=== PATIENT | male | born 1945 | race Caucasian/White ===

== ENCOUNTER 2022-03-17 15:38 | Outpatient (CLI) | payer MEDICARE, OTHER, SELFPAY | END 2022-03-17 15:39 | disposition home or self-care (01) | LOC: RAD 15:40 | PROVIDERS: PCP Internal Medicine; Visit Provider Internal Medicine | DX: R06.09 Other forms of dyspnea (principal); I51.7 Cardiomegaly; I07.1 Rheumatic tricuspid insufficiency; R09.02 Hypoxemia | CPT/HCPCS: 93306 ==

== ENCOUNTER 2023-07-02 13:21 | Emergency (ER) | payer MEDICARE, OTHER, SELFPAY ==
--- NOTE | 2023-07-02 13:36 | CRLHL7_ITS ---
For Patients: As a result of the Century Cures Act, medical imaging exams and procedure reports are released immediately into your electronic medical record. You may view this report before your referring provider. If you have questions, please contact your health care provider. HISTORY: Right calf pain and swelling. TECHNIQUE: Venous system of right lower extremity was examined using grayscale, color and doppler techniques. Compression was assessed where able to be assessed. The contralateral left common femoral vein was also evaluated. COMPARISON: No prior. FINDINGS: The right common femoral and upper through mid aspect of the femoral vein are patent. There is occlusive DVT present within the right femoral vein more inferiorly and also noted within the right popliteal, peroneal, gastrocnemius and soleus veins. Nonocclusive thrombus is present within the right posterior tibial vein. Contralateral left common femoral vein is patent. IMPRESSION: 1. DVT within the inferior aspect of the femoral vein, popliteal, peroneal, gastrocnemius, soleus and posterior tibial veins. Preliminary report was given to Dr. Dickerson by the radiology technologist at the conclusion of image acquisition. Final report in agreement with preliminary report. Dictated by Amanuel Tapia MD @ 07/02/2023 3:17:32 PM Dictated by: Amanuel Tapia MD @ 07/02/2023 15:18:13 (Electronically Signed)
[2023-07-02 13:37] VITALS: BP 102/63; PULSE 95; RESP 24; TEMP 37; O2SAT 90; BMI 33.2
--- NOTE | 2023-07-02 16:06 | ED_ITS ---
HPI - General Adult General Chief complaint: Extremity Pain/Injury, Lower Stated complaint: [place] ref-cancer pt-R leg blood clot? Time Seen by Provider: 07/02/23 13:42 Source: patient Mode of arrival: ambulatory Limitations: no limitations History of Present Illness HPI narrative: 78-year-old male presenting today with right calf pain. It has been sore for a couple days really became hard and uncomfortable last night. He states he has also been a little bit more short of breath than usual and has been coughing for about a week. He denies any fevers or chills. No nausea or vomiting. He denies any trauma to the leg. He did just finish his chemo and radiation for esophageal cancer at [facility]. He is not on any blood thinners. He does have a history of COPD and is on chronic oxygen therapy. Related Data Home Medications Medication Instructions Recorded Confirmed albuterol sulfate 90 mcg/actuation inhalation DAILY PRN 01/02/23 02/14/23 aerosol inhaler multivitamin 1 tab PO QAM 01/02/23 02/14/23 tamsulosin 0.4 mg capsule 0.4 mg PO DAILY 01/02/23 02/14/23 umeclidinium 62.5 mcg-vilanterol 1 ea inhalation DAILY 01/02/23 02/14/23 25 mcg/actuation powdr for inhalation (Anoro Ellipta) omeprazole 20 mg capsule,delayed 20 mg PO QDAY 02/14/23 02/14/23 release olanzapine 5 mg tablet 5 mg PO QPM 07/02/23 07/02/23 Previous Rx's Medication Instructions Recorded apixaban 5 mg tablet (Eliquis) 5 mg PO BID #60 tabs 07/02/23 Allergies Allergy/AdvReac Type Severity Reaction Status Date / Time No Known Drug Allergies Allergy Verified 02/14/23 09:21 Review of Systems Status of ROS: Reports: 10 or more systems reviewed and unremarkable except as noted in History and below PFSH PFSH Medical History Former smoker ?Z87.891 - Personal history of nicotine dependence (ICD-10) Surgical History History of basal cell carcinoma (BCC) ?Z85.828 - Personal history of other malignant neoplasm of skin (ICD-10) History of tonsillectomy and adenoidectomy (1951) ?Z90.89 - Acquired absence of other organs (ICD-10) History of colonoscopy with polypectomy (01/26/17) ?Z98.890 - Other specified postprocedural states (ICD-10) ?Z86.010 - Personal history of colonic polyps (ICD-10) History of bladder cancer ?Z85.51 - Personal history of malignant neoplasm of bladder (ICD-10) Status post cervical spinal fusion (06/2003) ?Z98.1 - Arthrodesis status (ICD-10) History of blepharoplasty ?Z98.890 - Other specified postprocedural states (ICD-10) Family History Brother Prostate cancer Son Sleep apnea Daughter Migraines Reuben-Danlos syndrome Father Stroke Mother High blood pressure Migraines Brain tumor Glaucoma Social History Smoking Status: Former smoker How often do you have a drink containing alcohol: never AUDIT-C Alcohol total score: 0 Non-prescribed substance use: denies use Little interest or pleasure in doing things: not at all Feeling down, depressed, or hopeless: several days Exam Narrative: Exam Narrative: Well-nourished well-developed patient in no acute distress. Alert and oriented. Answers questions appropriately. Mood and affect are appropriate. Thoughts are goal oriented and rational. No tangential or magical thinking noted. Patient speaks in full sentences without needing to catch his breath. HEENT: Normocephalic atraumatic. Pupils are equally round reactive to light. Extraocular muscles are intact. Conjunctivae are moist without any icterus noted. Moist mucous membranes. Cardiovascular: Heart is regular rate and rhythm S1 and S2 are present without any murmurs. Lungs: Clear to auscultation bilaterally no wheezes rhonchi or rales are appreciated. Patient takes deep breaths without any discomfort. Abdomen: Soft and nontender nondistended with normal bowel sounds. Extremities: Bilateral lower extremities are without edema. Normal DP and PT pulses. Right calf mildly swollen and tender to palpation. Slightly more firm when compared to the left. Skin: Well perfused without any obvious rashes. Const: Vital Signs, click to edit/add: Vital Signs - 24 hr 07/02/23 13:37 07/02/23 17:56 Temperature 98.6 F Pulse Rate [Pulse Oximeter] 95 77 Respiratory Rate 24 18 Blood Pressure [Ri ght Upper Arm] 102/63 99/77 Pulse Oximetry 90 96 Oxygen Delivery Me thod Nasal Cannula Nasal Cannula Oxygen Flow Rate 2 Course Course ED Course: Lower extremity ultrasound was done which does show a DVT per report noted below. Given his shortness of breath and cough over the last week we also did a chest CT PE protocol: This showed Segmental and subsegmental pulmonary emboli bilaterally, not definitely associated with any right heart strain?. Discussed findings with the patient. Will start him on Eliquis. First dose given today. Vital Signs Vital signs: Initial Vital Signs Temperature 98.6 F 07/02/23 13:37 Temperature Source Temporal Artery Scan 07/02/23 13:37 Pulse Rate 95 07/02/23 13:37 Respiratory Rate 24 07/02/23 13:37 Blood Pressure 102/63 07/02/23 13:37 Blood Pressure Mean 76 07/02/23 13:37 Blood Pressure Position Sitting 07/02/23 13:37 Pulse Oximetry 90 07/02/23 13:37 Oxygen Delivery Method Nasal Cannula 07/02/23 13:37 Oxygen Flow Rate 2 07/02/23 13:37 Vital Signs Temperature 98.6 F 07/02/23 13:37 Pulse Rate 95 07/02/23 13:37 Respiratory Rate 24 07/02/23 13:37 Blood Pressure 102/63 07/02/23 13:37 Pulse Oximetry 90 07/02/23 13:37 Oxygen Delivery Method Nasal Cannula 07/02/23 13:37 Oxygen Flow Rate 2 07/02/23 13:37 Temperature 98.6 F 07/02/23 13:37 Pulse Rate 77 07/02/23 17:56 Respiratory Rate 18 07/02/23 17:56 Blood Pressure 99/77 07/02/23 17:56 Pulse Oximetry 96 07/02/23 17:56 Oxygen Delivery Method Nasal Cannula 07/02/23 17:56 Oxygen Flow Rate 2 07/02/23 13:37 Medical Decision Making MDM Narrative Medical decision making narrative: 78-year-old male sinus was treatment for esophageal cancer presenting with bilateral PE and right sided DVT. Patient will be started on Eliquis and follow up with primary care provider this week. Lab Data Lab results reviewed: Yes I reviewed the patient's lab results Labs: Lab Results 07/02/23 Range/Units 16:24 POC Creatinine 0.7 (0.6-1.3) mg/dl Imaging Data Venous US: Attestation: I have reviewed the pertinent imaging results. Radiologist's impression: Right calf pain and swelling. TECHNIQUE: Venous system of right lower extremity was examined using grayscale, color and doppler techniques. Compression was assessed where able to be assessed. The contralateral left common femoral vein was also evaluated. COMPARISON: No prior. FINDINGS: The right common femoral and upper through mid aspect of the femoral vein are patent. There is occlusive DVT present within the right femoral vein more inferiorly and also noted within the right popliteal, peroneal, gastrocnemius and soleus veins. Nonocclusive thrombus is present within the right posterior tibial vein. Contralateral left common femoral vein is patent. IMPRESSION: 1. DVT within the inferior aspect of the femoral vein, popliteal, peroneal, gastrocnemius, soleus and posterior tibial veins. CT scan - chest: Attestation: I have reviewed the pertinent imaging results. Radiologist's impression: Cough, shortness breath, DVT. COMPARISON: 02/28/2022. TECHNIQUE: CTA of the chest. 95 cc of Isovue-370 administered intravenously. At the request of the ordering physician, 3-D reconstructed images were created on an independent workstation for enhanced visualization of anatomy and pathology. FINDINGS: Small segmental and subsegmental pulmonary emboli is seen bilaterally. Main pulmonary artery is normal in size. No definite CT evidence of right heart strain. There is pulmonary emphysema and pulmonary fibrosis redemonstrated, diffusely seen within the lungs, similar to previous, with a nonspecific pattern, but potentially postinfectious. No thoracic aortic aneurysm. Coronary artery calcifications are present. Tiny hiatal hernia. Interval significant enlargement in a periceliac lymph node seen between the EG junction, the celiac artery and the adrenal gland on image 201, series 4 measuring 2.2 cm, compared with 10 mm on the previous. Somewhat nodular configuration of the liver. No splenomegaly. Adrenal glands appear unremarkable. Small cyst left kidney. The thyroid and neck base appears unremarkable. No axillary, or neck base adenopathy. Mildly prominent mediastinal and hilar lymph nodes, in the upper limits of normal, could be reactive given the fibrosis and emphysema, appears stable to actually somewhat improved from previous. ACDF changes in the lower cervical spine. No aggressive appearing osseous lesion. IMPRESSION: 1. Segmental and subsegmental pulmonary emboli bilaterally, not definitely associated with any right heart strain by CT, despite underlying significant emphysema/pulmonary fibrosis. 2. Interval significant enlargement in abnormal soft tissue nodule likely a lymph node near the EG junction, left periceliac. Consider further evaluation with CT imaging of the abdomen pelvis and/or upper endoscopy. Discharge Plan Discharge Clinical Impression: DVT (deep venous thrombosis), Pulmonary embolism Patient Disposition: Home, Self-Care Condition: Stable Additional Instructions: Start taking Eliquis as prescribed - this is a blood thinner that will prevent more clots from forming in your legs and lungs. You should follow-up with your primary care provider this coming week for a recheck. Prescriptions: New Eliquis 5 mg tablet 5 mg PO BID Qty: 60 0RF Rx Instructions: 10 mg p.o. b.i.d. for 7 days followed by 5 mg p.o. b.i.d. 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
--- NOTE | 2023-07-02 16:11 | CRLHL7_ITS ---
For Patients: As a result of the Century Cures Act, medical imaging exams and procedure reports are released immediately into your electronic medical record. You may view this report before your referring provider. If you have questions, please contact your health care provider. INDICATION: Cough, shortness breath, DVT. COMPARISON: 02/28/2022. TECHNIQUE: CTA of the chest. 95 cc of Isovue-370 administered intravenously. At the request of the ordering physician, 3-D reconstructed images were created on an independent workstation for enhanced visualization of anatomy and pathology. FINDINGS: Small segmental and subsegmental pulmonary emboli is seen bilaterally. Main pulmonary artery is normal in size. No definite CT evidence of right heart strain. There is pulmonary emphysema and pulmonary fibrosis redemonstrated, diffusely seen within the lungs, similar to previous, with a nonspecific pattern, but potentially postinfectious. No thoracic aortic aneurysm. Coronary artery calcifications are present. Tiny hiatal hernia. Interval significant enlargement in a periceliac lymph node seen between the EG junction, the celiac artery and the adrenal gland on image 201, series 4 measuring 2.2 cm, compared with 10 mm on the previous. Somewhat nodular configuration of the liver. No splenomegaly. Adrenal glands appear unremarkable. Small cyst left kidney. The thyroid and neck base appears unremarkable. No axillary, or neck base adenopathy. Mildly prominent mediastinal and hilar lymph nodes, in the upper limits of normal, could be reactive given the fibrosis and emphysema, appears stable to actually somewhat improved from previous. ACDF changes in the lower cervical spine. No aggressive appearing osseous lesion. IMPRESSION: 1. Segmental and subsegmental pulmonary emboli bilaterally, not definitely associated with any right heart strain by CT, despite underlying significant emphysema/pulmonary fibrosis. 2. Interval significant enlargement in abnormal soft tissue nodule likely a lymph node near the EG junction, left periceliac. Consider further evaluation with CT imaging of the abdomen pelvis and/or upper endoscopy. Please note that all CT scans at this facility use dose modulation, iterative reconstruction, and/or weight-based dosing when appropriate to reduce radiation dose to as low as reasonably achievable. Dictated by Jovani Zimmerman MD @ 07/02/2023 5:08:56 PM (Electronically Signed)
[2023-07-02 16:31] LABS: Creatinine, Point-of-Care* 0.7 mg/dl (0.6-1.3)
[2023-07-02 17:56] VITALS: BP 99/77; PULSE 77; RESP 18; O2SAT 96
--- NOTE | 2023-07-06 12:37 | PC.NURSE ---
[facility] received PRN IVF orders from [facility] Radiation Oncology dept for pt who recently completed chemotherapy and radiation therapy. This order is for 500 cc NS over 1 hour daily PRN from 07/07-07/09/2023. Called pt to discuss his thoughts on if/when he may need to come in as [facility] is open M-F. Rin states he likely won'd need to come in but he will call if he feels dizzy, lightheaded, run down, or has decreased urine output. RN advices pt call [facility] [place] if he needs fluids. If Monday (tomorrow) pt will ask for [facility]. If Sat/Sun, pt will ask for Med Surg. Will share orders with Med Surg. Per Rin, he will be following up with his primary oncology team in [place] on 07/10/2023.
== END 2023-07-02 19:54 | disposition home or self-care (01) ==
PROVIDERS: Emergency Provider Family Medicine; PCP Internal Medicine
DX: I82.501 Chronic embolism and thrombosis of unspecified deep veins of right lower extremity (principal); I26.99 Other pulmonary embolism without acute cor pulmonale
CPT/HCPCS: 71275; 82565; 93971; 99284; Q9967

== ENCOUNTER 2024-06-25 09:48 | Outpatient (CLI) | payer MEDICARE, OTHER, SELFPAY ==
--- OUTSIDE RECORDS SUMMARY | 2024-06-28 01:03 | XMS_ITS | Continuity of Care Document ---
Author Name [facility] Organization [facility] Care Team Providers Care Bread Stacker Name Role Phone [facility] Unavailable Unavailable Problems Combined list of problems from Department of Defense and Veterans Affairs facilities. It does not include entries that were removed or entered in error. 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 Condition [facility] Long-term current use of anticoagulant Active Condition [facility] Malignant neoplasm of esophagus Active Condition [facility] Malignant tumor of urinary bladder Active Condition [facility] 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 [facility] Obstructive sleep apnea syndrome Active Condition [facility] Sleep apnea Active Condition [facility] Diagnosis: ICD-10-CM Z79.01 halfway (current) use of anticoagulants Active Diagnosis [facility] Diagnosis: ICD-10-CM R26.89 Other abnormalities of gait and mobility Active Diagnosis [facility] Diagnosis: ICD-10-CM R53.1 Weakness Active Diagnosis [facility] Diagnosis: ICD-10-CM 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, unspecified Active Diagnosis [facility] Diagnosis: ICD-10-CM Z86.711 Personal history of pulmonary embolism Active Diagnosis [facility] Diagnosis: ICD-10-CM C15.9 Malignant neoplasm of esophagus, unspecified Active Diagnosis [facility] Medications Combined list of outpatient medications [...] AND/OR PREVENT BLOOD CLOTS ORAL ACTIVE 04/25/2025 [id number] 4 Paula BAZAN 2023 [address] [place] [facility] APIXABAN 5MG TAB TAKE ONE TABLET BY MOUTH EVERY 12 HOURS TO TREAT AND/OR PREVENT BLOOD CLOTS ORAL DISCONT INUED 11/01/2024 [id number] SUYAPA CHAVIS 2023 [address] [place] [facility] APIXABAN 5MG TAB TAKE ONE TABLET BY MOUTH EVERY 12 HOURS FOR PULMONAR Y EMBOLISM ORAL DISCONT INUED 11/22/2023 [id number] MONO RAMOS 2023 60 [facility] [...] BY MOUTH EVERY DAY ORAL ACTIVE MAXINE RAMSOCA L 2023 [facility] ONDANSETRON HCL [...] AT BEDTIME FOR PROSTATE ORAL ACTIVE 06/14/2025 [id number] RACHEL MONO L 2023 30 [facility] TAMSULOSIN HCL 0.4MG CAP TAKE ONE CAPSULE BY MOUTH AT BEDTIME FOR PROSTATE ORAL DISCONT INUED 07/13/2024 [id number] MAXINE RAMOSCA L 2022 30 [facility] TAMSULOSIN HCL 0.4MG CAP TAKE 1 CAPSULE BY MOUTH AT BEDTIME ORAL ACTIVE Mervat PUENTE 2015 [facility] Immunizations Combined list of available immunizations from the Department of Defense and Veterans Affairs facilities. Immunization Series Date Given Administered By Site Reaction Lot Number CVX Code Drug Aviation Mechanic Status Comments Source RSV, RECOMBINANT, PROTEIN SUBUNIT RSVPREF, ADJUVANT RECONSTITUTED , 0.5 ML, PF 2022 303 complet ed [facility] COVID-19 (MODERNA), MRNA, LNP-S, BIVALENT, PF, 50 MCG/0.5 ML OR 25MCG/0.25 ML DOSE 2022 229 complet ed [facility] INFLUENZA, ADJUVANTED, QUADRIVALENT, PF 2022 205 complet ed [facility] INFLUENZA VACCINE, QUADRIVALENT, ADJUVANTED 2021 205 complet ed [facility] INFLUENZA, UNSPECIFIED FORMULATION 2021 88 complet ed [facility] COVID-19 (MODERNA), MRNA, LNP-S, BIVALENT, PF, 50 MCG/0.5 ML OR 25MCG/0.25 ML DOSE 2021 229 complet ed [facility] TDAP 2021 115 complet ed [facility] COVID-19 (MODERNA), MRNA, LNP-S, PF, 100 MCG/0.5ML DOSE OR 50 MCG/0.25ML DOSE 2021 207 complet ed [facility] COVID-19 (MODERNA), MRNA, LNP-S, PF, 100 MCG/0.5ML DOSE OR 50 MCG/0.25ML DOSE 3 2020 207 complet ed [facility] INFLUENZA VACCINE, QUADRIVALENT, ADJUVANTED 2020 205 complet ed [facility] INFLUENZA, UNSPECIFIED FORMULATION 2020 88 complet ed [facility] COVID-19 (MODERNA), MRNA, LNP-S, PF, 100 MCG/0.5 ML DOSE 2 2020 207 complet ed MOD: [id number]; 1 [facility] COVID-19 (MODERNA), MRNA, LNP-S, PF, 100 MCG/0.5 ML DOSE 1 2020 207 complet ed MOD; [id number]; 1 [facility] INFLUENZA, INJECTABLE, QUADRIVALENT, PRESERVATIVE FREE 2019 150 complet ed [facility] ZOSTER RECOMBINANT 2 2019 187 complet ed [facility] ZOSTER RECOMBINANT 1 2019 187 complet ed [facility] INFLUENZA, SEASONAL, INJECTABLE 2018 141 complet ed [facility] INFLUENZA, TRIVALENT, ADJUVANTED 2018 168 complet ed [facility] INFLUENZA, HIGH DOSE SEASONAL 2017 135 complet ed [facility] PNEUMOCOCCAL POLYSACCHARID E PPV23 2017 33 complet ed [employer] lot:[id number] 12 exp: [facility] INFLUENZA, HIGH DOSE SEASONAL 2016 135 complet ed [facility] ZOSTER LIVE 2016 121 complet ed [facility] INFLUENZA, SEASONAL, INJECTABLE 2015 141 complet ed [facility] PNEUMOCOCCAL CONJUGATE PCV 13 2014 133 complet ed [facility] TD (ADULT), 2 LF TETANUS TOXOID, PRESERVATIVE FREE, ADSORBED 2013 09 complet ed [facility] INFLUENZA, UNSPECIFIED FORMULATION 2013 88 complet ed [facility]ISIO N INFLUENZA, UNSPECIFIED FORMULATION 2012 88 complet ed [facility] ZOSTER LIVE 2012 121 complet ed [facility] INFLUENZA, UNSPECIFIED FORMULATION 2011 88 complet ed [place] [facility] Oroz[facility] DIVISIO N TDAP 2010 115 complet ed [facility] PNEUMOCOCCAL POLYSACCHARID E PPV23 2009 33 complet ed [facility] Vital Signs Combined list of inpatient and outpatient Vital Signs from Department of [facility] and [facility], ranging from 12 months to all on record, depending upon the facility. Vital Sign Value Date Comments Source SYSTOLIC BLOOD PRESSURE 145 02/26/2024 10:51:31 [facility] DIASTOLIC BLOOD PRESSURE 73 02/26/2024 10:51:31 [facility] PULSE OXIMETRY 96 02/26/2024 10:51:31 S [...] DC Date Status Disposition Source [facility] Outpatient Encounter [id number] YENNI MARTÍNEZ 05/11 [facility] Outpatient Encounter [id number] Diagnos is: ICD-10- CM C15.9 Maligna nt neoplas m of esophag us, unspeci fied
Sandi RAMOS L 05/12 [facility] [place] [facility] Outpatient Encounter [id number] 05/19 [place] [facility] [place] [facility] Out[place] Encounter [id number] 06/21 [place] [facility] [place] [facility] Outpatient Encounter [id number] 07/13 [place] Outpatient Encounter [id number] 08/18 [facility] [place] [facility] Outpatient Encounter [id number] 08/30 [place] [facility] [place] [facility] Outpatient Encounter [id number] 10/20 [place] [facility] [place] [facility] Out[place] Encounter [id number] 10/23 [place] [facility] [place] [facility] Outpatient Encounter [id number] 10/23 [place] [facility] [facility] [place] [facility] QNHP OL DIG ASSMT&MGMT 21+ [id number] Diagnos is: ICD-10- CM Z86.711 Persona l history of pulmona ry embolis m
SUYAPA SALEH M 11/01 [place] [facility] [place] [facility] Out[place] Encounter [id number] 02/19 [place] [facility] [facility] OFFICE O/P EST LOW 20 MIN [id number] Diagnos is: ICD-10- CM D01.9 Carcino ma in situ of digesti ve organ, unspeci fied
Sandi RAMOSCA L 02/25 [facility] [place] [facility] Outpatient Encounter [id number] LUIS F MCMILLAN 03/22 [place] [facility] [place] [facility] Out[place] Encounter [id number] LUIS F MCMILLAN 03/22 [place] [facility] [place] [facility] Outpatient Encounter [id number] 03/23 [place] [facility] [place] [facility] Outpatient Encounter [id number] 03/26 [place] [facility] [place] [facility] SELF CARE MNGMENT TRAINING [id number] Diagnos is: ICD-10- CM R53.1 Weaknes s
MIRTHA BLOCK 04/01 [place] [facility] [place] [facility] PT EVAL LOW COMPLEX 20 MIN [id number] Diagnos is: ICD-10- CM R26.89 Other abnorma lities of gait and mobilit y
SHALOM AMTHUR 04/[address] 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
DONNY BAZAN 04/24 [place] [facility] [place] [facility] Outpatient Encounter [id number] 05/14 [place] [facility] [facility] [place] [facility] Outpatient Encounter [id number] 06/25 [place] [facility] Social History Combined list of available smoking, tobacco, and other social history from Department of Defense and Veterans Affairs facilities. Social History Type Response Date Comment [facility] e Tobacco smoking status NHIS VA-TOBACCO FORMER USER 05/11/2023 [facility] History of tobacco use VA-TOBACCO QUIT 1 5 YRS OR MORE 05/11/2023 [facility] History of tobacco use VA-TOBACCO QUIT 1 5 YRS OR MORE 05/09/2022 [facility] History of tobacco use VA-TOBACCO FORMER USER 04/23/2021 [facility] History of tobacco use VA-TOBACCO QUIT 1 5 YRS OR MORE 02/28/2020 [facility] History of tobacco use VA-TOBACCO QUIT 1 5 YRS OR MORE 03/12/2019 [facility] History of tobacco use FORMER TOBACCO US ER 7Y OR GREATER 12/21/2017 [facility] History of tobacco use FORMER TOBACCO US ER 7Y OR GREATER 02/15/2013 [facility] Plan of Care List of future care activities from Department of Veterans Affairs facilities. Additional future care activities may be listed in the Assessment and Plan section. Date/Time Care Activity Care Activity Detail Facili ty 07/03/2024 AMBULATORY - MEDICINE AMBULATORY - MEDICI NE [facility]
--- OUTSIDE RECORDS SUMMARY | 2024-06-28 01:04 | XMS_ITS | Encounter Summary ---
Author Name [facility] Organization [facility] Address [address] [place] [address] Care Team Providers Care Spice Fumigator Name Role Phone MONO RAMOS Primary Care Provider Unavail ble Insurance Providers: All historical and current Section Date Range: From patient's date of to the date document was created. This section includes the names of all active insurance providers for the patient. Insurance Provider Type of Coverage Plan Name Start of Policy Coverage End of Policy Coverage Group Number Member ID Insurance Provider's Telephone Number Policy Otero's Name Patient's Relationship to Policy Otero MEDICARE (WNR) MEDICARE (M) PART B Apr 18, 2012 PART B [id number] [phone] JUAN J RMERNIKITA PATIENT MEDICARE (WNR) MEDICARE (M) PART B Apr 18, 2012 PART B [id number] [phone] JEANNEMEISTE R,MERLE PATIENT MEDICARE (WNR) MEDICARE (M) PART B Apr 18, 2012 PART B [id number] [phone] DOMOE R,MERLE PATIENT MEDICARE (WNR) MEDICARE (M) PART B Apr 18, 2012 PART B [id number] [phone] DOMOE R,MERLE PATIENT MEDICARE (WNR) MEDICARE (M) PART A Apr 18, 2011 PART A [id number] DOMOE R,MERLE PATIENT MEDICARE (WNR) MEDICARE (M) PART A Apr 18, 2011 PART A [id number] [phone] SORENISTE RDELORIS PATIENT MEDICARE (WNR) MEDICARE (M) PART A Apr 18, 2011 PART A [id number] SORENISTE RDELORIS PATIENT MEDICARE (WNR) MEDICARE (M) PART A Apr 18, 2011 PART A [id number] [phone] SORENISTE R,DELORIS PATIENT [employer] [place] [employer] PLAN F MEDIC ARE SUPPL EMENT Apr 18, 2012 PLAN F [id number] SORENISTE RDELORIS PATIENT [employer] [place] MEDICARE SUPPLEMEN [place] MEDIC ARE SUPPL EMENT Apr 18, 2012 PLAN F [id number] [phone] [id number] DOMOE RDELORIS PATIENT Selected Encounter This section includes the information on record at [place] for the Encounter. Date/Time Encounter Type Encounter Description Reason Pro vider Source Jun 25, 2024 01:19 PM Outpatient Encounter TELEPHONE/GERIATRICS IHE Encounter Template Text not used by [place] Plan of Treatment: Future Appointments (+ 6 months) and Future Tests (+/- 45 days) The Plan of Treatment section includes future care activities for the patient from all [place] treatmentfacilities. This section includes future appointments and future orders which are active, pending or scheduled. Future Appointments This section includes appointments that were scheduled to occur 6 months from the date of the Encounter, up to a maximum of 20 appointments. The data comes from all [place] treatment facilities. Appointment Date/Time Appointment Type Appointme nt Facility Name Jul 03, 2024 09:30 AM AMBULATORY - MEDICINE [facility] Social History: Smoking Status (Most current) and Tobacco Use (All prior to encounter date) This section includes the most current, and the historical, smoking and tobacco- related health factors from the [facility] where the [facility]. Current Smoking Status This section includes the most current smoking, or tobacco-related health factor, from the [facility] facility where the Encounter took place. Date/Time Current Smoking Status Kelton velasquez May 11, 2023 04:39 PM VA-TOBACCO FORMER USER [facility] Tobacco Use History This section includes a history of the smoking, or tobacco-related health factors, that were collected on or before the date of the Encounter. The data comes from the [facility] facility where the Encounter took place. Date/Time Smoking Status/Tobacco Use Comment F acility May 11, 2023 04:39 PM VA-TOBACCO QUIT 15 YRS OR MORE [facility] Encounter Notes: All associated encounter notes This section contains the clinical notes associated to the Encounter. Date/Time Encounter Note(s) Provider Source Jun 25, 2024 01:19 PM PALLIATIVE CARE NO TE: LOCAL TITLE: HOSPICE VERIFICATION NOTE STANDARD TITLE: PALLIATIVE CARE NOTE DATE OF NOTE: JUN 25, 2024@13:19 ENTRY DATE: JUN 25, 2024@13:20:01 AUTHOR: BARB TYSON EXP COSIGNER: URGENCY: STATUS: COMPLETED Hospice Verification Note Hospice agency and contact number: 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 /elza/ Barb Tyson RN, BSN Hospice Community Health Coordinator Signed: 06/25/2024 13:23 Receipt Acknowledged By: 06/25/2024 13:59 /elza/ MONO RAMOS PHYSICIAN [facility]
--- OUTSIDE RECORDS SUMMARY | 2024-06-28 01:04 | XMS_ITS | Clinical Summary ---
Author Organization [facility] Address [address] [place] [address] Care Team Providers Care Hand Carver Name Role Phone Elsewhere, Pcp Primary Care Provider Unavailabl e Source Comments Patient records contain information from all sites at [facility]. For routine questions regarding patient records, call [phone] during business hours, M-F 8:00 AM - 5:00 PM Central Time. Record requests for emergency care only can be directed to [phone] at any time.[facility] Allergies No known active allergies Medications Medication [...] WHEEZING OR SHORTNESS OF BREATH. USE WITH SUBWAY TRAIN OPERATOR TUBE. 18 g 11 07/27/2023 07/26/20 24 Active Eliquis 5 mg tablet Take 5 mg by mouth 2 (two) times a day. 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 Pleurx Catheter 06/10/2024 5:18 PM CDT - 06/10/2024 6:44 PM CDT Surgery [facility] [address] [place] [phone] Greg Ramirez M.D. PLACEMENT TUNNELED PLEURAL CATHETER WITH PLEUROSCOPY 06/10/2024 5:13 PM CDT Anesthesia Event [facility] [address] [place] [phone] Kalpesh Mckenzie, MINESH, DARIA, Lanie Orellana M.D. 06/10/2024 4:25 PM CDT Ancillary Procedure Department of Pulmonary and CC Medicine 06/10/2024 3:45 PM CDT Ancillary Procedure Department of General Surgery 06/10/2024 11:56 AM CDT - 06/10/2024 10:03 PM CDT Hospital Encounter [facility] [address] [place] [phone] Greg Ramirez M.D. Discharge Disposition: Home or Self Care 06/07/2024 5:45 PM CDT Infusion Department of Infusion Therapy in [place], [place] [address] [place] [phone] Elena Salas M.D. 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 Malignant Neoplasm Of Gastroesophageal Junction (HCC) (Primary Dx); Effusion Pleural; Anemia In Chronic Kidney Disease 06/07/2024 2:00 PM CDT Education Division of Pulmonary Medicine in [place], [place] [address] [place] [phone] Elena Salas M.D. McDonald, Charles W, R.N. Effusion Pleural (Primary Dx) 06/07/2024 1:50 PM CDT Ancillary Procedure Department of Pulmonary and CC Medicine 06/07/2024 1:12 PM CDT - 06/07/2024 3:34 PM CDT Hospital Encounter Division of Pulmonary Medicine in [place], [place] [address] [place] [phone] Elena Salas M.D. Effusion Pleural (Primary Dx); Personal History Of Malignant Neoplasm Of Bladder; Anemia In Chronic Kidney Disease; Malignant Neoplasm Of Gastroesophageal Junction (HCC) Discharge Disposition: Home or Self Care 06/07/2024 10:57 AM CDT - 06/07/2024 1:11 PM CDT Hospital Encounter Department of Radiology, [facility] in [place], [place] [address] [place] [phone] Kuldeep Ruth M.D. Personal History Of Malignant Neoplasm Of Bladder Discharge Disposition: Home or Self Care 06/07/2024 Orders Only Division of Pulmonary Medicine in [place], [place] [address] [place] [phone] Elena Salas M.D. Effusion Pleural (Primary Dx); Secondary Malignant Neoplasm Bone (HCC); Anemia In Neoplastic Disease; Malignant Neoplasm Of Gastroesophageal Junction (HCC) 06/06/2024 Orders Only Division of Pulmonary Medicine in [place], [place] [address] [place] [phone] Kuldeep Ruth M.D. Personal History Of Malignant Neoplasm Of Bladder (Primary Dx) 05/21/2024 Orders Only Division of Pulmonary Medicine in [place], [place] [address] [place] [phone] Edgardo Joy D.O. Fibrosis Pulmonary (HCC) (Primary Dx); Emphysema (HCC) 05/16/2024 10:15 AM CDT Telemedicine Department of Palliative Care in [place], [place] [address] [place] [phone] Evonne Garcia APRN, C.N.P., D.N.P. Malignant Neoplasm Of Gastroesophageal Junction (HCC); Secondary Malignant Neoplasm Bone (HCC); Pain Cancer Associated; Palliative Care; Emphysema (HCC); Dyspnea; Advanced Care Planning 05/10/2024 Clinical Communication Department of Palliative Care in [place], [place] [address] [place] [phone] Hannah Alcantara M.D. 05/08/2024 8:31 AM CDT - 05/08/2024 11:59 PM CDT Hospital Encounter Department of Radiation Oncology in [address] [phone] Dread Doyle M.D. Discharge Disposition: Home or Self Care 05/08/2024 8:10 AM CDT - 05/22/2024 5:04 PM CDT Hospital Encounter Department of Radiation Oncology in [address] [phone] Dread Doyle M.D. Secondary Malignant Neoplasm Bone (HCC) 05/08/2024 Documentation Department of Radiation Oncology in [address] [phone] Dread Doyle M.D. 05/07/2024 10:08 AM CDT - 05/07/2024 11:59 PM CDT Hospital Encounter Department of Radiation Oncology in [address] [phone] Dread Doyle M.D. Discharge Disposition: Home or Self Care 05/06/2024 8:57 AM CDT - 05/06/2024 11:59 PM CDT Hospital Encounter Department of Radiation Oncology in [address] [phone] Dread Doyle M.D. Discharge Disposition: Home or Self Care 05/03/2024 3:00 PM CDT Telemedicine Division of Pulmonary Medicine in [address] [phone] Edgardo Joy D.OJam Dyspnea On Exertion; Fibrosis Pulmonary (HCC); Emphysema (HCC) 05/03/2024 1:38 PM CDT - 05/03/2024 11:59 PM CDT Hospital Encounter Department of Radiation Oncology in [address] [phone] Dread Doyle M.D. Discharge Disposition: Home or Self Care 05/03/2024 7:29 AM CDT - 05/03/2024 8:20 AM CDT Hospital Encounter Department of Radiology, [facility], in [place], [place] [address] [place] [phone] Merly Beavers APRN C.N.P., M.S. Secondary Malignant Neoplasm Bone (HCC); Malignant Neoplasm Of Gastroesophageal Junction (HCC); Effusion Pleural Discharge Disposition: Home or Self Care 05/02/2024 2:00 PM CDT Comprehensive Visit Department of Palliative Care in [place], [place] [address] [place] [phone] Hannah Alcantara M.D. Melba Hodge RMabel., CHPN Malignant Neoplasm Of Gastroesophageal Junction (HCC); Secondary Malignant Neoplasm Bone (HCC) 05/02/2024 10:28 AM CDT - 05/02/2024 11:59 PM CDT Hospital Encounter Department of Radiation Oncology in [address] [phone] Dread Doyle M.D. Discharge Disposition: Home or Self Care 05/02/2024 9:43 AM CDT - 05/06/2024 2:20 PM CDT Hospital Encounter Department of Radiation Oncology in [address] [phone] Dread Doyle M.D. Secondary Malignant Neoplasm Bone (HCC) 05/02/2024 Orders Only Department of Oncology in [address] [phone] Luzma Howell M.D. Diarrhea (Primary Dx) 05/01/2024 Clinical Communication [facility]ST [facility] Maritza Preciado, M.S.W., L.I.C.S.W. 04/30/2024 4:15 PM CDT Infusion Department of Infusion Therapy in [place], [place] [address] [place] [phone] Luzma Howell M.D. Malignant Neoplasm Of Gastroesophageal Junction (HCC) (Primary Dx); Secondary Malignant Neoplasm Bone (HCC) 04/30/2024 2:20 PM CDT Lab Department of Infusion Therapy in [place], [place] [address] [place] [phone] Luzma Howell M.D. Malignant Neoplasm Of Gastroesophageal Junction (HCC) (Primary Dx) 04/30/2024 1:00 PM CDT Office Visit Department of Oncology in [place], [place] [address] [place] [phone] Luzma Howell M.D. 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 Malignant Neoplasm Of Gastroesophageal Junction (HCC) (Primary Dx) 04/30/2024 Orders Only Department of Oncology in [address] [phone] Luzma Howell M.D. Malignant Neoplasm Of Gastroesophageal Junction (HCC) (Primary Dx) 04/30/2024 Orders Only Department of Oncology in [address] [phone] Merly Beavers APRN, C.N.P., M.S. 04/22/2024 1:32 PM CDT - 04/22/2024 11:59 PM CDT Hospital Encounter Department of Radiation Oncology in [address] [phone] Kuldeep Ritchie M.D. Secondary Malignant Neoplasm Bone (HCC) Discharge Disposition: Home or Self Care 04/22/2024 9:57 AM CDT - 05/13/2024 10:44 PM CDT Hospital Encounter Department of Radiation Oncology in [address] [phone] Kuldeep iRtchie M.D. Secondary Malignant Neoplasm Bone (HCC) (Primary Dx); Malignant Neoplasm Of Gastroesophageal Junction (HCC) 04/22/2024 8:52 AM CDT - 04/22/2024 9:56 AM CDT Hospital Encounter Department of Radiology, [facility], in [place], [place] [address] [place] [address] Merly Beavers APRN, C.N.P., M.S. Malignant Neoplasm Of Gastroesophageal Junction (HCC); Secondary Malignant Neoplasm Bone (HCC) Discharge Disposition: Home or Self Care 04/22/2024 Orders Only Department of Oncology in [place], [place] [address] [place] [phone] Merly Beavers APRN C.N.P., M.S. Secondary Malignant Neoplasm Bone (HCC) (Primary Dx); Malignant Neoplasm Of Gastroesophageal Junction (HCC); Effusion Pleural 04/22/2024 Orders Only Department of Radiation Oncology in [place], [place] [address] [place] [phone] Kuldeep Ritchie M.D. Secondary Malignant Neoplasm Bone (HCC) (Primary Dx) 04/19/2024 9:42 AM CDT - 04/19/2024 11:59 PM CDT [facility] [place], [place] [address] [place] [address] Merly Beavers APRN C.N.P., M.S. Malignant Neoplasm Of Gastroesophageal Junction (HCC); Secondary Malignant Neoplasm Bone (HCC) Discharge Disposition: Home or Self Care 04/19/2024 Orders Only Department of Radiation Oncology in [place], [place] [address] [place] [phone] Kuldeep Ritchie M.D. Secondary Malignant Neoplasm Bone (HCC) (Primary Dx) 04/17/2024 7:00 AM CDT Infusion Department of Oncology in [place], [place] [address] [place] [phone] Luzma Howell M.D. Malignant Neoplasm Of Gastroesophageal Junction (HCC) (Primary Dx); Secondary Malignant Neoplasm Bone (HCC) 04/16/2024 2:00 PM CDT Office Visit Department of Oncology in [place], [place] [address] [place] [address] Merly Beavers APRN, C.N.P., M.S. Malignant Neoplasm Of Gastroesophageal Junction (HCC); Secondary Malignant Neoplasm Bone (HCC) 04/16/2024 11:00 AM CDT Lab Department of Oncology in [place], [place] [address] [place] [phone] Luzma Howell M.D. Malignant Neoplasm Of Gastroesophageal Junction (HCC) (Primary Dx) 04/16/2024 Orders Only Division of Pulmonary Medicine in [place], [place] [address] [place] [phone] Edgardo Joy D.OJam Dyspnea On Exertion (Primary Dx); Fibrosis Pulmonary (HCC); Emphysema (HCC) 04/16/2024 Clinical Communication Division of Pulmonary Medicine in [place], [place] [address] [place] [phone] Edgardo Joy D.O. 04/11/2024 3:00 PM CDT Office Visit Department of Oncology in [place], [place] [address] [place] [phone] Luzma Howell M.D. Malignant Neoplasm Of Gastroesophageal Junction (HCC) (Primary Dx); Chronic Respiratory Failure With Hypoxia (HCC) 04/11/2024 2:00 PM CDT Lab Department of Infusion Therapy in [place], [place] [address] [place] [phone] Paddy Jha P.A.-C., M.S. Malignant Neoplasm Of Gastroesophageal Junction (HCC) (Primary Dx) 04/11/2024 1:00 PM CDT Diagnostic Division of Pulmonary Medicine in [place], [place] [address] [place] [phone] Edgardo Joy D.OJam Fibrosis Pulmonary (HCC); Chronic Cough 04/05/2024 12:00 PM CDT Office Visit Division of Pulmonary Medicine in [place], [place] [address] [place] [phone] Edgardo Joy D.OJam Chronic Cough (Primary Dx); Fibrosis Pulmonary (HCC) 04/05/2024 10:30 AM CDT Diagnostic Division of Pulmonary Medicine in [place], [place] [address] [place] [phone] Edgardo Joy D.O. Fibrosis Pulmonary (HCC) 04/05/2024 Clinical Communication Division of Pulmonary Medicine in [place], [place] [address] [place] [phone] Edgardo Joy D.O. TIRSO 04/05/2024 Clinical Communication Division of Pulmonary Medicine in [place], [place] [address] [place] [phone] Edgardo Joy D.O. 04/05/2024 Clinical Communication Division of Pulmonary Medicine in [place], [place] [address] [place] [phone] Edgardo Joy D.O. 04/03/2024 10:30 AM CDT Clinical Communication Virtual Review in [place], [place] [address] [place] [address] Pre-visit Intake from Last 3 Months Immunizations Name Administration Dates Next Due SARS-COV-2 (COVID-19) - MODERNA(Discontinued) ,10/31/2020 Family History Medical History Relation Name Comments Prostate cancer Brother Amador Prostate rem kashif 2015 Sleep apnea Child Son Genetic disease Daughter Bess Reuben-danlo s-syndromes Migraines Daughter Bess Stroke Father Tray Cho Stroke , di ed 3 days later Hypertension Mother Daniel Cho Migraines Mother Daniel Cho Other cancer Mother [...] pur e alcohol) drink on special occasions [facility] Utilities Answer Date Recorded In the past [...] week 01/27/2023 How often do you attend [facility] or bapt[facility] services? More than 4 [...] Not very hard 01/27/2023 [facility] [place] [facility] - [...] your living situation today? I have a [facility] place to live 03/31/2024 Education Answer [...] this topic Medical Devices Implanted Type Area Acid Pump Operator Device Identifier Shelf Expiration Date Model / Serial / Lot Hardware E.G. Pins/Screws/R ods Hardware e.g. pins/screws/effie s Neck Description:Vertebra 4 5 and 6 Prt Cath Infus Mri Intrmd 8f - [id number] Implanted:Qty : 1 on 12/05/2023 by Nomi Cowart M.D. at [facility] Implantable [place] [employer] 06/17/2025 [id number] / / [id number] Procedures Procedure Name Priority Date/Time Associated Diagnosis Comments ADULT OXYGEN THERAPY Routine 06/10/2024 6:50 PM CDT DX CHEST 1 VIEW RAD - Routine (most inpatients and all outpatients) 06/10/2024 6:40 PM CDT PLACEMENT TUNNELED PLEURAL CATHETER 06/10/2024 4:53 PM CDT Effusion Pleural Case Notes Plant Associate 1200 PULMONARY AND CC MEDICINE IMAGE EXAM [...] TREATMENT INFORMATION Routine 05/08/2024 9:19 AM CDT [facility] DAILY TREATMENT INFORMATION Routine 05/08/2024 9:19 AM CDT [facility] DAILY TREATMENT INFORMATION Routine 05/07/2024 10:23 AM CDT [facility] DAILY TREATMENT INFORMATION Routine 05/06/2024 9:18 AM [...] Diarrhea 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 LAB BLOOD ADD-ON [facility] [address] [place] [address], [facility] STMA [facility] [address] [place] [address] * Transfuse Red Blood Cells : (06/07/2024 11:29 PM CDT) Only the most recent of4 resultswithin the time period is included. Elena Salas M.D. BLOOD TRANSFUSION OR DERABLES * Type and Screen (with Reflex Antibody ID) (06/07/2024 3:14 PM CDT) Only the most recent of2 resultswithin the time period is included. ABORh O Pos Not applicable 06/07/2024 4:06 PM CDT ETRM Antibody Screen Negative Negative 06/07/2024 4:11 PM CDT ETRM Type & Screen Expiration 06/10/2024 23:59 06/07/2024 4:06 PM CDT ETRM Testing Location [place] DEFAULT 06/07/2024 3:29 PM CDT ETRM Blood (Blood, Venous) 06/07/2024 3:14 PM CDT 06/07/2024 3:29 PM CDT Elena Salas M.D. LAB BLOOD BANK TEST ORDERABLES Performing Organization Address [facility]/ZIP Co de Phone Number [facility] [address] [place] [address], [facility] ETRM [facility] [address] [place] [address] * DX Chest AP or PA and [...] M.D. IMG DIAGNOSTIC IMAG ING PROCEDURES * [facility] Course Complete Treatment Information (05/08/2024 9:19 AM [...] Elapsed Days 6 MARSH ARIA Reference Point [id number] LHumeru MARSH ARIA Dosage Given to Date cGy 1999 MARSH ARIA Plan ID [id number]: 1 MARSH ARIA Fractions Treated to Date 5 MARSH ARIA Planned Total Fractions 5 MARSH ARIA Prescribed Dose Per Fraction 400 MARSH ARIA Prescription Dose in cGy 1999 MARSH ARIA Predecessor Plan [id number] MARSH ARIA Plan Primary Reference Point [id number] LHumeru MARSH ARIA 05/08/2024 9:19 AM CDT Provider Not In System RADIATION ONCOLOG Y ORDERABLES [facility] * Aria Daily Treatment Information (05/08/2024 9:19 AM CDT) Only the most recent of5 resultswithin the time period is included. Course ID [id number] MARSH ARIA Course Start Date 04/19/2024 15:21 CDT MARSH ARIA First Treatment Date 05/02/2024 10:51 CDT MARSH ARIA Last Treatment Date 05/08/2024 09:19 CDT MARSH ARIA Treatment Elapsed Days 6 MARSH ARIA Reference Point [id number] LHumeru MARSH ARIA Dosage Given to Date cGy 2000 MARSH ARIA Session Dosage Given 400 MARSH ARIA Plan ID [id number]: 1 MARSH ARIA Fractions Treated to Date 5 MARSH ARIA Planned Total Fractions 5 MARSH ARIA Prescribed Dose Per Fraction 400 MARSH ARIA Prescription Dose in cGy 2000 MARSH ARIA Predecessor Plan [id number] MARSH ARIA Plan Primary Reference Point [id number] LHumeru MARSH ARIA 05/08/2024 9:19 AM CDT [...] This assay is performed using the FDA-cleared [employer] GI Panel ([employer] Semi-Urgent This is a semi-urgen t result(BENÍTEZ) [facility] Stool (Stool) 05/02/2024 1:0 2 PM CDT 05/02/2024 1:36 PM CDT Luzma Howell M.D. LAB MICROBIOLOGY - G ENERAL ORDERABLES [facility] [address] [place] [address], [facility] DTL [address] [facility] [address] [place] [address] * (ABNORMAL) CBC with Differential, Blood (04/30/2024 [...] Arias OCONNOR BLOOD ADD-ON Performing Organization Address [facility] Co de Phone Number [facility] [address] 200 [place] [address] * Bilirubin, Direct (04/30/2024 6:54 AM CDT) Only the most recent of2 resultswithin the time period is included. Bilirubin, Direct, S <0.2 0.0 - 0.3 mg/dL 04/30/2024 8:01 AM CDT DTL Blood (Blood, Venous) 04/30/2024 6:54 AM CDT 04/30/2024 7:42 AM CDT Merly Beavers APRN, C.N.P., M.S. BLESSING Longo BLOOD ADD-ON Performing Organization Address [facility] Co de Phone Number [facility] [address] [place], [place] [id number] [place] [address] 200 [place] [address] * (ABNORMAL) Comprehensive Metabolic Panel (04/30/2024 6:54 [...] APRN C.N.P., M.S. LA B BLOOD ADD-ON [facility] [address] [place] [address], [facility] DTL [facility] [address] [place] [address] * Initial Rad Onc Treatment Planning CT [...] CDT 04/11/2024 2:18 PM CDT Paddy Jha P.A.-C. MJamSJam LAB BLOOD A DD-ON Performing Organization Address [facility] de Phone Number [facility] [address] [place] [address], [place] DTL [facility] [address] [place] [address] [facility] [address] [place] [address] * PUL Home Overnight Oximetry (04/11/2024) 04/11/2024 Impressions [place] NED LOVING - 04/12/2024 3:50 PM CDT Despite supplemental oxygen, there is persistence of baseline and positional gas exchange abnormality. Physician: Stan Romero M.D. [id number] Narrative Procedure Note Stan Romero M.D. - 04/12/2024 IMPRESSION: Despite supplemental oxygen, there is persistence of baseline andpositional gas exchange abnormality. Physician: Stan Romero M.D. [id number] Edgardo Joy D.O. PFT ORDERABLES Performing Organization Address [facility] de Phone Number [facility] * Oxygen Titration (04/05/2024 11:03 AM [...] Joy D.O. PFT ORDERABLES MMODAL NA * CT Abdomen Pelvis with IV Contrast [...] Advance Directives For more information, please contact: [phone] Documents on File Type Date Recorded Patient Management Professionals Expl anation Advance Directives 05/02/2024 4:04 PM [...] Communication Luz Cho Spouse Health Care Agent [email or web address] Alaina Chang Daughter First Alternate Health Care Agent Care Teams Hand Carver Relationship Specialty Start Date End Date Elsewhere, Pcp PCP - General Internal Medicine 03/23/24
--- OUTSIDE RECORDS SUMMARY | 2024-06-28 01:05 | XMS_ITS ---
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 Hazardous Material Technician Current Drug Therapy, Chemotherapy Dehydration 07/05/2023 Dehydration 06/16/2023 Reaction Drug Adverse Initial 05/29/2023 Other Hazardous Material Technician Current Drug Therapy 05/08/2023 Abnormal Findings On [...] Treated Prescribed Fraction Dose Prescribed Total Dose [id number]: 1 05/08/2024 6 5 of 5 400 cGy 2,000 cGy [id number] 06/30/2023 32 25 of 25 200 cGy 5,000 c Gy Reference Point Last Treated On Elapsed Days Session Dose Total Dose [id number] LHumeru 05/08/2024 6 400 cGy 2,000 cG y [id number] 06/30/2023 32 169 cGy 5,000 cGy Lifetime Dose Tracking * Chemical Lifetime Dose Automatic Entry Manual Entr y Radiation 14.04 mGy 14.04 mGy 0 mGy Fluoro Time 1.22 minutes 1.22 minutes 0 minutes DAP (uGy-m2) 435.94 uGy-m2 435.94 uGy-m2 0 uGy-m2
--- OUTSIDE RECORDS SUMMARY | 2024-06-28 01:05 | XMS_ITS ---
Author Organization [facility] Address [address] [place] [address] Care Team Providers Care Kitchen Lead Name Role Phone Unavailable Unavailable Unavailable Surgery Details Not on file Complications Check Surgery Details section. Procedure Estimated Blood Loss Check Surgery Details section. Procedure Findings Check Surgery Details section. Procedure Specimens Taken Check Surgery Details section.
--- OUTSIDE RECORDS SUMMARY | 2024-06-28 01:05 | XMS_ITS | Encounter Summary ---
Author Organization [facility] Address [address] [place] [address] Care Team Providers Care Rn Team Leader Name Role Phone Elsewhere, Pcp Primary Care Provider Unavailabl e Reason for Visit * Reason Onset Date Comments Pleurx Catheter 06/11/2024 Encounter Details Date Type Department Care Team (Latest Contact Info) Description 06/11/2024 Clinical Communication Division of Pulmonary Medicine in [place], [place] [address] [place] [address] Greg Ramirez M.D. [address] [place] [address] Pleurx Catheter Social History Tobacco Use Types Packs/Day Years Used Date Smoking Tobacco: Former Cigarettes 2.5 30.1 0 09/18/1965 - 11/01/1995 Passive Smoke Exposure: Never Smokeless Tobacco: Never Alcohol Use Standard Drinks/Week Comments Not Currently 1 (1 standard drink = 0.6 oz pur e alcohol) drink on special occasions [facility] Utilities Answer Date Recorded In the [...] How often do you attend chur or mosque services? More than 4 times per year 01/27/2023 Do you belong to any clubs o r organizations such as protestant groups, unions, fraternal or athletic groups, or [...] care, and heating? Not very hard 01/27/2023 [facility] of Occupat ional Health - Occupational Stress [...] your living situation today? I have a [facility] place to live 03/31/2024 Education Answer Date [...] pleural catheter with pleuroscopy. Caller: Lynda from [facility] [phone] Message: [facility] is taking over patient's care. Lynda called to speak to someone about managing Pleurx catheter. Request: Can someone call Lynda about his catheter questions? Thank you, [id number] documented in this encounter Plan of Treatment Not on file documented as of this encounter Visit Diagnoses Not on filedocumented in this encounter Care Teams Rn Team Leader Relationship Specialty Start Date End Date Elsewhere, Pcp PCP - General Internal Medicine 03/23/24 documented as of this encounter
--- OUTSIDE RECORDS SUMMARY | 2024-06-28 01:05 | XMS_ITS | Encounter Summary ---
Author Organization [facility] Address [address] [place] [address] Care Team Providers Care Qa Software Tester Name Role Phone Elsewhere, Pcp Primary Care [...] [facility] Utilities Answer Date Recorded In the past 12 months has e nGame, gas, oil, or water [employer] threatened to shut off services in your [...] your living situation today? I have a [facility] place to live 03/31/2024 Education Answer Date [...] on filedocumented in this encounter Care Teams Qa Software Tester Relationship Specialty Start Date End Date Elsewhere, Pcp PCP - General Internal Medicine 03/23/24 documented as of this encounter
--- OUTSIDE RECORDS SUMMARY | 2024-06-28 01:05 | XMS_ITS | Encounter Summary ---
Author Organization [facility] Address [address] [place] [address] Care Team Providers Care Information Technology Advisor Name Role Phone Elsewhere, Pcp Primary Care [...] pur e alcohol) drink on special occasions [facility] Utilities Answer Date Recorded In the past 12 months has [employer], gas, oil, or water [employer] threatened to shut off services in your [...] How often do you attend chur or episcopalian services? More than 4 times per year 01/27/2023 Do you belong to any clubs o r organizations such as zoroastrian groups, unions, fraternal or athletic groups, or [...] care, and heating? Not very hard 01/27/2023 [facility] of Occupat ional Health - Occupational [...] your living situation today? I have a [facility] place to live 03/31/2024 Education Answer Date [...] on filedocumented in this encounter Care Teams Information Technology Advisor Relationship Specialty Start Date End Date Elsewhere, Pcp PCP - General Internal Medicine 03/23/24 documented as of this encounter
--- OUTSIDE RECORDS SUMMARY | 2024-06-28 01:05 | XMS_ITS | Referral Summary ---
Author Organization [facility] Address [address] [place] [address] Care Team Providers Care Chef'S Assistant Name Role Phone Elsewhere, Pcp Primary Care Provider Unavailabl e Source Comments Patient records contain information from all sites at [facility]. For routine questions regarding patient records, call [phone] during business hours, M-F 8:00 AM - 5:00 PM Central Time. Record requests for emergency care only can be directed to [phone] at any time.[facility] Encounters Date Type Department Care Team Description 06/11/2024 Clinical Communication Division of Pulmonary Medicine in [place], [place] [address] [place] [address] Greg Ramirez M.D. Pleurx Catheter 06/10/2024 3:45 PM CDT Ancillary Procedure Department of General Surgery 06/10/2024 4:25 PM CDT Ancillary Procedure Department of Pulmonary and CC Medicine 06/10/2024 5:13 PM CDT Anesthesia Event [facility] [address] [place] [phone] Kalpesh Mckenzie APRN, DARIA, Lanie Orellana M.D. 06/10/2024 5:18 PM CDT - 06/10/2024 6:44 PM CDT Surgery [facility] [address] [place] [phone] Greg Ramirez M.D. PLACEMENT TUNNELED PLEURAL CATHETER WITH PLEUROSCOPY 06/10/2024 11:56 AM CDT - 06/10/2024 10:03 PM CDT Hospital Encounter [facility] [address] [place] [phone] Greg Ramirez M.D. Discharge Disposition: Home or Self Care 06/07/2024 5:45 PM CDT Infusion Department of Infusion Therapy in [place], [place] [address] [place] [phone] Elena Salas M.D. 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 Malignant Neoplasm Of Gastroesophageal Junction (HCC) (Primary Dx); Effusion Pleural; Anemia In Chronic Kidney Disease 06/07/2024 1:50 PM CDT Ancillary Procedure Department of Pulmonary and CC Medicine 06/07/2024 Orders Only Division of Pulmonary Medicine in [place], [place] [address] [place] [phone] Elena Salas M.D. Effusion Pleural (Primary Dx); Secondary Malignant Neoplasm Bone (HCC); Anemia In Neoplastic Disease; Malignant Neoplasm Of Gastroesophageal Junction (HCC) 06/07/2024 2:00 PM CDT Education Division of Pulmonary Medicine in [place], [place] [address] [place] [phone] Elena Salas M.D. McDonald, Charles W, R.N. Effusion Pleural (Primary Dx) 06/07/2024 1:12 PM CDT - 06/07/2024 3:34 PM CDT Hospital Encounter Division of Pulmonary Medicine in [place], [place] [address] [place] [phone] Elena Salas M.D. Effusion Pleural (Primary Dx); Personal History Of Malignant Neoplasm Of Bladder; Anemia In Chronic Kidney Disease; Malignant Neoplasm Of Gastroesophageal Junction (HCC) Discharge Disposition: Home or Self Care 06/07/2024 10:57 AM CDT - 06/07/2024 1:11 PM CDT Hospital Encounter Department of Radiology, [facility], in [place], [place] [address] [place] [phone] Kuldeep Ruth M.D. Personal History Of Malignant Neoplasm Of Bladder Discharge Disposition: Home or Self Care 06/06/2024 Orders Only Division of Pulmonary Medicine in [place], [place] [address] [place] [phone] Kuldeep Ruth M.D. Personal History Of Malignant Neoplasm Of Bladder (Primary Dx) 05/08/2024 8:10 AM CDT - 05/22/2024 5:04 PM CDT Hospital Encounter Department of Radiation Oncology in [place], [place] [address] [place] [address] Dread Doyle M.D. Secondary Malignant Neoplasm Bone (HCC) 05/21/2024 Orders Only Division of Pulmonary Medicine in [place], [place] [address] [place] [phone] Edgardo Joy D.O. Fibrosis Pulmonary (HCC) (Primary Dx); Emphysema (HCC) 05/16/2024 10:15 AM CDT Telemedicine Department of Palliative Care in [place], [place] [address] [place] [phone] Evonne Garcia APRN, C.N.P., D.N.P. Malignant Neoplasm Of Gastroesophageal Junction (HCC); Secondary Malignant Neoplasm Bone (HCC); Pain Cancer Associated; Palliative Care; Emphysema (HCC); Dyspnea; Advanced Care Planning 04/22/2024 9:57 AM CDT - 05/13/2024 10:44 PM CDT Hospital Encounter Department of Radiation Oncology in [place], [place] [address] [place] [phone] Kuldeep Ritchie M.D. Secondary Malignant Neoplasm Bone (HCC) (Primary Dx); Malignant Neoplasm Of Gastroesophageal Junction (HCC) 05/10/2024 Clinical Communication Department of Palliative Care in [place], [place] [address] [place] [phone] Hannah Alcantara M.D. 05/08/2024 Documentation Department of Radiation Oncology in [address] [phone] Dread Doyle M.D. 05/08/2024 8:31 AM CDT - 05/08/2024 11:59 PM CDT Hospital Encounter Department of Radiation Oncology in [address] [phone] Dread Doyle M.D. Discharge Disposition: Home or Self Care 05/07/2024 10:08 AM CDT - 05/07/2024 11:59 PM CDT Hospital Encounter Department of Radiation Oncology in [address] [phone] Dread Doyle M.D. Discharge Disposition: Home or Self Care 05/06/2024 8:57 AM CDT - 05/06/2024 11:59 PM CDT Hospital Encounter Department of Radiation Oncology in [address] [phone] Dread Doyle M.D. Discharge Disposition: Home or Self Care 05/02/2024 9:43 AM CDT - 05/06/2024 2:20 PM CDT Hospital Encounter Department of Radiation Oncology in [address] [phone] Dread Doyle M.D. Secondary Malignant Neoplasm Bone (HCC) 05/03/2024 1:38 PM CDT - 05/03/2024 11:59 PM CDT Hospital Encounter Department of Radiation Oncology in [address] [phone] Dread Doyle M.D. Discharge Disposition: Home or Self Care 05/03/2024 7:29 AM CDT - 05/03/2024 8:20 AM CDT Hospital Encounter Department of Radiology, [facility] in [address] [phone] Merly Beavers APRN, C.N.P., M.S. Secondary Malignant Neoplasm Bone (HCC); Malignant Neoplasm Of Gastroesophageal Junction (HCC); Effusion Pleural Discharge Disposition: Home or Self Care 05/03/2024 3:00 PM CDT Telemedicine Division of Pulmonary Medicine in [address] [phone] Edgardo Joy, DWilber Dyspnea On Exertion; Fibrosis Pulmonary (HCC); Emphysema (HCC) 05/02/2024 Orders Only Department of Oncology in [address] [phone] Luzma Howell M.D. Diarrhea (Primary Dx) 05/02/2024 2:00 PM CDT Comprehensive Visit Department of Palliative Care in [address] [phone] Hannah Alcantara M.D. Melba Hodge RMabel., CHPN Malignant Neoplasm Of Gastroesophageal Junction (HCC); Secondary Malignant Neoplasm Bone (HCC) 05/02/2024 10:28 AM CDT - 05/02/2024 11:59 PM CDT Hospital Encounter Department of Radiation Oncology in [address] [phone] Dread Doyle M.D. Discharge Disposition: Home or Self Care 05/01/2024 Clinical Communication RST RO Maritza Preciado, M.S.W., L.I.C.S.W. 04/30/2024 4:15 PM CDT Infusion Department of Infusion Therapy in [address] [phone] Luzma Howell M.D. Malignant Neoplasm Of Gastroesophageal Junction (HCC) (Primary Dx); Secondary Malignant Neoplasm Bone (HCC) 04/30/2024 2:20 PM CDT Lab Department of Infusion Therapy in [address] [phone] Luzma Howell M.D. Malignant Neoplasm Of Gastroesophageal Junction (HCC) (Primary Dx) 04/30/2024 Orders Only Department of Oncology in [address] [place] [address] Luzma Howell M.D. Malignant Neoplasm Of Gastroesophageal Junction (HCC) (Primary Dx) 04/30/2024 Orders Only Department of Oncology in [place], [place] [address] [place] [phone] Merly Beavers APRN C.N.P., M.S. 04/30/2024 1:00 PM CDT Office Visit Department of Oncology in [place], [place] [address] [place] [phone] Luzma Howell M.D. 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 Malignant Neoplasm Of Gastroesophageal Junction (HCC) (Primary Dx) 04/22/2024 Orders Only Department of Oncology in [place], [place] [address] [place] [phone] Merly Beavers APRN, C.N.P., M.S. Secondary Malignant Neoplasm Bone (HCC) (Primary Dx); Malignant Neoplasm Of Gastroesophageal Junction (HCC); Effusion Pleural 04/22/2024 Orders Only Department of Radiation Oncology in [place], [place] [address] [place] [phone] Kuldeep Ritchie M.D. Secondary Malignant Neoplasm Bone (HCC) (Primary Dx) 04/22/2024 1:32 PM CDT - 04/22/2024 11:59 PM CDT Hospital Encounter Department of Radiation Oncology in [address] [phone] Kuldeep Ritchie M.D. Secondary Malignant Neoplasm Bone (HCC) Discharge Disposition: Home or Self Care 04/22/2024 8:52 AM CDT - 04/22/2024 9:56 AM CDT Hospital Encounter Department of Radiology, [facility], in [place], [place] [address] [place] [phone] Merly Beavers APRN, C.N.P., M.S. Malignant Neoplasm Of Gastroesophageal Junction (HCC); Secondary Malignant Neoplasm Bone (HCC) Discharge Disposition: Home or Self Care 04/19/2024 Orders Only Department of Radiation Oncology in [place], [place] [address] [place] [phone] Kuldeep Ritchie M.D. Secondary Malignant Neoplasm Bone (HCC) (Primary Dx) 04/19/2024 9:42 AM CDT - 04/19/2024 11:59 PM CDT Hospital Encounter Department of Radiology, [facility], in [place], [place] [address] [place] [phone] Merly Beavers APRN, C.N.P., M.S. Malignant Neoplasm Of Gastroesophageal Junction (HCC); Secondary Malignant Neoplasm Bone (HCC) Discharge Disposition: Home or Self Care 04/17/2024 7:00 AM CDT Infusion Department of Oncology in [address] [phone] Luzma Howell M.D. Malignant Neoplasm Of Gastroesophageal Junction (HCC) (Primary Dx); Secondary Malignant Neoplasm Bone (HCC) 04/16/2024 Orders Only Division of Pulmonary Medicine in [address] [phone] Edgardo Joy, D.O. Dyspnea On Exertion (Primary Dx); Fibrosis Pulmonary (HCC); Emphysema (HCC) 04/16/2024 Clinical Communication Division of Pulmonary Medicine in [address] [phone] Edgardo Joy, D.OJam 04/16/2024 11:00 AM CDT Lab Department of Oncology in [address] [phone] Luzma Howell M.D. Malignant Neoplasm Of Gastroesophageal Junction (HCC) (Primary Dx) 04/16/2024 2:00 PM CDT Office Visit Department of Oncology in [address] [phone] Merly Beavers APRN, C.N.P., M.S. Malignant Neoplasm Of Gastroesophageal Junction (HCC); Secondary Malignant Neoplasm Bone (HCC) 04/11/2024 1:00 PM CDT Diagnostic Division of Pulmonary Medicine in [place], [place] [address] [place] [phone] Edgardo Joy D.O. Fibrosis Pulmonary (HCC); Chronic Cough 04/11/2024 2:00 PM CDT Lab Department of Infusion Therapy in [place], [place] [address] [place] [phone] Paddy Jha P.A.-C., M.S. Malignant Neoplasm Of Gastroesophageal Junction (HCC) (Primary Dx) 04/11/2024 3:00 PM CDT Office Visit Department of Oncology in [place], [place] [address] [place] [phone] Luzma Howell M.D. Malignant Neoplasm Of Gastroesophageal Junction (HCC) (Primary Dx); Chronic Respiratory Failure With Hypoxia (HCC) 04/05/2024 Clinical Communication Division of Pulmonary Medicine in [place], [place] [address] [place] [phone] Edgardo Joy, D.O. TIRSO 04/05/2024 Clinical Communication Division of Pulmonary Medicine in [address] [phone] Edgardo Joy D.O. 04/05/2024 Clinical Communication Division of Pulmonary Medicine in [place], [place] [address] [place] [phone] Edgardo Joy D.O. 04/05/2024 12:00 PM CDT Office Visit Division of Pulmonary Medicine in [place], [place] [address] [place] [phone] Edgardo Joy D.O. Chronic Cough (Primary Dx); Fibrosis Pulmonary (HCC) 04/05/2024 10:30 AM CDT Diagnostic Division of Pulmonary Medicine in [place], [place] [address] [place] [phone] Edgardo Joy D.O. Fibrosis Pulmonary (HCC) 04/03/2024 10:30 AM CDT Clinical Communication Virtual Review in [address] [phone] Pre-visit Intake from Last 3 Months Allergies No known active allergies Medications Medication Sig Dispensed Refills Start Date End Date Status multivitamin tablet Take 1 tablet by mouth daily. GUMMIES Active inhalational spacing device (AEROCHAMBER) spacerIndications:Emp hysema ([facility]) 1 each as needed (for use with Albuterol inhaler). 1 each 1 12/28/2018 Active tamsulosin (FLOMAX) 0.4 mg 24 hr capsule Take 0.4 mg by mouth daily. Active albuterol 90 mcg/actuation inhalerIndications:Em physema ([facility]) INHALE 2 PUFFS EVERY 4 HRS NEEDED FOR WHEEZING OR SHORTNESS OF BREATH. USE WITH SUPERVISOR TELEVISION CHASSIS REPAIR TUBE. 18 g 11 07/27/2023 07/26/20 24 Active Eliquis 5 mg tablet Take 5 mg by mouth 2 (two) times a day. 07/02/2023 Active prochlorperazine (COMPAZINE) 10 mg tabletIndications:Mal ignant Neoplasm Of Gastroesophageal Junction (HCC),Log Rider Current Drug Therapy, Chemotherapy Take 1 tablet (10 mg total) by mouth every 6 (six) hours as needed for nausea or vomiting. 30 tablet 3 12/08/2023 12/08/19 25 Active ondansetron (ZOFRAN) 8 mg tabletIndications:Mal ignant Neoplasm Of Gastroesophageal Junction (HCC),Senior Living Current Drug Therapy, Chemotherapy Take 1 tablet (8 mg total) by mouth every 8 (eight) hours as needed for nausea or vomiting (unrelieved by prochlorperazine ). 30 tablet 3 12/08/2023 12/08/19 25 Active heparin 100 unit/mL syringeIndications:Ma lignant Neoplasm Of Gastroesophageal Junction (HCC),Senior Living Current Drug Therapy, Chemotherapy 5 mL (500 [...] mg tabletIndications:Mal ignant Neoplasm Of Gastroesophageal Junction (HCC),Senior Living Current [...] Dyspnea 03/23/2024 Secondary Malignant Neoplasm Bone 01/15/2024 Senior Living Current Drug Therapy, Chemotherapy Dehydration 07/05/2023 Dehydration 06/16/2023 Reaction Drug Adverse Initial 05/29/2023 Other Senior Living Current Drug Therapy 05/08/2023 Abnormal Findings On Diagnos tic Imaging Of Other Parts Of Digestive Tract 04/28/2023 Malignant Neoplasm Of Gastroesophageal Junction 03/29/2023 Cancer Staging:Clinical stage from 04/10/2023:Stage HOLLY(cT3, cN2, cM0) - Unsigned Palliative Care 10/03/2022 Anxiety 09/27/2022 Fibrosis Pulmonary 12/26/2018 Emphysema 12/26/2018 Hypoxia 12/26/2018 Personal History Of Malignant Neoplasm Of Bladke r 12/19/2018 Apnea Sleep Obstructive 12/19/2018 Dyspnea [...] on special occasions [facility] [employer] Answer Date Recorded In the past 12 months has [facility] [employer], gas, oil, or water [employer] threatened to shut off services in your [...] any clubs o r organizations such as yazidism groups, unions, fraternal or athletic groups, or [...] care, and heating? Not very hard 01/27/2023 [facility] - Occupational [...] your living situation today? I have a [facility] place to live 03/31/2024 Education Answer [...] on file Medical Devices Implanted Type Area Stonework Tracer Device Identifier Shelf Expiration Date Model / Serial / Lot Hardware E.G. Pins/Screws/R ods Hardware e.g. pins/screws/effie s Neck Description:Vertebra 4 5 and 6 Prt Cath Infus Mri Intrmd 8f - [id number] Implanted:Qty : 1 on 12/05/2023 by Nomi Cowart M.D. at [facility] Implantable [place] [employer] 06/17/2025 [id number] / / [id number] Procedures Procedure Name Priority Date/Time Associated Diagnosis Comments ADULT OXYGEN THERAPY Routine 06/10/2024 6:50 PM CDT DX CHEST 1 VIEW RAD - Routine (most inpatients and all outpatients) 06/10/2024 6:40 PM CDT PLACEMENT TUNNELED PLEURAL CATHETER 06/10/2024 4:53 PM CDT Effusion Pleural Case Notes Body Maker 1200 PULMONARY AND CC MEDICINE IMAGE EXAM [...] RAD IMAGI NG PROCEDURES Performing Organization Address [facility] Co de Phone Number IIMS NA * Surgery Image Exam-Surgery Image [...] RAD IMAGI NG PROCEDURES Performing Organization Address [facility] de Phone Number IIMS NA * (ABNORMAL) [...] CDT Will García M.D. LAB BLOOD ADD-ON [facility] [address] [place] [address], [place] STMA [facility] [address] [place] [address] * Transfuse Red Blood Cells : (06/07/2024 [...] BLOOD BANK TEST ORDERABLES Performing Organization Address City/[facility]/ZIP Co de Phone Number [facility] [address] [place] [address], [place] ETRM [facility] [address] [place] [address] * DX Chest AP or PA and [...] Elapsed Days 6 MARSH ARIA Reference Point [id number] LHumeru MARSH ARIA Dosage Given to Date cGy 1999 MARSH ARIA Plan ID [id number]: 1 MARSH ARIA Fractions Treated to Date 5 MARSH ARIA Planned Total Fractions 5 MARSH ARIA Prescribed Dose Per Fraction 400 MARSH ARIA Prescription Dose in cGy 1999 MARSH ARIA Predecessor Plan [id number] MARSH ARIA Plan Primary Reference Point [id number] LHumeru MARSH ARIA 05/08/2024 9:19 AM CDT Provider Not In System RADIATION ONCOLOG Y ORDERABLES SALMA cain * Aria Daily Treatment Information (05/08/2024 9:19 AM CDT) Only the most recent of5 resultswithin the time period is included. Course ID [id number] MARSH ARIA Course Start Date 04/19/2024 15:21 CDT MARSH ARIA First Treatment Date 05/02/2024 10:51 CDT MARSH ARIA Last Treatment Date 05/08/2024 09:19 CDT MARSH ARIA Treatment Elapsed Days 6 MARSH ARIA Reference Point [id number] LHumeru MARSH ARIA Dosage Given to Date cGy 2000 MARSH ARIA Session Dosage Given 400 MARSH ARIA Plan ID [id number]: 1 MARSH ARIA Fractions Treated to Date 5 MARSH ARIA Planned Total Fractions 5 MARSH ARIA Prescribed Dose Per Fraction 400 MARSH ARIA Prescription Dose in cGy 1999 MARSH ARIA Predecessor Plan [id number] MARSH ARIA Plan Primary Reference Point [id number] LHumeru MARSH ARIA 05/08/2024 9:19 AM CDT Provider Not In System RADIATION ONCOLOG Y ORDERABLES SALMA cain * US Thoracentesis Right with Imaging Guidance [...] performed using the FDA-cleared FilmArray GI Panel ([employer] Semi-Urgent This is a semi-urgen t result(BENÍTEZ) [facility] Stool (Stool) 05/02/2024 1:0 2 PM CDT 05/02/2024 1:36 PM CDT Luzma Howell M.D. LAB MICROBIOLOGY - G ENERAL ORDERABLES [facility] [address] [place] [address], [place] DTL [address] [facility] [address] [place] [address] * (ABNORMAL) CBC with Differential, Blood (04/30/2024 [...] Arias OCONNOR BLOOD ADD-ON Performing Organization Address [facility] Co de Phone Number [facility] [address] [facility] [address] [place] [address] * Bilirubin, Direct (04/30/2024 6:54 AM CDT) Only the most recent of2 resultswithin the time period is included. Bilirubin, Direct, S <0.2 0.0 - 0.3 mg/dL 04/30/2024 8:01 AM CDT DTL Blood (Blood, Venous) 04/30/2024 6:54 AM CDT 04/30/2024 7:42 AM CDT Jarett Tee APRNNDeirdre., Arias OCONNOR BLOOD ADD-ON Performing Organization Address [facility] Co de Phone Number [facility] [address] [place] [address] * (ABNORMAL) Comprehensive Metabolic Panel (04/30/2024 6:54 [...] APRN, C.N.P., M.S. LA B BLOOD ADD-ON [facility] [address] [place] [address], [place] DTL [facility] [address] [place] [address] * Initial Rad Onc Treatment Planning CT [...] APRN, C.N.P., M.S. IM G CT PROCEDURES * (ABNORMAL) CBC, Chemotherapy, No Alerts (04/11/2024 1:59 PM CDT) Hemoglobin 8.7(L) 13.2 - 16.6 g/dL 04/11/2024 2:23 PM CDT DTL Platelet Count 274 135 - 317 x10(9)/L 04/11/2024 2:23 PM CDT DTL Leukocytes 6.3 3.4 - 9.6 x10(9)/L 04/11/2024 2:23 PM CDT DTL Neutrophils 4.01 1.56 - 6.45 x10(9)/L 04/11/2024 2:23 PM CDT PM Blood (Blood, Venous) 04/11/2024 1:59 PM CDT 04/11/2024 2:18 PM CDT Umang Novoa P.A.-C.SJam LAB BLOOD A DD-ON Performing Organization Address [facility] Co de Phone Number [facility] [address] [place] [address], [place] DTL [facility] [address] [place] [address] [facility] [address] [place] [address] * PUL Home Overnight Oximetry (04/11/2024) 04/11/2024 Impressions [place] [facility] - 04/12/2024 3:50 PM CDT Despite supplemental oxygen, there is persistence of baseline and positional gas exchange abnormality. Physician: Stan Romero M.D. [id number] Narrative Procedure Note Stan Romero M.D. - 04/12/2024 IMPRESSION: Despite supplemental oxygen, there is persistence of baseline andpositional gas exchange abnormality. Physician: Stan Romero M.D. [id number] Edgardo Joy D.O. PFT ORDERABLES Performing Organization Address [facility] Co de Phone Number [facility] * Oxygen Titration (04/05/2024 11:03 AM CDT) [...] for further details. Lanie Phillips P.A.-C., M.S. [facility] CT PROCED URES from Last 3 Months or Most Recently Relevant to Health Maintenance Advance Directives For more information, please contact: [phone] Documents on File Type Date Recorded Patient Sales And Marketing Manager Expl anation Advance Directives 05/02/2024 4:04 PM [...] Communication Luz Cho Spouse Health Care Agent [email or web address] Alaina Chang Daughter First Alternate Health Care Agent Care Teams Chef'S Assistant Relationship Specialty Start Date End Date Elsewhere, Pcp PCP - General Internal Medicine 03/23/24
--- OUTSIDE RECORDS SUMMARY | 2024-06-28 01:05 | XMS_ITS | Encounter Summary ---
Author Organization [facility] Address [address] [place] [address] Care Team Providers Care Manager Entry Name Role Phone Elsewhere, Pcp Primary Care Provider Unavailabl e Encounter Details Date Type Department Care Team (Late st Contact Info) Description 06/10/2024 5:13 PM CDT Anesthesia Event RST ROMB MAIN OR [address] [place] [phone] Kalpesh Mckenzei APRN, CRNA, MNA [address] [place] [phone] Lanie Magana M.D. [address] [place] [phone] Anesthesia Record Procedure Summary Procedure Name Responsible Anesthesiologist Anesthesia Start Time Anesthesia Stop Time PLACEMENT TUNNELED PLEURAL CATHETER WITH PLEUROSCOPY (Right) Kalpesh Mckenzie APRN, CRNA, MNA 06/10/24 1713 06/10/24 1843 Events Date Time Event Comment 06/10/2024 1713 An Start Machine/Equipme nt Checked Infection Precautions [...] Size: Other (Comment) (15 fr); Drainage System: Naoma/nonsuction water seal drainage 06/10/24 0000 by Hannah [...] pur e alcohol) drink on special occasions [facility] Utilities Answer Date Recorded In the past 12 months has e [employer], gas, oil, or water [employer] threatened to shut off services in your [...] 01/27/2023 How often do you attend [facility] or mandaeism services? More than 4 times [...] care, and heating? Not very hard 01/27/2023 [facility] [place] of Occupat ional Health - Occupational Stress [...] your living situation today? I have a [employer] place to live 03/31/2024 Education Answer Date [...] * Anesthesia Postprocedure Evaluation - Kalpesh Mckenzie, SURG RN, SCIENTIFIC PROGRAMMER, MNA - 06/10/2024 6:43 PM CDT Patient: Rin Cho Procedure Summary Date: 06/10/24 Room / Location: [address] / [facility] in [place], [place] Anesthesia Start: 1712 Anesthesia Stop: 1842 [...] [J90] Pre-op diagnosis: Effusion Pleural [J90]. Location: [address] / [facility] in [place], [place] Providers: Greg Ramirez M.D. Pertinent components [...] patient / legal guardian, or through an endocrinology specialist; patient evaluated and approved for anesthesia / [...] mg documented in this encounter Care Teams Manager Entry Relationship Specialty Start Date End Date Elsewhere, Pcp PCP - General Internal Medicine 03/23/24 documented as of this encounter
--- OUTSIDE RECORDS SUMMARY | 2024-06-28 01:06 | XMS_ITS | Encounter Summary ---
Author Organization [facility] Address [address] [place] [address] Care Team Providers Care Ground Water Technician Name Role Phone Elsewhere, Pcp Primary Care Provider Unavailabl e Encounter Details Date Type Department Care Team (Late st Contact Info) Description 06/07/2024 3:20 PM CDT Lab Department of Infusion Therapy in [place], [place] [address] [place] [address] Elena Salas M.D. [address] [place] [address] Malignant Neoplasm Of Gastroesophageal Junction (HCC) (Primary Dx); Effusion Pleural; Anemia In Chronic Kidney Disease Social History Tobacco Use Types Packs/Day Years Used Date Smoking Tobacco: Former Cigarettes 2.5 30.1 0 09/18/1965 - 11/01/1995 Passive Smoke Exposure: Never Smokeless Tobacco: Never Alcohol Use Standard Drinks/Week Comments Not Currently 1 (1 standard drink = 0.6 oz pur e alcohol) drink on special occasions [facility] Utilities Answer Date Recorded In the past 12 months has e [employer], gas, oil, or water company threatened to [...] care, and heating? Not very hard 01/27/2023 [facility] [place] of Occupat ional Health - Occupational Stress [...] your living situation today? I have a [facility] place to live 03/31/2024 Education Answer [...] Antibody ID) (06/07/2024 3:14 PM CDT) Pathologist [facility] ABORh O Pos Not applicable 06/07/2024 4:06 PM CDT ETRM Antibody Screen Negative Negative 06/07/2024 4:11 PM CDT ETRM Type & Screen Expiration 06/10/2024 23:59 06/07/2024 4:06 PM CDT ETRM Testing Location [place] DEFAULT 06/07/2024 3:29 PM CDT ETRM Blood (Blood, Venous) 06/07/2024 3:14 PM CDT 06/07/2024 3:29 PM CDT Elena Salas M.D. LAB BLOOD BANK TEST ORDERABLES [facility] [address] [place] [address], [facility] ETRM [facility] [address] [place] [address] * (ABNORMAL) CBC without Differential (06/07/2024 3:14 PM CDT) Pathologist [facility] Hemoglobin 6.1(L) 13.2 - 16.6 g/dL 06/07/2024 [...] Salas M.D. LAB BLOOD ADD-ON [facility] [address] [place] [address], [place] [facility] [address] [place] [address] documented in this encounter Visit Diagnoses Diagnosis [...] mL documented in this encounter Care Teams Ground Water Technician Relationship Specialty Start Date End Date Elsewhere, Pcp PCP - General Internal Medicine 03/23/24 documented as of this encounter
--- OUTSIDE RECORDS SUMMARY | 2024-06-28 01:06 | XMS_ITS | Encounter Summary ---
Author Organization [facility] Address [address] [place] [address] Care Team Providers Care Skilled Nursing Facility Counselor Name Role Phone Elsewhere, Pcp Primary Care Provider Unavailabl e Reason for Referral * Outpatient (Routine) - Closed Specialty Diagnoses / Procedures Referred By Contac t Referred To Contact Pulmonary Medicine Diagnoses Personal History Of Malignant Neoplasm Of Bladder Kuldeep Rtuh M.D. 200 [place] [address] [facility] Referral ID Status Reason Start Date Expiration Date Visits Re quested Visits Authorized [id number] Closed 06/06/2024 12/06/2025 1 1 * Outpatient (Routine) - Closed Specialty Diagnoses / Procedures Referred By Contoly t Referred To Contact Pulmonary Medicine Elena Salas M.D. 200 [place] [address] [facility] Referral ID Status Reason Start Date Expiration Date Visits Re quested Visits Authorized [id number] Closed 06/06/2024 12/06/2025 1 1 Reason for Visit * Outpatient (Routine) - Closed Specialty Diagnoses / Procedures Referred By Contac t Referred To Contact Pulmonary Medicine Diagnoses Personal History Of Malignant Neoplasm Of Bladder Kuldeep Ruth M.D. [address] [place] [address] [place] Referral ID Status Reason Start Date Expiration Date Visits Re quested Visits Authorized [id number] Closed 06/06/2024 12/06/2025 1 1 Encounter Details Date Type Department Care Team (Latest Contact Info) Description 06/07/2024 1:12 PM CDT - 06/07/2024 3:34 PM CDT Hospital Encounter Division of Pulmonary Medicine in [place], [place] [address] [place] [address] Elena Salas M.D. [address] [place] [phone] Effusion Pleural (Primary Dx); Personal History Of [...] In the past 12 months has e [employer], gas, oil, or water [employer] threatened to shut off services in your [...] often do you attend chur ch or pentecostalism services? More than 4 times per year [...] very hard 01/27/2023 [facility] - Occupational Stress Questionnaire Answer Date [...] your living situation today? I have a [facility] place to live 03/31/2024 Education Answer [...] albuterol 90 mcg/actuation inhalerIndications:Emphys sally ([facility]) INHALE 2 PUFFS EVERY 4 HRS NEEDED FOR WHEEZING OR SHORTNESS OF BREATH. USE WITH TRAFFIC WORKER TUBE. 18 g 11 07/27/2023 07/26/2024 DME OxygenIndications:Fibrosi s Pulmonary ([facility]) DME Order - for details see Order Report 1 each 04/16/2024 Eliquis 5 mg tablet Take 5 mg by mouth 2 (two) times a day. 07/02/2023 heparin 100 unit/mL syringeIndications:Malign ant Neoplasm Of Gastroesophageal Junction (HCC),[facility] Current Drug Therapy, Chemotherapy 5 mL (500 [...] mg tabletIndications:Maligna nt Neoplasm Of Gastroesophageal Junction (HCC),[facility] Current Drug Therapy, Chemotherapy TAKE 1 TABLET BY MOUTH AT BEDTIME NEEDED (NAUSEA, VOMITING). MAY TAKE DOSE EARLY IF NEEDED. 90 tablet 1 03/05/2024 omeprazole (PriLOSEC) [address] capsule Take 20 mg by mouth every morning before breakfast. ondansetron (ZOFRAN) 8 mg tabletIndications:Maligna nt Neoplasm Of Gastroesophageal Junction (HCC),[facility]cf Current Drug Therapy, Chemotherapy Take 1 tablet [...] mg tabletIndications:Maligna nt Neoplasm Of Gastroesophageal Junction (HCC),[facility] Current Drug Therapy, Chemotherapy Take 1 tablet [...] SUBJECTIVE REFERRING PROVIDER Kuldeep Ruth M.D. [address] [place] [phone] CHIEF COMPLAINT/REASON FOR VISIT Pleural effusion HISTORY [...] failure requiring supplemental oxygen Prior smoking history, [id number] Obstructive sleep apnea no longer requiring PAP [...] He iscurrently utilizing 6 L O2 by [place] consistently. He has also been using his [...] WHEEZING OR SHORTNESS OF BREATH. USE WITH TRAFFIC WORKER TUBE., Disp: 18 g, Rfl: 11 dexAMETHasone [...] Migraines Daughter Bess Genetic disease Daughter Bess [id number] OBJECTIVE VITAL SIGNS Vitals: 06/07/24 1329 SpO2: [...] with no pleural fluid. Images uploaded into [employer]. Skin: Warm, dry. No visible rashes. Extremities: [...] the patient today. Time includes both non [id number] patient care. documented in this encounter Miscellaneous [...] 06/07/2024 4:06 PM CDT ETRM Testing Location [place] DEFAULT 06/07/2024 3:29 PM CDT ETRM Blood (Blood, Venous) 06/07/2024 3:14 PM CDT 06/07/2024 3:29 PM CDT Elena Salas M.D. LAB BLOOD BANK TEST ORDERABLES [facility] [address] [place] [address], [facility] ETRM [facility] [address] [place] [address] documented in this encounter Visit Diagnoses Diagnosis Effusion Pleural- Primary Personal History Of Malignant Neoplasm Of Bladder Anemia In Chronic Kidney Disease Malignant Neoplasm Of Gastroesophageal Junction (HCC) documented in this encounter Care Teams Skilled Nursing Facility Counselor Relationship Specialty Start Date End Date Elsewhere, Pcp PCP - General Internal Medicine 03/23/24 documented as of this encounter
--- OUTSIDE RECORDS SUMMARY | 2024-06-28 01:06 | XMS_ITS | Encounter Summary ---
Author Organization [facility] Address [address] [place] [address] Care Team Providers Care Pot Room Tapper Name Role Phone Elsewhere, Pcp Primary Care Provider Unavailabl e Encounter Details Date Type Department Care Team (Latest Contact Info) Description 06/10/2024 11:56 AM CDT - 06/10/2024 10:03 PM CDT Hospital Encounter RST ROMB MAIN OR [address] [place] [address] Greg Ramirez M.D. [address] [place] [address] Discharge Disposition: Home or Self Care Social History Tobacco Use Types Packs/Day Years Used Date Smoking Tobacco: Former Cigarettes 2.5 30.1 0 09/18/1965 - 11/01/1995 Passive Smoke Exposure: Never Smokeless Tobacco: Never Alcohol Use Standard Drinks/Week Comments Not Currently 1 (1 standard drink = 0.6 oz pur e alcohol) drink on special occasions [facility] Utilities Answer Date Recorded In [...] often do you attend chur ch or jain services? More than 4 times [...] care, and heating? Not very hard 01/27/2023 [facility] [place] of Occupat ional Health - Occupational Stress [...] Care Everywhere. * Tunneled Pleural Drainage Catheter (Macedonian) documented in this encounter Medications at Time of Discharge Medication Sig Dispensed Refills Start Date End Date acetaminophen (TylenoL) 500 mg tablet Take 2 tablets (1,000 mg total) by mouth 3 (three) times a day. 05/02/2024 albuterol 90 mcg/actuation inhalerIndications:Emphys sally ([facility]) INHALE 2 PUFFS EVERY 4 HRS NEEDED FOR WHEEZING OR SHORTNESS OF BREATH. USE WITH FOOD AND BEVERAGE OPERATIONS MANAGER TUBE. 18 g 11 07/27/2023 07/26/2024 DME OxygenIndications:Fibrosi s Pulmonary ([facility]) DME Order - for details see Order Report 1 each 04/16/2024 Eliquis 5 mg tablet Take 5 mg by mouth 2 (two) times a day. 07/02/2023 heparin 100 unit/mL syringeIndications:Malign ant Neoplasm Of Gastroesophageal Junction (HCC),Long-Term Current Drug Therapy, Chemotherapy 5 mL (500 Units total) by intra-catheter route once as needed for line care for up to 1 dose. Flush IV line AFTER 0.9% Sodium Chloride flush 60 mL 3 12/18/2023 inhalational spacing device (AEROCHAMBER) spacerIndications:Emphyse ma ([facility]) 1 each as needed (for use with Albuterol inhaler). 1 each 1 12/28/2018 LORazepam (Ativan) 0.5 mg tablet Take 0.5 mg by mouth 2 (two) times a day as needed. See attached for detailed directions. 06/04/2024 multivitamin tablet Take 1 tablet by mouth daily. GUMMIES OLANZapine (ZyPREXA) 5 mg tabletIndications:Maligna nt Neoplasm Of Gastroesophageal Junction (HCC),Mechanical Engineering Advisor Current Drug Therapy, Chemotherapy TAKE 1 TABLET BY MOUTH AT BEDTIME NEEDED (NAUSEA, VOMITING). MAY TAKE DOSE EARLY IF NEEDED. 90 tablet 1 03/05/2024 omeprazole (PriLOSEC) [address] capsule Take 20 mg by mouth every morning before breakfast. ondansetron (ZOFRAN) 8 mg tabletIndications:Maligna nt Neoplasm Of Gastroesophageal Junction (HCC),Long-Term Current Drug Therapy, Chemotherapy Take 1 tablet [...] mg tabletIndications:Maligna nt Neoplasm Of Gastroesophageal Junction (HCC),Mechanical Engineering Advisor Current Drug Therapy, Chemotherapy Take 1 tablet [...] services tomorrow. Patient was able to name [facility] as their hospice agency. With patient's permission, SW contacted [facility] to confirm that he was being readmitted to service tomorrow. He has an appointment tomorrow morning at 10:00 AM. As long as we send 5 kits, they will take over supply ordering and expressed no concerns. SW was contacted this evening at completion of his procedure and this information was conveyed to the field staff manager. RN was also sharing that it [...] 4:53 PM CDT Effusion Pleural Case Notes Roller Mechanic 1200 CBC WITHOUT DIFFERENTIAL, B STAT 06/10/2024 [...] CDT Will García M.D. LAB BLOOD ADD-ON [facility] [address] [place] [address], [facility] [address] [place] [address] documented in this encounter Visit Diagnoses Not [...] injection documented in this encounter Care Teams Pot Room Tapper Relationship Specialty Start Date End Date Elsewhere, Pcp PCP - General Internal Medicine 03/23/24 documented as of this encounter
--- OUTSIDE RECORDS SUMMARY | 2024-06-28 01:06 | XMS_ITS | Encounter Summary ---
Author Organization [facility] Address [address] [place] [address] Care Team Providers Care Excelsior Machine Tender Name Role Phone Elsewhere, Pcp Primary Care Provider Unavailabl e Encounter Details Date Type Department Care Team (Late st Contact Info) Description 06/07/2024 Orders Only Division of Pulmonary Medicine in [place], [place] [address] [place] [address] Elena Salas M.D. [address] [place] [address] Effusion Pleural (Primary Dx); Secondary Malignant Neoplasm [...] pur e alcohol) drink on special occasions [facility] Utilities Answer Date Recorded In [...] often do you attend chur ch or sikhism services? More than 4 times per year 01/27/2023 Do you belong to any clubs o r organizations such as oriental orthodox groups, unions, fraternal or athletic groups, [...] and heating? Not very hard 01/27/2023 [facility] [place] of Occupat ional Health - Occupational Stress [...] your living situation today? I have a [facility] place to live 03/31/2024 Education [...] CDT Elena Salas M.D. 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
--- OUTSIDE RECORDS SUMMARY | 2024-06-28 01:06 | XMS_ITS | Encounter Summary ---
Author Organization [facility] Address [address] [place] [address] Care Team Providers Care Meat Products Demonstrator Name Role Phone Elsewhere, Pcp Primary Care [...] pur e alcohol) drink on special occasions [facility] Utilities Answer Date Recorded In the past 12 months has e [employer] gas, oil, or water [employer] threatened to shut off services in your [...] How often do you attend chur or islam services? More than 4 times per year [...] care, and heating? Not very hard 01/27/2023 [facility] of Occupat ional Health - Occupational [...] your living situation today? I have a [facility] place to live 03/31/2024 Education [...] on filedocumented in this encounter Care Teams Meat Products Demonstrator Relationship Specialty Start Date End Date Elsewhere, Pcp PCP - General Internal Medicine 03/23/24 documented as of this encounter
--- OUTSIDE RECORDS SUMMARY | 2024-06-28 01:06 | XMS_ITS | Encounter Summary ---
Author Organization [facility] Address [address] [place] [address] Care Team Providers Care Cafe Associate Name Role Phone Elsewhere, Pcp Primary Care Provider Unavailabl e Encounter Details Date Type Department Care Team (Late st Contact Info) Description 06/10/2024 5:18 PM CDT - 06/10/2024 6:44 PM CDT Surgery RST ROMB MAIN OR [address] [place] [address] Greg Ramirez M.D. [address] [place] [phone] PLACEMENT TUNNELED PLEURAL CATHETER WITH PLEUROSCOPY Social History Tobacco Use Types Packs/Day Years Used Date Smoking Tobacco: Former Cigarettes 2.5 30.1 0 09/18/1965 - 11/01/1995 Passive Smoke Exposure: Never Smokeless Tobacco: Never Alcohol Use Standard Drinks/Week Comments Not Currently 1 (1 standard drink = 0.6 oz pur e alcohol) drink on special occasions [facility] Utilities Answer Date Recorded In the [...] How often do you attend chur or taoism services? More than 4 times per year 01/27/2023 Do you belong to any clubs o r organizations such as hinduism groups, unions, fraternal or athletic groups, or [...] care, and heating? Not very hard 01/27/2023 [facility] [place] of Occupat ional Health - Occupational Stress [...] living situation today? I have a [facility] place to live 03/31/2024 Education Answer [...] Care Everywhere. * Tunneled Pleural Drainage Catheter (Albanian) documented in this encounter Medications at Time of Discharge Medication Sig Dispensed Refills Start Date End Date acetaminophen (TylenoL) 500 mg tablet Take 2 tablets (1,000 mg total) by mouth 3 (three) times a day. 05/02/2024 albuterol 90 mcg/actuation inhalerIndications:Emphys sally ([facility]) INHALE 2 PUFFS EVERY 4 HRS NEEDED FOR WHEEZING OR SHORTNESS OF BREATH. USE WITH SOFTWARE APPLICATIONS ARCHITECT TUBE. 18 g 11 07/27/2023 07/26/2024 DME OxygenIndications:Fibrosi s Pulmonary ([facility]) DME Order - for details see Order Report 1 each 04/16/2024 Eliquis 5 mg tablet Take 5 mg by mouth 2 (two) times a day. 07/02/2023 heparin 100 unit/mL syringeIndications:Malign ant Neoplasm Of Gastroesophageal Junction (HCC),Cigar Tobacco Rehandler Current Drug Therapy, Chemotherapy 5 mL (500 Units total) by intra-catheter route once as needed for line care for up to 1 dose. Flush IV line AFTER 0.9% Sodium Chloride flush 60 mL 3 12/18/2023 inhalational spacing device (AEROCHAMBER) spacerIndications:Emphyse ma ([facility]) 1 each as needed (for [...] mg tabletIndications:Maligna nt Neoplasm Of Gastroesophageal Junction (HCC),Cigar Tobacco Rehandler Current Drug Therapy, Chemotherapy Take 1 tablet [...] services tomorrow. Patient was able to name [facility] as their hospice agency. With patient's permission, SW contacted [facility] to confirm that he was being readmitted to service tomorrow. He has an appointment tomorrow morning at 10:00 AM. As long as we send 5 kits, they will take over supply ordering and expressed no concerns. SW was contacted this evening at completion of his procedure and this information was conveyed to the staffing and scheduling coordinator. RN was also sharing that it was [...] Images were captured stored and downloaded to [employer]. A 1 cm incision was then made [...] 4:53 PM CDT Effusion Pleural Case Notes Clinical Rehabilitation Aide 1200 CBC WITHOUT DIFFERENTIAL, B STAT 06/10/2024 [...] CDT Will García M.D. LAB BLOOD ADD-ON [facility] [address] [place] [address], [place] [facility] [address] [place] [address] documented in this encounter Visit Diagnoses Diagnosis [...] discharge. 2054 (Given - Provid er: Cait VermaNJam) ipratropium-albuteroL 0.5-2.5 mg/3 mL nebulizer solution 3 [...] injection documented in this encounter Care Teams Cafe Associate Relationship Specialty Start Date End Date Elsewhere, Pcp PCP - General Internal Medicine 03/23/24 documented as of this encounter
--- OUTSIDE RECORDS SUMMARY | 2024-06-28 01:06 | XMS_ITS | Encounter Summary ---
Author Organization [facility] Address [address] [place] [address] Care Team Providers Care Health Promotion Educator Name Role Phone Elsewhere, Pcp Primary Care Provider Unavailabl e Encounter Details Date Type Department Care Team (Late st Contact Info) Description 06/07/2024 5:45 PM CDT Infusion Department of Infusion Therapy in [place], [place] [address] [place] [address] Elena Salas M.D. [address] [place] [phone] Anemia In Neoplastic Disease (Primary Dx); Malignant [...] pur e alcohol) drink on special occasions [facility] Utilities Answer Date Recorded In the past 12 months has e [employer], gas, oil, or water [employer] threatened to shut off services in your [...] How often do you attend chur or congregational services? More than 4 times per year [...] Not very hard 01/27/2023 [facility] [place] of Occupat ional Health - Occupational Stress [...] your living situation today? I have a [facility] place to live 03/31/2024 Education [...] mL documented in this encounter Care Teams Health Promotion Educator Relationship Specialty Start Date End Date Elsewhere, Pcp PCP - General Internal Medicine 03/23/24 documented as of this encounter
--- OUTSIDE RECORDS SUMMARY | 2024-06-28 01:06 | XMS_ITS | Encounter Summary ---
Author Organization [facility] Address [address] [place] [address] Care Team Providers Care Maintainer Plant Name Role Phone Elsewhere, Pcp Primary Care Provider Unavailabl e Reason for Referral * Outpatient (Routine) - Closed Specialty Diagnoses / Procedures Referred By Fabian t Referred To Contact Diagnoses Personal History Of Malignant Neoplasm Of Bladder Procedures DX Chest AP or PA and Lateral 2 Views Kuldeep Ruth M.D. [address] [place] [phone] [facility] Referral ID Status Reason Start Date Expiration Date Visits Re quested Visits Authorized [id number] Closed 06/06/2024 06/06/2025 1 1 Reason for Visit * Outpatient (Routine) - Closed Specialty Diagnoses / Procedures Referred By Fabian hernández Referred To Contact Diagnoses Personal History Of Malignant Neoplasm Of Bladder Procedures DX Chest AP or PA and Lateral 2 Views Kuldeep Ruth M.D. [address] [place] [address] [facility] Referral ID Status Reason Start Date Expiration Date Visits Re quested Visits Authorized [id number] Closed 06/06/2024 06/06/2025 1 1 Encounter Details Date Type Department Care Team (Latest Contact Info) Description 06/07/2024 10:57 AM CDT - 06/07/2024 1:11 PM CDT Hospital Encounter Department of Radiology, [facility], in [place], [place] [address] [place] [address] Kuldeep Ruth M.D. [address] [place] [address] Personal History Of Malignant Neoplasm Of Bladder Discharge Disposition: Home or Self Care Social History Tobacco Use Types Packs/Day Years Used Date Smoking Tobacco: Former Cigarettes 2.5 30.1 0 09/18/1965 - 11/01/1995 Passive Smoke Exposure: Never Smokeless Tobacco: Never Alcohol Use Standard Drinks/Week Comments Not Currently 1 (1 standard drink = 0.6 oz pur e alcohol) drink on special occasions [facility] NXTMities Answer Date Recorded In the past 12 months has e [employer], gas, oil, or water [employer] threatened to shut off services in [...] week 01/27/2023 How often do you attend [facility] or mu-ism services? More than 4 times per year [...] care, and heating? Not very hard 01/27/2023 [facility] Occupat ional [facility] - Occupational Stress Questionnaire Answer Date [...] albuterol 90 mcg/actuation inhalerIndications:Emphys sally ([facility]) INHALE 2 PUFFS EVERY 4 HRS NEEDED FOR WHEEZING OR SHORTNESS OF BREATH. USE WITH WIRE STOCKKEEPER TUBE. 18 g 11 07/27/2023 07/26/2024 DME OxygenIndications:Fibrosi s Pulmonary ([facility]) DME Order - for details see Order Report 1 each 04/16/2024 Eliquis 5 mg tablet Take 5 mg by mouth 2 (two) times a day. 07/02/2023 heparin 100 unit/mL syringeIndications:Malign ant Neoplasm Of Gastroesophageal Junction ([facility]),Freight Breaker Current Drug Therapy, Chemotherapy 5 mL (500 Units total) by intra-catheter route once as needed for line care for up to 1 dose. Flush IV line AFTER 0.9% Sodium Chloride flush 60 mL 3 12/18/2023 inhalational spacing device (AEROCHAMBER) spacerIndications:Emphyse ma ([facility]) 1 each as needed (for use with Albuterol inhaler). 1 each 1 12/28/2018 LORazepam (Ativan) 0.5 mg tablet Take 0.5 mg by mouth 2 (two) times a day as needed. See attached for detailed directions. 06/04/2024 multivitamin tablet Take 1 tablet by mouth daily. GUMMIES OLANZapine (ZyPREXA) 5 mg tabletIndications:Maligna nt Neoplasm Of Gastroesophageal Junction (HCC),Freight Breaker Current Drug Therapy, Chemotherapy TAKE 1 TABLET BY MOUTH AT BEDTIME NEEDED (NAUSEA, VOMITING). MAY TAKE DOSE EARLY IF NEEDED. 90 tablet 1 03/05/2024 omeprazole (PriLOSEC) [address] capsule Take 20 mg by mouth every morning before breakfast. ondansetron (ZOFRAN) 8 mg tabletIndications:Maligna nt Neoplasm Of Gastroesophageal Junction (HCC),Freight Breaker Current Drug Therapy, Chemotherapy Take 1 tablet [...] mg tabletIndications:Maligna nt Neoplasm Of Gastroesophageal Junction (HCC),Freight Breaker Current Drug Therapy, Chemotherapy Take 1 tablet [...] Bladder documented in this encounter Care Teams Maintainer Plant Relationship Specialty Start Date End Date Elsewhere, Pcp PCP - General Internal Medicine 03/23/24 documented as of this encounter
--- OUTSIDE RECORDS SUMMARY | 2024-06-28 01:06 | XMS_ITS | Encounter Summary ---
Author Organization [facility] Address [address] [place] [address] Care Team Providers Care Food Service Steward Name Role Phone Elsewhere, Pcp Primary Care Provider Unavailabl e Reason for Visit * Reason Comments Patient Education Pre Procedure PleurX education * Outpatient (Routine) - Closed Specialty Diagnoses / Procedures Referred By Fabian t Referred To Contact Pulmonary Medicine Elena Salas M.D. [address] [place] [phone] [facility] Referral ID Status Reason Start Date Expiration Date Visits Re quested Visits Authorized [id number] Closed 06/06/2024 12/06/2025 1 1 Encounter Details Date Type Department Care Team (Late st Contact Info) Description 06/07/2024 2:00 PM CDT Education Division of Pulmonary Medicine in [place], [place] [address] [place] [phone] Elena Salas M.D. [address] [place] [phone] Angel Cortez R.N. [address] [place] [phone] Effusion Pleural (Primary Dx) Social History Tobacco Use Types Packs/Day Years Used Date Smoking Tobacco: Former Cigarettes 2.5 30.1 0 09/18/1965 - 11/01/1995 Passive Smoke Exposure: Never Smokeless Tobacco: Never Alcohol Use Standard Drinks/Week Comments Not Currently 1 (1 standard drink = 0.6 oz pur e alcohol) drink on special occasions [facility] Utilities Answer Date Recorded In [...] How often do you attend chur or denominational services? More than 4 times per year [...] care, and heating? Not very hard 01/27/2023 [facility] [place] of Occupat ional Health - Occupational Stress [...] your living situation today? I have a [facility] place to live 03/31/2024 Education Answer [...] Primary documented in this encounter Care Teams Food Service Steward Relationship Specialty Start Date End Date Elsewhere, Pcp PCP - General Internal Medicine 03/23/24 documented as of this encounter
--- OUTSIDE RECORDS SUMMARY | 2024-06-28 01:07 | XMS_ITS | Encounter Summary ---
Author Organization [facility] Address [address] [place] [address] Care Team Providers Care Web Content Executive Name Role Phone Elsewhere, Pcp Primary Care Provider Unavailabl e Reason for Referral * Outpatient (Routine) - Closed Specialty Diagnoses / Procedures Referred By Contac t Referred To Contact Radiation Oncology Diagnoses Secondary Malignant Neoplasm Bone (HCC) Kludeep Ritchie M.D. 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 [address] [place] [phone] [facility] Referral ID Status Reason Start Date Expiration Date Visits Re quested Visits Authorized [id number] Closed 04/16/2024 10/16/2025 1 1 Encounter Details Date Type Department Care Team (Latest Contact Info) Description 04/22/2024 9:57 AM CDT - 05/13/2024 10:44 PM CDT Hospital Encounter Department of Radiation Oncology in [place], [place] [address] [place] [phone] Kuldeep Ritchie M.D. [address] [place] [phone] Secondary Malignant Neoplasm Bone (HCC) (Primary Dx); [...] Recorded In the past 12 months has [employer], oil, or water [employer] threatened to shut off services in your [...] often do you attend chur ch or christian services? More than 4 times per year [...] care, and heating? Not very hard 01/27/2023 [facility] of Occupat ional Health - Occupational Stress [...] living situation today? I have a [facility] place to live 03/31/2024 Education Answer [...] WHEEZING OR SHORTNESS OF BREATH. USE WITH STEREO EQUIPMENT SALESPERSON TUBE. 18 g 11 07/27/2023 07/26/2024 DME OxygenIndications:Fibrosi s Pulmonary (HCC) DME Order - for details see Order Report 1 each 04/16/2024 Eliquis 5 mg tablet Take 5 mg by mouth 2 (two) times a day. 07/02/2023 heparin 100 unit/mL syringeIndications:Malign ant Neoplasm Of Gastroesophageal Junction (HCC),Account Service Associate Current Drug Therapy, Chemotherapy 5 mL (500 [...] mg tabletIndications:Maligna nt Neoplasm Of Gastroesophageal Junction (HCC),Account Service Associate Current Drug Therapy, Chemotherapy TAKE 1 TABLET BY MOUTH AT BEDTIME NEEDED (NAUSEA, VOMITING). MAY TAKE DOSE EARLY IF NEEDED. 90 tablet 1 03/05/2024 omeprazole (PriLOSEC) [address] capsule Take 20 mg by mouth every morning before breakfast. ondansetron (ZOFRAN) 8 mg tabletIndications:Maligna nt Neoplasm Of Gastroesophageal Junction (HCC),Shelter Current Drug Therapy, Chemotherapy Take 1 tablet [...] mg tabletIndications:Maligna nt Neoplasm Of Gastroesophageal Junction (HCC),Account Service Associate Current Drug Therapy, Chemotherapy Take 1 tablet [...] 10:15 AM CDT RADIATION ONCOLOGY CONSULTATION Supervising Quiller Operator: Dr. Kuldeep Ritchie REQUESTING PROVIDER Merly Beavers APRN, C.N.P., M.S. SUBJECTIVE HISTORY OF PRESENT ILLNESS Mr. Rin Cho is a 78 y.o. male who resides in [facility] with medical history of FABIANA,emphysema and pulmonary [...] (cGy) First Treatment Last Treatment Elapsed Days [id number] 200 5000 5000 05/29/2023 06/30/2023 32 Course [...] WHEEZING OR SHORTNESS OF BREATH. USE WITH STEREO EQUIPMENT SALESPERSON TUBE. Anoro Ellipta 62.5-25 mcg/actuation inhaler inhale [...] mood/affect. No evidenceof disorganized thinking. 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 Skin: Intact, dry. Normal coloration. No visible lesions. ASSESSMENT / PLAN #1 Metastatic GEJ adenocarcinoma. Mr. Rin Cho is a 78 y.o. male who resides in [facility] with medical history of FABIANA,emphysema and pulmonary [...] of chemotherapy.We discussed since he is from [place] it is more convenient for him to get treatment in [place].Mr. Rin Cho is aware that he will meet with the treating team in [place] before the Start of treatment. We also reviewed the acute toxicities associated with radiation treatment including, but not limited to fatigue, radiation skin changes, pain flare which we manage with pain medications and steroids.The risk of late toxicities and expected long-term oncologic outcomes were also discussed, including risk of fracture. Mr. Rin Cho expressed a desire to proceed with radiotherapy in [place]. The patient and plan were discussed with Radiation application development consultant, Dr. Ritchie. Please see their accompanying documentation for further details.All questions were answered to the patients apparent satisfaction. Mr. Rin Cho and family were encouraged to contact our department with any questions or concerns. PLAN CT simulation left Humerus 04/22/2024 and treatment in [place] Raquel PhilippeS, Radiation Oncology Fellow. [id number] Associated attestation - Kuldeep Ritchie M.D. - 04/29/2024 12:47 PM CDT I saw and examined the patient and agree with the documentation below by JASMIN Philippe. Mr. Cho has had prior RT for esophageal carcinoma, now with metastatic disease including the left humerus which has improved but can flair. He described additional left stweard pain. He is receiving palliative paclitaxel. I discussed the role of RT to the left humerus given his pain, vs observation. I counseled him on the risk and benefits of treatment, as well as practical considerations includingtiming. After discussion, he wishes to proceed with simulation and treatment to start 05/02/24 in [place]. We will plan for 20 Gy in [...] documented as of this encounter Care Teams Web Content Executive Relationship Specialty Start Date End Date Elsewhere, Pcp PCP - General Internal Medicine 03/23/24 documented as of this encounter
--- OUTSIDE RECORDS SUMMARY | 2024-06-28 01:07 | XMS_ITS | Encounter Summary ---
Author Organization [facility] Address [address] [place] [address] Care Team Providers Care Lawn Sprinkler Servicer Name Role Phone Elsewhere, Pcp Primary Care Provider Unavailabl e Encounter Details Date Type Department Care Team (Latest Contact Info) Description 05/08/2024 8:31 AM CDT - 05/08/2024 11:59 PM CDT Hospital Encounter Department of Radiation Oncology in [place], [place] [address] [place] [phone] Dread Doyle M.D. [address] [place] [phone] Discharge Disposition: Home or Self Care Social History Tobacco Use Types Packs/Day Years Used Date Smoking Tobacco: Former Cigarettes 2.5 30.1 0 09/18/1965 - 11/01/1995 Passive Smoke Exposure: Never Smokeless Tobacco: Never Alcohol Use Standard Drinks/Week Comments Not Currently 1 (1 standard drink = 0.6 oz pur e alcohol) drink on special occasions [facility] Utilities Answer Date Recorded In the past 12 months has e [employer], gas, oil, or water [employer] threatened to shut off services in your [...] care, and heating? Not very hard 01/27/2023 [facility] [place] of Occupat ional Health - Occupational Stress [...] your living situation today? I have a [facility] place to live 03/31/2024 Education Answer [...] WHEEZING OR SHORTNESS OF BREATH. USE WITH ENGINE LATHE TENDER TUBE. 18 g 11 07/27/2023 07/26/2024 DME OxygenIndications:Fibrosi s Pulmonary (HCC) DME Order - for details see Order Report 1 each 04/16/2024 Eliquis 5 mg tablet Take 5 mg by mouth 2 (two) times a day. 07/02/2023 heparin 100 unit/mL syringeIndications:Malign ant Neoplasm Of Gastroesophageal Junction (HCC),Longterm Current Drug Therapy, Chemotherapy 5 mL (500 [...] mg tabletIndications:Maligna nt Neoplasm Of Gastroesophageal Junction (HCC),Non Profit Job Titles Current Drug Therapy, Chemotherapy TAKE 1 TABLET BY MOUTH AT BEDTIME NEEDED (NAUSEA, VOMITING). MAY TAKE DOSE EARLY IF NEEDED. 90 tablet 1 03/05/2024 omeprazole (PriLOSEC) [address] capsule Take 20 mg by mouth every morning before breakfast. ondansetron (ZOFRAN) 8 mg tabletIndications:Maligna nt Neoplasm Of Gastroesophageal Junction (HCC),Longterm Current Drug Therapy, Chemotherapy Take 1 tablet [...] mg tabletIndications:Maligna nt Neoplasm Of Gastroesophageal Junction (HCC),Longterm Current Drug Therapy, Chemotherapy Take 1 tablet [...] documented as of this encounter Care Teams Lawn Sprinkler Servicer Relationship Specialty Start Date End Date Elsewhere, Pcp PCP - General Internal Medicine 03/23/24 documented as of this encounter
--- OUTSIDE RECORDS SUMMARY | 2024-06-28 01:07 | XMS_ITS | Encounter Summary ---
Author Organization [facility] Address [address] [place] [address] Care Team Providers Care Grain Elevator Superintendent Name Role Phone Elsewhere, Pcp Primary Care Provider Unavailabl e Encounter Details Date Type Department Care Team (Late st Contact Info) Description 05/21/2024 Orders Only Division of Pulmonary Medicine in [place], [place] [address] [place] [phone] Edgardo Joy D.O. [address] [place] [phone] Fibrosis Pulmonary (HCC) (Primary Dx); Emphysema (HCC) Social History Tobacco Use Types Packs/Day Years Used Date Smoking Tobacco: Former Cigarettes 2.5 30.1 0 09/18/1965 - 11/01/1995 Passive Smoke Exposure: Never Smokeless Tobacco: Never Alcohol Use Standard Drinks/Week Comments Not Currently 1 (1 standard drink = 0.6 oz pur e alcohol) drink on special occasions [facility] Utilities Answer Date Recorded In the past 12 months has e [employer], gas, oil, or water company threatened to [...] care, and heating? Not very hard 01/27/2023 [facility] [place] of Occupat ional Health - Occupational Stress [...] your living situation today? I have a [facility] place to live 03/31/2024 Education Answer [...] documented as of this encounter Care Teams Grain Elevator Superintendent Relationship Specialty Start Date End Date Elsewhere, Pcp PCP - General Internal Medicine 03/23/24 documented as of this encounter
--- OUTSIDE RECORDS SUMMARY | 2024-06-28 01:07 | XMS_ITS | Encounter Summary ---
Author Organization [facility] Address [address] [place] [address] Care Team Providers Care Financial Sales Associate Name Role Phone Elsewhere, Pcp Primary Care Provider Unavailabl e Encounter Details Date Type Department Care Team (Latest Contact Info) Description 05/06/2024 8:57 AM CDT - 05/06/2024 11:59 PM CDT Hospital Encounter Department of Radiation Oncology in [place], [place] [address] [place] [phone] Dread Doyle M.D. [address] [place] [phone] Discharge Disposition: Home or Self Care Social History Tobacco Use Types Packs/Day Years Used Date Smoking Tobacco: Former Cigarettes 2.5 30.1 0 09/18/1965 - 11/01/1995 Passive Smoke Exposure: Never Smokeless Tobacco: Never Alcohol Use Standard Drinks/Week Comments Not Currently 1 (1 standard drink = 0.6 oz pur e alcohol) drink on special occasions [facility] Utilities Answer Date Recorded In the past 12 months has e [employer], gas, oil, or water [employer] threatened to shut off services in your [...] any clubs o r organizations such as rastafarian groups, unions, fraternal or athletic groups, or [...] hard 01/27/2023 [facility] [employer] of Occupat ional Health - Occupational Stress [...] your living situation today? I have a [facility] place to live 03/31/2024 Education Answer [...] WHEEZING OR SHORTNESS OF BREATH. USE WITH ASSESSMENT MANAGER TUBE. 18 g 11 07/27/2023 07/26/2024 DME OxygenIndications:Fibrosi s Pulmonary (HCC) DME Order - for details see Order Report 1 each 04/16/2024 Eliquis 5 mg tablet Take 5 mg by mouth 2 (two) times a day. 07/02/2023 heparin 100 unit/mL syringeIndications:Malign ant Neoplasm Of Gastroesophageal Junction (HCC),Fdc Current Drug Therapy, Chemotherapy 5 mL (500 [...] mg tabletIndications:Maligna nt Neoplasm Of Gastroesophageal Junction (HCC),Certification And Selection Specialist Current Drug Therapy, Chemotherapy TAKE 1 TABLET BY MOUTH AT BEDTIME NEEDED (NAUSEA, VOMITING). MAY TAKE DOSE EARLY IF NEEDED. 90 tablet 1 03/05/2024 omeprazole (PriLOSEC) [address] capsule Take 20 mg by mouth every morning before breakfast. ondansetron (ZOFRAN) 8 mg tabletIndications:Maligna nt Neoplasm Of Gastroesophageal Junction (HCC),Fdc Current Drug Therapy, Chemotherapy Take 1 tablet [...] mg tabletIndications:Maligna nt Neoplasm Of Gastroesophageal Junction (HCC),Fdc Current Drug Therapy, Chemotherapy Take 1 tablet [...] documented as of this encounter Care Teams Financial Sales Associate Relationship Specialty Start Date End Date Elsewhere, Pcp PCP - General Internal Medicine 03/23/24 documented as of this encounter
--- OUTSIDE RECORDS SUMMARY | 2024-06-28 01:07 | XMS_ITS | Encounter Summary ---
Author Organization [facility] Address [address] [place] [address] Care Team Providers Care Brick Chimney Supervisor Name Role Phone Elsewhere, Pcp Primary Care Provider Unavailabl e Reason for Referral * Radiation Therapy (Routine) - Authorized Specialty Diagnoses / Procedures Referred By Contac t Referred To Contact Diagnoses Secondary Malignant Neoplasm Bone (HCC) Procedures Management Visit Dread Doyle M.D. [address] [place] [address] [facility] Region Referral ID Status Reason Start Date Expiration Date V isits Requested Visits Authorized [id number] Authorized 05/01/2024 05/01/2025 5 5 Reason for Visit * Radiation Therapy (Routine) - Authorized Specialty Diagnoses / Procedures Referred By Contac t Referred To Contact Diagnoses Secondary Malignant Neoplasm Bone (HCC) Procedures Management Visit Dread Doyle M.D. [address] [place] [phone] [facility] Region Referral ID Status Reason Start Date Expiration Date V isits Requested Visits Authorized [id number] Authorized 05/01/2024 05/01/2025 5 5 Encounter Details Date Type Department Care Team (Latest Contact Info) Description 05/08/2024 8:10 AM CDT - 05/22/2024 5:04 PM CDT Hospital Encounter Department of Radiation Oncology in [place], [place] [address] [place] [phone] Dread Doyle M.D. [address] [place] [phone] Secondary Malignant Neoplasm Bone (HCC) Social History Tobacco Use Types Packs/Day Years Used Date Smoking Tobacco: Former Cigarettes 2.5 30.1 0 09/18/1965 - 11/01/1995 Passive Smoke Exposure: Never Smokeless Tobacco: Never Alcohol Use Standard Drinks/Week Comments Not Currently 1 (1 standard drink = 0.6 oz pur e alcohol) drink on special occasions [facility] MediWoundities Answer Date Recorded In the past 12 months has e [employer], gas, oil, or water [employer] threatened to shut off services in your [...] often do you attend chur ch or islam services? More than 4 times [...] day. 05/02/2024 albuterol 90 mcg/actuation inhalerIndications:Emphys sally ([facility]) INHALE 2 PUFFS EVERY 4 HRS NEEDED FOR WHEEZING OR SHORTNESS OF BREATH. USE WITH SENIOR ORACLE DEVELOPER TUBE. 18 g 11 07/27/2023 07/26/2024 DME OxygenIndications:Fibrosi s Pulmonary ([facility]) DME Order - for details [...] mg tabletIndications:Maligna nt Neoplasm Of Gastroesophageal Junction (HCC),Sports Therapist Current Drug Therapy, Chemotherapy TAKE 1 TABLET [...] mg tabletIndications:Maligna nt Neoplasm Of Gastroesophageal Junction (HCC),Sports Therapist Current Drug Therapy, Chemotherapy Take 1 tablet [...] (cGy) First Treatment Last Treatment Elapsed Days [id number] 400 1600 199905/02/2024 05/07/2024 5 Course Summary [...] follow up with Palliative care on our [facility] on May 16, 2024. Follow up with [...] documented as of this encounter Care Teams Brick Chimney Supervisor Relationship Specialty Start Date End Date Elsewhere, Pcp PCP - General Internal Medicine 03/23/24 documented as of this encounter
--- OUTSIDE RECORDS SUMMARY | 2024-06-28 01:07 | XMS_ITS | Encounter Summary ---
Author Organization [facility] Address [address] [place] [address] Care Team Providers Care Rigging Engineer Name Role Phone Elsewhere, Pcp Primary Care Provider Unavailabl e Encounter Details Date Type Department Care Team (Late st Contact Info) Description 05/10/2024 Clinical Communication Department of Palliative Care in [place], [place] [address] [place] [address] Hannah Alcantara M.D. [address] [place] [phone] Social History Tobacco Use Types Packs/Day Years Used Date Smoking Tobacco: Former Cigarettes 2.5 30.1 0 09/18/1965 - 11/01/1995 Passive Smoke Exposure: Never Smokeless Tobacco: Never Alcohol Use Standard Drinks/Week Comments Not Currently 1 (1 standard drink = 0.6 oz pur e alcohol) drink on special occasions [facility] Utilities Answer Date Recorded In the [...] How often do you attend chur or roman catholic services? More than 4 times per year 01/27/2023 Do you belong to any clubs o r organizations such as sabianist groups, unions, fraternal or athletic groups, or [...] very hard 01/27/2023 [facility] [place] of Occupat ional Health - Occupational Stress [...] your living situation today? I have a [facility] place to live 03/31/2024 Education [...] * Telephone Encounter - Mag Gonsalez R.N., [facility] - 05/10/2024 1:58 PM CDT Information Discussed [...] documented as of this encounter Care Teams Rigging Engineer Relationship Specialty Start Date End Date Elsewhere, Pcp PCP - General Internal Medicine 03/23/24 documented as of this encounter
--- OUTSIDE RECORDS SUMMARY | 2024-06-28 01:07 | XMS_ITS | Encounter Summary ---
Author Organization [facility] Address [address] [place] [address] Care Team Providers Care Pumping Plant Operator Name Role Phone Elsewhere, Pcp Primary Care Provider Unavailabl e Encounter Details Date Type Department Care Team (Latest Contact Info) Description 05/07/2024 10:08 AM CDT - 05/07/2024 11:59 PM CDT Hospital Encounter Department of Radiation Oncology in [place], [place] [address] [place] [phone] Dread Doyle M.D. [address] [place] [phone] Discharge Disposition: Home or Self Care Social History Tobacco Use Types Packs/Day Years Used Date Smoking Tobacco: Former Cigarettes 2.5 30.1 0 09/18/1965 - 11/01/1995 Passive Smoke Exposure: Never Smokeless Tobacco: Never Alcohol Use Standard Drinks/Week Comments Not Currently 1 (1 standard drink = 0.6 oz pur e alcohol) drink on special occasions [facility] Utilities Answer Date Recorded In the past 12 months has e [employer], gas, oil, or water [employer] threatened to shut off services in your [...] How often do you attend chur or faith services? More than 4 times per year 01/27/2023 Do you belong to any clubs o r organizations such as mu-ism groups, unions, fraternal or athletic groups, or [...] care, and heating? Not very hard 01/27/2023 [facility] [place] of Occupat ional Health - Occupational Stress [...] your living situation today? I have a [facility] place to live 03/31/2024 Education Answer [...] WHEEZING OR SHORTNESS OF BREATH. USE WITH BUSINESS SERVICES TECH TUBE. 18 g 11 07/27/2023 07/26/2024 DME OxygenIndications:Fibrosi s Pulmonary (HCC) DME Order - for details see Order Report 1 each 04/16/2024 Eliquis 5 mg tablet Take 5 mg by mouth 2 (two) times a day. 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
--- OUTSIDE RECORDS SUMMARY | 2024-06-28 01:07 | XMS_ITS | Encounter Summary ---
Author Organization [facility] Address [address] [place] [address] Care Team Providers Care Mill Tender Name Role Phone Elsewhere, Pcp Primary Care Provider Unavailabl e Reason for Visit * Outpatient (Routine) - Closed Specialty Diagnoses / Procedures Referred By Fabian hernández Referred To Contact Palliative Medicine Hannah Alcantara M.D. [address] [place] [phone] [facility] Referral ID Status Reason Start Date Expiration Date Visits Re quested Visits Authorized [id number] Closed 05/02/2024 11/01/2025 1 1 Encounter Details Date Type Department Care Team (Latest Contact Info) Description 05/16/2024 10:15 AM CDT Telemedicine Department of Palliative Care in [place], [place] [address] [place] [phone] Evonne Garcia APRN, C.N.P., D.N.P. [address] [place] [phone] Malignant Neoplasm Of Gastroesophageal Junction (HCC); Secondary [...] pur e alcohol) drink on special occasions [facility] Utilities Answer Date Recorded In the [...] How often do you attend chur or zoroastrian services? More than 4 times per year [...] Not very hard 01/27/2023 [facility] of Occupat ional Health - [...] your living situation today? I have a [facility] place to live 03/31/2024 Education Answer [...] (Internal Medicine) REFERRING PROVIDER Hannah Alcantara M.D. [phone] REFERRING SERVICE Oncology CHIEF COMPLAINT / REASON [...] Minimalnapping as to not disrupt nighttime sleep. [place] has provided ramp in garage to get [...] Is followed by PCP, Dr. Layton at [facility] indicating it has been awhile since being [...] PCP. Call is out to PCP for [id number] sign out. RECOMMENDATIONS: - continue Tylenol 1000 [...] by Evonne Garcia APRN, Radha.N.Ruiz, D.N.P. in [facility] to the patient in Patient's Home [...] documented as of this encounter Care Teams Mill Tender Relationship Specialty Start Date End Date Elsewhere, Pcp PCP - General Internal Medicine 03/23/24 documented as of this encounter
--- OUTSIDE RECORDS SUMMARY | 2024-06-28 01:07 | XMS_ITS | Encounter Summary ---
Author Organization [facility] Address [address] [place] [address] Care Team Providers Care Core Filer Name Role Phone Elsewhere, Pcp Primary Care Provider Unavailabl e Encounter Details Date Type Department Care Team (Late st Contact Info) Description 05/08/2024 Documentation Department of Radiation Oncology in [place], [place] [address] [place] [phone] Dread Doyle M.D. [address] [place] [phone] Social History Tobacco Use Types Packs/Day Years [...] How often do you attend chur or bahai services? More than 4 times per year [...] care, and heating? Not very hard 01/27/2023 [facility] [place] of Occupat ional Health - Occupational Stress [...] your living situation today? I have a [facility] place to live 03/31/2024 Education Answer Date [...] (cGy) First Treatment Last Treatment Elapsed Days [id number] 5 400 199905/02/2024 05/08/2024 6 Course Summary [...] follow up with Palliative care on our [facility] on May 16, 2024. Follow up with Dr. Doyle will be as needed. Signed by: Gloria Pina R.N., 05/27/2024 3:50 PM CDT [facility] [address] [place] [address] documented in this encounter Plan of Treatment [...] documented as of this encounter Care Teams Core Filer Relationship Specialty Start Date End Date Elsewhere, Pcp PCP - General Internal Medicine 03/23/24 documented as of this encounter
--- OUTSIDE RECORDS SUMMARY | 2024-06-28 01:07 | XMS_ITS | Encounter Summary ---
Author Organization [facility] Address [address] [place] [address] Care Team Providers Care Sewage Plant Attendant Name Role Phone Elsewhere, Pcp Primary Care Provider Unavailabl e Reason for Referral * Outpatient (Routine) - Closed Specialty Diagnoses / Procedures Referred By Fabian hernández Referred To Contact Diagnoses Personal History Of Malignant Neoplasm Of Bladder Procedures DX Chest AP or PA and Lateral 2 Views Kuldeep Ruth M.D. [address] [place] [address] [facility] Referral ID Status Reason Start Date Expiration Date Visits Re quested Visits Authorized [id number] Closed 06/06/2024 06/06/2025 1 1 * Outpatient (Routine) - Closed Specialty Diagnoses / Procedures Referred By Fabian hernández Referred To Contact Pulmonary Medicine Diagnoses Personal History Of Malignant Neoplasm Of Bladder Kuldeep Ruth M.D. [address] [place] [address] [facility] Referral ID Status Reason Start Date Expiration Date Visits Re quested Visits Authorized [id number] Closed 06/06/2024 12/06/2025 1 1 Encounter Details Date Type Department Care Team (Late st Contact Info) Description 06/06/2024 Orders Only Division of Pulmonary Medicine in [place], [place] [address] [place] [phone] Kuldeep Ruth M.D. [address] [place] [phone] Personal History Of Malignant Neoplasm Of Bladder (Primary Dx) Social History Tobacco Use Types Packs/Day Years Used Date Smoking Tobacco: Former Cigarettes 2.5 30.1 0 09/18/1965 - 11/01/1995 Passive Smoke Exposure: Never Smokeless Tobacco: Never Alcohol Use Standard Drinks/Week Comments Not Currently 1 (1 standard drink = 0.6 oz pur e alcohol) drink on special occasions [facility] [employer]ities Answer Date Recorded In the past 12 months has e [employer], gas, oil, or water [employer] | Anywhere threatened to shut off services in your [...] care, and heating? Not very hard 01/27/2023 [facility] of Occupat ional Health - [...] Bladder documented in this encounter Care Teams Sewage Plant Attendant Relationship Specialty Start Date End Date Elsewhere, Pcp PCP - General Internal Medicine 03/23/24 documented as of this encounter"
--- OUTSIDE RECORDS SUMMARY | 2024-06-28 01:08 | XMS_ITS | Encounter Summary ---
Author Organization [facility] Address [address] [place] [address] Care Team Providers Care Tech Brazer Tester Name Role Phone Elsewhere, Pcp Primary Care Provider Unavailabl e Encounter Details Date Type Department Care Team (Latest Contact Info) Description 05/03/2024 1:38 PM CDT - 05/03/2024 11:59 PM CDT Hospital Encounter Department of Radiation Oncology in [place], [place] [address] [place] [phone] Dread Doyle M.D. [address] [place] [phone] Discharge Disposition: Home or Self Care Social [...] In the past 12 months has e [employer], gas, oil, or water [employer] threatened to shut off services in your [...] How often do you attend chur or oriental orthodox services? More than 4 times per year 01/27/2023 Do you belong to any clubs o r organizations such as alevism groups, unions, fraternal or athletic groups, or [...] care, and heating? Not very hard 01/27/2023 [facility] [place] of Occupat ional Health - Occupational Stress [...] your living situation today? I have a [facility] place to live 03/31/2024 Education Answer [...] WHEEZING OR SHORTNESS OF BREATH. USE WITH PRODUCT MARKETING CONSULTANT TUBE. 18 g 11 07/27/2023 07/26/2024 DME [...] mg tabletIndications:Maligna nt Neoplasm Of Gastroesophageal Junction (HCC),Roadmaster Current Drug Therapy, Chemotherapy TAKE 1 TABLET BY MOUTH AT BEDTIME NEEDED (NAUSEA, VOMITING). MAY TAKE DOSE EARLY IF NEEDED. 90 tablet 1 03/05/2024 omeprazole (PriLOSEC) [address] capsule Take 20 mg by mouth every morning before breakfast. ondansetron (ZOFRAN) 8 mg tabletIndications:Maligna nt Neoplasm Of Gastroesophageal Junction (HCC),Penitentiary Current Drug Therapy, Chemotherapy Take 1 tablet [...] mg tabletIndications:Maligna nt Neoplasm Of Gastroesophageal Junction (HCC),Penitentiary Current Drug Therapy, Chemotherapy Take 1 tablet [...] as of this encounter Care Teams Tech Brazer Tester Relationship Specialty Start Date End Date Elsewhere, Pcp PCP - General Internal Medicine 03/23/24 documented as of this encounter
--- OUTSIDE RECORDS SUMMARY | 2024-06-28 01:08 | XMS_ITS | Encounter Summary ---
Author Organization [facility] Address [address] [place] [address] Care Team Providers Care Power Plant Mechanic Name Role Phone Elsewhere, Pcp Primary Care Provider Unavailabl e Encounter Details Date Type Department Care Team (Late st Contact Info) Description 04/30/2024 2:20 PM CDT Lab Department of Infusion Therapy in [place], [place] [address] [place] [address] Luzma Howell M.D. [address] [place] [address] Malignant Neoplasm Of Gastroesophageal Junction (HCC) (Primary [...] Recorded In the past 12 months has [employer], gas, oil, or water company threatened to [...] How often do you attend chur or episcopal services? More than 4 times per year [...] hard 01/27/2023 [facility] [place] of Occupat ional Health - Occupational Stress [...] 04/30/2024 3:42 PM CDT ETRM Testing Location [place] DEFAULT 04/30/2024 3:04 PM CDT ETRM Blood (Blood, Venous) 04/30/2024 2:45 PM CDT 04/30/2024 3:04 PM CDT Luzma Howell M.D. LAB BLOOD BANK TEST ORDERABLES [facility] [address] [place] [address], [place] ETRM [facility] [address] [place] [address] documented in this encounter Visit Diagnoses Diagnosis [...] documented as of this encounter Care Teams Power Plant Mechanic Relationship Specialty Start Date End Date Elsewhere, Pcp PCP - General Internal Medicine 03/23/24 documented as of this encounter
--- OUTSIDE RECORDS SUMMARY | 2024-06-28 01:08 | XMS_ITS | Encounter Summary ---
Author Organization [facility] Address [address] [place] [address] Care Team Providers Care Grocery Supervisor Name Role Phone Elsewhere, Pcp Primary Care Provider Unavailabl e Encounter Details Date Type Department Care Team (Late st Contact Info) Description 05/01/2024 Clinical Communication [facility] Maritza Preciado, M.S.W., L.I.C.S.W. [address] [place] [address] Social History Tobacco Use Types Packs/Day Years Used Date Smoking Tobacco: Former Cigarettes 2.5 30.1 0 09/18/1965 - 11/01/1995 Passive Smoke Exposure: Never Smokeless Tobacco: Never Alcohol Use Standard Drinks/Week Comments Not Currently 1 (1 standard drink = 0.6 oz pur e alcohol) drink on special occasions [facility] Utilities Answer Date Recorded In the past 12 months has e [employer], gas, oil, or water [employer] threatened to shut off services in your [...] care, and heating? Not very hard 01/27/2023 [facility] [place] of Occupat ional Health - Occupational Stress [...] your living situation today? I have a [facility] place to live 03/31/2024 Education Answer [...] Spoke with Mr. Cho's daughter - Alaina ([phone]) via phone. Lengthy conversation about 's recent [...] documented as of this encounter Care Teams Grocery Supervisor Relationship Specialty Start Date End Date Elsewhere, Pcp PCP - General Internal Medicine 03/23/24 documented as of this encounter
--- OUTSIDE RECORDS SUMMARY | 2024-06-28 01:08 | XMS_ITS | Encounter Summary ---
Author Organization [facility] Address [address] [place] [address] Care Team Providers Care Mall Plant Caretaker Name Role Phone Elsewhere, Pcp Primary Care Provider Unavailabl e Encounter Details Date Type Department Care Team (Late st Contact Info) Description 05/02/2024 Orders Only Department of Oncology in [place], [place] [address] [place] [address] Luzma Howell M.D. [address] [place] [address] Diarrhea (Primary Dx) Social History Tobacco Use [...] any clubs o r organizations such as restorationism groups, unions, fraternal or athletic groups, or [...] care, and heating? Not very hard 01/27/2023 [facility] [place] of Occupat ional Health - Occupational Stress [...] documented as of this encounter Care Teams Mall Plant Caretaker Relationship Specialty Start Date End Date Elsewhere, Pcp PCP - General Internal Medicine 03/23/24 documented as of this encounter
--- OUTSIDE RECORDS SUMMARY | 2024-06-28 01:08 | XMS_ITS | Encounter Summary ---
Author Organization [facility] Address [address] [place] [address] Care Team Providers Care Paint Sprayer Sandblaster Name Role Phone Elsewhere, Pcp Primary Care Provider Unavailabl e Reason for Visit * Reason Comments Blood Product Administration RBC x2 Encounter Details Date Type Department Care Team (Late st Contact Info) Description 04/30/2024 4:15 PM CDT Infusion Department of Infusion Therapy in [place], [place] [address] [place] [address] Luzma Howell M.D. [address] [place] [address] Malignant Neoplasm Of Gastroesophageal Junction (HCC) (Primary [...] In the past 12 months has e [employer], gas, oil, or water [employer] threatened to shut off services in your [...] often do you attend chur ch or latter day services? More than 4 times per year 01/27/2023 Do you belong to any clubs o r organizations such as yazdanism groups, unions, fraternal or athletic groups, or [...] care, and heating? Not very hard 01/27/2023 [facility] [place] of Occupat ional Health - Occupational Stress [...] your living situation today? I have a [facility] place to live 03/31/2024 Education Answer [...] documented as of this encounter Care Teams Paint Sprayer Sandblaster Relationship Specialty Start Date End Date Elsewhere, Pcp PCP - General Internal Medicine 03/23/24 documented as of this encounter
--- OUTSIDE RECORDS SUMMARY | 2024-06-28 01:08 | XMS_ITS | Encounter Summary ---
Author Organization [facility] Address [address] [place] [address] Care Team Providers Care Cash Application Representative Name Role Phone Elsewhere, Pcp Primary Care Provider Unavailabl e Reason for Referral * Outpatient (Routine) - Closed Specialty Diagnoses / Procedures Referred By Contac t Referred To Contact Radiation Oncology Diagnoses Secondary Malignant Neoplasm Bone (HCC) Kuldeep Ritchie M.D. [address] [place] [address] [facility] Region Referral ID Status Reason Start Date Expiration Date Visits Re quested Visits Authorized [id number] Closed 04/22/2024 10/22/2025 1 1 Scheduling Instructions Please schedule in [place] Reason for Visit * Outpatient (Routine) - Closed Specialty Diagnoses / Procedures Referred By Fabian t Referred To Contact Radiation Oncology Diagnoses Secondary Malignant Neoplasm Bone (HCC) Kuldeep Ritchie M.D. [address] [place] [address] [facility] Region Referral ID Status Reason Start Date Expiration Date Visits Re quested Visits Authorized [id number] Closed 04/22/2024 10/22/2025 1 1 Encounter Details Date Type Department Care Team (Latest Contact Info) Description 05/02/2024 9:43 AM CDT - 05/06/2024 2:20 PM CDT Hospital Encounter Department of Radiation Oncology in [place], [place] [address] [place] [phone] Dread Doyle M.D. [address] [place] [address] Secondary Malignant Neoplasm Bone (HCC) Social History Tobacco Use Types Packs/Day Years Used Date Smoking Tobacco: Former Cigarettes 2.5 30.1 0 09/18/1965 - 11/01/1995 Passive Smoke Exposure: Never Smokeless Tobacco: Never Alcohol Use Standard Drinks/Week Comments Not Currently 1 (1 standard drink = 0.6 oz pur e alcohol) drink on special occasions [facility] [employer] Answer Date Recorded In the past 12 months has e [employer], gas, oil, or water [employer] threatened to shut off services in your [...] How often do you attend chur or adventist services? More than 4 times per year [...] care, and heating? Not very hard 01/27/2023 [facility] of Occupat ional Health - Occupational [...] day. 05/02/2024 albuterol 90 mcg/actuation inhalerIndications:Emphys sally ([facility]) INHALE 2 PUFFS EVERY 4 HRS NEEDED FOR WHEEZING OR SHORTNESS OF BREATH. USE WITH INK MAKER TUBE. 18 g 11 07/27/2023 07/26/2024 DME OxygenIndications:Fibrosi s Pulmonary ([facility]) DME Order - for details see Order Report 1 each 04/16/2024 Eliquis 5 mg tablet Take 5 mg by mouth 2 (two) times a day. 07/02/2023 heparin 100 unit/mL syringeIndications:Malign ant Neoplasm Of Gastroesophageal Junction ([facility]),Intermediate Current Drug Therapy, Chemotherapy 5 mL (500 Units total) by intra-catheter route once as needed for line care for up to 1 dose. Flush IV line AFTER 0.9% Sodium Chloride flush 60 mL 3 12/18/2023 inhalational spacing device (AEROCHAMBER) spacerIndications:Emphyse ma ([facility]) 1 each as needed (for use with Albuterol inhaler). 1 each 1 12/28/2018 multivitamin tablet Take 1 tablet by mouth daily. GUMMIES OLANZapine (ZyPREXA) 5 mg tabletIndications:Maligna nt Neoplasm Of Gastroesophageal Junction (HCC),Energy Sales Broker Current Drug Therapy, Chemotherapy TAKE 1 TABLET BY MOUTH AT BEDTIME NEEDED (NAUSEA, VOMITING). MAY TAKE DOSE EARLY IF NEEDED. 90 tablet 1 03/05/2024 omeprazole (PriLOSEC) [address] capsule Take 20 mg by mouth every morning before breakfast. ondansetron (ZOFRAN) 8 mg tabletIndications:Maligna nt Neoplasm Of Gastroesophageal Junction (HCC),Energy Sales Broker Current Drug Therapy, Chemotherapy Take 1 tablet [...] mg tabletIndications:Maligna nt Neoplasm Of Gastroesophageal Junction (HCC),Energy Sales Broker Current Drug Therapy, Chemotherapy Take 1 tablet [...] with Dr. Ritchie in Radiation Oncology in [place] who recommended radiation therapy to the left humerus in 5 fractions. The patient was simulated and planned for radiation therapy in [place] and is here today to initiate treatment in [place]. Dr. Doyle is in agreement with the [...] Seth P.A.-C., M.S. 05/02/2024 11:33 AM CDT [facility] [address] [place] [address] Associated attestation - Dread Doyle M.D. - [...] documented as of this encounter Care Teams Cash Application Representative Relationship Specialty Start Date End Date Elsewhere, Pcp PCP - General Internal Medicine 03/23/24 documented as of this encounter
--- OUTSIDE RECORDS SUMMARY | 2024-06-28 01:08 | XMS_ITS | Encounter Summary ---
Author Organization [facility] Address [address] [place] [address] Care Team Providers Care Telemetry Rn Name Role Phone Elsewhere, Pcp Primary Care Provider Unavailabl e Encounter Details Date Type Department Care Team (Late st Contact Info) Description 04/30/2024 Orders Only Department of Oncology in [place], [place] [address] [place] [phone] Luzma Howell M.D. [address] [place] [address] Malignant Neoplasm Of Gastroesophageal Junction (HCC) (Primary Dx) Social History Tobacco Use Types Packs/Day Years Used Date Smoking Tobacco: Former Cigarettes 2.5 30.1 0 09/18/1965 - 11/01/1995 Passive Smoke Exposure: Never Smokeless Tobacco: Never Alcohol Use Standard Drinks/Week Comments Not Currently 1 (1 standard drink = 0.6 oz pur e alcohol) drink on special occasions [facility] Utilities Answer Date Recorded In the [...] week 01/27/2023 How often do you attend [facility] or uatsdin services? More than 4 times per year 01/27/2023 Do you belong to any clubs o r organizations such as advent groups, unions, fraternal or athletic groups, or [...] care, and heating? Not very hard 01/27/2023 [facility] [place] of Occupat ional Health - Occupational Stress [...] your living situation today? I have a [facility] place to live 03/31/2024 Education Answer [...] Howell M.D. LAB BLOOD BANK TEST ORDERABLES [facility] [address] [place] [address], [facility] [address] [place] [address] documented in this encounter Visit Diagnoses Diagnosis Malignant Neoplasm Of Gastroesophageal Junction (HCC)- Primary documented in this encounter Additional Health Concerns Infection Onset Date Last Indicated Resolved Time Protective Environment 04/17/2024 04/17/202405/19 5:39 AM CDT C. difficile 05/02/2024 05/02/2024 05/30/2024 5:54 AM CDT documented as of this encounter Care Teams Telemetry Rn Relationship Specialty Start Date End Date Elsewhere, Pcp PCP - General Internal Medicine 03/23/24 documented as of this encounter
--- OUTSIDE RECORDS SUMMARY | 2024-06-28 01:08 | XMS_ITS | Encounter Summary ---
Author Organization [facility] Address [address] [place] [address] Care Team Providers Care White Metal Corrosion Proofer Name Role Phone Elsewhere, Pcp Primary Care Provider Unavailabl e Reason for Referral * Outpatient (Routine) - Closed Specialty Diagnoses / Procedures Referred By Fabian hernández Referred To Contact Palliative Medicine Hannah Alcantara M.D. [address] [place] [phone] [facility] Referral ID Status Reason Start Date Expiration Date Visits Re quested Visits Authorized [id number] Closed 05/02/2024 11/01/2025 1 1 Reason for Visit * Outpatient (Routine) - Closed Specialty Diagnoses / Procedures Referred By Fabian hernández Referred To Contact Palliative Medicine Diagnoses 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) Merly Beavers APRN, C.N.P., M.S. [address] [place] [phone] [facility] Referral ID Status Reason Start Date Expiration Date Visits Re quested Visits Authorized [id number] Closed 04/16/2024 10/16/2025 1 1 Encounter Details Date Type Department Care Team (Latest Contact Info) Description 05/02/2024 2:00 PM CDT Comprehensive Visit Department of Palliative Care in [place], [place] 200 [place] [address] Hannah Alcantara M.D. 200 [place] [phone] Melba Hodge R.N., [facility] [address] [place] [phone] Malignant Neoplasm Of Gastroesophageal Junction (HCC); Secondary Malignant Neoplasm Bone (HCC) Social History Tobacco Use Types Packs/Day Years Used Date Smoking Tobacco: Former Cigarettes 2.5 30.1 0 09/18/1965 - 11/01/1995 Passive Smoke Exposure: Never Smokeless Tobacco: Never Alcohol Use Standard Drinks/Week Comments Not Currently 1 (1 standard drink = 0.6 oz pur e alcohol) drink on special occasions [facility] [employer] Answer Date Recorded In the past 12 months has [employer], gas, oil, or water [employer] threatened to shut off services in your [...] week 01/27/2023 How often do you attend [facility] or hinduism services? More than 4 times per year [...] care, and heating? Not very hard 01/27/2023 [facility] of Occupat ional Health - Occupational [...] living situation today? I have a [facility] place to live 03/31/2024 Education Answer [...] encounter Progress Notes * Melba Hodge R.N., [facility] - 05/02/2024 2:00 PM CDT [...] Care: Care for People with Serious Illness [id number] and Integrative and Supportive Therapies for Palliative Care Patients [id number] provided at this visit. Standard Opioid education included: Medication specific education for Oxycodone Safe Management of Controlled Substances [id number] Important Information About Opioid Medication [id number] (page 7 opioid withdrawal) Treating Constipation Caused by Pain Medications [id number] Educational materials provided were: Choosing Hospice [id number] and Notebook [id number] Follow-up as per the consult note of [...] REFERRING PROVIDER Merly Beavers APRN, C.N.P., M.S. [phone] REFERRING SERVICE Oncology CHIEF COMPLAINT / REASON [...] despite multiple lines of chemotherapy. Complications include [id number] right pleural effusion, as well as fibrotic [...] being in nature at home, with the sabianism community, and sometimes watching TV including war [...] He lives at home with his in [place]. They have a multi story house, but he is completely self-sufficient on the 1st floor and does not have to use stairs. His daughter lives about an hour away. His son lives 11 hours away in [place]. Spiritual Assessment: He is spiritual and involved in his sabianism community. CODE STATUS DNR/DNI [place] [employer] Who completed this form?: Patient No [...] controlled substance prescribing: Nociceptive cancer pain [place] BELT BUILDER HELPER Review: We have reviewed the patient's record in the [place] prescription monitoring program 05/02/2024. Opioid Toxicity Review: [...] may allow us to bring all his senior care, and that it could serve as a [...] structure including friends, family, neighbors, in his sabianism. He was happy with this level of [...] a friend who is part of the sabianism who has hospice nurse and they like [...] documented as of this encounter Care Teams White Metal Corrosion Proofer Relationship Specialty Start Date End Date Elsewhere, Pcp PCP - General Internal Medicine 03/23/24 documented as of this encounter
--- OUTSIDE RECORDS SUMMARY | 2024-06-28 01:08 | XMS_ITS | Encounter Summary ---
Author Organization [facility] Address [address] [place] [address] Care Team Providers Care Marketing Information Coordinator Name Role Phone Elsewhere, Pcp Primary Care Provider Unavailabl e Encounter Details Date Type Department Care Team (Latest Contact Info) Description 05/02/2024 10:28 AM CDT - 05/02/2024 11:59 PM CDT Hospital Encounter Department of Radiation Oncology in [place], [place] [address] [place] [phone] Dread Doyle M.D. [address] [place] [phone] Discharge Disposition: Home or Self Care Social [...] In the past 12 months has e [employer], gas, oil, or water [employer] threatened to shut off services in your [...] care, and heating? Not very hard 01/27/2023 [facility] [place] of Occupat ional Health - Occupational Stress [...] OR SHORTNESS OF BREATH. USE WITH WIRE REPAIRER TUBE. 18 g 11 07/27/2023 07/26/2024 DME [...] mg tabletIndications:Maligna nt Neoplasm Of Gastroesophageal Junction (HCC),Intellectual Property Paralegal Current Drug Therapy, Chemotherapy Take 1 tablet [...] documented as of this encounter Care Teams Marketing Information Coordinator Relationship Specialty Start Date End Date Elsewhere, Pcp PCP - General Internal Medicine 03/23/24 documented as of this encounter
--- OUTSIDE RECORDS SUMMARY | 2024-06-28 01:08 | XMS_ITS | Encounter Summary ---
Author Organization [facility] Address [address] [place] [address] Care Team Providers Care Optometric Technician Name Role Phone Elsewhere, Pcp Primary Care Provider Unavailabl e Reason for Visit * Outpatient (Routine) - Closed Specialty Diagnoses / Procedures Referred By Fabian hernández Referred To Contact Pulmonary Medicine Diagnoses Dyspnea On Exertion Fibrosis Pulmonary (HCC) Emphysema (HCC) Edgardo Joy D.OJam [address] [place] [phone] Edgardo Joy D.O. [address] [place] [phone] Referral ID Status Reason Start Date Expiration Date Visits Re quested Visits Authorized [id number] Closed 04/16/2024 10/16/2025 1 1 Encounter Details Date Type Department Care Team (Late st Contact Info) Description 05/03/2024 3:00 PM CDT Telemedicine Division of Pulmonary Medicine in [place], [place] [address] [place] [phone] Edgardo Joy D.O. [address] [place] [phone] Dyspnea On Exertion; Fibrosis Pulmonary (HCC); Emphysema (HCC) Social History Tobacco Use Types Packs/Day Years Used Date Smoking Tobacco: Former Cigarettes 2.5 30.1 0 09/18/1965 - 11/01/1995 Passive Smoke Exposure: Never Smokeless Tobacco: Never Alcohol Use Standard Drinks/Week Comments Not Currently 1 (1 standard drink = 0.6 oz pur e alcohol) drink on special occasions [facility] Utilities Answer Date Recorded In the [...] week 01/27/2023 How often do you attend [facility] or scientologist services? More than 4 times per year 01/27/2023 Do you belong to any clubs o r organizations such as latter day groups, unions, fraternal or athletic groups, or [...] care, and heating? Not very hard 01/27/2023 [facility] - Occupational Stress Questionnaire Answer Date Recorded [...] Medicine on 05/02/24 who is working with [facility] for symptom management.. He underwent right sided [...] Pulmonary & Critical Care Medicine Fellow Pager: [phone] documented in this encounter Plan of Treatment Not on file documented as of this encounter Visit Diagnoses Diagnosis Dyspnea On Exertion Fibrosis Pulmonary (HCC) Emphysema (HCC) documented in this encounter Additional Health Concerns Infection Onset Date Last Indicated Resolved Time Protective Environment 04/17/2024 04/17/202405/19 5:39 AM CDT C. difficile 05/02/2024 05/02/2024 05/30/2024 5:54 AM CDT documented as of this encounter Care Teams Optometric Technician Relationship Specialty Start Date End Date Elsewhere, Pcp PCP - General Internal Medicine 03/23/24 documented as of this encounter
--- OUTSIDE RECORDS SUMMARY | 2024-06-28 01:08 | XMS_ITS | Encounter Summary ---
Author Organization [facility] Address [address] [place] [address] Care Team Providers Care Lapel Padder Blindstitch Name Role Phone Elsewhere, Pcp Primary Care Provider Unavailabl e Reason for Referral * Outpatient (Routine) - Closed Specialty Diagnoses / Procedures Referred By Fabian hernández Referred To Contact Diagnoses 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) Effusion Pleural Procedures US Thoracentesis Right with Imaging Guidance Merly Beavers APRN, C.N.Silvano., M.S. [address] [place] [phone] [facility] Referral ID Status Reason Start Date Expiration Date Visits Re quested Visits Authorized [id number] Closed 04/22/2024 04/22/2025 1 1 Reason for Visit * Outpatient (Routine) - Closed Specialty Diagnoses / Procedures Referred By Fabian hernández Referred To Contact Diagnoses 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) Effusion Pleural Procedures US Thoracentesis Right with Imaging Guidance Merly Beavers APRN, C.N.Silvano., M.S. [address] [place] [phone] [facility] Referral ID Status Reason Start Date Expiration Date Visits Re quested Visits Authorized [id number] Closed 04/22/2024 04/22/2025 1 1 Encounter Details Date Type Department Care Team (Latest Contact Info) Description 05/03/2024 7:29 AM CDT - 05/03/2024 8:20 AM CDT Hospital Encounter Department of Radiology, [facility] in [place], [place] [address] [place] [address] Merly Beavers APRN, C.N.P., M.S. [address] [place] [address] Secondary Malignant Neoplasm Bone (HCC); Malignant Neoplasm [...] pur e alcohol) drink on special occasions [facility] [employer]ities Answer Date Recorded In the past 12 months has [employer], gas, oil, or water [employer] threatened to shut off services in your [...] How often do you attend chur or christian services? More than 4 times per year 01/27/2023 Do you belong to any clubs o r organizations such as christian groups, unions, fraternal or athletic groups, or [...] through Care Everywhere. * Care Following Thoracentesis ([place]) documented in this encounter Medications at Time of Discharge Medication Sig Dispensed Refills Start Date End Date acetaminophen (TylenoL) 500 mg tablet Take 2 tablets (1,000 mg total) by mouth 3 (three) times a day. 05/02/2024 albuterol 90 mcg/actuation inhalerIndications:Emphys sally ([facility]) INHALE 2 PUFFS EVERY 4 HRS NEEDED FOR WHEEZING OR SHORTNESS OF BREATH. USE WITH FUSING MACHINE TENDER TUBE. 18 g 11 07/27/2023 07/26/2024 DME OxygenIndications:Fibrosi s Pulmonary ([facility]) DME Order - for details [...] Gastroesophageal Junction (HCC),Alf Current Drug Therapy, Chemotherapy TAKE 1 TABLET [...] mg tabletIndications:Maligna nt Neoplasm Of Gastroesophageal Junction (HCC),Jigger Crown Pouncing Machine Operator Current Drug Therapy, Chemotherapy Take [...] documented as of this encounter Care Teams Lapel Padder Blindstitch Relationship Specialty Start Date End Date Elsewhere, Pcp PCP - General Internal Medicine 03/23/24 documented as of this encounter
--- OUTSIDE RECORDS SUMMARY | 2024-06-28 01:09 | XMS_ITS | Encounter Summary ---
Author Organization [facility] Address [address] [place] [address] Care Team Providers Care Telecommunication Equipment Repairer Name Role Phone Elsewhere, Pcp Primary Care Provider Unavailabl e Reason for Referral * Radiation Therapy (Routine) - Authorized Specialty Diagnoses / Procedures Referred By Contac t Referred To Contact Diagnoses Secondary Malignant Neoplasm Bone (HCC) Procedures Prior Auth Rad Tx Kuldeep Ritchie M.D. [address] [place] [phone] [facility] Referral ID Status Reason Start Date Expiration Date V isits Requested Visits Authorized [id number] Authorized 04/22/2024 04/22/2025 1 1 Encounter Details Date Type Department Care Team (Late st Contact Info) Description 04/22/2024 Orders Only Department of Radiation Oncology in [place], [place] [address] [place] [phone] Kuldeep Ritchie M.D. [address] [place] [phone] Secondary Malignant Neoplasm Bone (HCC) (Primary Dx) Social History Tobacco Use Types Packs/Day Years Used Date Smoking Tobacco: Former Cigarettes 2.5 30.1 0 09/18/1965 - 11/01/1995 Passive Smoke Exposure: Never Smokeless Tobacco: Never Alcohol Use Standard Drinks/Week Comments Not Currently 1 (1 standard drink = 0.6 oz pur e alcohol) drink on special occasions [facility] Utilities Answer Date Recorded In [...] very hard 01/27/2023 [facility] [place] of Occupat ional Health - Occupational Stress [...] living situation today? [facility] 03/31/2024 Education Answer [...] documented as of this encounter Care Teams Telecommunication Equipment Repairer Relationship Specialty Start Date End Date Elsewhere, Pcp PCP - General Internal Medicine 03/23/24 documented as of this encounter
--- OUTSIDE RECORDS SUMMARY | 2024-06-28 01:09 | XMS_ITS | Encounter Summary ---
Author Organization [facility] Address [address] [place] [address] Care Team Providers Care Funds Transfer Clerk Name Role Phone Elsewhere, Pcp Primary Care Provider Unavailabl e Reason for Referral * Outpatient (Routine) - Closed Specialty Diagnoses / Procedures Referred By Contac t Referred To Contact Diagnoses 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) Procedures DX Tibia Fibula Bilateral 2 Views Merly Beavers APRN C.N.P., M.S. [address] [place] [phone] [facility] Referral ID Status Reason Start Date Expiration Date Visits Re quested Visits Authorized [id number] Closed 04/16/2024 04/16/2025 1 1 Reason for Visit * Outpatient (Routine) - Closed Specialty Diagnoses / Procedures Referred By Contoly hernández Referred To Contact Diagnoses 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) Procedures DX Tibia Fibula Bilateral 2 Views Merly Beavers APRN C.N.P., M.S. [address] [place] [address] [facility] Referral ID Status Reason Start Date Expiration Date Visits Re quested Visits Authorized [id number] Closed 04/16/2024 04/16/2025 1 1 Encounter Details Date Type Department Care Team (Latest Contact Info) Description 04/22/2024 8:52 AM CDT - 04/22/2024 9:56 AM CDT Hospital Encounter Department of Radiology, [facility], in [place], [place] [address] [place] [phone] Merly Beavers, MINESH, C.N.P., M.S. [address] [place] [address] Malignant Neoplasm Of Gastroesophageal Junction (HCC); Secondary [...] e alcohol) drink on special occasions [facility] [employer] Answer Date Recorded In the past 12 months has [employer], gas, oil, or water [employer] threatened to shut off services in your [...] often do you attend chur ch or baptist services? More than 4 times per year [...] care, and heating? Not very hard 01/27/2023 [facility] of Occupat ional Health - [...] your living situation today? I have a [facility] place to live 03/31/2024 Education Answer [...] End Date albuterol 90 mcg/actuation inhalerIndications:Emphys sally ([facility]) INHALE 2 PUFFS EVERY 4 HRS NEEDED FOR WHEEZING OR SHORTNESS OF BREATH. USE WITH ADMITTING OFFICE ESCORT TUBE. 18 g 11 07/27/2023 07/26/2024 DME OxygenIndications:Fibrosi s Pulmonary ([facility]) DME Order - for details see Order Report 1 each 04/16/2024 Eliquis 5 mg tablet Take 5 mg by mouth 2 (two) times a day. 07/02/2023 heparin 100 unit/mL syringeIndications:Malign ant Neoplasm Of Gastroesophageal Junction (HCC),Cell Repairer Current Drug Therapy, Chemotherapy 5 mL (500 Units total) by intra-catheter route once as needed for line care for up to 1 dose. Flush IV line AFTER 0.9% Sodium Chloride flush 60 mL 3 12/18/2023 inhalational spacing device (AEROCHAMBER) spacerIndications:Emphyse ma ([facility]) 1 each as needed (for use with Albuterol inhaler). 1 each 1 12/28/2018 multivitamin tablet Take 1 tablet by mouth daily. GUMMIES OLANZapine (ZyPREXA) 5 mg tabletIndications:Maligna nt Neoplasm Of Gastroesophageal Junction (HCC),Penitentiary Current Drug Therapy, Chemotherapy TAKE 1 TABLET BY MOUTH AT BEDTIME NEEDED (NAUSEA, VOMITING). MAY TAKE DOSE EARLY IF NEEDED. 90 tablet 1 03/05/2024 omeprazole (PriLOSEC) [address] capsule Take 20 mg by mouth every morning before breakfast. ondansetron (ZOFRAN) 8 mg tabletIndications:Maligna nt Neoplasm Of Gastroesophageal Junction (HCC),Cell Repairer Current Drug Therapy, Chemotherapy Take 1 tablet (8 mg total) by mouth every 8 (eight) hours as needed for nausea or vomiting (unrelieved by prochlorperazine). 30 tablet 3 12/08/2023 12/07/2024 prochlorperazine (COMPAZINE) 10 mg tabletIndications:Maligna nt Neoplasm Of Gastroesophageal Junction (HCC),Cell Repairer Current Drug Therapy, Chemotherapy Take 1 tablet [...] documented as of this encounter Care Teams Funds Transfer Clerk Relationship Specialty Start Date End Date Elsewhere, Pcp PCP - General Internal Medicine 03/23/24 documented as of this encounter
--- OUTSIDE RECORDS SUMMARY | 2024-06-28 01:09 | XMS_ITS | Encounter Summary ---
Author Organization [facility] Address [address] [place] [address] Care Team Providers Care Database Management Specialist Name Role Phone Elsewhere, Pcp Primary Care Provider Unavailabl e Reason for Visit * Episode Based Medications (Routine) - Closed Specialty Diagnoses / Procedures Referred By Fabian hernández Referred To Contact Diagnoses Malignant Neoplasm Of Gastroesophageal Junction (HCC) Paddy Jha P.A.-C., M.S. [address] [place] [phone] [facility] [address] [place] [phone] Referral ID Status Reason Start Date Expiration Date Visits Re quested Visits Authorized [id number] Closed 02/13/2024 02/12/2026 99 99 Encounter Details Date Type Department Care Team (Late st Contact Info) Description 04/17/2024 7:00 AM CDT Infusion Department of Oncology in [place], [place] [address] [place] [phone] Luzma Howell M.D. [address] [place] [phone] Malignant Neoplasm Of Gastroesophageal Junction (HCC) (Primary Dx); Secondary Malignant Neoplasm Bone (HCC) Social History Tobacco Use Types Packs/Day Years Used Date Smoking Tobacco: Former Cigarettes 2.5 30.1 0 09/18/1965 - 11/01/1995 Passive Smoke Exposure: Never Smokeless Tobacco: Never Alcohol Use Standard Drinks/Week Comments Not Currently 1 (1 standard drink = 0.6 oz pur e alcohol) drink on special occasions [facility] Utilities Answer Date Recorded In [...] How often do you attend chur or hinduism services? More than 4 times per year 01/27/2023 Do you belong to any clubs o r organizations such as mosque groups, unions, fraternal or athletic groups, or [...] care, and heating? Not very hard 01/27/2023 [facility] of Occupat ional Health - Occupational [...] living situation today? I have a [facility] place to live 03/31/2024 Education [...] documented as of this encounter Care Teams Database Management Specialist Relationship Specialty Start Date End Date Elsewhere, Pcp PCP - General Internal Medicine 03/23/24 documented as of this encounter
--- OUTSIDE RECORDS SUMMARY | 2024-06-28 01:09 | XMS_ITS | Encounter Summary ---
Author Organization [facility] Address [address] [place] [address] Care Team Providers Care Dredge Pumper Name Role Phone Elsewhere, Pcp Primary Care Provider Unavailabl e Reason for Visit * Episode Based Medications (Routine) - Closed Specialty Diagnoses / Procedures Referred By Fabian hernández Referred To Contact Diagnoses Malignant Neoplasm Of Gastroesophageal Junction (HCC) Paddy Jha P.A.-C., M.S. [address] [place] [phone] Rst Onc Rogo [address] [place] [phone] Referral ID Status Reason Start Date Expiration Date Visits Re quested Visits Authorized [id number] Closed 02/13/2024 02/12/2026 99 99 Encounter Details Date Type Department Care Team (Latest Contact Info) Description 04/30/2024 1:00 PM CDT Office Visit Department of Oncology in [place], [place] [address] [place] [phone] Luzma Howell M.D. [address] [place] [phone] Diarrhea (Primary Dx); Secondary Malignant Neoplasm [...] pur e alcohol) drink on special occasions [facility] Utilities Answer Date Recorded In [...] week 01/27/2023 How often do you attend [facility] or moravian services? More than 4 times per year [...] care, and heating? Not very hard 01/27/2023 [facility] - Occupational Stress Questionnaire Answer Date Recorded [...] PM CDT Medical Oncology Return Visit [facility] ONCOLOGIST Paddy Jha P.A.-C., M.S. Luzma Howell [...] performed using the FDA-cleared FilmArray GI Panel ([employer] Semi-Urgent This is a semi-urgen t result(BENÍTEZ) [facility] Stool (Stool) 05/02/2024 1:0 2 PM CDT 05/02/2024 1:36 PM CDT Luzma Howell M.D. 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
--- OUTSIDE RECORDS SUMMARY | 2024-06-28 01:09 | XMS_ITS | Encounter Summary ---
Author Organization [facility] Address [address] [place] [address] Care Team Providers Care Nip Wrapper Name Role Phone Elsewhere, Pcp Primary Care Provider Unavailabl e Reason for Referral * MRI/CAT/PET Scan (Routine) - Closed Specialty Diagnoses / Procedures Referred By Fabian hernández Referred To Contact Radiology Diagnoses 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) Procedures CT Chest without IV Contrast Merly Beavers APRN C.N.P., M.S. [address] [place] [phone] [facility] Referral ID Status Reason Start Date Expiration Date Visits Re quested Visits Authorized [id number] Closed 04/16/2024 04/16/2025 1 1 Reason for Visit * MRI/CAT/PET Scan (Routine) - Closed Specialty Diagnoses / Procedures Referred By Fabian hernández Referred To Contact Radiology Diagnoses 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) Procedures CT Chest without IV Contrast Merly Beavers APRN, C.N.P., M.S. [address] [place] [phone] [facility] Referral ID Status Reason Start Date Expiration Date Visits Re quested Visits Authorized [id number] Closed 04/16/2024 04/16/2025 1 1 Encounter Details Date Type Department Care Team (Latest Contact Info) Description 04/19/2024 9:42 AM CDT - 04/19/2024 11:59 PM CDT Hospital Encounter Department of Radiology, [facility], in [place], [place] [address] [place] [address] Merly Beavers, MINESH, C.N.P., M.S. [address] [place] [address] Malignant Neoplasm Of Gastroesophageal Junction (HCC); Secondary [...] drink on special occasions [facility] [employer] Answer Date Recorded In the past 12 months has [place], gas, oil, or water [employer] threatened to shut off services in your [...] often do you attend chur ch or temple services? More than 4 times per year [...] care, and heating? Not very hard 01/27/2023 [facility] - Occupational [...] living situation today? I have a [facility] place to live 03/31/2024 Education Answer [...] End Date albuterol 90 mcg/actuation inhalerIndications:Emphys sally ([facility]) INHALE 2 PUFFS EVERY 4 HRS NEEDED FOR WHEEZING OR SHORTNESS OF BREATH. USE WITH TELEGRAPH INSTALLER TUBE. 18 g 11 07/27/2023 07/26/2024 DME OxygenIndications:Fibrosi s Pulmonary ([facility]) DME Order - for details see Order [...] spacing device (AEROCHAMBER) spacerIndications:Emphyse ma ([facility]) 1 each as needed (for use with [...] mg tabletIndications:Maligna nt Neoplasm Of Gastroesophageal Junction (HCC),Pca Current Drug Therapy, Chemotherapy Take 1 tablet [...] documented as of this encounter Care Teams Nip Wrapper Relationship Specialty Start Date End Date Elsewhere, Pcp PCP - General Internal Medicine 03/23/24 documented as of this encounter
--- OUTSIDE RECORDS SUMMARY | 2024-06-28 01:09 | XMS_ITS | Encounter Summary ---
Author Organization [facility] Address [address] [place] [address] Care Team Providers Care Consumer Educator Name Role Phone Elsewhere, Pcp Primary Care Provider Unavailabl e Reason for Referral * Radiation Therapy (Routine) - Closed Specialty Diagnoses / Procedures Referred By Contac t Referred To Contact Diagnoses Secondary Malignant Neoplasm Bone (HCC) Procedures Initial Rad Onc Treatment Planning CT Simulation Kuldeep Ritchie M.D. 200 [place] [phone] [facility] Referral ID Status Reason Start Date Expiration Date Visits Re quested Visits Authorized [id number] Closed 04/19/2024 04/19/2025 1 1 Reason for Visit * Radiation Therapy (Routine) - Closed Specialty Diagnoses / Procedures Referred By Contac t Referred To Contact Diagnoses Secondary Malignant Neoplasm Bone (HCC) Procedures Initial Rad Onc Treatment Planning CT Simulation Kuldeep Ritchie M.D. 200 [place] [phone] [facility] Referral ID Status Reason Start Date Expiration Date Visits Re quested Visits Authorized [id number] Closed 04/19/2024 04/19/2025 1 1 Encounter Details Date Type Department Care Team (Latest Contact Info) Description 04/22/2024 1:32 PM CDT - 04/22/2024 11:59 PM CDT Hospital Encounter Department of Radiation Oncology in [place], [place] [address] [place] [phone] Kuldeep Ritchie M.D. 200 [place] [phone] Secondary Malignant Neoplasm Bone (HCC) Discharge Disposition: Home or Self Care Social History Tobacco Use Types Packs/Day Years Used Date Smoking Tobacco: Former Cigarettes 2.5 30.1 0 09/18/1965 - 11/01/1995 Passive Smoke Exposure: Never Smokeless Tobacco: Never Alcohol Use Standard Drinks/Week Comments Not Currently 1 (1 standard drink = 0.6 oz pur e alcohol) drink on special occasions [facility] [employer] Answer Date Recorded In the past 12 months has th e [employer], gas, oil, or water [employer] threatened to shut off services in your [...] any clubs o r organizations such as nondenominational groups, unions, fraternal or athletic groups, or [...] care, and heating? Not very hard 01/27/2023 [facility] Occupat ional Health - [...] End Date albuterol 90 mcg/actuation inhalerIndications:Emphys sally ([facility]) INHALE 2 PUFFS EVERY 4 HRS NEEDED FOR WHEEZING OR SHORTNESS OF BREATH. USE WITH TINNER HELPER TUBE. 18 g 11 07/27/2023 07/26/2024 DME OxygenIndications:Fibrosi s Pulmonary ([facility]) DME Order - for details see Order Report 1 each 04/16/2024 Eliquis 5 mg tablet Take 5 mg by mouth 2 (two) times a day. 07/02/2023 heparin 100 unit/mL syringeIndications:Malign ant Neoplasm Of Gastroesophageal Junction (HCC),Grounds Crew Supervisor Current Drug Therapy, Chemotherapy 5 mL (500 Units total) by intra-catheter route once as needed for line care for up to 1 dose. Flush IV line AFTER 0.9% Sodium Chloride flush 60 mL 3 12/18/2023 inhalational spacing device (AEROCHAMBER) spacerIndications:Emphyse ma ([facility]) 1 each as needed (for use with Albuterol inhaler). 1 each 1 12/28/2018 multivitamin tablet Take 1 tablet by mouth daily. GUMMIES OLANZapine (ZyPREXA) 5 mg tabletIndications:Maligna nt Neoplasm Of Gastroesophageal Junction (HCC),Grounds Crew Supervisor Current Drug Therapy, Chemotherapy TAKE 1 TABLET BY MOUTH AT BEDTIME NEEDED (NAUSEA, VOMITING). MAY TAKE DOSE EARLY IF NEEDED. 90 tablet 1 03/05/2024 omeprazole (PriLOSEC) [address] capsule Take 20 mg by mouth every morning before breakfast. ondansetron (ZOFRAN) 8 mg tabletIndications:Maligna nt Neoplasm Of Gastroesophageal Junction (HCC),Fpc Current Drug Therapy, Chemotherapy Take 1 tablet (8 mg total) by mouth every 8 (eight) hours as needed for nausea or vomiting (unrelieved by prochlorperazine). 30 tablet 3 12/08/2023 12/07/2024 prochlorperazine (COMPAZINE) 10 mg tabletIndications:Maligna nt Neoplasm Of Gastroesophageal Junction (HCC),Fpc Current Drug Therapy, Chemotherapy Take 1 tablet [...] planning. CT images were transferred to the [employer]! treatment planning system, after a reference isocenter was determined and marked. Segmentation and treatment planning will take place prior to treatment delivery. Patient set up and imaging was appropriate and completed without incident. Automotive Power Electronics Engineer use:No Associated attestation - Kuldeep Ritchie M.D. [...] CT Simulation (04/22/2024 2:15 PM CDT) Narrative ED [facility] - 04/22/2024 2:15 PM CDT [...] documented as of this encounter Care Teams Consumer Educator Relationship Specialty Start Date End Date Elsewhere, Pcp PCP - General Internal Medicine 03/23/24 documented as of this encounter
--- OUTSIDE RECORDS SUMMARY | 2024-06-28 01:09 | XMS_ITS | Encounter Summary ---
Author Organization [facility] Address [address] [place] [address] Care Team Providers Care Jogger Operator Name Role Phone Elsewhere, Pcp Primary Care Provider Unavailabl e Reason for Referral * Outpatient (Routine) - Closed Specialty Diagnoses / Procedures Referred By Fabian hernández Referred To Contact Diagnoses 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) Effusion Pleural Procedures US Thoracentesis Right with Imaging Guidance Merly Beavers APRN C.N.P., M.S. [address] [place] [phone] [facility] Referral ID Status Reason Start Date Expiration Date Visits Re quested Visits Authorized [id number] Closed 04/22/2024 04/22/2025 1 1 Encounter Details Date Type Department Care Team (Late st Contact Info) Description 04/22/2024 Orders Only Department of Oncology in [place], [place] [address] [place] [phone] Merly Beavers APRN, C.N.P., M.S. [address] [place] [phone] Secondary Malignant Neoplasm Bone (HCC) (Primary Dx); Malignant Neoplasm Of Gastroesophageal Junction (HCC); Effusion Pleural Social History Tobacco Use Types Packs/Day Years Used Date Smoking Tobacco: Former Cigarettes 2.5 30.1 0 09/18/1965 - 11/01/1995 Passive Smoke Exposure: Never Smokeless Tobacco: Never Alcohol Use Standard Drinks/Week Comments Not Currently 1 (1 standard drink = 0.6 oz pur e alcohol) drink on special occasions [facility] [employer] Answer Date Recorded In the past 12 months has e [employer], gas, oil, or water [employer] threatened to shut off services in your [...] How often do you attend chur or mormon services? More than 4 times per year 01/27/2023 Do you belong to any clubs o r organizations such as cheondoism groups, unions, fraternal or athletic groups, or [...] care, and heating? Not very hard 01/27/2023 [facility] Occupational Stress Questionnaire Answer [...] documented as of this encounter Care Teams Jogger Operator Relationship Specialty Start Date End Date Elsewhere, Pcp PCP - General Internal Medicine 03/23/24 documented as of this encounter
--- OUTSIDE RECORDS SUMMARY | 2024-06-28 01:09 | XMS_ITS | Encounter Summary ---
Author Organization [facility] Address [address] [place] [address] Care Team Providers Care Salvage Laborer Name Role Phone Elsewhere, Pcp Primary Care Provider Unavailabl e Encounter Details Date Type Department Care Team (Late st Contact Info) Description 04/30/2024 Orders Only Department of Oncology in [place], [place] [address] [place] [address] Merly Beavers, MINESH, C.N.P., M.S. [address] [place] [phone] Social History Tobacco Use Types Packs/Day Years [...] week 01/27/2023 How often do you attend [facility] or advent[facility] services? More than 4 times [...] care, and heating? Not very hard 01/27/2023 [facility] of Occupat ional Health - Occupational Stress [...] situation today? I have a [facility] place to live 03/31/2024 Education Answer [...] documented as of this encounter Care Teams Salvage Laborer Relationship Specialty Start Date End Date Elsewhere, Pcp PCP - General Internal Medicine 03/23/24 documented as of this encounter
--- OUTSIDE RECORDS SUMMARY | 2024-06-28 01:09 | XMS_ITS | Encounter Summary ---
Author Organization [facility] Address [address] [place] [address] Care Team Providers Care Sand Car Worker Name Role Phone Elsewhere, Pcp Primary Care Provider Unavailabl e Reason for Visit * Episode Based Medications (Routine) - Closed Specialty Diagnoses / Procedures Referred By Fabian hernández Referred To Contact Diagnoses Malignant Neoplasm Of Gastroesophageal Junction (HCC) Paddy Jha P.A.-C., M.S. [address] [place] [phone] Rst Onc Rogo [address] [place] [phone] Referral ID Status Reason Start Date Expiration Date Visits Re quested Visits Authorized [id number] Closed 02/13/2024 02/12/2026 99 99 Encounter Details Date Type Department Care Team (Late st Contact Info) Description 04/30/2024 6:45 AM CDT Lab Department of Oncology in [place], [place] [address] [place] [phone] Merly Beavers APRN, C.N.P., M.S. [address] [place] [phone] Malignant Neoplasm Of Gastroesophageal Junction (HCC) (Primary Dx) Social History Tobacco Use Types Packs/Day Years Used Date Smoking Tobacco: Former Cigarettes 2.5 30.1 0 09/18/1965 - 11/01/1995 Passive Smoke Exposure: Never Smokeless Tobacco: Never Alcohol Use Standard Drinks/Week Comments Not Currently 1 (1 standard drink = 0.6 oz pur e alcohol) drink on special occasions [facility] Utilities Answer Date Recorded In [...] any clubs o r organizations such as amish groups, unions, fraternal or athletic groups, or [...] care, and heating? Not very hard 01/27/2023 [facility] Occupat ional Health - [...] Tee APRNN.Silvano., M.S. [place] B BLOOD ADD-ON [facility] [address] [place] [address], [facility] [address] [place] [address] * (ABNORMAL) Comprehensive Metabolic Panel (04/30/2024 6:54 [...] APRN C.N.P., M.S. [place] B BLOOD ADD-ON [facility] [address] [place] [address], [place] D[facility] [address] * (ABNORMAL) CBC with Differential, Blood (04/30/2024 6:54 AM CDT) [facility] Hemoglobin 6.1(L) 13.2 - 16.6 g/dL 04/30/2024 [...] APRN, C.N.P., M.S. [place] B BLOOD ADD-ON [facility] [address] [place] [address], [place] DTL [facility] [address] [place] [address] [facility]3] [address] [place] [address] documented in this encounter Visit Diagnoses Diagnosis [...] documented as of this encounter Care Teams Sand Car Worker Relationship Specialty Start Date End Date Elsewhere, Pcp PCP - General Internal Medicine 03/23/24 documented as of this encounter
--- OUTSIDE RECORDS SUMMARY | 2024-06-28 01:09 | XMS_ITS | Encounter Summary ---
Author Organization [facility] Address [address] [place] [address] Care Team Providers Care Racking Technician Name Role Phone Elsewhere, Pcp Primary Care Provider Unavailabl e Reason for Referral * Radiation Therapy (Routine) - Closed Specialty Diagnoses / Procedures Referred By Fabian t Referred To Contact Diagnoses Secondary Malignant Neoplasm Bone (HCC) Procedures Initial Rad Onc Treatment Planning CT Simulation Kuldeep Ritchie M.D. [address] [place] [phone] [facility] Referral ID Status Reason Start Date Expiration Date Visits Re quested Visits Authorized [id number] Closed 04/19/2024 04/19/2025 1 1 Encounter Details Date Type Department Care Team (Late st Contact Info) Description 04/19/2024 Orders Only Department of Radiation Oncology in [place], [place] [address] [place] [phone] Kuldeep Ritchie M.D. [address] [place] [phone] Secondary Malignant Neoplasm Bone (HCC) (Primary Dx) Social History Tobacco Use Types Packs/Day Years Used Date Smoking Tobacco: Former Cigarettes 2.5 30.1 0 09/18/1965 - 11/01/1995 Passive Smoke Exposure: Never Smokeless Tobacco: Never Alcohol Use Standard Drinks/Week Comments Not Currently 1 (1 standard drink = 0.6 oz pur e alcohol) drink on special occasions [facility] Utilities Answer Date Recorded In the [...] any clubs o r organizations such as buddhism groups, unions, fraternal or athletic groups, or [...] care, and heating? Not very hard 01/27/2023 [facility] [place] of Occupat ional Health - Occupational Stress [...] your living situation today? [facility] 03/31/2024 Education [...] documented as of this encounter Care Teams Racking Technician Relationship Specialty Start Date End Date Elsewhere, Pcp PCP - General Internal Medicine 03/23/24 documented as of this encounter
--- OUTSIDE RECORDS SUMMARY | 2024-06-28 01:10 | XMS_ITS | Encounter Summary ---
Author Organization [facility] Address [address] [place] [address] Care Team Providers Care Wood Carving Machine Operator Name Role Phone Elsewhere, Pcp Primary Care Provider Unavailabl e Encounter Details Date Type Department Care Team (Late st Contact Info) Description 04/16/2024 Clinical Communication Division of Pulmonary Medicine in [place], [place] [address] [place] [phone] Edgardo Joy D.O. [address] [place] [phone] Social History Tobacco Use Types Packs/Day Years Used Date Smoking Tobacco: Former Cigarettes 2.5 30.1 0 09/18/1965 - 11/01/1995 Passive Smoke Exposure: Never Smokeless Tobacco: Never Alcohol Use Standard Drinks/Week Comments Not Currently 1 (1 standard drink = 0.6 oz pur e alcohol) drink on special occasions [facility] Utilities Answer Date Recorded In [...] care, and heating? Not very hard 01/27/2023 [facility] of Occupat ional Health - Occupational [...] your living situation today? [facility] 03/31/2024 Education Answer Date [...] documented as of this encounter Care Teams Wood Carving Machine Operator Relationship Specialty Start Date End Date Elsewhere, Pcp PCP - General Internal Medicine 03/23/24 documented as of this encounter
--- OUTSIDE RECORDS SUMMARY | 2024-06-28 01:10 | XMS_ITS | Encounter Summary ---
Author Organization [facility] Address [address] [place] [address] Care Team Providers Care Bailing Machine Operator Name Role Phone Elsewhere, Pcp Primary Care Provider Unavailabl e Reason for Referral * Outpatient (Routine) - Closed Specialty Diagnoses / Procedures Referred By Fabian t Referred To Contact Diagnoses 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) Procedures DX Tibia Fibula Bilateral 2 Views Yessenia Beavers APRN, C.N.P., M.S. 200 [place] [address] [facility] Referral ID Status Reason Start Date Expiration Date Visits Re quested Visits Authorized [id number] Closed 04/16/2024 04/16/2025 1 1 * Outpatient (Routine) - Closed Specialty Diagnoses / Procedures Referred By Contoly t Referred To Contact Palliative Medicine Diagnoses 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) Yessenia Beavers APRN, C.N.P., M.S. [address] [place] [address] [facility] Referral ID Status Reason Start Date Expiration Date Visits Re quested Visits Authorized [id number] Closed 04/16/2024 10/16/2025 1 1 * Outpatient (Routine) - Closed Specialty Diagnoses / Procedures Referred By Fabian hernández Referred To Contact Radiation Oncology Diagnoses 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) Yessenia Beavers APRN, C.N.P., M.S. [address] [place] [phone] [facility] Referral ID Status Reason Start Date Expiration Date Visits Re quested Visits Authorized [id number] Closed 04/16/2024 10/16/2025 1 1 * MRI/CAT/PET Scan (Routine) - Closed Specialty Diagnoses / Procedures Referred By Fabian hernández Referred To Contact Radiology Diagnoses 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) Procedures CT Chest without IV Contrast Yessenia Beavers APRN, C.N.P., M.S. [address] [place] [phone] [facility] Referral ID Status Reason Start Date Expiration Date Visits Re quested Visits Authorized [id number] Closed 04/16/2024 04/16/2025 1 1 Reason for Visit * Episode Based Medications (Routine) - Closed Specialty Diagnoses / Procedures Referred By Fabian hernández Referred To Contact Diagnoses Malignant Neoplasm Of Gastroesophageal Junction (HCC) Paddy Jha P.A.-C., M.S. [address] [place] [phone] Rst Onc Rogo [address] [place] [phone] Referral ID Status Reason Start Date Expiration Date Visits Re quested Visits Authorized [id number] Closed 02/13/2024 02/12/2026 99 99 Encounter Details Date Type Department Care Team (Latest Contact Info) Description 04/16/2024 2:00 PM CDT Office Visit Department of Oncology in [place], [place] [address] [place] [address] Yessenia Beavers, MINESH C.N.P., M.S. [address] [place] [address] Malignant Neoplasm Of Gastroesophageal Junction (HCC); Secondary Malignant Neoplasm Bone (HCC) Social History Tobacco Use Types Packs/Day Years Used Date Smoking Tobacco: Former Cigarettes 2.5 30.1 0 09/18/1965 - 11/01/1995 Passive Smoke Exposure: Never Smokeless Tobacco: Never Alcohol Use Standard Drinks/Week Comments Not Currently 1 (1 standard drink = 0.6 oz pur e alcohol) drink on special occasions [facility] Explorys Answer Date Recorded In the past 12 months has [employer] gas, oil, or water [employer] threatened to shut off services in your [...] week 01/27/2023 How often do you attend [facility] or mormonism services? More than 4 times per year 01/27/2023 Do you belong to any clubs o r organizations such as spiritism groups, unions, fraternal or athletic groups, or [...] your living situation today? I have a [facility] place to live 03/31/2024 Education Answer [...] PROVIDER Paddy Jha P.A.-C., M.S. [address] [place] [address] LOCAL ONCOLOGIST No care velvet steamer to display PRIMARY [place] ONCOLOGIST Paddy Jha P.A.-C., M.S. Luzma Howell [...] Beavers APRN, C.N.P., M.SJam OCONNOR BLOOD ADD-ON [facility] [address] [place] [address], [place] [facility] [address] [place] [address] * (ABNORMAL) Comprehensive Metabolic Panel (04/30/2024 6:54 AM CDT) [facility] Potassium, S 3.9 3.6 - 5.2 mmol/L [...] APRN, C.N.P., M.S. BLESSING Longo BLOOD ADD-ON [facility] [address] [place] [address], [facility] [address] [place] [address] * (ABNORMAL) CBC with Differential, Blood (04/30/2024 [...] Tee APRN.N.Ruiz, M.S. LA B BLOOD ADD-ON [facility] [address] [place] [address], [facility] DTL [facility] [address] [place] [address] DHPM [facility] 200 [place] [address] * DX Tibia Fibula Bilateral 2 Views [...] documented as of this encounter Care Teams Bailing Machine Operator Relationship Specialty Start Date End Date Elsewhere, Pcp PCP - General Internal Medicine 03/23/24 documented as of this encounter
--- OUTSIDE RECORDS SUMMARY | 2024-06-28 01:10 | XMS_ITS | Encounter Summary ---
Author Organization [facility] Address [address] [place] [address] Care Team Providers Care Mallet And Die Cutter Name Role Phone Elsewhere, Pcp Primary Care Provider Unavailabl e Reason for Visit * Episode Based Medications (Routine) - Closed Specialty Diagnoses / Procedures Referred By Fabian hernández Referred To Contact Diagnoses Malignant Neoplasm Of Gastroesophageal Junction (HCC) Paddy Jha P.A.-C., M.S. [address] [place] [phone] Rst Onc Rogo [address] [place] [phone] Referral ID Status Reason Start Date Expiration Date Visits Re quested Visits Authorized [id number] Closed 02/13/2024 02/12/2026 99 99 Encounter Details Date Type Department Care Team (Late st Contact Info) Description 04/16/2024 11:00 AM CDT Lab Department of Oncology in [place], [place] [address] [place] [phone] Luzma Howell M.D. [address] [place] [phone] Malignant Neoplasm Of Gastroesophageal Junction (HCC) (Primary [...] How often do you attend chur or shinto services? More than 4 times per year [...] Not very hard 01/27/2023 [facility] [place] of Occupat ional Health - Occupational Stress [...] your living situation today? I have a [facility] place to live 03/31/2024 Education Answer [...] CDT Luzma Howell M.D. LAB BLOOD ADD-ON [place] [address] [place] [address], [facility] [address] [place] [address] * (ABNORMAL) Comprehensive Metabolic Panel (04/16/2024 11:39 [...] CDT Luzma Howell M.D. LAB BLOOD ADD-ON [facility] [address] [place] [address], [place] DTL [facility] [place] [address] [place] [address] * (ABNORMAL) CBC with Differential, Blood (04/16/2024 11:39 AM CDT) [facility] Hemoglobin 8.4(L) 13.2 - 16.6 g/dL 04/16/2024 [...] - 6.45 x10(9)/L 04/16/2024 12:16 PM CDT [facility] Lymphocytes 0.57(L) 0.95 - 3.07 x10(9)/L 04/16/2024 12:16 PM CDT DTL Monocytes 0.72 0.26 - 0.81 x10(9)/L 04/16/2024 12:16 PM CDT DTL Eosinophils 0.27 0.03 - 0.48 x10(9)/L 04/16/2024 12:16 PM CDT DTL Basophils 0.04 0.01 - 0.08 x10(9)/L 04/16/2024 12:16 PM CDT DTL Blood (Blood, Venous) 04/16/2024 11:39 AM CDT 04/16/2024 12:01 PM CDT Luzma Howell M.D. LAB BLOOD ADD-ON [facility] [address] [place] [address], [facility] [address] [place] [address] [facility] [address] [place] [address] documented in this encounter Visit Diagnoses Diagnosis [...] documented as of this encounter Care Teams Mallet And Die Cutter Relationship Specialty Start Date End Date Elsewhere, Pcp PCP - General Internal Medicine 03/23/24 documented as of this encounter
--- OUTSIDE RECORDS SUMMARY | 2024-06-28 01:10 | XMS_ITS | Encounter Summary ---
Author Organization [facility] Address [address] [place] [address] Care Team Providers Care Data Operations Leader Name Role Phone Elsewhere, Pcp Primary Care Provider Unavailabl e Encounter Details Date Type Department Care Team (Late st Contact Info) Description 04/05/2024 Clinical Communication Division of Pulmonary Medicine in [place], [place] [address] [place] [address] Edgardo Joy D.O. [address] [place] [phone] Social History Tobacco Use Types Packs/Day Years [...] Not very hard 01/27/2023 [facility] [place] of Occupat ional Health - Occupational Stress [...] your living situation today? I have a [facility] place to live 03/31/2024 Education Answer [...] AM CDT DME Medical Justification: Oxygen A ovna-xs-keqb encounter was conducted on 04/05/[address] [...] documented as of this encounter Care Teams Data Operations Leader Relationship Specialty Start Date End Date Elsewhere, Pcp PCP - General Internal Medicine 03/23/24 documented as of this encounter
--- OUTSIDE RECORDS SUMMARY | 2024-06-28 01:10 | XMS_ITS | Encounter Summary ---
Author Organization [facility] Address [address] [place] [address] Care Team Providers Care Solar Electric/Photovoltaic Installer Name Role Phone Elsewhere, Pcp Primary Care Provider Unavailabl e Reason for Visit * Reason Onset Date Comments T[facility] 04/05/2024 Encounter Details Date Type Department Care Team (Late st Contact Info) Description 04/05/2024 Clinical Communication Division of Pulmonary Medicine in [place], [place] [address] [place] [address] Edgardo Joy, DJamO. [address] [place] [phone] [facility] Social History Tobacco Use Types Packs/Day Years Used Date Smoking Tobacco: Former Cigarettes 2.5 30.1 0 09/18/1965 - 11/01/1995 Passive Smoke Exposure: Never Smokeless Tobacco: Never Alcohol Use Standard Drinks/Week Comments Not Currently 1 (1 standard drink = 0.6 oz pur e alcohol) drink on special occasions [facility] Utilities Answer Date Recorded In the past 12 months has th e [employer], gas, oil, or water company threatened to [...] How often do you attend chur or cheondoism services? More than 4 times per year [...] care, and heating? Not very hard 01/27/2023 [facility] [place] of Occupat ional Health - Occupational Stress [...] Justification; oxygen titration results 04/05/24 To: [facility] Method: Sent under Letters tab in [facility] documented in this encounter Plan of Treatment Not on file documented as of this encounter Visit Diagnoses Not on filedocumented in this encounter Additional Health Concerns Infection Onset Date Last Indicated Resolved Time C. difficile 03/24/2024 03/24/2024 04/21/2024 5:37 AM CDT documented as of this encounter Care Teams Solar Electric/Photovoltaic Installer Relationship Specialty Start Date End Date Elsewhere, Pcp PCP - General Internal Medicine 03/23/24 documented as of this encounter
--- OUTSIDE RECORDS SUMMARY | 2024-06-28 01:10 | XMS_ITS | Encounter Summary ---
Author Organization [facility] Address [address] [place] [address] Care Team Providers Care Graphics Software Engineer Name Role Phone Elsewhere, Pcp Primary Care Provider Unavailabl e Encounter Details Date Type Department Care Team (Late st Contact Info) Description 04/05/2024 10:30 AM CDT Diagnostic Division of Pulmonary Medicine in [place], [place] [address] [place] [address] Edgardo Joy D.O. [address] [place] [address] Fibrosis Pulmonary (HCC) Social History Tobacco Use [...] How often do you attend [facility] or baptist services? More than 4 times [...] care, and heating? Not very hard 01/27/2023 [facility] [place] of Occupat ional Health - Occupational Stress [...] your living situation today? I have a [facility] place to live 03/31/2024 Education [...] documented as of this encounter Care Teams Graphics Software Engineer Relationship Specialty Start Date End Date Elsewhere, Pcp PCP - General Internal Medicine 03/23/24 documented as of this encounter
--- OUTSIDE RECORDS SUMMARY | 2024-06-28 01:10 | XMS_ITS | Encounter Summary ---
Author Organization [facility] Address [address] [place] [address] Care Team Providers Care Teller Manager Name Role Phone Elsewhere, Pcp Primary Care Provider Unavailabl e Encounter Details Date Type Department Care Team (Late st Contact Info) Description 04/11/2024 1:00 PM CDT Diagnostic Division of Pulmonary Medicine in [place], [place] [address] [place] [address] Edgardo Joy D.O. [address] [place] [address] Fibrosis Pulmonary (HCC); Chronic Cough Social History Tobacco Use Types Packs/Day Years Used Date Smoking Tobacco: Former Cigarettes 2.5 30.1 0 09/18/1965 - 11/01/1995 Passive Smoke Exposure: Never Smokeless Tobacco: Never Alcohol Use Standard Drinks/Week Comments Not Currently 1 (1 standard drink = 0.6 oz pur e alcohol) drink on special occasions [facility] Utilities Answer Date Recorded In [...] and heating? Not very hard 01/27/2023 [facility] [place] of Occupat ional Health - Occupational Stress [...] gas exchange abnormality. Physician: Stan Romero M.D. [id number] Narrative Procedure Note Stan Romero M.D. - 04/12/2024 IMPRESSION: Despite supplemental oxygen, there is persistence of baseline andpositional gas exchange abnormality. Physician: Stan Romero M.D. [id number] Edgardo Joy D.O. PFT ORDERABLES [facility] documented in this encounter Visit Diagnoses Diagnosis Fibrosis Pulmonary (HCC) Chronic Cough documented in this encounter Additional Health Concerns Infection Onset Date Last Indicated Resolved Time C. difficile 03/24/2024 03/24/2024 04/21/2024 5:37 AM CDT documented as of this encounter Care Teams Teller Manager Relationship Specialty Start Date End Date Elsewhere, Pcp PCP - General Internal Medicine 03/23/24 documented as of this encounter
--- OUTSIDE RECORDS SUMMARY | 2024-06-28 01:10 | XMS_ITS | Encounter Summary ---
Author Organization [facility] Address [address] [place] [address] Care Team Providers Care Group Insurance Specialist Name Role Phone Elsewhere, Pcp Primary Care Provider Unavailabl e Reason for Visit * Episode Based Medications (Routine) - Closed Specialty Diagnoses / Procedures Referred By Fabian hernández Referred To Contact Diagnoses Malignant Neoplasm Of Gastroesophageal Junction (HCC) Paddy Jha P.A.-C., M.S. [address] [place] [phone] Rst Onc Rogo [address] [place] [phone] Referral ID Status Reason Start Date Expiration Date Visits Re quested Visits Authorized [id number] Closed 02/13/2024 02/12/2026 99 99 Encounter Details Date Type Department Care Team (Late st Contact Info) Description 04/11/2024 2:00 PM CDT Lab Department of Infusion Therapy in [place], [place] [address] [place] [phone] Paddy Jha P.A.-C., M.S. [address] [place] [phone] Malignant Neoplasm Of Gastroesophageal Junction (HCC) (Primary Dx) Social History Tobacco Use Types Packs/Day Years Used Date Smoking Tobacco: Former Cigarettes 2.5 30.1 0 09/18/1965 - 11/01/1995 Passive Smoke Exposure: Never Smokeless Tobacco: Never Alcohol Use Standard Drinks/Week Comments Not Currently 1 (1 standard drink = 0.6 oz pur e alcohol) drink on special occasions [facility] Utilities Answer Date Recorded In the [...] How often do you attend chur or moravian services? More than 4 times [...] care, and heating? Not very hard 01/27/2023 [facility] [place] of Occupat ional Health - Occupational Stress [...] - 6.45 x10(9)/L 04/11/2024 2:23 PM CDT [facility] Blood (Blood, Venous) 04/11/2024 1:59 PM CDT 04/11/2024 2:18 PM CDT Paddy Jha P.A.-C., M.S. LAB BLOOD A DD-ON [facility] [address] [place] [address], [facility] DTL [facility] [address] [place], [place] [phone] [place] [address] [place] [address] documented in this encounter Visit Diagnoses Diagnosis [...] documented as of this encounter Care Teams Group Insurance Specialist Relationship Specialty Start Date End Date Elsewhere, Pcp PCP - General Internal Medicine 03/23/24 documented as of this encounter
--- OUTSIDE RECORDS SUMMARY | 2024-06-28 01:10 | XMS_ITS | Encounter Summary ---
Author Organization [facility] Address [address] [place] [address] Care Team Providers Care Sales Office Manager Name Role Phone Elsewhere, Pcp Primary Care Provider Unavailabl e Reason for Visit * Outpatient (Routine) - Closed Specialty Diagnoses / Procedures Referred By Fabian hernández Referred To Contact Pulmonary Medicine Diagnoses Fibrosis Pulmonary (HCC) Edgardo Joy D.O. [address] [place] [phone] Edgardo Joy D.O. [address] [place] [phone] Referral ID Status Reason Start Date Expiration Date Visits Re quested Visits Authorized [id number] Closed 03/28/2024 09/27/2025 1 1 Encounter Details Date Type Department Care Team (Late st Contact Info) Description 04/05/2024 12:00 PM CDT Office Visit Division of Pulmonary Medicine in [place], [place] [address] [place] [phone] Edgardo Joy D.O. [address] [place] [phone] Chronic Cough (Primary Dx); Fibrosis Pulmonary (HCC) [...] any clubs o r organizations such as adventism groups, unions, fraternal or athletic groups, or [...] care, and heating? Not very hard 01/27/2023 [facility] of Occupat ional Health - [...] with 6L with exertion. Prescription faxed to [employer] and mailed to patient. Overnight oximetry ordered [...] Pulmonary & Critical Care Medicine Fellow Pager: [phone] documented in this encounter Plan of Treatment Not on file documented as of this encounter Results * PUL Home Overnight Oximetry (04/11/2024) 04/11/2024 Impressions SALMA LOVING - 04/12/2024 3:50 PM CDT Despite supplemental oxygen, there is persistence of baseline and positional gas exchange abnormality. Physician: Stan Romero M.D. [id number] Narrative Procedure Note Stan Romero M.D. - 04/12/2024 IMPRESSION: Despite supplemental oxygen, there is persistence of baseline andpositional gas exchange abnormality. Physician: Stan Romero M.D. [id number] Edgardo Joy D.O. PFT ORDERABLES [facility] documented in this encounter Visit Diagnoses Diagnosis Chronic Cough- Primary Fibrosis Pulmonary (HCC) Fibrosis Pulmonary (HCC) Chronic Cough documented in this encounter Additional Health Concerns Infection Onset Date Last Indicated Resolved Time C. difficile 03/24/2024 03/24/2024 04/21/2024 5:37 AM CDT documented as of this encounter Care Teams Sales Office Manager Relationship Specialty Start Date End Date Elsewhere, Pcp PCP - General Internal Medicine 03/23/24 documented as of this encounter
--- OUTSIDE RECORDS SUMMARY | 2024-06-28 01:10 | XMS_ITS | Encounter Summary ---
Author Organization [facility] Address [address] [place] [address] Care Team Providers Care Rotary Kiln Operator Name Role Phone Elsewhere, Pcp Primary Care Provider Unavailabl e Encounter Details Date Type Department Care Team (Latest Contact Info) Description 04/11/2024 3:00 PM CDT Office Visit Department of Oncology in [place], [place] [address] [place] [phone] Luzma Howell M.D. [address] [place] [address] Malignant Neoplasm Of Gastroesophageal Junction (HCC) (Primary Dx); Chronic Respiratory Failure With Hypoxia (HCC) Social History Tobacco Use Types Packs/Day Years Used Date Smoking Tobacco: Former Cigarettes 2.5 30.1 0 09/18/1965 - 11/01/1995 Passive Smoke Exposure: Never Smokeless Tobacco: Never Alcohol Use Standard Drinks/Week Comments Not Currently 1 (1 standard drink = 0.6 oz pur e alcohol) drink on special occasions [facility] Utilities Answer Date Recorded In the [...] and heating? Not very hard 01/27/2023 [facility] [place] of Occupat ional Health - Occupational Stress [...] your living situation today? I have a [facility] place to live 03/31/2024 Education Answer Date [...] PM CDT Medical Oncology Return Visit PRIMARY RESCUE ONCOLOGIST Paddy Jha P.A.-C., M.S. Luzma Howell [...] Luzma Howell M.D. LAB BLOOD ADD-ON [facility] [address] [place] [address], [facility] DTL [facility] [address] [place] [address] * (ABNORMAL) Comprehensive Metabolic Panel (04/16/2024 11:39 [...] Luzma Howell M.D. LAB BLOOD ADD-ON [facility] 200 [place] [address], [facility] 200 [place] [address] * (ABNORMAL) CBC with Differential, Blood (04/16/2024 [...] Luzma Howell M.D. LAB BLOOD ADD-ON [facility] [address] [place] [address], [facility] DTL [facility] [address] [place] [address] DHPM [facility] [address] [place] [address] documented in this encounter Visit Diagnoses Diagnosis Malignant Neoplasm Of Gastroesophageal Junction (HCC)- Primary Chronic Respiratory Failure With Hypoxia (HCC) documented in this encounter Additional Health Concerns Infection Onset Date Last Indicated Resolved Time C. difficile 03/24/2024 03/24/2024 04/21/2024 5:37 AM CDT documented as of this encounter Care Teams Rotary Kiln Operator Relationship Specialty Start Date End Date Elsewhere, Pcp PCP - General Internal Medicine 03/23/24 documented as of this encounter
--- OUTSIDE RECORDS SUMMARY | 2024-06-28 01:10 | XMS_ITS | Encounter Summary ---
Author Organization [facility] Address [address] [place] [address] Care Team Providers Care Percussion Welding Machine Operator Name Role Phone Elsewhere, Pcp Primary Care Provider Unavailabl e Reason for Visit * Reason Onset Date Comments Pre-visit Intake 04/03/2024 Encounter Details Date Type Department Care Team (Latest Contact Info) Description 04/03/2024 10:30 AM CDT Clinical Communication Virtual Review in [place], [place] [address] [place] [phone] Pre-visit Intake Social History Tobacco Use Types Packs/Day Years Used Date Smoking Tobacco: Former Cigarettes 2.5 30.1 0 09/18/1965 - 11/01/1995 Passive Smoke Exposure: Never Smokeless Tobacco: Never Alcohol Use Standard Drinks/Week Comments Not Currently 1 (1 standard drink = 0.6 oz pur e alcohol) drink on special occasions [facility] Utilities Answer Date Recorded In the past 12 months has e [employer], gas, oil, or water [employer] threatened to shut off services in your [...] documented as of this encounter Care Teams Percussion Welding Machine Operator Relationship Specialty Start Date End Date Elsewhere, Pcp PCP - General Internal Medicine 03/23/24 documented as of this encounter
--- OUTSIDE RECORDS SUMMARY | 2024-06-28 01:10 | XMS_ITS | Encounter Summary ---
Author Organization [facility] Address [address] [place] [address] Care Team Providers Care Voice Network Administrator Name Role Phone Elsewhere, Pcp Primary Care Provider Unavailabl e Reason for Referral * Outpatient (Routine) - Closed Specialty Diagnoses / Procedures Referred By Fabian hernández Referred To Contact Pulmonary Medicine Diagnoses Dyspnea On Exertion Fibrosis Pulmonary (HCC) Emphysema (HCC) Edgardo Joy D.O. [address] [place] [phone] Edgardo Joy D.O. [address] [place] [phone] Referral ID Status Reason Start Date Expiration Date Visits Re quested Visits Authorized [id number] Closed 04/16/2024 10/16/2025 1 1 Encounter Details Date Type Department Care Team (Late st Contact Info) Description 04/16/2024 Orders Only Division of Pulmonary Medicine in [place], [place] [address] [place] [phone] Edgardo Joy D.O. [address] [place] [phone] Dyspnea On Exertion (Primary Dx); Fibrosis Pulmonary (HCC); Emphysema (HCC) Social History Tobacco Use Types Packs/Day Years Used Date Smoking Tobacco: Former Cigarettes 2.5 30.1 0 09/18/1965 - 11/01/1995 Passive Smoke Exposure: Never Smokeless Tobacco: Never Alcohol Use Standard Drinks/Week Comments Not Currently 1 (1 standard drink = 0.6 oz pur e alcohol) drink on special occasions [facility] [employer] Answer Date Recorded In the past 12 months has e [employer], gas, oil, or water [employer] threatened to shut off services in your [...] Not very hard 01/27/2023 [facility] - Occupational Stress Questionnaire Answer [...] your living situation today? [facility] 03/31/2024 Education Answer [...] documented as of this encounter Care Teams Voice Network Administrator Relationship Specialty Start Date End Date Elsewhere, Pcp PCP - General Internal Medicine 03/23/24 documented as of this encounter
--- OUTSIDE RECORDS SUMMARY | 2024-06-28 01:10 | XMS_ITS | Encounter Summary ---
Author Organization [facility] Address [address] [place] [address] Care Team Providers Care Mud Analysis Supervisor Name Role Phone Elsewhere, Pcp Primary Care Provider Unavailabl e Encounter Details Date Type Department Care Team (Late st Contact Info) Description 04/05/2024 Clinical Communication Division of Pulmonary Medicine in [place], [place] [address] [place] [phone] Edgardo Joy D.O. [address] [place] [phone] Social History Tobacco Use Types Packs/Day Years Used Date Smoking Tobacco: Former Cigarettes 2.5 30.1 0 09/18/1965 - 11/01/1995 Passive Smoke Exposure: Never Smokeless Tobacco: Never Alcohol Use Standard Drinks/Week Comments Not Currently 1 (1 standard drink = 0.6 oz pur e alcohol) drink on special occasions [facility] Utilities Answer Date Recorded In [...] care, and heating? Not very hard 01/27/2023 [facility] [employer] of Occupat ional Health - Occupational Stress [...] documented as of this encounter Care Teams Mud Analysis Supervisor Relationship Specialty Start Date End Date Elsewhere, Pcp PCP - General Internal Medicine 03/23/24 documented as of this encounter
--- OUTSIDE RECORDS SUMMARY | 2024-06-28 01:11 | XMS_ITS | Encounter Summary ---
Author Organization [facility] Address [address] [place] [address] Care Team Providers Care Rn Gynecology Name Role Phone Elsewhere, Pcp Primary Care Provider Unavailabl e Encounter Details Date Type Department Care Team (Late st Contact Info) Description 03/26/2024 Clinical Communication Department of Oncology in [place], [place] [address] [place] [phone] Paddy Jha P.A.-Radha., M.S. [address] [place] [phone] Social History Tobacco Use Types Packs/Day Years Used Date Smoking Tobacco: Former Cigarettes 2.5 30.1 0 09/18/1965 - 11/01/1995 Passive Smoke Exposure: Never Smokeless Tobacco: Never Alcohol Use Standard Drinks/Week Comments Not Currently 1 (1 standard drink = 0.6 oz pur e alcohol) drink on special occasions [facility] Utilities Answer Date Recorded In the past 12 months has e [employer], gas, oil, or water company threatened to [...] How often do you attend chur or confucianist services? More than 4 times per year [...] care, and heating? Not very hard 01/27/2023 [facility] [place] of Occupat ional Health - Occupational Stress [...] your living situation today? [facility] 03/31/2024 Education Answer [...] documented as of this encounter Care Teams Rn Gynecology Relationship Specialty Start Date End Date Elsewhere, Pcp PCP - General Internal Medicine 03/23/24 documented as of this encounter
--- OUTSIDE RECORDS SUMMARY | 2024-06-28 01:11 | XMS_ITS | Encounter Summary ---
Author Organization [facility] Address [address] [place] [address] Care Team Providers Care Delivery Motorcycle Driver Name Role Phone Elsewhere, Pcp Primary Care Provider Unavailabl e Encounter Details Date Type Department Care Team (Late st Contact Info) Description 11/01/2018 [facility] [address] [place] [address] Annie Layton M.D. [address] [place] [phone] Obstructive Sleep Apnea Adult (Primary Dx) Social [...] CDT Protective Environment 05/29/2023 05/29/202307/28 6:04 AM FIXED ROUTE OPERATOR Protective Environment 12/18/2023 12/18/202303/30 5:34 AM CDT COVID19 Pending 03/13/2024 03/13/2024 03/13/2024 6 :09 PM CDT COVID19 Pending 03/23/2024 03/23/2024 03/23/2024 8 :45 AM CDT C. difficile 03/24/2024 03/24/2024 04/21/2024 5:37 AM CDT Protective Environment 04/17/2024 04/17/202405/19 5:39 AM CDT C. difficile 05/02/2024 05/02/2024 05/30/2024 5:54 AM CDT documented as of this encounter Care Teams Delivery Motorcycle Driver Relationship Specialty Start Date End Date Elsewhere, Pcp PCP - General Internal Medicine 03/23/24 documented as of this encounter
--- OUTSIDE RECORDS SUMMARY | 2024-06-28 01:11 | XMS_ITS | Clinical Summary ---
Author Organization [employer] [facility] Address [place], [place] [address] Care Team Providers Care Bait Digger Name Role Phone Annie Layton MD Primary Care Provider [phone] Allergies No known active allergies Medications Medication [...] 02/24/2023, 02/22/2023, Additional history exists Care Teams Bait Digger Relationship Specialty Start Date End Date Annie Layton MD [address] [place] [address] PCP - General Internal Medicine 11/01/18
--- OUTSIDE RECORDS SUMMARY | 2024-06-28 01:11 | XMS_ITS | Encounter Summary ---
Author Organization [facility] Address [address] [place] [address] Care Team Providers Care Cattle Sprayer Name Role Phone Elsewhere, Pcp Primary Care Provider Unavailabl e Reason for Visit * Reason Comments Abdominal Pain Shortness of Breath Encounter Details Date Type Department Care Team (Latest Contact Info) Description 03/23/2024 7:19 AM CDT - 03/26/2024 6:48 PM CDT Hospital Encounter [facility], [facility], 7th Floor [address] [place] [address] Lanie Phillips, P.A.-C., M.S. [address] [place] [address] [phone] Maikol Skinner M.D., Ph.D. [address] [place] [address] [phone] Luzma Howell M.D. [address] [place] [address] [phone] Dyspnea (Primary Dx); Hypoxia; Anemia; Stool Positive [...] occasions [facility] Utilities Answer Date Recorded [...] How often do you attend [facility] or moravian services? More than 4 times [...] care, and heating? Not very hard 01/27/2023 [facility] - Occupational Stress Questionnaire Answer [...] PM CDT DISCHARGE SUMMARY BRIEF OVERVIEW Hospital: [facility] Discharge Provider: Luzma Howell M.D. Primary Team: [facility] Oncology Hospital Primary Care Providers: Elsewhere, Pcp [...] Oncology 04/24/2024 7:45 AM ONC CHAIR CHEMO [address] [place] [address] Oncology For appointment details refer to your [...] AM CDT You were discharged from the [facility] Oncology Hospital Service. Please identify this service name if you call with questions after hospitalization. * Patient Instructions* Nicolas Deluna R.N. - 03/25/2024 1:03 PM CDT The Senior LinkAge Line?? is a service of the [place] Board on Aging in partnership with [facility] Agencies on Aging. It is a free service of the [facility] that connects older [place] and their families with the help they need. Call the [employer] LinkAge Line?? at: [phone] M-F, 8am-4:30pm to connect with specialists that are available to assist you with your specific needsor check out their website at [email or web address] documented in this encounter Medications at Time of Discharge Medication Sig Dispensed Refills Start Date End Date albuterol 90 mcg/actuation inhalerIndications:Emphys sally ([facility]) INHALE 2 PUFFS EVERY 4 HRS NEEDED FOR WHEEZING OR SHORTNESS OF BREATH. USE WITH [employer] SUPERVISOR TUBE. 18 g 11 07/27/2023 07/26/2024 Eliquis 5 mg tablet Take 5 mg by mouth 2 (two) times a day. 07/02/2023 heparin 100 unit/mL syringeIndications:Malign ant Neoplasm Of Gastroesophageal Junction (HCC),Management Sme Current Drug Therapy, Chemotherapy 5 mL (500 [...] mg tabletIndications:Maligna nt Neoplasm Of Gastroesophageal Junction (HCC),Management Sme Current Drug Therapy, Chemotherapy TAKE 1 TABLET BY MOUTH AT BEDTIME NEEDED (NAUSEA, VOMITING). MAY TAKE DOSE EARLY IF NEEDED. 90 tablet 1 03/05/2024 omeprazole (PriLOSEC) [address] capsule Take 20 mg by mouth every morning before breakfast. ondansetron (ZOFRAN) 8 mg tabletIndications:Maligna nt Neoplasm Of Gastroesophageal Junction (HCC),Management Sme Current Drug Therapy, Chemotherapy Take 1 tablet [...] The above plan was discussed with the retail wireless sales consultant, Dr. Skinner. [place] [phone]. Neida Granados M.D. 03/26/24 * Thao Dove [...] The above plan was discussed with the retail wireless sales consultant, Dr. Skinner. [place] [phone]. Neida Granados M.D. 03/25/24 * Luzma Howell [...] 78 y.o. male who was admitted to [facility] in [place] on 03/23/2024 for Anemia [D64.9] Stool Positive [...] flow: 4 L/min nasal cannula Outcome Measures: [facility] Inpatient Short Form: [facility] Basic Mobility (V.2) How much help [...] 3-5 steps with a railing?: A Little [facility] Basic Mobility (V.2) Raw Score: 23 [facility] Basic Mobility (V.2) Standardized Score: 50.88 Interpretation: Based on scoring guidelines using the raw score value: Those going to home had an average score at or above 18 Those going to facility had an average score at or below 17 Clinicians answer the [facility] Inpatient Short Form based on observed [...] (DVT hx) GI prophylaxis: pantoprazole (on PPI WARE SERVER) # 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 Skinner. [place] [phone]. Neida Granados M.D. 03/24/24 Associated attestation - [...] later time, when available. Katarzyna Garcia R.N., [facility] * Lesley Alex, Pharm.DJam, R.Ph. 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 [...] WHEEZING OR SHORTNESS OF BREATH. USE WITH [employer] SUPERVISOR TUBE. Anoro Ellipta 62.5-25 mcg/actuation inhaler inhale [...] The above plan was discussed with the retail wireless sales consultant, Dr. Skinner[place] [phone]. I personally spent 40 minutes in care [...] Nurse Referral Reason: Discharge Planning Primary Language: Turkish Hostess Host Services Used: No Person(s) present during interview: [...] insurance: MEDICARE A AND B Secondary insurance: [facility] benefits: Yes Advance Directives Legal Decision Maker: Self Advance Directives: Advanced Care Plan, On file Advance Directives Status: Not Activated OBJECTIVE Baseline Functional Status Baseline Activities of Daily Living Mobility: Independent Dressing: Independent Feeding: Independent Bathing: Independent Grooming: Independent Toileting: Independent Behavior: Appropriate, Pleasant, Calm, Cooperative, Oriented Communication: Understands Turkish, Understands speaking, Talks Shopping: Independent Medication Management: Independent Housekeeping: Independent Meal Prep: Independent Assistive Devices: Grab bars - wall, Grab bars - toilet, Cellphone, Tub/shower chair/bench, Oxygen Home Oxygen Company: [employer] Baseline Services/Resources Primary care clinic and provider: ELSEWHERE, PCP Additional Resources: [facility] Anticipated Needs Functional Status: Transportation use (drive car, use taxi/bus), Mobility Assistive Devices: Oxygen Anticipated Modifications to the Patient's Home: None Transportation Needs: Support from family Does the patient need discharge transport arranged?: No Phone Number for Ride/Caregiver: Luz, Anticipated Discharge Destination: Home or Self Care ASSESSMENT / PLAN Assessment: The perioperative manager met with Rin Cho to discuss his current hospitalization and home going needs. The patient was unaccompanied. The patient was a reliable historian. The role of perioperative manager was reviewed. The patient reviewed his prior level of care and support system. The patient receives support from his and daughter. The patient described his living environment as a multiple level home with stairs to enter without rails. Housekeeping, grocery shopping, meal prep, and other household responsibilities have previously been completed by patient and patient's . perioperative manager discussed the patient's potential needs at dismissal based on their home setting, previous needs and responsibilities, homebound status, and relevant assessments with the patient. The patient will be safe and supported to return home with family when medically ready. Support will be provided by Luz. The patient demonstrated understanding when discussing his home going plans and anticipated needs. Custodial Manager speak with patient on the phone regarding discharge planning. Patient is alert, oriented and is agreeable to the conversation. Per report, patient has been managing his ADLs/IADLs prior to this hospitalization. Patient uses oxygen through [facility]. He denies any skilled services at home. Patient shares that both of his and daughter are involved in his care. No other concerns regarding going home to self care have been shared with Custodial Manager. At this time, patient is interested in getting a wheelchair, if recommended. Patient's or daughter will transportwhen he is medically ready for discharge. At this time, the care team anticipates the patient requires the following service(s) to be reconnected: oxygen. The patient identified the following as their current vendor(s): [employer] [facility]. After reviewing the patient's chart and meeting with the patient, the perioperative manager deemed the LACE+/readmission questions were not necessary. The patient reports understanding that he will dismiss from the hospital when medically stable. Pending hospital course and medical readiness, no barriers to dismissal have been identified at this time. Plan: The patient agrees with the following plan. Patient's anticipated discharge disposition is: Home to Self Care with DME Reconnected: [facility]. Transportation upon dismissal will be provided by family--Luz . perioperative manager recommended reaching out to family, friends, and neighbors for assistance. perioperative manager provided information regarding the dismissal process and the Senior Linkage Line ([place] Board on Aging) handout. perioperative manager placed or requested the following hospital-based consult orders and/or referrals: None. perioperative manager will continue to assess for homegoing needs with the interdisciplinary team. perioperative manager encouraged the patient to reach out with any questions/concerns. Please find transition plan below. Oxygen Reconnect: Durable Medical Equipment - Admitted Since 03/23/2024 [facility] Contact: Intake Respiratory Equipment: in-home concentrator, compressor [...] (HCC), Other Injury Of Unspecified Body Region ([id number]), Pneumonia, Polyp Colon, and Sleep Apnea. Rin Cho has a past surgical history that includes Cervical fusion; CYSTOSCOPY BIOPSY FULGURATION; Tonsillectomy and adenoidectomy; Tonsillectomy (1951); Spine surgery (06/2003); and Bladder surgery (Feb 2014). History of Present Illness: Rin Cho is a 78 y.o. male who was admitted to [facility] in [place] on 03/23/2024 for Anemia [D64.9] Stool Positive [...] than 10 minutes of activity Outcome Measures: -[facility] Inpatient Short Form: AM-PAC Basic Mobility (V.2) [...] U Negative Ketone, POCT, U Negative Specific [place], POCT, U 1.010 Blood, POCT, U Negative [...] shows guaiac positive stool (RN present as renewal specialist during rectal exam), brown stool and yellow [...] Antibody ID) (03/26/2024 1:11 PM CDT) Pathologist [facility] ABORh O Pos Not applicable 03/26/2024 1:52 PM CDT ETRM Antibody Screen Negative Negative 03/26/2024 2:06 PM CDT ETRM Type & Screen Expiration 03/29/2024 23:59 03/26/2024 1:52 PM CDT ETRM Testing Location [facility] 03/26/2024 1:25 PM CDT ETRM Blood (Blood, Venous) 03/26/2024 1:11 PM CDT 03/26/2024 1:25 PM CDT Neida Granados M.D. LAB BLOOD BANK ROGER T ORDERABLES [facility] [address] [place] [address], [facility] ETRM [facility] [address] [place] [address] * (ABNORMAL) Basic Metabolic Panel (03/26/2024 4:31 AM CDT) Pathologist [facility] Potassium, S 3.8 3.6 - 5.2 mmol/L [...] CDT Neida Granados M.D. LAB BLOOD ADD-ON [facility] [address] [place] [address], [facility] [address] [place] [address] * (ABNORMAL) CBC with Differential, Blood (03/26/2024 [...] - 6.45 x10(9)/L 03/26/2024 5:19 AM CDT [facility] Lymphocytes 0.63(L) 0.95 - 3.07 x10(9)/L 03/26/2024 5:19 AM CDT DTL Monocytes 0.87(H) 0.26 - 0.81 x10(9)/L 03/26/2024 5:19 AM CDT DTL Eosinophils 0.32 0.03 - 0.48 x10(9)/L 03/26/2024 5:19 AM CDT DTL Basophils 0.05 0.01 - 0.08 x10(9)/L 03/26/2024 5:19 AM CDT DTL Blood (Blood, Venous) 03/26/2024 4:31 AM CDT 03/26/2024 4:54 AM CDT Neida Granados M.D. LAB BLOOD ADD-ON [facility] [address] [place] [address], [place] DTL [facility] [address] [place] [address] [facility] [address] [place] [address] * (ABNORMAL) Basic Metabolic Panel (03/25/2024 2:59 AM CDT) [facility] Potassium, S 4.0 3.6 - 5.2 [...] CDT Neida Granados M.D. LAB BLOOD ADD-ON [address] [address], [facility] [address] [place] [address] * (ABNORMAL) CBC with Differential, Blood (03/25/2024 [...] - 6.45 x10(9)/L 03/25/2024 3:55 AM CDT [facility] Lymphocytes 0.78(L) 0.95 - 3.07 x10(9)/L 03/25/2024 3:55 AM CDT DTL Monocytes 0.84(H) 0.26 - 0.81 x10(9)/L 03/25/2024 3:55 AM CDT DTL Eosinophils 0.28 0.03 - 0.48 x10(9)/L 03/25/2024 3:55 AM CDT DTL Basophils 0.06 0.01 - 0.08 x10(9)/L 03/25/2024 3:55 AM CDT DTL Blood (Blood, Venous) 03/25/2024 2:59 AM CDT 03/25/2024 3:46 AM CDT Neida Granados M.D. LAB BLOOD ADD-ON [facility] [address] [place] [address], [facility] DTL [facility] [address] [place] [address] [facility] [address] [place] [address] * Magnesium (03/25/2024 2:59 AM CDT) Magnesium, S 1.9 1.7 - 2.3 mg/dL 03/25/2024 4:16 AM CDT DTL Blood (Blood, Venous) 03/25/2024 2:59 AM CDT 03/25/2024 4:01 AM CDT Neida Granados M.D. LAB BLOOD ADD-ON [facility] [address] [place] [address], [facility] DTL [facility] [address] [place] [address] * (ABNORMAL) GI Pathogen Panel, PCR, Feces [...] This assay is performed using the FDA-cleared IntelliWare SystemsArray GI Panel ([employer] Semi-Urgent This is a semi-urgen t result(BENÍTEZ) [facility] Stool (Stool) 03/24/2024 2:5 2 PM CDT 03/24/2024 3:29 PM CDT Neida Granados M.D. LAB MICROBIOLOGY - GENERAL ORDERABLES [facility] [address] [place] [address], [facility] DTL 200 [facility] 200 [place] [address] * (ABNORMAL) Basic Metabolic Panel (03/24/2024 5:12 [...] Yoo M.D., M.P.H. LAB BLOOD AD D-ON [address] [address], [facility] [place] [address] * (ABNORMAL) CBC with Differential, Blood (03/24/2024 [...] Yoo M.D., M.P.H. LAB BLOOD AD D-ON [facility] [address] [place] [address], [facility] DTL [facility] [address] [place] [address] [place] [address] * VRE PCR (03/23/2024 4:11 PM CDT) Specimen Source Swab, Perirectal 03/25/2024 11:35 AM CDT DTL VRE PCR Negative Negative 03/25/2024 11:35 AM CDT DTL Comment: ----ADDITIONAL INFORMATION---- This test was developed using an analyte specific reagent. Its performance characteristics were determined by [facility] in a manner consistent with CLIA requirements. This test has not been cleared or approved by the U.S. Food and Drug Administration. Swab (Perirectal) 03/23/2024 4:11 PM CDT 03/23/2024 4:39 PM CDT Maikol Skinner M.D., Ph.D. LAB MICROBIOL OGY - GENERAL ORDERABLES [facility] [address] [place] [address], [facility] DTL 200 [facility] [address] [place] [address] * Dipstick, POCT, Urine (03/23/2024 11:47 AM CDT) Glucose, POCT, U Negative Negative mg/dL 03/23/2024 11:49 AM CDT PCED Ketone, POCT, U Negative Negative mg/dL 03/23/2024 11:49 AM CDT PCED Specific [place], POCT, U 1.010 1.005 - 1.030 03/23/2024 [...] LAB POCT ORDERABLES - DEVICE POC RST [facility] [address] [place] [address], [facility] PCED [facility] POC [address] [place] [address] * pH, Urine (03/23/2024 11:39 AM CDT) pH, U 6.1 4.5 - 8.0 03/23/2024 1:1 1 PM CDT DTL Urine 03/23/2024 11:3 9 AM CDT 03/23/2024 12:09 PM CDT Lanie Phillips P.A.-C., M.S. LAB URINE ORD ERABLES Performing Organization Address City/[facility] [place] [address] * Dipstick, Urine (03/23/2024 11:39 AM CDT) [...] LAB URINE ORD ERABLES Performing Organization Address City/[facility] Co de Phone Number [id number] [place] [address] * Microscopic Automated (03/23/2024 11:39 AM CDT) Microscopy Normal 03/23/2024 12:42 PM CDT DTL RBC None Seen <3 /hpf 03/23/2024 12:42 PM CDT DTL WBC None Seen /hpf 03/23/2024 12:42 PM CDT DTL Comment: ----REFERENCE VALUE---- <4 ??(Males) <11 (Females) Urine 03/23/2024 11:3 9 AM CDT 03/23/2024 12:09 PM CDT Lanie Phillips P.A.-C., M.S. LAB URINE ORD ERABLES Performing Organization Address [facility] Co de Phone Number [facility] [address] [place] [address] * Osmolality, Urine (03/23/2024 11:39 AM CDT) Osmolality, U 714 150 - 1150 mOsm/kg 03/23/2024 1:11 PM CDT DTL Urine 03/23/2024 11:3 9 AM CDT 03/23/2024 12:09 PM CDT Lanie Phillips P.A.-C. M.SJam LAB URINE ORD ERABLES Performing Organization Address [facility] Co de Phone Number [facility] [address] [place] [address] * Bacterial Culture, Aerobic + Susceptibility, Urine (03/23/2024 11:39 AM CDT) Pathologist [facility] Urine Culture No growth after 1 day of incubation. 03/24/2024 7:48 AM CDT DT Urine (Urine, Midstream) 03/23/2024 11:39 AM CDT 03/23/2024 2:29 PM CDT Comment:Specimen Source Site : Urine Lanie Phillips P.A.-C. M.S. LAB MICROBIOL OGY - GENERAL ORDERABLES Performing Organization Address [facility] Co de Phone Number [facility] [address] [place] [address] * Urinalysis, with Microscopic: Urine, Midstream (03/23/2024 [...] LAB URINE ORD ERABLES Performing Organization Address [facility] Co de Phone Number [facility] [address] DTL [facility] [address] [place] [address] * (ABNORMAL) Troponin T, 2 Hour with [...] LAB BLOOD TRO PONIN Performing Organization Address City/[facility]/ZIP Co de Phone Number [facility] [address] [place] [address], [facility] STMA [facility] [address] [place] [address] * CT Chest Angiogram and Pulmonary Arteries [...] CDT Comment:Specimen Source Site : Blood Narrative [facility] - 03/28/2024 9:02 AM CDT Received Bactec aerobic and Bactec anaerobic bottles Lanie Phillips P.A.-C., M.S. LAB MICROBIOL OGY - GENERAL ORDERABLES Performing Organization Address City/[facility] Co de Phone Number [facility] [address] [place] [address], [facility] DTL [facility] [address] [place] [address] * Lactate for Sepsis with Reflex, POCT (03/23/2024 8:20 AM CDT) Pathologist [facility] Lactate, POCT 0.77 0.50 - 2.20 mmol/L 03/23/2024 9:02 AM CDT PCLX Blood (Blood, Venous) 03/23/2024 8:20 AM CDT 03/23/2024 8:20 AM CDT Lanie Phillips P.A.-C., M.S. LAB POCT ORDE RABLES - DEVICE Performing Organization Address [facility] de Phone Number POC [facility] [address] [place] [address], [facility] PCLX [facility] POC [address] [place] [address] * Patient Status (03/23/2024 8:19 AM CDT) O2 Flow 2.0 L/min 03/23/2024 8:25 AM CDT ST[facility] Device NC 03/23/2024 8:25 AM CDT [facility] Spont. breaths/min 18 03/23/2024 8:25 AM CDT [facility] Blood 03/23/2024 8:19 AM CDT 03/23/2024 8:25 AM CDT Lanie Phillips P.A.-C., M.S. LAB BLOOD NON ADD-ON [facility] [address] [place] [address], [facility] [address] [place] [address] * Influenza A/B, SARS CoV-2, PCR, Rapid [...] at the following links: For Healthcare Providers: https://www.fda.gov/media/208952/download For Patients: https://www.fda.gov/media/681941/download Infl A/B, SARS CoV-2, PCR, Source Swab, Nasopharynx 03/23/2024 8:22 AM CDT [facility] Swab (Nasopharynx) 03/23/2024 8:19 AM CDT 03/23/2024 8:22 AM CDT Lanie Phillips P.A.-C., M.S. LAB MICROBIOL OGY - GENERAL ORDERABLES [facility] [address] [place] [address], [facility] [address] [place] [address] * (ABNORMAL) Blood Gas without Coox, Venous [...] LAB BLOOD NON ADD-ON Performing Organization Address City/[facility]/ZIP Co de Phone Number [facility] [address] STMA [facility] 200 [place] [address] * Bacteria / Kim Culture, Blood #1 (03/23/2024 8:18 AM CDT) Pathologist [facility] Bacteria/Concepción da Culture, Blood No growth after 5 days of incubation. 03/28/2024 9:02 AM CDT DTL Blood (Blood, Portacath) 03/23/2024 8:18 AM CDT 03/23/2024 8:54 AM CDT Comment:Specimen Source Site : Blood Narrative [facility] - 03/28/2024 9:02 AM CDT Received Bactec aerobic and Bactec anaerobic bottles Lanie Phillips P.A.-C., M.S. LAB MICROBIOL OGY - GENERAL ORDERABLES [facility] [address] DTL [facility] [address] [place] [address] * (ABNORMAL) Prothrombin Time (PT) (03/23/2024 8:18 AM CDT) Prothrombin Time, P 16.3(H) 9.4 - 12.5 sec 03/23/2024 8:43 AM CDT [facility] INR 1.5 0.9 - 1.1 03/23/2024 8:43 AM CDT [facility] Comment: ----ADDITIONAL INFORMATION---- Standard intensity warfarin therapeutic range: 2.0 to 3.0 ?? High intensity warfarin therapeutic range: 2.5 to 3.5 Blood (Blood, Venous) 03/23/2024 8:18 AM CDT 03/23/2024 8:36 AM CDT Lanie Phillips P.A.-C., M.S. LAB BLOOD ADD -ON Performing Organization Address [facility] Co de Phone Number [facility] [address] [place] [address] * NT-Pro B-Type Natriuretic Peptide (BNP) (03/23/2024 8:18 AM CDT) NT-Pro BNP 147 <=540 pg/mL 03/23/2024 9:02 AM CDT [facility] Comment: NT-proBNP values less than [...] LAB BLOOD ADD -ON Performing Organization Address [facility] Center/[facility]/ZIP Co de Phone Number [facility] [address] [place] [address] * (ABNORMAL) Troponin T, Baseline with 2 Hour/6 Hour Reflex Biomarker Panel (03/23/2024 8:18 AM CDT) Pathologist [facility] [place] Troponin T, Baseline, 5th gen 24(H) <=15 ng/L 03/23/2024 9:02 AM CDT STMA Blood (Blood, Venous) 03/23/2024 8:18 AM CDT 03/23/2024 8:36 AM CDT Lanie Phillips P.A.-C., M.S. LAB BLOOD TRO PONIN [facility] [address] [place] [address] * Lipase (03/23/2024 8:18 AM CDT) Pathologist [facility] [place] Lipase, S 22 13 - 60 U/L 03/23/2024 9: 12 AM CDT DTL Blood (Blood, Venous) 03/23/2024 8:18 AM CDT 03/23/2024 8:53 AM CDT Lanie Phillips P.A.-C., M.S. LAB BLOOD ADD -ON [facility] [address] [place] [address] * (ABNORMAL) Hepatic Function Panel (03/23/2024 8:18 [...] Phillips P.A.-C., M.S. LAB BLOOD ADD -ON [facility] 200 [place] [address], [place] [address] * (ABNORMAL) Basic Metabolic Panel (03/23/2024 8:18 [...] Phillips P.A.-C., M.S. LAB BLOOD ADD -ON [facility] 200 [place] [address], [address] [address] * (ABNORMAL) CBC with Differential, Blood (03/23/2024 8:18 AM CDT) Pathologist [facility] [place] Hemoglobin 9.0(L) 13.2 - 16.6 g/dL 03/23/2024 [...] Phillips P.A.-C., M.S. LAB BLOOD ADD -ON [facility] [address] [place] [address], [facility] STMA [facility] [address] [place] [address] DHPM [facility] [address] [place] [address] * ECG 12 Lead (03/23/2024 7:34 AM CDT) Ventricular Rate ECG/Min 67 BPM MUSE AL Interval 160 ms MUSE QRSD Interval 98 ms MUSE QT Interval 414 ms MUSE QTC Interval 437 ms MUSE P Lee -11 degrees MUSE R Lee -1 degrees MUSE T Wave Lee 6 degrees MUSE 03/23/2024 7:34 AM CDT [...] Given 03/23/2024 8:45 AM CDT 140 mL npztyzbpmpkv-xyzw-MY-Ca-minerals 400 mcg (folic acid) tablet 1 tablet [...] Ileana Ambriz R.N.)2028 (Given - Provider: Chuy Brary R.N.) 08 (Given - Provider: Oswaldo Sequeira R.N.) fzhkjjmammdc-vpxn-JZ-Ca -minerals 400 mcg (folic acid) tablet 1 [...] R.N.) 0946 (Not Given - Provider: Oswaldo Sequeira R.N. - Reason: Order parameters not met) [...] Post Medications (Hazardous/Low Fluid Volume), Starting on [place] 03/24/24 at 2142, Infuse at the same [...] intravenous, As needed, line care, Starting on [facility] 03/23/24 at 1651, Prior to and following infusion and between multiple consecutive infusions: sodium chloride 0.9 % injection documented in this encounter Additional Health Concerns Infection Onset Date Last Indicated Resolved Time Protective Environment 12/18/2023 12/18/202303/30 5:34 AM CDT COVID19 Pending 03/23/2024 03/23/2024 03/23/2024 8 :45 AM CDT C. difficile 03/24/2024 03/24/2024 04/21/2024 5:37 AM CDT documented as of this encounter Care Teams Cattle Sprayer Relationship Specialty Start Date End Date Elsewhere, Pcp PCP - General Internal Medicine 03/23/24 documented as of this encounter
--- OUTSIDE RECORDS SUMMARY | 2024-06-28 01:11 | XMS_ITS | Encounter Summary ---
Author Organization [facility] Address [address] [place] [address] Care Team Providers Care Umbrella Frame Maker Name Role Phone Unavailable Primary Care Provider Unavailabl e Encounter Details Date Type Department Care Team (Late st Contact Info) Description 03/22/2024 E-Visit Department of Oncology in [place], [place] [address] [place] [address] Marco Antonio Kowalski M.D. [address] [place] [address] Symptom Management and test results Social History Tobacco Use Types Packs/Day Years Used Date Smoking Tobacco: Former Cigarettes 2.5 30.1 0 09/18/1965 - 11/01/1995 Passive Smoke Exposure: Never Smokeless Tobacco: Never Alcohol Use Standard Drinks/Week Comments Yes 1 (1 standard drink = 0.6 oz pur e alcohol) drink on special occasions [facility] Utilities Answer Date Recorded In the [...] How often do you attend chur or yarsani services? More than 4 times per year 01/27/2023 Do you belong to any clubs o r organizations such as lutheran groups, unions, fraternal or athletic groups, or [...] and heating? Not very hard 01/27/2023 [facility] Occupat ional Health - Occupational Stress [...] your living situation today? 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 It is [...] I recommended that he come to the [facility] Emergency Department tomorrow morning if his [...]
== END 2024-06-25 09:49 | disposition home or self-care (01) ==
LOC: AMB 06-28 01:00
PROVIDERS: PCP Internal Medicine; Visit Provider Emergency Medicine
DX: S09.93XA Unspecified injury of face, initial encounter (principal); R42 Dizziness and giddiness; W18.30XA Fall on same level, unspecified, initial encounter; Y92.002 Bathroom of unspecified non-institutional (private) residence as the place of occurrence of the external cause
CPT/HCPCS: A0425; A0427

== ENCOUNTER 2024-06-25 10:14 | Emergency (ER) | payer MEDICARE, OTHER, SELFPAY ==
[2024-06-25] VITALS (11 sets, daily range): BP systolic 96–110; BP diastolic 51–68; PULSE 75–84; RESP 16–24; TEMP 36.6–37.4; O2SAT 91–99; BMI 32.1
--- NOTE | 2024-06-25 10:43 | CRLHL7_ITS ---
For Patients: As a result of the Cures Act, medical imaging exams and procedure reports are released immediately into your electronic medical record. You may view this report before your referring provider. If you have questions, please contact your health care provider. INDICATION: Posttraumatic pain. COMPARISON: None available. TECHNIQUE: Views: 3 FINDINGS: The scapular Y radiograph is limited by patient positioning/imaging technique). Mineralization: Normal. Alignment: Within normal limits. No dislocation. Bones and Joints: No fracture is identified. Soft Tissues: Unremarkable. Incidental note is made of multilevel anterior plate and screw fixation of the lower cervical spine. A radiopaque catheter overlies the right mediastinum. IMPRESSION: No acute traumatic injury is identified. Dictated by Leonidas Jiang MD @ 06/25/2024 11:49:20 AM (Electronically Signed)
--- NOTE | 2024-06-25 10:43 | CRLHL7_ITS ---
For Patients: As a result of the Cures Act, medical imaging exams and procedure reports are released immediately into your electronic medical record. You may view this report before your referring provider. If you have questions, please contact your health care provider. INDICATION: Posttraumatic pain. COMPARISON: None available. TECHNIQUE: AP pelvis, AP and cross-table lateral left hip (three views). FINDINGS: No fracture is identified. No significant soft tissue findings. IMPRESSION: No acute traumatic injury is identified. Dictated by Leonidas Jiang MD @ 06/25/2024 11:50:22 AM (Electronically Signed)
--- NOTE | 2024-06-25 11:13 | ED.GENADULT ---
HPI - General Adult General Date Seen: 06/25/24 Chief complaint: Fall/Minor Trauma Stated complaint: Fall Time Seen by Provider: 06/25/24 10:43 History of Present Illness HPI narrative: 79 yo M with h/o advanced metastatic esophageal cancer, on hospice. He has also had right-sided pleural effusions and has a pleural drain in place. His chest was just drained yesterday. He also has a port in his upper chest. He is on hospice. He gets morphine orally, when necessary for body aches and bone pain. He also has recent anemia with hemoglobin around 6 (reported by his family) any had a blood transfusion a few weeks ago. His primary care provider is Dr. May. It sounds like the long-term plan for him is not to do any more transfusions, because they likely would prolong his life over the short term, but not changes ultimate outcome and would therefore only extend his suffering. He has not had any hemoglobin checks for the past couple of weeks. There are no recent hemoglobin draws in the [place] system or in the [facility] care link He has been becoming progressively more weak and unsteady for the past couple of weeks. He has at home and does have hospice support. He has back aches and body pain from his cancer. He gets oral morphine for that as needed. This morning he was walking and lost his balance and fell. He injured his left shoulder and is concerned it may be broken. He also struck his head and suffered an abrasion to his forehead and nose bleed during the fall. He is also having some pain in his left hip, but not nearly as severe as in his left shoulder. Although he is a hospice patient was brought here to the ER for evaluation of his injuries. Related Data Home Medications ?Medication ?Instructions ?Recorded ?Confirmed albuterol sulfate 90 mcg/actuation inhalation DAILY PRN 01/02/23 05/27/24 aerosol inhaler tamsulosin 0.4 mg capsule 0.4 mg PO DAILY 01/02/23 05/27/24 umeclidinium 62.5 mcg-vilanterol 1 ea inhalation DAILY 01/02/23 05/27/24 25 mcg/actuation powdr for inhalation (Anoro Ellipta) omeprazole 20 mg capsule,delayed 20 mg PO QDAY 02/14/23 05/27/24 release olanzapine 5 mg tablet 5 mg PO QPM 07/02/23 05/27/24 multivitamin 1 tab PO QAM 05/27/24 05/27/24 Previous Rx's ?Medication ?Instructions ?Recorded apixaban 5 mg tablet (Eliquis) 5 mg PO BID #180 tabs 10/20/23 Allergies Allergy/AdvReac Type Severity Reaction Status Date / Time No Known Drug Allergies Allergy Verified 05/27/24 10:35 PFSH PFSH Medical History Former smoker ?Z87.891 - Personal history of nicotine dependence (ICD-10) Surgical History History of basal cell carcinoma (BCC) ?Z85.828 - Personal history of other malignant neoplasm of skin (ICD-10) History of tonsillectomy and adenoidectomy (1951) ?Z90.89 - Acquired absence of other organs (ICD-10) History of colonoscopy with polypectomy (01/26/17) ?Z98.890 - Other specified postprocedural states (ICD-10) ?Z86.010 - Personal history of colonic polyps (ICD-10) History of bladder cancer ?Z85.51 - Personal history of malignant neoplasm of bladder (ICD-10) Status post cervical spinal fusion (06/2003) ?Z98.1 - Arthrodesis status (ICD-10) History of blepharoplasty ?Z98.890 - Other specified postprocedural states (ICD-10) Family History Brother Prostate cancer Son Sleep apnea Daughter Migraines Reuben-Danlos syndrome Father Stroke Mother High blood pressure Migraines Brain tumor Glaucoma Social History Smoking Status: Former smoker How often do you have a drink containing alcohol: never AUDIT-C Alcohol total score: 0 Non-prescribed substance use: denies use Little interest or pleasure in doing things: not at all Feeling down, depressed, or hopeless: several days Exam Narrative: Exam Narrative: Primary Survey: A- patent. Speaking clearly. Phonation normal. No stridor. B- breathing easily. Diminished lung sounds on the right. He has a pleural drain on the right side which appears to be in appropriate position. No bleeding. Saturating in the 70s on room air but he is supposed to be on 6 L nasal cannula. When placed on 2 nasal cannula, his oxygen sats to rebound up to low 90s C- no active bleeding. Blood pressure stable. Symmetric pulses and cap refill in 4 extremities. D- alert and oriented x3. GCS 15. Generalized weakness but No focal deficits. Constitutional: Appears well-developed the. Frail appearing. Pale. Alert. Conversant. Non toxic. HENT: Head: He has a frontal scalp hematoma with a small overlying abrasion with no active bleeding. No signs of expanding hematoma. MDM head trauma. Nose: Dry blood in the right nares without any active epistaxis. No evidence for any nasal deformity or bruising. No septal deviation. No septal hematoma. Mouth/Throat: Oral mucosa is clear but dry.. no trismus. Pharynx normal. Tonsils symmetric. No tonsillar enlargement, erythema, or exudate. Eyes: Conjunctivae normal. EOM normal. Pupils equal, round, and reactive to light. No scleral icterus. Neck: Normal range of motion. Neck supple. No tracheal deviation present. No posterior midline tenderness. Cardiovascular: Normal rate, regular rhythm. No gallop. No friction rub. No murmur heard. Symmetric radial artery pulses Pulmonary/Chest: Effort normal. No stridor. No respiratory distress. No wheezes. No rales. No rhonchi . No tenderness. Abdominal: Soft. Bowel sounds normal. No distension. No mass. No tenderness. No rebound. No guarding. Musculoskeletal: RUE: Normal range of motion. No tenderness. No deformity LUE: Tenderness over left lateral shoulder and proximal humerus. Range of motion the shoulder limited by pain. No obvious deformity. No bony crepitus. Distal humerus, elbow, forearm, wrist, hand are nontender. Intact axillary, radial, median, ulnar nerve function. Pelvis is stable. No back tenderness. RLE: Normal range of motion. No edema. No tenderness. No deformity LLE: Mildly tender over the left lateral and anterior hip without any bruising. No deformity or foreshortening. Very good range of motion left hip with flexion to about 90?. Normal flexion and extension of his knee. Femoral shaft, tibia, fibula, ankle, foot, knee, are nontender. Neurological: Alert and oriented to person, place, and time. Normal strength. CN II-VII intact. No sensory deficit. GCS eye subscore is 4. GCS verbal subscore is 5. GCS motor subscore is 6. Normal coordination Skin: Quite pale, but warm and dry. No rash noted. No pallor or mottling. Normal capillary refill. Psychiatric: Normal mood. Normal affect. Const: Vital Signs, click to edit/add: Vital Signs - 24 hr 06/25/24 10:30 06/25/24 13:49 06/25/24 15:28 Temperature 97.9 F 98 F 98.6 F Pulse Rate 75 Pulse Rate [Pulse Oximeter] 83 84 Respiratory Rate 16 24 20 Blood Pressure 102/55 L Blood Pressure [Le ft Upper Arm] 108/59 L Blood Pressure [Ri ght Upper Arm] 108/61 Pulse Oximetry 98 93 99 Oxygen Delivery Me thod Room Air Nasal Cannula Nasal Cannula Oxygen Flow Rate 6 6 06/25/24 15:43 06/25/24 15:45 06/25/24 16:00 Temperature 98.6 F 98.5 F Pulse Rate 83 81 Pulse Rate [Pulse Oximeter] Respiratory Rate 20 18 Blood Pressure 96/51 L 100/56 L Blood Pressure [Le ft Upper Arm] Blood Pressure [Ri ght Upper Arm] Pulse Oximetry 97 95 97 Oxygen Delivery Me thod Nasal Cannula Nasal Cannula Nasal Cannula Oxygen Flow Rate 3 3 3 06/25/24 16:15 06/25/24 17:36 06/25/24 17:52 Temperature 99.1 F 98.9 F 98.8 F Pulse Rate 77 78 77 Pulse Rate [Pulse Oximeter] Respiratory Rate 22 22 20 Blood Pressure 110/67 110/68 107/57 L Blood Pressure [Le ft Upper Arm] Blood Pressure [Ri ght Upper Arm] Pulse Oximetry 92 94 99 Oxygen Delivery Me thod Nasal Cannula Nasal Cannula Nasal Cannula Oxygen Flow Rate 4 4 3 06/25/24 18:03 Temperature 99.4 F Pulse Rate 80 Pulse Rate [Pulse Oximeter] Respiratory Rate 22 Blood Pressure 108/60 Blood Pressure [Le ft Upper Arm] Blood Pressure [Ri ght Upper Arm] Pulse Oximetry 93 Oxygen Delivery Me thod Nasal Cannula Oxygen Flow Rate 4 Course Course ED Course: Recheck-discussed labs with the patient and his family. Reevaluation(s) Reevaluation #1: Recheck-doing well during transfusion. Reevaluation #2: Recheck-still doing well. Now having little bit worsening body aches. No signs of transfusion reaction. He is time for his normal dose of morphine at home. 5 mg p.o. Oxycodone administered here Reevaluation #3: Recheck-18 50. Doing well. Still receiving a 2nd unit of packed red cells. No complaints. He and his family have everything prepared at home for him discharged home after he finishes transfusion. Discussed with my partner Dr. Jama will monitor the remainder of transition here. I anticipate will be able to discharge home with his family after completing the transfusion. Vital Signs Vital signs: Initial Vital Signs Temperature 97.9 F 06/25/24 10:30 Temperature Source Temporal Artery Scan 06/25/24 10:30 Pulse Rate 83 06/25/24 10:30 Pulse Rhythm Regular 06/25/24 10:30 Pulse Strength 3+ Normal 06/25/24 10:30 Respiratory Rate 16 06/25/24 10:30 Blood Pressure 108/61 06/25/24 10:30 Blood Pressure Mean 76 06/25/24 10:30 Blood Pressure Position Supine 06/25/24 10:30 Pulse Oximetry 98 06/25/24 10:30 Oxygen Delivery Method Room Air 06/25/24 10:30 Vital Signs Temperature 97.9 F 06/25/24 10:30 Pulse Rate 83 06/25/24 10:30 Respiratory Rate 16 06/25/24 10:30 Blood Pressure 108/61 06/25/24 10:30 Pulse Oximetry 98 06/25/24 10:30 Oxygen Delivery Method Room Air 06/25/24 10:30 Temperature 99.4 F 06/25/24 18:03 Pulse Rate 80 06/25/24 18:03 Respiratory Rate 22 06/25/24 18:03 Blood Pressure 108/60 06/25/24 18:03 Pulse Oximetry 93 06/25/24 18:03 Oxygen Delivery Method Nasal Cannula 06/25/24 18:03 Oxygen Flow Rate 4 06/25/24 18:03 Medications Administered Medications: Generic Name Dose Route Start Last Admin Trade Name Freq PRN Reason Stop Dose Admin Sodium Chloride 250 ml 06/25/24 13:17 06/25/24 15:45 0.9 % Sodium Chloride 250 Ml IV 06/26/24 23:59 250 ml ONCE PRN Administration Discontinued Medications Generic Name Dose Route Start Last Admin Trade Name Freq PRN Reason Stop Dose Admin Oxycodone HCl 5 mg 06/25/24 17:11 06/25/24 17:34 Oxycodone 5 Mg Tablet PO 06/25/24 17:12 5 mg ONCE ONE Administration Medical Decision Making MDM Narrative Medical decision making narrative: This is a 79-year-old gentleman with a history of metastatic esophageal clear answer, with known metastatic pleural effusion and pleural drain on the right side. He is also on hospice. He has had recent trouble with anemia. And his family report he had a transfusion a couple of weeks ago. After that most recent transfusion, his doctor, through the latter clinic said they probably should not have any further transfusions because it just prolonged his dying process, but would not ultimately change his outcome. Since then he has had progressive generalized weakness and dyspnea which led up to a mechanical trip and fall at home today because he was unsteady 1. Trauma. Primary complaint is left shoulder pain. Fortunately x-rays are negative for any acute fracture or dislocation. He is neurovascularly intact in that left arm. After oral meds that he has been given at home, his pain is actually substantially improved. He is generally pretty comfortable now. He also hit his left hip when he fell. X-rays of his hip and pelvis are negative for fracture. He also has signs of a head trauma with a frontal contusion. He is anticoagulated and therefore would be at risk for intracranial bleeding. Using shared decision making we decided to hold off on head CT because with his overall medical prognosis, there would be no surgical intervention for any intracranial bleeding. At this point he is alert, oriented, with a GCS of 15 and no focal neurologic deficits. He is also having a little bit of neck pain but has some chronic neck pain. Again will hold off on CT imaging of his C-spine since no surgical intervention be undertaken. He is having no focal neurologic deficits. 2. Heme. It is thought that his unsteadiness is probably due to progression of his cancer and worsening anemia. He had had a transfusion recently and at that time the plan was not to do any further transfusions. However, after detailed discussion with the patient, his , his daughter, they would like us to check his hemoglobin, and if low, given a transfusion. They understand that the transfusion is not going to changes long-term outcome. However transfusion may help him feel symptomatically better over the next couple of days weeks which gives the patient is family time for them to complete the process of end of life. Verbal and written consent obtained from the patient and his family for the transfusion. CBC does show a hemoglobin of 5.1. This would be consistent with his clinical exam and history. The we had another detailed discussion about the risks and benefits of transfusion. The patient and his family all want to go ahead with transfusion. Therefore will transfuse packed red cells here in the ER. 3. Weakness. He did present with generalized weakness leading to his fall. Initially there was concern that he may be too weak to discharge home. However he is actually doing quite well here in the ER, even before transfusion. He is able to stand and transfer at the bedside. With his hospice staff assistance, his family are able to arrange additional supportive equipment and staff. They are all comfortable that he will be able to manage at home. He will follow up with his hospice providers tomorrow. Lab Data Labs: Lab Results 06/25/24 Range/Units 12:51 WBC 9.62 (4.50-11.00) K/uL RBC 2.18 L (4.30-5.90) m/uL Hgb 5.1 L* (13.5-17.5) gm/dL Hct 17.7 L (37.0-53.0) % MCV 81 (80-100) fL MCH 23 L (26-34) pg MCHC 29 L (32-36) gm/dL RDW Coeff of Cindy 18.7 H (11.5-15.5) % Plt Count 387 (140-440) K/uL Neut % (Auto) 81.9 H (42.0-72.0) % Lymph % (Auto) 6.1 L (20-44) % Weld % (Auto) 10.3 (0.0-11.0) % Eos % (Auto) 1.0 (0.0-7.0) % Baso % (Auto) 0.4 (0.0-3.0) % Neut # (Auto) 7.90 H (1.7-7.0) K/uL Lymph # (Auto) 0.60 L (0.90-2.90) K/uL Weld # (Auto) 1.00 H (0.00-0.90) K/UL Eos # (Auto) 0.10 (0.00-0.50) K/uL Baso # (Auto) 0.04 (0.00-0.30) K/uL Abs Immat Gran (auto) 0.03 (0.00-0.30) K/uL Imm/Tot Granulo (auto) 0.3 % Sodium 137 (135-149) mmol/L Potassium 4.0 (3.6-5.1) mmol/L Chloride 106 (96-114) mmol/L Carbon Dioxide 26 (20-32) mmol/L Anion Gap 5 L (7-15) mEq/L BUN 23 (7-30) mg/dL Creatinine 0.7 (0.5-1.5) mg/dL Estimated Creat Clear 64.84 Estimated GFR 94 ml/min Glucose 104 (60-115) mg/dL Calcium 8.6 (8.4-10.6) mg/dL Blood Type O Positive Antibody Screen NEGATIVE Crossmatch (AHG) See Detail Imaging Data XR Shoulder: Attestation: I have reviewed the pertinent imaging results. Radiologist's impression: IMPRESSION: No acute traumatic injury is identified. XR left hip and pelvis: Attestation: I have reviewed the pertinent imaging results. Radiologist's impression: IMPRESSION: No acute traumatic injury is identified. Discharge Plan Discharge Clinical Impression: Anemia, Weakness, Acute pain of left shoulder, Acute pain of left hip, Head injury Patient Disposition: Home w/ Parent or Adult Condition: Stable Instructions: Anemia (ED), Shoulder Pain (ED) Additional Instructions: Please follow-up with your providers at the hospice tomorrow. Continue on your regular medications. Remember, if you need additional help he can come back to the ER any time. Prescriptions: No Action tamsulosin 0.4 mg capsule 0.4 mg PO DAILY Anoro Ellipta 62.5-25 mcg/actuation blister with device 1 ea inhalation DAILY albuterol sulfate 90 mcg/actuation HFA aerosol inhaler inhalation DAILY PRN omeprazole 20 mg capsule,delayed release(DR/EC) 20 mg PO QDAY multivitamin Tablet 1 tab PO QAM olanzapine 5 mg tablet 5 mg PO QPM Eliquis 5 mg tablet 5 mg PO BID Qty: 180 3RF Follow Up/Referrals: Annie Layton MD [Primary Care Provider] - Stand Alone Forms: [facility] Info Instructions
--- OUTSIDE RECORDS SUMMARY | 2024-06-25 11:49 | XMS_ITS | Continuity of Care Document ---
Author Name [facility] Organization [facility] Care Team Providers Care Heel Molder Name Role Phone [facility] Unavailable Unavailable Problems Combined list of problems from Department of Defense and Veterans Affairs facilities. It does not include entries that were removed or entered in error. 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 [facility] Long-term current use of anticoagulant Active Condition [facility] Malignant neoplasm of esophagus Active Condition [facility] Malignant tumor of urinary bladder Active Condition [facility] 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 [facility] Obstructive sleep apnea syndrome Active Condition [facility] Sleep apnea Active Condition [facility] Diagnosis: ICD-10-CM Z79.01 snf (current) use of anticoagulants Active Diagnosis [facility] Diagnosis: ICD-10-CM R26.89 Other abnormalities of gait and mobility Active Diagnosis [facility] Diagnosis: ICD-10-CM R53.1 Weakness Active Diagnosis [facility] Diagnosis: ICD-10-CM 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 Medication Details Route Status Patient Instructions Prescription Expires Prescription Number Last Dispense Date Ordering Provider Order Date Order Qty Source ALBUTEROL 90MCG/ACTUA T (CFC-F) INHL,ORAL,8 .5GM DOSE COUNTER INHALE 2 PUFFS BY INHALATI ON FOUR TIMES A DAY NEEDED RESPIR ATORY (INHAL ATION) ACTIVE MONO RAMOS 2022 [facility] APIXABAN 5MG TAB TAKE ONE TABLET BY MOUTH EVERY 12 HOURS TO TREAT AND/OR PREVENT BLOOD CLOTS ORAL ACTIVE 04/25/2025 [id number] Paula BAZAN 2023 180 [place] [facility] APIXABAN 5MG TAB TAKE ONE TABLET BY MOUTH EVERY 12 HOURS TO TREAT AND/OR PREVENT BLOOD CLOTS ORAL DISCONT INUED 11/01/2024 [id number] SUYAPA CHAVIS 2023 180 [place] [facility] APIXABAN 5MG TAB TAKE ONE TABLET BY MOUTH EVERY 12 HOURS FOR PULMONAR Y EMBOLISM ORAL DISCONT INUED 11/22/2023 [id number] MONO RAMOS 2023 60 [facility] BISACODYL 5MG TAB,EC TAKE TWO TABLETS BY MOUTH EVERY DAY NEEDED ORAL ACTIVE MONO RAMOS L 2023 [facility] MULTIVITAMI NS CAP/TAB TAKE ONE TABLET BY MOUTH EVERY DAY ORAL ACTIVE MAXINE RAMOSCA L 2017 [facility] NON VA MED NOT LISTED USE ANORO ELLIPTA 1 PUFF MOUTH EVERY DAY ORAL ACTIVE MAXINE RAMOSCA L 2018 [facility] NON VA MED NOT LISTED USE OXYGEN 4 L EACH NOSTRIL PRN NASAL ACTIVE RACHEL MONO L 2018 [facility] OLANZAPINE 5MG TAB TAKE ONE TABLET BY MOUTH AT BEDTIME NEEDED ORAL ACTIVE MAXINE RAMOSCA L 2023 [facility] OMEPRAZOLE 20MG CAP,EC TAKE 1 CAPSULE BY MOUTH EVERY DAY ORAL ACTIVE MAXINE RAMOSCA L 2022 [facility] OMEPRAZOLE 20MG CAP,EC TAKE 1 CAPSULE BY MOUTH EVERY DAY ORAL ACTIVE MAXINE RAMOSCA L 2023 [facility] ONDANSETRON HCL 8MG TAB TAKE ONE TABLET BY MOUTH EVERY 8 HOURS NEEDED ORAL ACTIVE MAXINE RAMOSCA L 2023 [facility] PROCHLORPER AZINE MALEATE 10MG TAB TAKE ONE TABLET BY MOUTH EVERY 6 HOURS NEEDED ORAL ACTIVE MAXINE RAMOSCA L 2023 [facility] TAMSULOSIN HCL 0.4MG CAP TAKE ONE CAPSULE BY MOUTH AT BEDTIME FOR PROSTATE ORAL ACTIVE 06/14/2025 [id number] RACHEL MONO L 2023 30 [facility] TAMSULOSIN HCL 0.4MG CAP TAKE ONE CAPSULE BY MOUTH AT BEDTIME FOR PROSTATE ORAL DISCONT INUED 07/13/2024 [id number] MAXINE RAMOSCA L 2022 30 [facility] TAMSULOSIN HCL 0.4MG CAP TAKE 1 CAPSULE BY MOUTH AT BEDTIME ORAL ACTIVE Mervat PUENTE 2015 [facility] Immunizations Combined list of available immunizations from the Department of Defense and Veterans Affairs facilities. Immunization Series Date Given Administered By Site Reaction Lot Number CVX Code Drug Durability Engineer Status Comments Source RSV, RECOMBINANT, PROTEIN SUBUNIT RSVPREF, ADJUVANT RECONSTITUTED , 0.5 ML, PF 2022 303 complet ed [facility] COVID-19 (MODERNA), MRNA, LNP-S, BIVALENT, PF, 50 MCG/0.5 ML OR 25MCG/0.25 ML DOSE 2022 229 complet ed [facility] INFLUENZA, ADJUVANTED, QUADRIVALENT, PF 2022 205 complet ed [facility] INFLUENZA VACCINE, QUADRIVALENT, ADJUVANTED 2021 205 complet ed [facility] INFLUENZA, UNSPECIFIED FORMULATION 2021 88 complet ed [facility] COVID-19 (MODERNA), MRNA, LNP-S, BIVALENT, PF, 50 MCG/0.5 ML OR 25MCG/0.25 ML DOSE 2021 229 complet ed [facility] TDAP 2021 115 complet ed [facility] COVID-19 (MODERNA), MRNA, LNP-S, PF, 100 MCG/0.5ML DOSE OR 50 MCG/0.25ML DOSE 2021 207 complet ed [facility] COVID-19 (MODERNA), MRNA, LNP-S, PF, 100 MCG/0.5ML DOSE OR 50 MCG/0.25ML DOSE 3 2020 207 complet ed [facility] INFLUENZA VACCINE, QUADRIVALENT, ADJUVANTED 2020 205 complet ed [facility] INFLUENZA, UNSPECIFIED FORMULATION 2020 88 complet ed [facility] COVID-19 (MODERNA), MRNA, LNP-S, PF, 100 MCG/0.5 ML DOSE 2 2020 207 complet ed MOD: [id number]; 1 [facility] COVID-19 (MODERNA), MRNA, LNP-S, PF, 100 MCG/0.5 ML DOSE 1 2020 207 complet ed MOD; [id number]; 1 [facility] INFLUENZA, INJECTABLE, QUADRIVALENT, PRESERVATIVE FREE 2019 150 complet ed [facility] ZOSTER RECOMBINANT 2 2019 187 complet ed [facility] ZOSTER RECOMBINANT 1 2019 187 complet ed [facility] INFLUENZA, SEASONAL, INJECTABLE 2018 141 complet ed [facility] INFLUENZA, TRIVALENT, ADJUVANTED 2018 168 complet ed [facility] INFLUENZA, HIGH DOSE SEASONAL 2017 135 complet ed [facility] PNEUMOCOCCAL POLYSACCHARID E PPV23 2017 33 complet ed [email or web address] lot:[id number] exp: [facility] INFLUENZA, HIGH DOSE SEASONAL 2016 135 complet ed [facility] ZOSTER LIVE 2016 121 complet ed [facility] INFLUENZA, SEASONAL, INJECTABLE 2015 141 complet ed [facility] PNEUMOCOCCAL CONJUGATE PCV 13 2014 133 complet ed [facility] TD (ADULT), 2 LF TETANUS TOXOID, PRESERVATIVE FREE, ADSORBED 2013 09 complet ed [facility] INFLUENZA, UNSPECIFIED FORMULATION 2013 88 complet ed [facility] INFLUENZA, UNSPECIFIED FORMULATION 2012 88 complet ed [facility] Z[facility] 2012 121 complet ed [facility] INFLUENZA, UNSPECIFIED FORMULATION 2011 88 complet ed [facility] DIVISIO N TDAP 2010 115 complet ed [facility] PNEUMOCOCCAL POLYSACCHARID E PPV23 2009 33 complet ed [facility] Vital Signs Combined list of inpatient and outpatient Vital Signs from Department of [facility] and [facility], ranging from 12 months to all on record, depending upon the facility. Vital Sign Value Date Comments Source SYSTOLIC BLOOD PRESSURE 145 02/26/2024 10:51:31 [facility] DIASTOLIC BLOOD PRESSURE 73 02/26/2024 10:51:31 [facility] PULSE OXIMETRY 96 02/26/2024 10:51:31 [facility] WEIGHT 227.8 02/26/2024 10:51:31 [facility] BMI 30kg/m2 02/26/2024 10:51:31 [facility] PAIN 0 02/26/2024 10:51:31 [facility] TEMPERATURE 97.7 02/26/2024 10:51:31 [facility] PULSE 70 02/26/2024 10:51:31 [facility] RESPIRATION 16 02/26/2024 10:51:31 [facility] WEIGHT 229.28 08/18/2023 14:30:00 [facility] BMI 30kg/m2 08/18/2023 14:30:00 [facility] Encounters Combined list of: 1) Encounters from Department of Veterans Affairs facilities going back up to thelast 18 months. 2) Encounters from the Department of Defense facilities going back up to 280 months. Location Location Details Encounter Type Encounter Number Reason For Visit Attending Provider ADM Date DC Date Status Disposition Source [place] [facility] Outpatient Encounter [id number] YENNI MARTÍNEZ 05/[address] [facility] Outpatient Encounter [id number] Diagnos is: ICD-10- CM C15.9 Maligna nt neoplas m of esophag us, unspeci fied
Sandi RAMOS L 05/12 [facility] [place] [facility] Outpatient Encounter [id number] 05/[address] [place] [address] [facility] [place] [facility] Outpatient Encounter [id number] 06/[address] [place] [address] [facility] [place] [facility] Outpatient Encounter [id number] 07/13 [place] [facility] Outpatient Encounter [id number] 08/18 [facility] [place] [facility] Outpatient Encounter [id number] 08/[address] [place] [address] [facility] [place] [facility] Outpatient Encounter [id number] 10/[address] [place] [address] [facility] [place] [facility] Outpatient Encounter [id number] 10/[address] [place] [address] [facility] [place] [facility] Outpatient Encounter [id number] 10/[address] [place] [address] [facility] [place] [facility] QNHP OL DIG ASSMT&MGMT 21+ [id number] Diagnos is: ICD-10- CM Z86.711 Persona l history of pulmona ry embolis m
SUYAPA SALEH M 11/[address] [place] [address] [facility] [place] [facility] Outpatient Encounter [id number] 02/[address] [place] [address] [facility] OFFICE O/P EST LOW 20 MIN [id number] Diagnos is: ICD-10- CM D01.9 Carcino ma in situ of digesti ve organ, unspeci fied
Sandi RAMOSCA L 02/25 [facility] [place] [facility] Outpatient Encounter [id number] LUIS F MCMILLAN 03/22 [place] [facility] [place] [facility] Outpatient Encounter [id number] LUIS F MCMILLAN 03/[address] [place] [address] [facility] [place] [facility] Outpatient Encounter [id number] 03/[address] [place] [address] [facility] [place] [facility] Outpatient Encounter [id number] 03/[address] [place] [address] [facility] [place] [facility] SELF CARE MNGMENT TRAINING [id number] Diagnos is: ICD-10- CM R53.1 Weaknes s
MIRTHA BLOCK 04/01 [facility] PT EVAL LOW COMPLEX 20 MIN [id number] Diagnos is: ICD-10- CM R26.89 Other abnorma lities of gait and mobilit y
SHALOM MATHUR 04/01 [facility] En[facility] [id number] [facility] Out[facility] Encounter [id number] 04/11 [facility] QNHP OL DIG ASSMT&MGMT 11-20 [id number] Diagnos is: ICD-10- CM Z79.01 snf (curren t) use of anticoa gulants
DONNY BAZAN 04/24 [facility] [place] [facility] Outpatient Encounter [id number] 05/14 [facility] Social History Combined list of available smoking, tobacco, and other social history from Department of Defense and [facility] Affairs facilities. Social History Type Response Date Comment Sourc e Tobacco smoking status INIS SD-TOBACCO FORMER USER 05/11/[address] [place] [facility] History of tobacco use SD-TOBACCO QUIT 1 5 YRS OR MORE 05/11/2023 [facility] History of tobacco use VA-TOBACCO FORMER USER 05/09/2022 [facility] History of tobacco use VA-TOBACCO FORMER USER 04/23/2021 [facility] History of tobacco use VA-TOBACCO FORMER USER 02/28/2020 [facility] History of tobacco use SD-TOBACCO QUIT 1 5 YRS OR MORE 03/12/2019 [facility] History of tobacco use FORMER TOBACCO US ER 7Y OR GREATER 12/21/2017 [facility] History of tobacco use FORMER TOBACCO US ER 7Y OR GREATER 02/15/2013 [facility] Plan of Care List of future care activities from Department of Veterans Affairs facilities. Additional future care activities may be listed in the Assessment and Plan section. Date/Time Care Activity Care Activity Detail Facili ty 07/03/2024 AMBULATORY - MEDICINE AMBULATORY - MEDICI [facility]
--- OUTSIDE RECORDS SUMMARY | 2024-06-25 11:50 | XMS_ITS | Clinical Summary ---
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 For routine questions regarding patient records, call [phone] during business hours, M-F 8:00 AM - 5:00 PM Central Time. Record requests for emergency care only can be directed to [phone] at any time.[facility] Allergies No known active allergies Medications Medication Sig Dispensed Refills Start Date End Date Status multivitamin tablet Take 1 tablet by mouth daily. GUMMIES Active inhalational spacing device (AEROCHAMBER) spacerIndications:Emp hysema (HCC) 1 each as needed (for use with Albuterol inhaler). 1 each 1 12/28/2018 Active tamsulosin (FLOMAX) 0.4 mg 24 hr capsule Take 0.4 mg by mouth daily. Active albuterol 90 mcg/actuation inhalerIndications:Em physema (HCC) INHALE 2 PUFFS EVERY 4 HRS NEEDED FOR WHEEZING OR SHORTNESS OF BREATH. USE WITH CHIEF HOSPITAL ADMINISTRATOR TUBE. 18 g 11 07/27/2023 07/26/20 24 Active Eliquis 5 mg tablet Take 5 mg by mouth 2 (two) times a day. 07/02/2023 Active prochlorperazine (COMPAZINE) 10 mg tabletIndications:Mal ignant Neoplasm Of Gastroesophageal Junction (HCC),[place] Current Drug Therapy, Chemotherapy Take 1 tablet (10 mg total) by mouth every 6 (six) hours as needed for nausea or vomiting. 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 30 tablet 3 12/08/2023 12/08/19 25 Active heparin 100 unit/mL syringeIndications:Ma lignant Neoplasm Of Gastroesophageal Junction (HCC),Nursing Home Current Drug Therapy, Chemotherapy 5 mL (500 Units total) by intra-catheter route once as needed for line care for up to 1 dose. Flush IV line AFTER 0.9% Sodium Chloride flush 60 mL 3 12/18/2023 Active Additional Information Patient taking differently:5 mL intra-catheterAs needed, line care, Flush IV line AFTER 0.9% Sodium Chloride flush, Reported on 04/03/2024 omeprazole (PriLOSEC) [address] capsule Take 20 mg by mouth every morning before breakfast. 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 MAY TAKE DOSE EARLY IF NEEDED. 90 tablet 1 03/05/2024 Active tetracaine HCl 1 % adult lollipop (sugar free)Indications:Fibr osis Pulmonary (HCC),Chronic Cough Suck on lollipop for 5 to 15 seconds only.Limit use to no more than 3 times per hour.Return lollipop to the child resistant container after each use. Do not use more than 1 lollipop in one day. 3 each 04/05/2024 Active DME OxygenIndications:Fib rosis Pulmonary (HCC) DME Order - for details see Order Report 1 each 04/16/2024 Active oxyCODONE (Roxicodone) 5 mg immediate release tabletIndications:Chr onic Pain/Nonacute Pain Take 1 tablet (5 mg total) by mouth every 6 (six) hours as needed for pain or severe pain or score 7-10 of 10 Indication: Chronic Pain/Nonacute Pain. 30 tablet 04/30/2024 Active acetaminophen (TylenoL) 500 mg tablet Take 2 tablets (1,000 mg total) by mouth 3 (three) times a day. 05/02/2024 Active umeclidinium-vilanter oL (Anoro Ellipta) 62.5-25 mcg/actuation inhalerIndications:Fi brosis Pulmonary (HCC),Emphysema (HCC) Inhale 1 puff daily. 60 each 11 05/21/2024 Active LORazepam (Ativan) 0.5 mg tablet Take 0.5 mg by mouth 2 (two) times a day as needed. See attached for detailed directions. 06/04/2024 Active dexAMETHasone (Decadron) 2 mg tablet Take 1 tablet (2 mg total) by mouth daily for 7 doses. 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 Pleurx Catheter 06/10/2024 5:18 PM CDT - 06/10/2024 6:44 PM CDT Surgery [facility] [address] [place] [phone] Greg Ramirez M.D. PLACEMENT TUNNELED PLEURAL CATHETER WITH PLEUROSCOPY 06/10/2024 5:13 PM CDT Anesthesia Event [facility] [address] [place] [phone] Kalpesh Mckenzie, MINESH, DARIA, Lanie Orellana M.D. 06/10/2024 4:25 PM CDT Ancillary Procedure Department of Pulmonary and CC Medicine 06/10/2024 3:45 PM CDT Ancillary Procedure Department of General Surgery 06/10/2024 11:56 AM CDT - 06/10/2024 10:03 PM CDT Hospital Encounter [facility] [address] [place] [phone] Greg Ramirez M.D. Discharge Disposition: Home or Self Care 06/07/2024 5:45 PM CDT Infusion Department of Infusion Therapy in [place], [place] [address] [place] [phone] Elena Salas M.D. Anemia In Neoplastic Disease (Primary Dx); Malignant Neoplasm Of Gastroesophageal Junction (HCC); Secondary Malignant Neoplasm Bone (HCC) 06/07/2024 3:20 PM CDT Lab Department of Infusion Therapy in [place], [place] [address] [place] [phone] Elena Salas M.D. Malignant Neoplasm Of Gastroesophageal Junction (HCC) (Primary Dx); Effusion Pleural; Anemia In Chronic Kidney Disease 06/07/2024 2:00 PM CDT Education Division of Pulmonary Medicine in [place], [place] [address] [place] [phone] Elena Salas M.D. McDonald, Charles W, R.N. Effusion Pleural (Primary Dx) 06/07/2024 1:50 PM CDT Ancillary Procedure Department of Pulmonary and CC Medicine 06/07/2024 1:12 PM CDT - 06/07/2024 3:34 PM CDT Hospital Encounter Division of Pulmonary Medicine in [place], [place] [address] [place] [phone] Elena Salas M.D. Effusion Pleural (Primary Dx); Personal History Of Malignant Neoplasm Of Bladder; Anemia In Chronic Kidney Disease; Malignant Neoplasm Of Gastroesophageal Junction (HCC) Discharge Disposition: Home or Self Care 06/07/2024 10:57 AM CDT - 06/07/2024 1:11 PM CDT Hospital Encounter Department of Radiology, [facility] in [place], [place] [address] [place] [phone] Kuldeep Ruth M.D. Personal History Of Malignant Neoplasm Of Bladder Discharge Disposition: Home or Self Care 06/07/2024 Orders Only Division of Pulmonary Medicine in [place], [place] [address] [place] [phone] Elena Salas M.D. Effusion Pleural (Primary Dx); Secondary Malignant Neoplasm Bone (HCC); Anemia In Neoplastic Disease; Malignant Neoplasm Of Gastroesophageal Junction (HCC) 06/06/2024 Orders Only Division of Pulmonary Medicine in [place], [place] [address] [place] [phone] Kuldeep Ruth M.D. Personal History Of Malignant Neoplasm Of Bladder (Primary Dx) 05/21/2024 Orders Only Division of Pulmonary Medicine in [place], [place] [address] [place] [phone] Edgardo Joy D.O. Fibrosis Pulmonary (HCC) (Primary Dx); Emphysema (HCC) 05/16/2024 10:15 AM CDT Telemedicine Department of Palliative Care in [place], [place] [address] [place] [phone] Evonne Garcia APRN, C.N.P., D.N.P. Malignant Neoplasm Of Gastroesophageal Junction (HCC); Secondary Malignant Neoplasm Bone (HCC); Pain Cancer Associated; Palliative Care; Emphysema (HCC); Dyspnea; Advanced Care Planning 05/10/2024 Clinical Communication Department of Palliative Care in [place], [place] [address] [place] [phone] Hannah Alcantara M.D. 05/08/2024 8:31 AM CDT - 05/08/2024 11:59 PM CDT Hospital Encounter Department of Radiation Oncology in [address] [phone] Dread Doyle M.D. Discharge Disposition: Home or Self Care 05/08/2024 8:10 AM CDT - 05/22/2024 5:04 PM CDT Hospital Encounter Department of Radiation Oncology in [address] [phone] Dread Doyle M.D. Secondary Malignant Neoplasm Bone (HCC) 05/08/2024 Documentation Department of Radiation Oncology in [address] [phone] Dread Doyle M.D. 05/07/2024 10:08 AM CDT - 05/07/2024 11:59 PM CDT Hospital Encounter Department of Radiation Oncology in [address] [phone] Dread Doyle M.D. Discharge Disposition: Home or Self Care 05/06/2024 8:57 AM CDT - 05/06/2024 11:59 PM CDT Hospital Encounter Department of Radiation Oncology in [address] [phone] Dread Doyle M.D. Discharge Disposition: Home or Self Care 05/03/2024 3:00 PM CDT Telemedicine Division of Pulmonary Medicine in [address] [phone] Edgardo Joy D.OJam Dyspnea On Exertion; Fibrosis Pulmonary (HCC); Emphysema (HCC) 05/03/2024 1:38 PM CDT - 05/03/2024 11:59 PM CDT Hospital Encounter Department of Radiation Oncology in [address] [phone] Dread Doyle M.D. Discharge Disposition: Home or Self Care 05/03/2024 7:29 AM CDT - 05/03/2024 8:20 AM CDT Hospital Encounter Department of Radiology, [facility], in [place], [place] [address] [place] [phone] Merly Beavers APRN C.N.P., M.S. Secondary Malignant Neoplasm Bone (HCC); Malignant Neoplasm Of Gastroesophageal Junction (HCC); Effusion Pleural Discharge Disposition: Home or Self Care 05/02/2024 2:00 PM CDT Comprehensive Visit Department of Palliative Care in [place], [place] [address] [place] [phone] Hannah Alcantara M.D. Melba Hodge RMabel., CHPN Malignant Neoplasm Of Gastroesophageal Junction (HCC); Secondary Malignant Neoplasm Bone (HCC) 05/02/2024 10:28 AM CDT - 05/02/2024 11:59 PM CDT Hospital Encounter Department of Radiation Oncology in [address] [phone] Dread Doyle M.D. Discharge Disposition: Home or Self Care 05/02/2024 9:43 AM CDT - 05/06/2024 2:20 PM CDT Hospital Encounter Department of Radiation Oncology in [address] [phone] Dread Doyle M.D. Secondary Malignant Neoplasm Bone (HCC) 05/02/2024 Orders Only Department of Oncology in [address] [phone] Luzma Howell M.D. Diarrhea (Primary Dx) 05/01/2024 Clinical Communication [facility] Maritza Preciado, M.S.W., L.I.C.S.W. 04/30/2024 4:15 PM CDT Infusion Department of Infusion Therapy in [place], [place] [address] [place] [phone] Luzma Howell M.D. Malignant Neoplasm Of Gastroesophageal Junction (HCC) (Primary Dx); Secondary Malignant Neoplasm Bone (HCC) 04/30/2024 2:20 PM CDT Lab Department of Infusion Therapy in [place], [place] [address] [place] [phone] Luzma Howell M.D. Malignant Neoplasm Of Gastroesophageal Junction (HCC) (Primary Dx) 04/30/2024 1:00 PM CDT Office Visit Department of Oncology in [place], [place] [address] [place] [phone] Luzma Howell M.D. 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 Malignant Neoplasm Of Gastroesophageal Junction (HCC) (Primary Dx) 04/30/2024 Orders Only Department of Oncology in [address] [phone] Luzma Howell M.D. Malignant Neoplasm Of Gastroesophageal Junction (HCC) (Primary Dx) 04/30/2024 Orders Only Department of Oncology in [address] [phone] Merly Beavers APRN, C.N.P., M.S. 04/22/2024 1:32 PM CDT - 04/22/2024 11:59 PM CDT Hospital Encounter Department of Radiation Oncology in [address] [phone] Kuldeep Ritchie M.D. Secondary Malignant Neoplasm Bone (HCC) Discharge Disposition: Home or Self Care 04/22/2024 9:57 AM CDT - 05/13/2024 10:44 PM CDT Hospital Encounter Department of Radiation Oncology in [address] [phone] Kuldeep Ritchie M.D. Secondary Malignant Neoplasm Bone (HCC) (Primary Dx); Malignant Neoplasm Of Gastroesophageal Junction (HCC) 04/22/2024 8:52 AM CDT - 04/22/2024 9:56 AM CDT Hospital Encounter Department of Radiology, [facility], in [place], [place] [address] [place] [address] Merly Beavers APRN, C.N.P., M.S. Malignant Neoplasm Of Gastroesophageal Junction (HCC); Secondary Malignant Neoplasm Bone (HCC) Discharge Disposition: Home or Self Care 04/22/2024 Orders Only Department of Oncology in [place], [place] [address] [place] [phone] Merly Beavers APRN C.N.P., M.S. Secondary Malignant Neoplasm Bone (HCC) (Primary Dx); Malignant Neoplasm Of Gastroesophageal Junction (HCC); Effusion Pleural 04/22/2024 Orders Only Department of Radiation Oncology in [place], [place] [address] [place] [phone] Kuldeep Ritchie M.D. Secondary Malignant Neoplasm Bone (HCC) (Primary Dx) 04/19/2024 9:42 AM CDT - 04/19/2024 11:59 PM CDT [facility] [place], [place] [address] [place] [address] Merly Beavers APRN C.N.P., M.S. Malignant Neoplasm Of Gastroesophageal Junction (HCC); Secondary Malignant Neoplasm Bone (HCC) Discharge Disposition: Home or Self Care 04/19/2024 Orders Only Department of Radiation Oncology in [place], [place] [address] [place] [phone] Kuldeep Ritchie M.D. Secondary Malignant Neoplasm Bone (HCC) (Primary Dx) 04/17/2024 7:00 AM CDT Infusion Department of Oncology in [place], [place] [address] [place] [phone] Luzma Howell M.D. Malignant Neoplasm Of Gastroesophageal Junction (HCC) (Primary Dx); Secondary Malignant Neoplasm Bone (HCC) 04/16/2024 2:00 PM CDT Office Visit Department of Oncology in [place], [place] [address] [place] [address] Merly Beavers APRN, C.N.P., M.S. Malignant Neoplasm Of Gastroesophageal Junction (HCC); Secondary Malignant Neoplasm Bone (HCC) 04/16/2024 11:00 AM CDT Lab Department of Oncology in [place], [place] [address] [place] [phone] Luzma Howell M.D. Malignant Neoplasm Of Gastroesophageal Junction (HCC) (Primary Dx) 04/16/2024 Orders Only Division of Pulmonary Medicine in [place], [place] [address] [place] [phone] Edgardo Joy D.OJam Dyspnea On Exertion (Primary Dx); Fibrosis Pulmonary (HCC); Emphysema (HCC) 04/16/2024 Clinical Communication Division of Pulmonary Medicine in [place], [place] [address] [place] [phone] Edgardo Joy D.O. 04/11/2024 3:00 PM CDT Office Visit Department of Oncology in [place], [place] [address] [place] [phone] Luzma Howell M.D. Malignant Neoplasm Of Gastroesophageal Junction (HCC) (Primary Dx); Chronic Respiratory Failure With Hypoxia (HCC) 04/11/2024 2:00 PM CDT Lab Department of Infusion Therapy in [place], [place] [address] [place] [phone] Paddy Jha P.A.-C., M.S. Malignant Neoplasm Of Gastroesophageal Junction (HCC) (Primary Dx) 04/11/2024 1:00 PM CDT Diagnostic Division of Pulmonary Medicine in [place], [place] [address] [place] [phone] Edgardo Joy D.OJam Fibrosis Pulmonary (HCC); Chronic Cough 04/05/2024 12:00 PM CDT Office Visit Division of Pulmonary Medicine in [place], [place] [address] [place] [phone] Edgardo Joy D.OJam Chronic Cough (Primary Dx); Fibrosis Pulmonary (HCC) 04/05/2024 10:30 AM CDT Diagnostic Division of Pulmonary Medicine in [place], [place] [address] [place] [phone] Edgardo Joy D.O. Fibrosis Pulmonary (HCC) 04/05/2024 Clinical Communication Division of Pulmonary Medicine in [place], [place] [address] [place] [phone] Edgardo Joy D.O. TIRSO 04/05/2024 Clinical Communication Division of Pulmonary Medicine in [place], [place] [address] [place] [phone] Edgardo Joy D.OJam 04/05/2024 Clinical Communication Division of Pulmonary Medicine in [place], [place] [address] [place] [phone] Edgardo Joy D.O. 04/03/2024 10:30 AM CDT Clinical Communication Virtual Review in [place], [place] [address] [place] [address] Pre-visit Intake 03/26/2024 Clinical Communication Department of Oncology in [place], [place] [address] [place] [phone] Paddy Jha P.A.-C., M.S. 03/23/2024 7:19 AM CDT - 03/26/2024 6:48 PM CDT Hospital Encounter [facility], [facility], [facility], 7th Floor [address] [place] [address] Lanie Phillips P.A.-C., M.S. Maikol Skinner M.D., Ph.D. Luzma Howell M.D. Dyspnea (Primary Dx); Hypoxia; Anemia; Stool Positive Occult Blood; Malignant Neoplasm Of Gastroesophageal Junction (HCC); Anticoagulant Therapy; Dyspnea On Exertion; Decline Functional Status [R53.81] Discharge Disposition: Home or Self Care from Last 3 Months Immunizations Name Administration Dates Next Due SARS-COV-2 (COVID-19) - MODERNA(Discontinued) ,10/31/2020 Family History Medical History Relation Name Comments Prostate cancer Brother Amador Prostate rem kashif 2014 Sleep apnea Child Son Genetic disease Daughter Bess Reuben-danlo s-syndromes Migraines Daughter Bess Stroke Father Tray Cho Stroke , di ed 3 days later Hypertension Mother Daniel Marquis Migraines Mother Daniel Cho Other cancer Mother Daniel Cho Brain Tumor Stroke Mother Daniel Cho Relation Name Status Comments Brother Amador Child Son Alive Daughter Bess Father Tray Cho Father's Brother Efren Mother Daniel Cho Mother's Brother Iván Muse Social History Tobacco Use Types Packs/Day Years Used Date Smoking Tobacco: Former Cigarettes 2.5 30.1 0 09/18/1965 - 11/01/1995 Passive Smoke Exposure: Never Smokeless Tobacco: Never Tobacco Cessation:Counseling Given: Not Answered Alcohol Use Standard Drinks/Week Comments Not Currently 1 (1 standard drink = 0.6 oz pur e alcohol) drink on special occasions [facility] Labsities Answer Date Recorded In the past 12 months has e electric, gas, oil, or water company threatened to shut off services in your home? No 03/31/2024 Humiliation, Afraid, Rape, a nd Kick questionnaire Answer Date Recorded Within the last year, have y ou been afraid of your partner or ex-partner? Patient unable to answer 03/24/2024 Within the last year, have y ou been humiliated or emotionally abused in other ways by your partner or ex-partner? Patient unable to answer 03/24/2024 Within the last year, have y ou been kicked, hit, slapped, or otherwise physically hurt by your partner or ex-partner? Patient unable to answer 03/24/2024 Within the last year, have y ou been raped or forced to have any kind of sexual activity by your partner or ex-partner? Patient unable to answer 03/24/2024 Social Connection and Isolat ion Panel [NHANES] Answer Date Recorded In a typical week, how many times do you talk on the phone with family, friends, or neighbors? Three times a week 01/27/2023 How often do you get togethe r with friends or relatives? Once a week 01/27/2023 How often do you attend chur ch or jew services? More than 4 times per year 01/27/2023 Do you belong to any clubs o r organizations such as pentecostalism groups, unions, fraternal or athletic groups, or school groups? Yes 01/27/2023 How often do you attend meet ings of the clubs or organizations you belong to? More than 4 times per year 01/27/2023 Are you , , di vorced, , never , or living with a partner? 01/27/2023 AUDIT-C Answer Date Recorded Q1: How often do you have a drink containing alc ohol? 2-4 times a month 01/27/2023 Q2: How many drinks containi ng alcohol do you have on a typical day when you are drinking? 1 or 2 01/27/2023 Q3: How often do you have si x or more drinks on one occasion? Never 01/27/2023 Overall Financial Resource Strain (CARDIA) Answe r Date Recorded How hard is it for you to pa y for the very basics like food, housing, medical care, and heating? Not very hard 01/27/2023 [facility]at [facility] - Occupational Stress Questionnaire Answer Date Recorded Do you feel stress - tense, restless, nervous, or anxious, or unable to sleep at night because your mind is troubled all the time - these days? Only a little 01/27/2023 Exercise Vital Sign Answer Date Recorde d On average, how many days pe r week do you engage in moderate to strenuous exercise (like a brisk walk)? 0 days 03/31/2024 On average, how many minutes do you engage in exercise at this level? 0 min 03/31/2024 Hunger Vital Sign Answer Date Recorded Within the past 12 months, y ou worried that your food would run out before you got the money to buy more. Never true 03/31/20 24 Within the past 12 months, t he food you bought just didn't last and you didn't have money to get more. Never true 03/31/2024 PRAPARE - Transportation Answer Date Re corded In the past 12 months, has l ack of transportation kept you from medical appointments or from getting medications? No 03/18 In the past 12 months, has l ack of transportation kept you from meetings, work, or from getting things needed for daily living? No 03/31/2024 Nutrition Answer Date Recorded On average, how many serving s of fruits and vegetables do you eat per day (serving size is equal to 1 cup or approximately the size of a tennis ball)? 0-2 03/31/2024 Dental Answer Date Recorded Dental: Regular Dentist Yes 04/14/20 Employment Answer Date Recorded Employment status Retired 03/31/2024 Housing Stability Answer Date Recorded What is your living situation today? I have a [facility] place to live 03/31/2024 Education Answer Date Recorded What is the highest level of school you have completed or the highest degree you have received? Associate degree: occupational, technical, or vocational program 07/13/2019 Sex and Gender Information Value Date Recorded Sex Assigned at Male 12/17/2018 8:13 PM CDT Gender Identity Male 12/17/2018 8:13 PM CDT Sexual Orientation Straight 12/17/2018 8: 13 PM CDT Last Filed Vital Signs Vital Sign Reading Time Taken Comments Blood Pressure 116/65 06/10/2024 9:30 PM CDT Pulse 70 06/10/2024 9:30 PM CDT Temperature 36.7 ??C (98.1 ??F) 06/10/2024 9:00 PM CD T Respiratory Rate 16 06/10/2024 9:30 PM CDT Oxygen Saturation 95% 06/10/2024 9:30 PM CDT Inhaled Oxygen Concentration - - Weight 103 kg (227 lb 8.2 oz) 06/10/2024 12:37 P M CDT Height 182.9 cm (6') 06/10/2024 12:37 PM CDT Body Mass Index 30.86 06/10/2024 12:37 PM CDT Plan of Treatment Health Maintenance Due Date Last Done Comments Hepatitis C Screening 1945 Depression Screening (Annual PHQ-2) 09/18/2023 COVID-19 Vaccine ( season) 2024 05/19/2023, 06/09/2022, 01/26/2022, Additional history exists Glucose Test for Med Monitoring 04/30/2025 04/30/2024, 04/16/2024, 03/26/2024, Additional history exists DTaP,Tdap,and Td Vaccines (5 - Td or Tdap) 05/09/2032 05/09/2022, 07/25/2014, 07/25/2014, Additional history exists Pneumococcal vaccine (65+ years) Completed 12/25/2017, 03/26/2015, 10/28/2011, Additional history exists Zoster Vaccines Completed 06/16/2020, 03/18, 02/15/2017, Additional history exists RSV vaccine - (32-36 weeks) or 60+ years Completed 08/30/2023 Abdominal Aortic Aneurysm (AAA) Screen Discontinued 03/23/2024, 11/23/2023, 03/31/2023 Lung Cancer Screening Discontinued 04/19/2024 , 11/23/2023, 02/21/2023, Additional history exists Fall Risk Screen (Annual) Completed 06/10/2024 Influenza Vaccine Completed 06/21/2024, , 06/10/2022, Additional history exists HPV Vaccines Aged Out No longer eligi ble based on patient's age to complete this topic Medical Devices Implanted Type Area Area Field Person Device Identifier Shelf Expiration Date Model / Serial / Lot Hardware E.G. Pins/Screws/R ods Hardware e.g. pins/screws/effie s Neck Description:Vertebra 4 5 and 6 Prt Cath Infus Mri Intrmd 8f - [id number] Implanted:Qty : 1 on 12/05/2023 by Nomi Cowart M.D. at [facility] Implantable [place] [employer] 06/17/2025 [id number] / / [id number] Procedures Procedure Name Priority Date/Time Associated Diagnosis Comments ADULT OXYGEN THERAPY Routine 06/10/2024 6:50 PM CDT DX CHEST 1 VIEW RAD - Routine (most inpatients and all outpatients) 06/10/2024 6:40 PM CDT PLACEMENT TUNNELED PLEURAL CATHETER 06/10/2024 4:53 PM CDT Effusion Pleural Case Notes Bunch Breaker 1200 PULMONARY AND CC MEDICINE IMAGE EXAM Routine 06/10/2024 4:25 PM CDT SURGERY IMAGE EXAM Routine 06/10/2024 3:45 PM CDT CBC WITHOUT DIFFERENTIAL, B STAT 06/10/2024 2:45 PM CDT TRANSFUSE RED BLOOD CELLS Routine 06/07/2024 8:40 PM CDT 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) TRANSFUSE RED BLOOD CELLS Routine 06/07/2024 6:28 PM CDT 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) PREPARE RED BLOOD CELLS Routine 06/07/2024 3:14 PM CDT 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) TYPE AND SCREEN Routine 06/07/2024 3:14 PM CDT Anemia In Chronic Kidney Disease CBC WITHOUT DIFFERENTIAL, B Routine 06/07/2024 3:14 PM CDT Effusion Pleural PULMONARY AND CC MEDICINE IMAGE EXAM Routine 06/07/2024 1:50 PM CDT DX CHEST AP OR PA AND LATERAL 2 VIEWS RAD - Routine (most inpatients and all outpatients) 06/07/2024 11:21 AM CDT Personal History Of Malignant Neoplasm Of Bladder ARIA COURSE COMPLETE TREATMENT INFORMATION Routine 05/08/2024 9:19 AM CDT ARIA DAILY TREATMENT INFORMATION Routine 05/08/2024 9:19 AM CDT ARIA DAILY TREATMENT INFORMATION Routine 05/07/2024 10:23 AM CDT ARIA DAILY TREATMENT INFORMATION Routine 05/06/2024 9:18 AM CDT ARIA DAILY TREATMENT INFORMATION Routine 05/03/2024 1:55 PM CDT US THORACENTESIS RIGHT WITH IMAGING GUIDANCE RAD - Routine (most inpatients and all outpatients) 05/03/2024 8:19 AM CDT 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) Effusion Pleural GI PATHOGEN PANEL, PCR, F Routine 05/02/2024 1:02 PM CDT 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) Diarrhea Enterocolitis Due To Clostridium Difficile Recurrent ARIA DAILY TREATMENT INFORMATION Routine 05/02/2024 10:52 AM CDT TRANSFUSE RED BLOOD CELLS Routine 04/30/2024 6:26 PM CDT 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) TRANSFUSE RED BLOOD CELLS Routine 04/30/2024 4:11 PM CDT 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) PREPARE RED BLOOD CELLS Routine 04/30/2024 2:45 PM CDT 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) TYPE AND SCREEN Routine 04/30/2024 2:45 PM CDT Malignant Neoplasm Of Gastroesophageal Junction (HCC) BILIRUBIN DIRECT, S/P Routine 04/30/2024 6:54 AM CDT Malignant Neoplasm Of Gastroesophageal Junction (HCC) COMPREHENSIVE METABOLIC PANEL, S/P Routine 04/30/2024 6:54 AM CDT Malignant Neoplasm Of Gastroesophageal Junction (HCC) CBC WITH DIFFERENTIAL, B Routine 04/30/2024 6:54 AM CDT Malignant Neoplasm Of Gastroesophageal Junction (HCC) ARIA COURSE COMPLETE TREATMENT INFORMATION Routine 04/29/2024 9:11 AM CDT INITIAL RAD ONC TREATMENT PLANNING CT SIMULATION Routine 04/22/2024 2:15 PM CDT Secondary Malignant Neoplasm Bone (HCC) DX TIBIA FIBULA BILATERAL 2 VIEWS RAD - Routine (most inpatients and all outpatients) 04/22/2024 9:41 AM CDT 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) CT CHEST WITHOUT IV CONTRAST RAD - Routine (most inpatients and all outpatients) 04/19/2024 10:35 AM CDT 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) BILIRUBIN DIRECT, S/P Routine 04/16/2024 11:39 AM CDT Malignant Neoplasm Of Gastroesophageal Junction (HCC) COMPREHENSIVE METABOLIC PANEL, S/P Routine 04/16/2024 11:39 AM CDT Malignant Neoplasm Of Gastroesophageal Junction (HCC) CBC WITH DIFFERENTIAL, B Routine 04/16/2024 11:39 AM CDT Malignant Neoplasm Of Gastroesophageal Junction (HCC) CBC CHEMO - NO ALERTS Routine 04/11/2024 1:59 PM CDT Malignant Neoplasm Of Gastroesophageal Junction (HCC) PUL HOME OVERNIGHT OXIMETRY Routine 04/11/2024 Fibrosis Pulmonary (HCC) Chronic Cough OXYGEN TITRATION Routine 04/05/2024 11:03 AM CDT Fibrosis Pulmonary (HCC) TRANSFUSE RED BLOOD CELLS Routine 03/26/2024 2:35 PM CDT RT TO ARRANGE FOR HOME DME Routine 03/26/2024 2:07 PM CDT PREPARE RED BLOOD CELLS Routine 03/26/2024 1:11 PM CDT TYPE AND SCREEN Routine 03/26/2024 1:11 PM CDT BASIC METABOLIC PANEL, S/P Routine 03/26/2024 4:31 AM CDT CBC WITH DIFFERENTIAL, B Routine 03/26/2024 4:31 AM CDT HOME O2 EVAL (DESATURATION SCREEN) Routine 03/25/2024 4:10 PM CDT ADULT OXYGEN THERAPY Routine 03/25/2024 8:00 AM CDT BASIC METABOLIC PANEL, S/P Routine 03/25/2024 2:59 AM CDT CBC WITH DIFFERENTIAL, B Routine 03/25/2024 2:59 AM CDT MAGNESIUM, S Routine 03/25/2024 2:[address] ABDOMEN PELVIS WITH IV CONTRAST RAD - Semiurgent (Fast; most ED patients; some inpatients) 03/23/2024 8:55 AM CDT from Last 3 Months or Most Recently Relevant to Health Maintenance Results * DX Chest 1 View (06/10/2024 6:40 PM CDT) Anatomical Region Laterality Modality Chest, Thoracic RST LOS, Tho racic ARZ LOS, Thoracic FLA LOS N/A Digital Radiography Impressions 06/10/2024 8:19 PM CDT Since 06/07/2024, interval placement of right sided chest tube. No pneumothorax. Improved right pleural effusion. ??Remainder not significantly changed. ??Similar consolidation/atelectasis in the left lower lung with associated small pleural effusion. ??Severe diffuse bilateral fibrotic interstitial lung changes, most prominent in the bilateral lung bases. Prominent central pulmonary vasculature. Right IJ Port-A-Cath with tip terminating in the low SVC. Partially visualized ACDF. Narrative 06/10/2024 8:19 PM CDT EXAM: ??DX CHEST 1 VIEW Procedure Note Kuldeep Yi M.D. - 06/10/2024 EXAM: DX CHEST 1 VIEW IMPRESSION: Since 06/07/2024, interval placement of right sided chest tube. Nopneumothorax. Improved right pleural effusion. Remainder notsignificantly changed. Similar consolidation/atelectasis in the leftlower lung with associated small pleural effusion. Severe diffuse bilateral fibrotic interstitial lung changes,most prominent in the bilateral lung bases. Prominent central pulmonaryvasculature. Right IJ Port-A-Cath with tip terminating in the low SVC.Partially visualized ACDF. Grge Ramirez M.D. IMG DIAGNOSTIC IMAGI NG PROCEDURES * Non-Radiology Image-Pulmonary And CC Medicine Image Exam (06/10/2024 4:25 PM CDT) Only the most recent of2 resultswithin the time period is included. 06/10/2024 4:21 PM CDT Narrative IIND - 06/10/2024 4:37 PM CDT This order has been created and auto-finalized to support the import of images acquired without order. The clinical documentation to support these images can be found on the encounter that produced images. Provider Not In System IMG NON RAD IMAGI NG PROCEDURES IIND NA * Surgery Image Exam-Surgery Image Exam (06/10/2024 3:45 PM CDT) 06/10/2024 3:44 PM CDT Narrative IIMS - 06/10/2024 6:09 PM CDT This order has been created and auto-finalized to support the import of images acquired without order. The clinical documentation to support these images can be found on the encounter that produced images. Provider Not In System IMG NON RAD IMAGI NG PROCEDURES Performing Organization Address [facility] Co de Phone Number IIND NA * (ABNORMAL) CBC without Differential (06/10/2024 2:45 PM CDT) Only the most recent of2 resultswithin the time period is included. Hemoglobin 7.9(L) 13.2 - 16.6 g/dL 06/10/2024 2:57 PM CDT STMA Hematocrit 25.9(L) 38.3 - 48.6 % 06/10/2024 2:57 PM CDT STMA Erythrocytes 3.18(L) 4.35 - 5.65 x10(12)/L 06/10/2024 2:57 PM CDT STMA MCV 81.4 78.2 - 97.9 fL 06/10/2024 2:57 PM CDT STMA RBC Distrib Width 18.7(H) 11.8 - 14.5 % 06/10/2024 2:57 PM CDT STMA Platelet Count 398(H) 135 - 317 x10(9)/L 06/10/2024 2:57 PM CDT STMA Leukocytes 6.9 3.4 - 9.6 x10(9)/L 06/10/2024 2:57 PM CDT STMA Blood (Blood, Venous) 06/10/2024 2:45 PM CDT 06/10/2024 2:52 PM CDT Will García M.D. LAB BLOOD ADD-ON [facility] [address] [place] [address], [place] STMA [facility] [address] [place] [address] * Transfuse Red Blood Cells : (06/07/2024 11:29 PM CDT) Only the most recent of5 resultswithin the time period is included. Elena Salas M.D. BLOOD TRANSFUSION OR DERABLES * Type and Screen (with Reflex Antibody ID) (06/07/2024 3:14 PM CDT) Only the most recent of3 resultswithin the time period is included. ABORh O Pos Not applicable 06/07/2024 4:06 PM CDT ETRM Antibody Screen Negative Negative 06/07/2024 4:11 PM CDT ETRM Type & Screen Expiration 06/10/2024 23:59 06/07/2024 4:06 PM CDT ETRM Testing Location [place] DEFAULT 06/07/2024 3:29 PM CDT ETRM Blood (Blood, Venous) 06/07/2024 3:14 PM CDT 06/07/2024 3:29 PM CDT Elena Salas M.D. LAB BLOOD BANK TEST ORDERABLES [facility] [address] [place] [address], [facility] ETRM [facility] [address] [place] [address] * DX Chest AP or PA and Lateral 2 Views (06/07/2024 11:21 AM CDT) Anatomical Region Laterality Modality Chest, Thoracic RST LOS, Tho racic ARZ LOS, Thoracic FLA LOS N/A Digital Radiography Impressions 06/07/2024 11:35 AM CDT Since 03/13/2024, increase size of now small right pleural effusion. Otherwise, no significant change. Right Port-A-Cath with tip projecting over the RA/SVC junction. Severe diffuse bilateral fibrotic interstitial lung changes, most prominent in the bilateral lung bases. Prominence of the central pulmonary vasculature. Partially visualized ACDF. Narrative 06/07/2024 11:35 AM CDT EXAM: ??DX CHEST AP OR PA AND LATERAL 2 VIEWS Procedure Note Yasmany Hernandez M.D. - 06/07/2024 EXAM: DX CHEST AP OR PA AND LATERAL 2 VIEWS IMPRESSION: Since 03/13/2024, increase size of now small right pleural effusion. Otherwise, no significant change. Right Port-A-Cath with tip projectingover the RA/SVC junction. Severe diffuse bilateral fibrotic interstitiallung changes, most prominent in the bilateral lung bases. Prominence ofthe central pulmonary vasculature. Partially visualized ACDF. Kuldeep Ruth M.D. IMG DIAGNOSTIC IMAG ING PROCEDURES * Aria Course Complete Treatment Information (05/08/2024 9:19 AM CDT) Only the most recent of2 resultswithin the time period is included. Course ID [id number] MARSH ARIA Course Start Date 04/19/2024 15:21 CDT MARSH ARIA Course End Date 05/27/2024 15:56 CDT MARSH ARIA First Treatment Date 05/02/2024 10:51 CDT MARSH ARIA Last Treatment Date 05/08/2024 09:19 CDT MARSH ARIA Treatment Elapsed Days 6 MARSH ARIA Reference Point [id number] LHumeru MARSH ARIA Dosage Given to Date cGy 1999 MARSH ARIA Plan ID [id number]: 1 MARSH ARIA Fractions Treated to Date 5 MARSH ARIA Planned Total Fractions 5 MARSH ARIA Prescribed Dose Per Fraction 400 MARSH ARIA Prescription Dose in cGy 1999 MARSH ARIA Predecessor Plan [id number] MARSH ARIA Plan Primary Reference Point [id number] LHumeru MARSH ARIA 05/08/2024 9:19 AM CDT Provider Not In System RADIATION ONCOLOG Y ORDERABLES MARSH GOLDA na * Aria Daily Treatment Information (05/08/2024 9:19 AM CDT) Only the most recent of5 resultswithin the time period is included. Course ID [id number] MARSH ARIA Course Start Date 04/19/2024 15:21 CDT MARSH ARIA First Treatment Date 05/02/2024 10:51 CDT MARSH ARIA Last Treatment Date 05/08/2024 09:19 CDT MARSH ARIA Treatment Elapsed Days 6 MARSH ARIA Reference Point [id number] LHumeru MARSH ARIA Dosage Given to Date cGy 1999 MARSH ARIA Session Dosage Given 400 MRASH ARIA Plan ID [id number]: 1 MARSH ARIA Fractions Treated to Date 5 MARSH ARIA Planned Total Fractions 5 MARSH ARIA Prescribed Dose Per Fraction 400 MARSH ARIA Prescription Dose in cGy 2000 MARSH ARIA Predecessor Plan [id number] MARSH ARIA Plan Primary Reference Point [id number] LHumeru MARSH ARIA 05/08/2024 9:19 AM CDT Provider Not In System RADIATION ONCOLOG Y ORDERABLES SALMA COREY na * US Thoracentesis Right with Imaging Guidance (05/03/2024 8:19 AM CDT) Anatomical Region Laterality Modality Chest, Ultrasound RST LOS, U ltrasound ARZ LOS, Procedure FLA LOS, Abdominal FLA LOS, Procedural, Procedural NWWI LOS Right Ultrasound Impressions 05/03/2024 9:07 AM CDT Ultrasound-guided right thoracentesis. EP Narrative 05/03/2024 9:07 AM CDT EXAM: US THORACENTESIS RIGHT WITH IMAGING GUIDANCE PRE-PROCEDURE: Patient seen and evaluated. Allergies, pertinent medications, and history reviewed. Discussed risks, benefits, alternatives for procedure, and obtained informed consent. Patient understands information and questions answered. Immediately prior to starting the procedure, in the presence of the assisting personnel, procedural pause was conducted to verify correct patient identity and verification of procedure to be performed, and as applicable, correct side and site, correct patient position, availability of implants, special equipment, or special requirements, and all image and specimen identification data. The roles and responsibilities of care team members, residents, and fellows were discussed. TECHNIQUE: Sterile. 1% lidocaine for local anesthesia. Location: Right pleural space. Needle size: 5 Fr centesis catheter. Volume aspirated: 650 cc. Appearance of aspirate: Serosanguineous. Complication: None. Blood loss: Normal. Purpose: Therapeutic only. PATIENT INSTRUCTIONS: Patient may be dismissed from the radiology department when dismissal criteria met. POST-PROCEDURE DIAGNOSIS: Pleural effusion. Procedure Note Alfredito Schuster M.D. - 05/03/2024 EXAM: US THORACENTESIS RIGHT WITH IMAGING GUIDANCE PRE-PROCEDURE: Patient seen and evaluated. Allergies, pertinentmedications, and history reviewed. Discussed risks, benefits, alternativesfor procedure, and obtained informed consent. Patient understandsinformation and questions answered. Immediately prior to starting the procedure, in the presence of the assistingpersonnel, procedural pause was conducted to verify correct patientidentity and verification of procedure to be performed, and as applicable,correct side and site, correct patient position, availability of implants, special equipment, or specialrequirements, and all image and specimen identification data. The rolesand responsibilities of care team members, residents, and fellows werediscussed. TECHNIQUE: Sterile. 1% lidocaine for local anesthesia. Location: Right pleural space. Needle size: 5 Fr centesis catheter. Volume aspirated: 650 cc. Appearance of aspirate: Serosanguineous. Complication: None. Blood loss: Normal. Purpose: Therapeutic only. PATIENT INSTRUCTIONS: Patient may be dismissed from the radiologydepartment when dismissal criteria met. POST-PROCEDURE DIAGNOSIS: Pleural effusion. IMPRESSION: Ultrasound-guided right thoracentesis. EP Merly Beavers APRN, C.N.P., M.S. IM US PROCEDURES * (ABNORMAL) GI Pathogen Panel, PCR, Feces (05/02/2024 1:02 PM CDT) Specimen Source STOOL 3:23 PM CDT DTL Campylobacter species Negative Negative 05/02/2024 3:23 PM CDT DTL C. difficile toxin Positive(A ) Negative 05/02/2024 3:23 PM CDT DTL Comment: A positive C. difficile result may reflect asymptomatic carriage or C. difficile-associated diarrhea. Plesiomonas shigelloides Negative Negative 05/02/2024 3:23 PM CDT DTL Salmonella species Negative Negative 2023 3:23 PM CDT DTL Vibrio species Negative Negative 05/02/2024 3:23 PM CDT DTL Vibrio cholerae Negative Negative 3:23 PM CDT DTL Yersinia species Negative Negative 05/02/20 24 3:23 PM CDT DTL Enteroaggregative E. coli (EAEC) Negative Negative 05/02/2024 3:23 PM CDT DTL Enteropathogenic E. coli (EPEC) Negative Negative 05/02/2024 3:23 PM CDT DTL Enterotoxigenic E. coli (ETEC) Negative Negative 05/02/2024 3:23 PM CDT DTL Shiga toxin producing E. coli Negative Negative 05/02/2024 3:23 PM CDT DTL Shigella/Enteroinvas danielito E. coli Negative Negative 05/02/2024 3:23 PM CDT DTL Cryptosporidium species Negative Negative 05/02/2024 3:23 PM CDT DTL Cyclospora cayetanensis Negative Negative 05/02/2024 3:23 PM CDT DTL Entamoeba histolytica Negative Negative 05/02/2024 3:23 PM CDT DTL Giardia Negative Negative 05/02/2024 3:23 PM CDT DTL Adenovirus F40/41 Negative Negative 024 3:23 PM CDT DTL Astrovirus Negative Negative 05/02/2024 3:23 PM CDT DTL Norovirus GI/GII Negative Negative 05/02/20 24 3:23 PM CDT DTL Rotavirus Ag, F Negative Negative 3:23 PM CDT DTL Sapovirus Negative Negative 05/02/2024 3:23 PM CDT DTL Comment: ----ADDITIONAL INFORMATION---- This assay is performed using the FDA-cleared FilmArray GI Panel ([employer] Semi-Urgent This is a semi-urgen t result(BENÍTEZ) [facility] Stool (Stool) 05/02/2024 1:0 2 PM CDT 05/02/2024 1:36 PM CDT Luzma Howell M.D. LAB MICROBIOLOGY - G ENERAL ORDERABLES [facility] [address] [place] [address], [facility] DTL [address] [place] [address] * (ABNORMAL) CBC with Differential, Blood (04/30/2024 6:54 AM CDT) Only the most recent of4 resultswithin the time period is included. Hemoglobin 6.1(L) 13.2 - 16.6 g/dL 04/30/2024 7:41 AM CDT DTL Hematocrit 20.9(L) 38.3 - 48.6 % 04/30/2024 7:41 AM CDT DTL Erythrocytes 2.43(L) 4.35 - 5.65 x10(12)/L 04/30/2024 7:41 AM CDT DTL MCV 86.0 78.2 - 97.9 fL 04/30/2024 7:41 AM CDT DTL RBC Distrib Width 19.8(H) 11.8 - 14.5 % 04/30/2024 7:41 AM CDT DTL Platelet Count 303 135 - 317 x10(9)/L 04/30/2024 7:41 AM CDT DTL Leukocytes 4.5 3.4 - 9.6 x10(9)/L 04/30/2024 7:41 AM CDT DTL Neutrophils 2.72 1.56 - 6.45 x10(9)/L 04/30/2024 7:41 AM CDT DHPM Lymphocytes 0.52(L) 0.95 - 3.07 x10(9)/L 04/30/2024 7:41 AM CDT DTL Monocytes 1.01(H) 0.26 - 0.81 x10(9)/L 04/30/2024 7:41 AM CDT DTL Eosinophils 0.22 0.03 - 0.48 x10(9)/L 04/30/2024 7:41 AM CDT DTL Basophils <0.03 0.01 - 0.08 x10(9)/L 04/30/2024 7:41 AM CDT DTL Blood (Blood, Venous) 04/30/2024 6:54 AM CDT 04/30/2024 7:28 AM CDT Merly Beavers APRN, C.N.P., Arias OCONNOR BLOOD ADD-ON Performing Organization Address [place]/[facility] Co de Phone Number [facility] [address] [place] [address], [facility] [address] [place] [address] * Bilirubin, Direct (04/30/2024 6:54 AM CDT) Only the most recent of2 resultswithin the time period is included. Bilirubin, Direct, S <0.2 0.0 - 0.3 mg/dL 04/30/2024 8:01 AM CDT DTL Blood (Blood, Venous) 04/30/2024 6:54 AM CDT 04/30/2024 7:42 AM CDT Merly Beavers APRN, C.N.P., Arias OCONNOR BLOOD ADD-ON Performing Organization Address [place]/[facility]/ZIP Co de Phone Number [facility] [address] [place] [address] * (ABNORMAL) Comprehensive Metabolic Panel (04/30/2024 6:54 AM CDT) Only the most recent of2 resultswithin the time period is included. Potassium, S 3.9 3.6 - 5.2 mmol/L 04/30/2024 8:01 AM CDT DTL Sodium, S 139 135 - 145 mmol/L 04/30/2024 8:01 AM CDT DTL Chloride, S 109(H) 98 - 107 mmol/L 04/30/2024 8:01 AM CDT DTL Bicarbonate, S 23 22 - 29 mmol/L 04/30/2024 8:01 AM CDT DTL Anion Gap 7 7 - 15 04/30/2024 8:01 AM CDT DTL BUN (Blood Urea Nitrogen), S 20 8 - 24 mg/dL 04/30/2024 8:01 AM CDT DTL Creatinine 0.86 0.74 - 1.35 mg/dL 04/30/2024 8:01 AM CDT DTL Estimated GFR (eGFR) 89 >=60 mL/min/BS A 04/30/2024 8:01 AM CDT DTL Comment: Estimated GFR calculated using the 2020 CKD_EPI creatinine equation. Calcium, Total, S 8.3(L) 8.8 - 10.2 mg/dL 04/30/2024 8:01 AM CDT DTL Glucose, S 101 70 - 140 mg/dL 04/30/2024 8:01 AM CDT DTL Protein, Total, S 6.0(L) 6.3 - 7.9 g/dL 04/30/2024 8:01 AM CDT DTL Albumin, S 3.2(L) 3.5 - 5.0 g/dL 04/30/2024 8:01 AM CDT DTL Aspartate Aminotransferase (AST), S 25 8 - 48 U/L 04/30/2024 8:01 AM CDT DTL Alkaline Phosphatase, S 174(H) 40 - 129 U/L 04/30/2024 8:01 AM CDT DTL Alanine Aminotransferase (ALT), S 24 7 - 55 U/L 04/30/2024 8:01 AM CDT DTL Bilirubin, Total, S 0.3 0.0 - 1.2 mg/dL 04/30/2024 8:01 AM CDT DTL Blood (Blood, Venous) 04/30/2024 6:54 AM CDT 04/30/2024 7:42 AM CDT Merly Beavers APRN C.N.P., M.S. LA B BLOOD ADD-ON [facility] [address] [place] [address], [facility] DTL [facility] [address] [place] [address] * Initial Rad Onc Treatment Planning CT Simulation (04/22/2024 2:15 PM CDT) Narrative SALMA COREY - 04/22/2024 2:15 PM CDT Rut Cordon, LAZARO ? 04/22/2024 ??2:15 PM Initial Rad Onc Treatment Planning CT Simulation Performed by: Kuldeep Ritchie M.D. Authorized by: Kuldeep Ritchie M.D. ?? Kuldeep Ritchie M.D. RADIATION ONCOLOGY ORDERABLES SALMA COREY na * DX Tibia Fibula Bilateral 2 Views (04/22/2024 9:41 AM CDT) Anatomical Region Laterality Modality Lower Extremity, TibFib, Mus culoskeletal RST LOS, Musculoskeletal ARZ LOS, Muskuloskeletal FLA LOS Bilateral Digit al Radiography Impressions 04/22/2024 10:10 AM CDT Mild demineralization. Tricompartmental arthritis, both knees. No discrete lytic or sclerotic lesion. No pathologic fractures. An MRI of the region of pain would be helpful for further evaluation for suspected osseous metastatic disease. ?? Narrative 04/22/2024 10:10 AM CDT EXAM: ??DX TIBIA FIBULA BILATERAL 2 VIEWS Procedure Note Philip Thompson M.D. - 04/22/2024 EXAM: DX TIBIA FIBULA BILATERAL 2 VIEWS IMPRESSION: Mild demineralization. Tricompartmental arthritis, both knees. No discretelytic or sclerotic lesion. No pathologic fractures. An MRI of the regionof pain would be helpful for further evaluation for suspected osseousmetastatic disease. Merly Beavers APRN, C.N.P., M.S. IM G DIAGNOSTIC IMAGING PROCEDURES * CT Chest without IV Contrast (04/19/2024 10:35 AM CDT) Anatomical Region Laterality Modality Chest, Thoracic RST LOS, Tho racic ARZ LOS, Thoracic FLA LOS N/A Computed Tomography, Compute d Tomography Impressions 04/19/2024 3:37 PM CDT 1. Increase in size of now small to moderate right pleural effusion. Otherwise, no significant change including stable small to trace left pleural effusion. 2. Increased partially visualized metastatic peritoneal nodularity. 3. 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 Narrative 04/19/2024 3:37 PM CDT EXAM: CT CHEST WITHOUT IV CONTRAST COMPARISON: CT chest 03/23/2024 and studies back to 12/26/2018 FINDINGS: Since 03/23/2024, interval increase in size of now small to moderate right pleural effusion. Stable small to trace left pleural effusion. Pericardial effusion is stable since 03/23/2024 but increased since 11/23/2023. Peripherally and lower lung predominant reticular opacities, architectural distortion and traction bronchiectasis most significant in the left lower lobe as well as areas of honeycombing are stable since 03/23/2024 but have increased since 12/26/2018. Severe emphysema. A few the regions have the morphology of airway enlargement with fibrosis. No significant change in scattered pulmonary nodules, for example a subpleural solid pulmonary nodule measuring 9 mm in the right upper lobe (series 3, image 159). Circumferential thickening at the GE junction in keeping with known esophageal cancer. Similar mildly enlarged mediastinal and hilar lymph nodes. Slight interval increase in size of peritoneal nodularity in the visualized upper abdomen. Postoperative changes cervical spine. Right Port-A-Cath with tip at the upper cavoatrial junction. Small pericardial effusion. Ectatic main pulmonary artery measuring up to 36 mm. Minimal aortic valve calcifications. 3D maximum intensity projection (MIP) images were created on a dependent workstation as ordered by the treating provider and reviewed by the radiologist to increase sensitivity for detection of pulmonary nodules. Procedure Note Tye Zuniga M.D. - 04/19/2024 EXAM: CT CHEST WITHOUT IV CONTRAST COMPARISON: CT chest 03/23/2024 and studies back to 12/26/2018 FINDINGS: Since 03/23/2024, interval increase in size of now small to moderate rightpleural effusion. Stable small to trace left pleural effusion. Pericardial effusion is stable since 03/23/2024 but increased since11/23/2023. Peripherally and lower lung predominant reticular opacities, architecturaldistortion and traction bronchiectasis most significant in the left lowerlobe as well as areas of honeycombing are stable since 03/23/2024 but haveincreased since 12/26/2018. Severe emphysema. A few the regions have the morphology of airwayenlargement with fibrosis. No significant change in scattered pulmonary nodules, for example asubpleural solid pulmonary nodule measuring 9 mm in the right upper lobe(series 3, image 159). Circumferential thickening at the GE junction in keeping with knownesophageal cancer. Similar mildly enlarged mediastinal and hilar lymphnodes. Slight interval increase in size of peritoneal nodularity in thevisualized upper abdomen. Postoperative changes cervical spine. Right Port-A-Cath with tip at theupper cavoatrial junction. Small pericardial effusion. Ectatic mainpulmonary artery measuring up to 36 mm. Minimal aortic valvecalcifications. 3D maximum intensity projection (MIP) images were created on a dependentworkstation as ordered by the treating provider and reviewed by theradiologist to increase sensitivity for detection of pulmonary nodules. IMPRESSION: 1. Increase in size of now small to moderate right pleural effusion.Otherwise, no significant change including stable small to trace leftpleural effusion. 2. Increased partially visualized metastatic peritoneal nodularity. 3. 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 Merly Beavers APRN C.N.P., M.S. IM G CT PROCEDURES * (ABNORMAL) CBC, Chemotherapy, No Alerts (04/11/2024 1:59 PM CDT) Hemoglobin 8.7(L) 13.2 - 16.6 g/dL 04/11/2024 2:23 PM CDT DTL Platelet Count 274 135 - 317 x10(9)/L 04/11/2024 2:23 PM CDT DTL Leukocytes 6.3 3.4 - 9.6 x10(9)/L 04/11/2024 2:23 PM CDT DTL Neutrophils 4.01 1.56 - 6.45 x10(9)/L 04/11/2024 2:23 PM CDT [facility] Blood (Blood, Venous) 04/11/2024 1:59 PM CDT 04/11/2024 2:18 PM CDT Umang Novoa P.A.-C.SJam LAB BLOOD A DD-ON Performing Organization Address City/[facility] Co de Phone Number [facility] [address] [place] [address], [facility] DTL [facility] [address] [place] [address] [facility] [address] [place] [address] * PUL Home Overnight Oximetry (04/11/2024) 04/11/2024 Impressions [facility] - 04/12/2024 3:50 PM CDT Despite supplemental oxygen, there is persistence of baseline and positional gas exchange abnormality. Physician: Stan Romero M.D. [id number] Narrative Procedure Note Stan Romero M.D. - 04/12/2024 IMPRESSION: Despite supplemental oxygen, there is persistence of baseline andpositional gas exchange abnormality. Physician: Stan Romero M.D. [id number] Edgardo Joy D.O. PFT ORDERABLES Performing Organization Address City/[facility] Co de Phone Number [facility] * Oxygen Titration (04/05/2024 11:03 AM CDT) [1] Inspired Gas (L/min) Room Air MMODAL [1] Interface NA MMODAL [1] Speed (mph) Rest MMODAL [1] Grade (%) 0 MMODAL [1] Time (min) 20 MMODAL [1] SpO2 (%) 90 MMODAL [1] Heart Rate 82 MMODAL [1] Ratings of Perceived Exertion (6-20) 6 MMODAL [2] Inspired Gas (L/min) Room Air MMODAL [2] Interface NA MMODAL [2] Speed (mph) 1.0 MMODAL [2] Grade (%) 0 MMODAL [2] Time (min) 0.5 MMODAL [2] SpO2 (%) 79 MMODAL [2] Heart Rate 85 MMODAL [2] Ratings of Perceived Exertion (6-20) 9 MMODAL [3] Inspired Gas (L/min) 2 L/min MMODAL [3] Interface Nasal Cannula MMODAL [3] Speed (mph) 1.0 MMODAL [3] Grade (%) 0 MMODAL [3] Time (min) 0.5 MMODAL [3] SpO2 (%) 81 MMODAL [3] Heart Rate 87 MMODAL [3] Ratings of Perceived Exertion (6-20) 9 MMODAL [4] Inspired Gas (L/min) 5L/min MMODAL [4] Interface Nasal Cannula MMODAL [4] Speed (mph) Rest MMODAL [4] Grade (%) 0 MMODAL [4] Time (min) 2 MMODAL [4] SpO2 (%) 84 MMODAL [4] Heart Rate 80 MMODAL [4] Ratings of Perceived Exertion (6-20) 9 MMODAL [5] Inspired Gas (L/min) 6L/min MMODAL [5] Interface Nasal Pendant MMODAL [5] Speed (mph) 1.0 MMODAL [5] Grade (%) 0 MMODAL [5] Time (min) 2 MMODAL [5] SpO2 (%) 90 MMODAL [5] Heart Rate 85 MMODAL [5] Ratings of Perceived Exertion (6-20) 13 MMODAL Comment Total exercise time: 4 minutes; forehead sensor used MMODAL Edgardo Joy D.O. PFT ORDERABLES MMODAL NA * (ABNORMAL) Basic Metabolic Panel (03/26/2024 4:31 AM CDT) Only the most recent of2 resultswithin the time period is included. Potassium, S 3.8 3.6 - 5.2 mmol/L 03/26/2024 5:24 AM CDT DTL Sodium, S 142 135 - 145 mmol/L 03/26/2024 5:24 AM CDT DTL Chloride, S 112(H) 98 - 107 mmol/L 03/26/2024 5:24 AM CDT DTL Bicarbonate, S 24 22 - 29 mmol/L 03/26/2024 5:24 AM CDT DTL Anion Gap 6(L) 7 - 15 03/26/2024 5:24 AM CDT DTL BUN (Blood Urea Nitrogen), S 14 8 - 24 mg/dL 03/26/2024 5:24 AM CDT DTL Creatinine 0.94 0.74 - 1.35 mg/dL 03/26/2024 5:24 AM CDT DTL Estimated GFR (eGFR) 83 >=60 mL/min/BSA 03/26/2024 5:24 AM CDT DTL Comment: Estimated GFR calculated using the 2020 CKD_EPI creatinine equation. Calcium, Total, S 8.0(L) 8.8 - 10.2 mg/dL 03/26/2024 5:24 AM CDT DTL Glucose, S 106 70 - 140 mg/dL 03/26/2024 5:24 AM CDT DTL Blood (Blood, Venous) 03/26/2024 4:31 AM CDT 03/26/2024 5:05 AM CDT Neida Granados M.D. LAB BLOOD ADD-ON [facility] [address] [place] [address], [facility] DTL [facility] [address] [place] [address] * Magnesium (03/25/2024 2:59 AM CDT) Magnesium, S 1.9 1.7 - 2.3 mg/dL 03/25/2024 4:16 AM CDT DTL Blood (Blood, Venous) 03/25/2024 2:59 AM CDT 03/25/2024 4:01 AM CDT Neida Granados M.D. LAB BLOOD ADD-ON [facility] [address] [place] [address], [facility] DTL [facility] [address] [place] [address] * CT Abdomen Pelvis with IV Contrast (03/23/2024 8:55 AM CDT) Anatomical Region Laterality Modality Abdomen, Pelvis, Abdominal R ST LOS, Abdominal ARZ LOS, Abdominal FLA LOS N/A Computed Tomograp hy, Computed Tomography 03/23/2024 8:49 AM CDT Impressions 03/23/2024 10:49 AM CDT 1. Negative for acute pulmonary embolism. 2. Possible mild colitis. 3. Slight worsening of the peritoneal carcinomatosis when compared to 11/23/2023. 4. 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 Increased small left and decreased small right pleural effusions compared to the prior PET-CT. 6. See findings for further details. Narrative 03/23/2024 10:49 AM CDT EXAM: CT CHEST ANGIOGRAM AND PULMONARY ARTERIES WITH IV CONTRAST, CT ABDOMEN PELVIS WITH IV CONTRAST Including 3D image postprocessing with or without AI assistance. COMPARISON: Chest CT 11/23/2023, PET/CT 02/13/2024 FINDINGS: CHEST: Negative for acute pulmonary embolism. Since 02/13/2024, increased small left and decreased small right pleural effusions. Slightly increased reticular opacities throughout both lungs, which could represent edema. Overall similar pulmonary fibrosis with peripheral and lower lung reticulations, traction bronchiectasis, and architectural distortion. Similar diffuse centrilobular advanced emphysema. Slightly decreased conspicuity of previously described pulmonary nodules, including a 9 mm nodule in the left upper lobe (series 6, image 181) and a 9 mm nodule in the the lateral right middle lobe (series 6, image 138). Similar mediastinal lymphadenopathy. Increased trace pericardial effusion. Coronary artery calcification. Normal caliber thoracic aorta. Similar mild dilatation of the pulmonary arteries. Right chest wall port with tip in the SVC/RA junction. Circumferential thickening of the GE junction/distal esophagus compatible with the known malignancy. ??Degenerative changes of the spine. Surgical changes lower cervical spine. ABDOMEN PELVIS: New small volume of free fluid along the right paracolic gutter and in the dependent pelvis. Again seen are multiple tiny peritoneal nodules diffusely throughout the peritoneum which have increased from 11/23/2023 suspicious for peritoneal carcinomatosis. ??For example, a 9 mm nodule in the anterior left lower quadrant, previously measured 5 mm (series 3, image 88). ??Presumed serosal metastases involving the sigmoid colon (series 3, image 103). ??The nodule in the anterior pelvis abutting the sigmoid colon measuring 1.6 x 1.0 cm, previously measuring 1.3 x 1.0 cm (series 3, image 107). Stable metastatic left retroperitoneal lymph node measuring 1.8 cm in short axis when compared to the 02/13/2024 PET-CT (series 3, image 46). ??Stable prominent gastrohepatic lymph nodes. Diffuse mild mural thickening and hyperenhancement throughout the colon and rectum could represent mild colitis. Mild nodular contour of the liver. ??The gallbladder and spleen unremarkable.. Mild fatty atrophy of the pancreas. Minimal nodular thickening of the left adrenal gland, appears similar to 02/13/2024. Left renal cysts. Enlarged prostate. Tiny bilateral fat-containing inguinal hernias. Minimal sclerotic change in the posterior acetabulum, corresponding to known osseous metastatic lesion. Degenerative changes of the spine. Procedure Note Kuldeep Yi M.D. - 03/23/2024 EXAM: CT CHEST ANGIOGRAM AND PULMONARY ARTERIES WITH IV CONTRAST, CTABDOMEN PELVIS WITH IV CONTRAST Including 3D image postprocessing with or without AI assistance. COMPARISON: Chest CT 11/23/2023, PET/CT 02/13/2024 FINDINGS: CHEST: Negative for acute pulmonary embolism. Since 02/13/2024, increased small left and decreased small right pleuraleffusions. Slightly increased reticular opacities throughout both lungs,which could represent edema. Overall similar pulmonary fibrosis with peripheral and lower lungreticulations, traction bronchiectasis, and architectural distortion.Similar diffuse centrilobular advanced emphysema. Slightly decreased conspicuity of previously described pulmonary nodules,including a 9 mm nodule in the left upper lobe (series 6, image 181) and a9 mm nodule in the the lateral right middle lobe (series 6, image 138).Similar mediastinal lymphadenopathy. Increased trace pericardial effusion. Coronary artery calcification.Normal caliber thoracic aorta. Similar mild dilatation of the pulmonaryarteries. Right chest wall port with tip in the SVC/RA junction. Circumferential thickening of the GE junction/distal esophagus compatiblewith the known malignancy. Degenerative changes of the spine. Surgicalchanges lower cervical spine. ABDOMEN PELVIS: New small volume of free fluid along the right paracolic gutter and in thedependent pelvis. Again seen are multiple tiny peritoneal nodules diffusely throughout theperitoneum which have increased from 11/23/2023 suspicious for peritonealcarcinomatosis. For example, a 9 mm nodule in the anterior left lowerquadrant, previously measured 5 mm (series 3, image 88). Presumed serosal metastases involving the sigmoidcolon (series 3, image 103). The nodule in the anterior pelvis abuttingthe sigmoid colon measuring 1.6 x 1.0 cm, previously measuring 1.3 x 1.0cm (series 3, image 107). Stable metastatic left retroperitoneal lymph node measuring 1.8 cm inshort axis when compared to the 02/13/2024 PET-CT (series 3, image 46).Stable prominent gastrohepatic lymph nodes. Diffuse mild mural thickening and hyperenhancement throughout the colonand rectum could represent mild colitis. Mild nodular contour of the liver. The gallbladder and spleenunremarkable.. Mild fatty atrophy of the pancreas. Minimal nodularthickening of the left adrenal gland, appears similar to 02/13/2024. Leftrenal cysts. Enlarged prostate. Tiny bilateral fat-containing inguinal hernias. Minimal sclerotic change in the posterioracetabulum, corresponding to known osseous metastatic lesion. Degenerativechanges of the spine. IMPRESSION: 1. Negative for acute pulmonary embolism. 2. Possible mild colitis. 3. Slight worsening of the peritoneal carcinomatosis when compared to11/23/2023. 4. Other findings related to the metastatic gastroesophageal cancerincluding retroperitoneal adela and pelvic osseous metastasis are notsignificantly changed from the PET-CT on 02/13/2024 and better appreciatedon that examination 5. Increased small left and decreased small right pleural effusionscompared to the prior PET-CT. 6. See findings for further details. Lanie Phillips P.A.-C., M.S. IMG CT PROCED URES from Last 3 Months or Most Recently Relevant to Health Maintenance Advance Directives For more information, please contact: [phone] Documents on File Type Date Recorded Patient Baggage Agent Expl anation Advance Directives 05/02/2024 4:04 PM POLS T/MOLST Advance Directives 09/28/2022 10:25 AM Luz Chang HCPOA/ADVOCATE/AGENT/R EPRESENTATIVE/SURROGAT E * DNR/DNI (Latest Code Status on File) Date Activated Date Inactivated Comments 05/02/2024 3:00 PM 05/03/2024 7:29 AM Question Answer Comments DNR/DNI (Do Not Resuscitate/Do Not Intubate): Di scussed-Patient * DNR/DNI Date Activated Date Inactivated Comments 03/23/2024 6:38 PM 03/26/2024 8:53 PM Question Answer Comments DNR/DNI (Do Not Resuscitate/Do Not Intubate): Di scussed-Patient Healthcare Agents on File Name Relationship Healthcare Agent Relationship Communication Luz Cho Spouse Health Care Agent [email or web address] Alaina Chang Daughter First Alternate Health Care Agent Care Teams Nailer Operator Relationship Specialty Start Date End Date Elsewhere, Pcp PCP - General Internal Medicine 03/23/24
--- OUTSIDE RECORDS SUMMARY | 2024-06-25 11:51 | XMS_ITS | Encounter Summary ---
Author Organization [facility] Address [address] [place] [id number] Care Team Providers Care Junior Automation Engineer Name Role Phone Elsewhere, Pcp Primary Care Provider Unavailabl e Encounter Details Date Type Department Care Team (Late st Contact Info) Description 06/10/2024 5:13 PM CDT Anesthesia Event [facility]IN OR [address] [place] [phone] Kalpesh Mckenzie APRN, CRNA, MNA [address] [place] [phone] Lanie Magana M.D. [address] [place] [phone] Anesthesia Record Procedure Summary Procedure Name Responsible Anesthesiologist Anesthesia Start Time Anesthesia Stop Time PLACEMENT TUNNELED PLEURAL CATHETER WITH PLEUROSCOPY (Right) Kalpesh Mckenzie APRN, CRNA, MNA 06/10/24 1713 06/10/24 1843 Events Date Time Event Comment 06/10/20241712 An Start Machine/Equipme nt Checked Infection Precautions Followed Procedure/Site Verified NPO Status Verified Supine Standard ASA Monitors Applied 1718 Turnover to Proceduralist 1734 Proc Start 1802 Turnover to ANE Staff 1803 Proc Fin 1806 an stop data 1843 An End I completed my handoff to the receiving staff during which we 1. Identified the patient 2. Identified the responsible provider 3. Reviewed the pertinent medical history 4. Discussed the surgical course 5. Reviewed intra-op anesthesia management and issues during anesthesia 6. Set expectations for post-procedure period 7. Allowed opportunity for questions and acknowledgement of understanding. Meds Name Total fentanyl injection 50 mcg/mL 25 mcg remimazolam 2.5 mg/mL injection 10 mg ceFAZolin (Ancef) injection 1 g/5 mL 2 g Lactated Ringers Free Drip 200 mL * Agents No agents on file. * Blood No blood administrations on file. Lines, Drains, and Airways Type Details Placement Removal Wound 12/05/23; 0816; Punc ture; Neck; Right; IVAD puncture 12/05/23 0816 by Winsome Hutchins R.N. Implanted Port Single Lumen 12/05/23; 0834; Permanent (tunneled, implanted); Yes; Yes; Yes; Yes; Chlorhexidine (Preferred); Yes; Cap, Gloves, Gown, Large drape, Mask (Clinician), Mask (All others in room); Right; Chest; Power injectable; Sutured; Dr Cowart 12/05/23 0834 by Winsome Hutchins R.N. Chest Tube Placement Date: 05/20 12/09; Inserted by: Dr. Ramirez; Tube Number: 1; Location: Pleural; Size: Other (Comment) (15 fr); Drainage System: [place]/nonsuction water seal drainage 06/10/24 0000 by Hannah Engel R.N. Wound 06/10/24; Incision; Chest; Right, Lateral 06/10/24 0000 by Hannah Engel R.N. documented in this encounter Social History Tobacco Use Types Packs/Day Years Used Date Smoking Tobacco: Former Cigarettes 2.5 30.1 0 09/18/1965 - 11/01/1995 Passive Smoke Exposure: Never Smokeless Tobacco: Never Alcohol Use Standard Drinks/Week Comments Not Currently 1 (1 standard drink = 0.6 oz pur e alcohol) drink on special occasions [facility] Utilities Answer Date Recorded In the past 12 months has e [employer], gas, oil, or water [employer] threatened to shut off services in your [...] week 01/27/2023 How often [facility] you attend [facility] or [facility] services? More than 4 times per year 01/27/2023 Do you belong to any clubs o r organizations such as mormon groups, unions, fraternal or athletic groups, or [...] care, and heating? Not very hard 01/27/2023 [facility] [place] [facility] Occupat ional [facility] - Occupational Stress Questionnaire Answer Date Recorded [...] your living situation today? I have a [facility] place to live 03/31/2024 Education Answer Date Recorded What is the highest level of school you have completed or the highest degree you have received? Associate degree: occupational, technical, or vocational program 07/13/2019 Sex and Gender Information Value Date Recorded Sex Assigned at Male 12/17/2018 8:13 PM CDT Gender Identity Male 12/17/2018 8:13 PM CDT Sexual Orientation Straight 12/17/2018 8: 13 PM CDT documented as of this encounter OR Notes * Anesthesia Postprocedure Evaluation - Kalpesh Mckenzie, MEDICAL LIBRARY ASSISTANT, NEWS CLIPPING CUTTER, MNA - 06/10/2024 6:43 PM CDT Patient: Rin Cho Procedure Summary Date: 06/10/24 Room / Location: [address] / [facility] in [place], [place] Anesthesia Start: 1712 Anesthesia Stop: 1842 Procedure: PLACEMENT TUNNELED PLEURAL CATHETER WITH PLEUROSCOPY (Right) Diagnosis: Effusion Pleural (Effusion Pleural [J90].) Providers: Greg Ramirez M.D. Responsible Provider: Kalpesh Mckenzie APRN, CRNA, MNA Anesthesia Type: MAC ASA Status: 4 Anesthesia Type: MAC Last vitals Vitals Value Taken Time BP 130/64 06/10/24 1835 Temp Pulse 79 06/10/24 1840 Resp 17 06/10/24 1841 SpO2 93 % 06/10/241839 Vitals shown include unfiled device data. Please reference Vitals flowsheet for most recent vital signs. Anesthesia Post Evaluation Patient Disposition: dismissal Cardiovascular status: hemodynamics (HR & BP) acceptable Respiratory status: patent airway with spontaneous effort Temperature: normothermic Oxygen requirements: nasal cannula Level of consciousness: awake Pain score: pain adequately controlled and/or at baseline Post Op nausea/vomiting: none Hydration status: euvolemic Notable Events No notable events documented. * Anesthesia Preprocedure Evaluation - Will García M.D. - 06/10/2024 10:01 AM CDT Preprocedure Anesthesia & H&P Assessment Procedure Summary Date/Time: 06/10/241717 Procedure: PLACEMENT TUNNELED PLEURAL CATHETER. (Right) Diagnosis: Effusion Pleural [J90] Pre-op diagnosis: Effusion Pleural [J90]. Location: [address] / [facility] in [place], [place] Providers: Greg Ramirez M.D. Pertinent components of the patient's history including current problem list, medical history, surgical history, family history, social history, medications and allergies were reviewed. Present illness and pre-op diagnosis were confirmed. The planned surgery / procedure was verified with the patient / legal guardian. 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) Other (+) Body Mass Index 36.0 To 36.9 Adult OBJECTIVE PHYSICAL EXAMINATION Airway (HEENT) Mallampati: II TM Distance: >3 FB Neck ROM: Full Mouth Opening: >3 cm Upper Lip Bite Test Class: I Cardiovascular Rhythm: Regular Rate: Normal Cardiovascular Assessment: cardiovascular normal Functional Capacity: <4 METS Pulmonary Pulmonary Assessment: Diminished and crackles General / Constitutional Constitutional Assessment: Overweight General State of Health:: healthy appearing and calm ASSESSMENT / PLAN ANESTHESIA PLAN ASA: 4 Anesthesia Plan: MAC Patient seen and allergies reviewed; anesthesia plan and risks discussed directly with patient / legal guardian, or through an owner/photographer; patient evaluated and approved for anesthesia / sedation Risks/Benefits/Alternatives of Blood transfusion discussed with patient / legal guardian, includingan opportunity to ask questions and/or decline some or all transfusion therapies. The patient / legal guardian consented to the use of all blood products, as deemed medically necessary Approval to Proceed: approved for anesthesia documented in this encounter Plan of Treatment Not on file documented as of this encounter Visit Diagnoses Not on filedocumented in this encounter Administered Medications Inactive Administered Medications - up to 3 most recent administrations Medication Order MAR Action Action Date Dose Rate Site ceFAZolin injection (Ancef) intravenous, As needed, Starting on Mon06/10/24 at 1724, Anesthesia Intra-op Given 06/10/2024 5:24 PM CDT 2 g fentaNYL injection (Sublimaze) intravenous, As needed, Starting on Mon06/10/24 at 1740, Anesthesia Intra-op Given 06/10/2024 5:40 PM CDT 25 mcg Lactated Ringer's intravenous, Continuous Infusion: Per Instructions PRN, Starting on Mon06/10/24 at 1713, Anesthesia Intra-op New Bag 06/10/2024 5:13 PM CDT remimazolam injection (Byfavo) intravenous, As needed, Starting on Mon06/10/24 at 1725, Anesthesia Intra-op Given 06/10/2024 5:56 PM CDT 2 mg Given 06/10/2024 5:45 PM CDT 2 mg Given 06/10/2024 5:37 PM CDT 2 mg documented in this encounter Care Teams Junior Automation Engineer Relationship Specialty Start Date End Date Elsewhere, Pcp PCP - General Internal Medicine 03/23/24 documented as of this encounter
--- OUTSIDE RECORDS SUMMARY | 2024-06-25 11:51 | XMS_ITS | Encounter Summary ---
Author Organization [facility] Address [address] [place] [address] Care Team Providers Care Roll Weigher Name Role Phone Elsewhere, Pcp Primary Care Provider Unavailabl e Encounter Details Date Type Department Care Team (Latest Contact Info) Description 06/10/2024 11:56 AM CDT - 06/10/2024 10:03 PM CDT Hospital Encounter [facility] [address] [place] [address] Greg Ramirez M.D. [address] [place] [address] Discharge Disposition: Home or Self Care Social History Tobacco Use Types Packs/Day Years Used Date Smoking Tobacco: Former Cigarettes 2.5 30.1 0 09/18/1965 - 11/01/1995 Passive Smoke Exposure: Never Smokeless Tobacco: Never Alcohol Use Standard Drinks/Week Comments Not Currently 1 (1 standard drink = 0.6 oz pur e alcohol) drink on special occasions [facility] Utilities Answer Date Recorded In the past 12 months has th e electric, gas, oil, or water company [...] often do you attend chur ch or anglican services? More than 4 times per year 01/27/2023 Do you belong to any clubs o r organizations such as temple groups, unions, fraternal or athletic groups, or [...] care, and heating? Not very hard 01/27/2023 [facility] of Occupat ional Health - Occupational Stress [...] your living situation today? I have a [facility] place to live 03/31/2024 Education Answer Date [...] PM CDT documented as of this encounter Last Filed Vital Signs Vital Sign Reading [...] Mass Index 30.86 06/10/2024 12:37 PM CDT documented in this encounter Discharge Instructions * Attachments The following attachments cannot be sent through Care Everywhere. * Tunneled Pleural Drainage Catheter (Puerto Rican) documented in this encounter Medications at Time of Discharge Medication Sig Dispensed Refills Start Date End Date acetaminophen (TylenoL) 500 mg tablet Take 2 tablets (1,000 mg total) by mouth 3 (three) times a day. 05/02/2024 albuterol 90 mcg/actuation inhalerIndications:Emphys sally ([facility]) INHALE 2 PUFFS EVERY 4 HRS NEEDED FOR WHEEZING OR SHORTNESS OF BREATH. USE WITH FILENET ADMIN TUBE. 18 g 11 07/27/2023 07/26/2024 DME OxygenIndications:Fibrosi s Pulmonary ([facility]) DME Order - for details see Order Report 1 each 04/16/2024 Eliquis 5 mg tablet Take 5 mg by mouth 2 (two) times a day. 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 Flush IV line AFTER 0.9% Sodium Chloride flush 60 mL 3 12/18/2023 inhalational spacing device (AEROCHAMBER) spacerIndications:Emphyse ma ([facility]) 1 each as needed (for use with Albuterol inhaler). 1 each 1 12/28/2018 LORazepam (Ativan) 0.5 mg tablet Take 0.5 mg by mouth 2 (two) times a day as needed. See attached for detailed directions. 06/04/2024 multivitamin tablet Take 1 tablet by mouth daily. GUMMIES OLANZapine (ZyPREXA) 5 mg tabletIndications:Maligna nt Neoplasm Of Gastroesophageal Junction (HCC),Day Care Assistant Current Drug Therapy, Chemotherapy TAKE 1 TABLET BY MOUTH AT BEDTIME NEEDED (NAUSEA, VOMITING). MAY TAKE DOSE EARLY IF NEEDED. 90 tablet 1 03/05/2024 omeprazole (PriLOSEC) [address] capsule Take 20 mg by mouth every morning before breakfast. ondansetron (ZOFRAN) 8 mg tabletIndications:Maligna nt Neoplasm Of Gastroesophageal Junction (HCC),Retirement Current Drug Therapy, Chemotherapy Take 1 tablet (8 mg total) by mouth every 8 (eight) hours as needed for nausea or vomiting (unrelieved by prochlorperazine). 30 tablet 3 12/08/2023 12/07/2024 oxyCODONE (Roxicodone) 5 mg immediate release tabletIndications:Chronic Pain/Nonacute Pain Take 1 tablet (5 mg total) by mouth every 6 (six) hours as needed for pain or severe pain or score 7-10 of 10 Indication: Chronic Pain/Nonacute Pain. 30 tablet 04/30/2024 prochlorperazine (COMPAZINE) 10 mg tabletIndications:Maligna nt Neoplasm Of Gastroesophageal Junction (HCC),Day Care Assistant Current Drug Therapy, Chemotherapy Take 1 tablet (10 mg total) by mouth every 6 (six) hours as needed for nausea or vomiting. 30 tablet 3 12/08/2023 12/07/2024 tamsulosin (FLOMAX) 0.4 mg 24 hr capsule Take 0.4 mg by mouth daily. tetracaine HCl 1 % adult lollipop (sugar free)Indications:Fibrosis Pulmonary (HCC),Chronic Cough Suck on lollipop for 5 to 15 seconds only.Limit use to no more than 3 times per hour.Return lollipop to the child resistant container after each use. Do not use more than 1 lollipop in one day. 3 each 04/05/2024 umeclidinium-vilanteroL (Anoro Ellipta) 62.5-25 mcg/actuation inhalerIndications:Fibros is Pulmonary (HCC),Emphysema (HCC) Inhale 1 puff daily. 60 each 11 05/21/2024 documented as of this encounter Progress Notes * Kenyatta Mooney, M.S.W., L.I.C.S.W. - 06/10/2024 7:11 PM CDT SW was contacted this afternoon as patient presented for outpatient Pleurx placement. In speaking with the RN, it was shared that the patient would be resuming hospice services tomorrow. Patient was able to name [facility] as their hospice agency. With patient's permission, SW contacted [facility] to confirm that he was being readmitted to service tomorrow. He has an appointment tomorrow morning at 10:00 AM. As long as we send 5 kits, they will take over supply ordering and expressed no concerns. SW was contacted this evening at completion of his procedure and this information was conveyed to the staff services manager. RN was also sharing that it was his impression that SW was helping to get refilled oxygen tanks but unfortunately I was not aware of this. I'm unsure if his tanks can be filled here on campus or what other steps were being taken to address oxygen needs on the unit. SW provided the last identified oxygen vendor and the RN took this information tonight. documented in this encounter OR Notes * Op Note - Greg Ramirez M.D. - 06/10/2024 5:34 PM CDT Pre-op Diagnosis Effusion Pleural Post-op Diagnosis Effusion Pleural Findings As expected Complications None Operative Note Narrative Procedures #1 Ultrasound guidance for needle placement #2 Medical thoracoscopy for real-time intrathoracic catheter placement #3 Placement of a right tunneled pleural catheter After standard procedural pause and the patient in a left lateral decubitus position a small pocketof free-flowing pleural fluid was noted posteriorly adjacent to the spine. There was no significantpleural fluid collection laterally at the more optimal catheter insertion site. We were however able to confirm lung sliding and selected and insertion site for the tunneled pleural catheter corresponding to the 8th intercostal space along the mid axillary line. A planned exit site for the tunneledpleural catheter was also selected more inferiorly and anteriorly. The patient's skin was then scrubbed with chlorhexidine and he was draped head to toe in standard sterile fashion. Moderate sedationwas applied. Lidocaine 1% was then utilized to anesthetize the planned entrance and exit sites for the tunneled pleural catheter and lidocaine was carried down to the pleural space under real-time ultrasound guidance. Images were captured stored and downloaded to [employer]. A 1 cm incision was then made at the planned entrance site through which the blunt tip Bing needle was inserted and a bedside pneumothoraxcreated. This was further confirmed by loss of lung sliding at the planned entrance site and aspiration of air through the boot on needle. The boot on needle was then removed and the introducer needle advanced into the pleural space where air was again freely aspirated. A J tipped wire was then inserted through the introducer needle over which the peel-away catheter was inserted using sequential dilation. The rigid thoracoscope was then inserted through the peel-away catheter and the right pleural space visualize with a generous pneumothorax identified. A 5 mm incision was then made at the planned exit site for the tunneled pleural catheter and the catheter tunneled from the exit site to the level of the entrance site and inserted into the pleural space through the peel-away catheter as the peel-away catheter was removed. The pneumothorax was then evacuated and the entrance site closed in layers using 4 0 Vicryl. The catheter was secured at the exit site using 2 0 silk suture. A post placement chest x-ray will be obtained. The procedure was tolerated well and the patient was in stable condition when transferred to the recovery area. Greg Ramirez M.D. documented in this encounter Plan of Treatment Not on file documented as of this encounter Procedures Procedure Name Priority Date/Time Associated Diagnosis Comments ADULT OXYGEN THERAPY Routine 06/10/2024 6:50 PM CDT DX CHEST 1 VIEW RAD - Routine (most inpatients and all outpatients) 06/10/2024 6:40 PM CDT PLACEMENT TUNNELED PLEURAL CATHETER 06/10/2024 4:53 PM CDT Effusion Pleural Case Notes Public Affairs Officer 1200 CBC WITHOUT DIFFERENTIAL, B STAT 06/10/2024 2:45 PM CDT documented in this encounter Results * DX Chest 1 View (06/10/2024 [...] terminating in the low SVC.Partially visualized ACDF. Greg Ramirez M.D. G DIAGNOSTIC IMAGI NG PROCEDURES * (ABNORMAL) CBC without Differential (06/10/2024 2:45 PM CDT) Hemoglobin 7.9(L) 13.2 - 16.6 g/dL 06/10/2024 [...] Will García M.D. LAB BLOOD ADD-ON [facility] [address] [place] [address], [facility] [address] [place] [address] documented in this encounter Visit Diagnoses Not on filedocumented in this encounter Administered Medications Inactive Administered Medications - up to 3 most recent administrations Medication Order MAR Action Action Date Dose Rate Site acetaminophen tablet 1,000 mg (TylenoL) 1,000 mg, oral, Once, On Mon06/10/24 at 1430, For 1 dose, Pre-Op Given 06/10/2024 2:23 PM CDT 1,000 mg acetaminophen tablet 1,000 mg (TylenoL) 1,000 mg, oral, Once, On Mon06/10/24 at 2100, For 1 dose, PACU (only) Given 06/10/2024 8:42 PM CDT 1,000 mg famotidine injection 20 mg (Pepcid) 20 mg, intravenous, Once, On Mon06/10/24 at 1500, For 1 dose, Pre-Op, 30 minutes pre-op, Drug Monitoring Program: Pharmacist to adjust medication dosing based on indication and drug clearance factors. Given 06/10/2024 2:45 PM CDT 20 mg heparin flush 500 Units 500 Units, intra-catheter, During hospitalization, line care, Prior to discharge, Starting on Mon06/10/24 at 1449, For 1 dose, Implanted Vascular Access Device (IVAD) Venous Non-Valved: flush 5 mL (500 units) per port/lumen following saline flush prior to discharge. Given 06/10/2024 8:55 PM CDT 500 Units ipratropium-albuteroL 0.5-2.5 mg/3 mL nebulizer solution 3 mL (DuoNeb) 3 mL, nebulization, Once, On Mon06/10/24 at 1430, For 1 dose, Pre-Op Given 06/10/2024 2:24 PM CDT 3 mL oxyCODONE IR tablet 5 mg (Roxicodone) 5 mg, oral, Once as needed, For pain 4 or greater, Starting on Mon06/10/24 at 1850, For 1 dose, PACU (only) Given 06/10/2024 7:03 PM CDT 5 mg sodium chloride 0.9 % injection 10-20 mL 10-20 mL, intravenous, During hospitalization, line care, Prior to discharge, Starting on Mon06/10/24 at 1449, For 1 dose, Implanted Vascular Access Device (IVAD) Venous Non-Valved: Flush 10 mL per port/lumen followed by heparin flush prior to discharge. documented in this encounter Active and Recently Administered Medications Times are shown in CDT. Scheduled Medication Order 06/08/2024 06/09/2024 06/10/2024 acetaminophen tablet 1,000 mg (TylenoL) (COMPLETED) 1,000 mg, oral, Once, On Mon06/10/24 at 1430, For 1 dose, Pre-Op 142 (Given - Provid er: Nohemy Bernard, R.N., CCRN) acetaminophen tablet 1,000 mg (TylenoL) (COMPLETED) 1,000 mg, oral, Once, On Mon06/10/24 at 2100, For 1 dose, PACU (only) 2041 (Given - Provid er: America Gatica R.N.) famotidine injection 20 mg (Pepcid) (COMPLETED) 20 mg, intravenous, Once, On Mon06/10/24 at 1500, For 1 dose, Pre-Op, 30 minutes pre-op, Drug Monitoring Program: Pharmacist to adjust medication dosing based on indication and drug clearance factors. 1445 (Given - Provid er: Nohemy Bernard, R.N., CCRN) ipratropium-albuteroL 0.5-2.5 mg/3 mL nebulizer solution 3 mL (DuoNeb) (COMPLETED) 3 mL, nebulization, Once, On Mon06/10/24 at 1430, For 1 dose, Pre-Op 1424 (Given - Provid er: Nohemy Bernard, R.N., CCRN) sodium chloride 0.9 % injection 3 mL 3 mL, intravenous, Every 12 hours scheduled, First dose on Mon06/10/24 at 2100, Pre-Op, Peripheral Intravenous Catheter and Rapid Infusion Catheter, when no infusion to maintain patency 2100 (Due) sodium chloride 0.9 % injection 3 mL 3 mL, intravenous, Every 12 hours scheduled, First dose on Mon06/10/24 at 2100, Pre-Op, Peripheral Intravenous Catheter and Rapid Infusion Catheter, when no infusion to maintain patency 2100 (Due) Continuous Medication Order 06/08/2024 06/09/2024 06/10/2024 Lactated Ringer's 20 mL/hr, intravenous, Continuous, Starting on Mon06/10/24 at 1430, Pre-Op 1430 (Due) Lactated Ringer's 20 mL/hr, intravenous, Continuous, Starting on Mon06/10/24 at 1815, PACU & Post-Op 1815 (Due) PRN Medication Order 06/08/2024 06/09/2024 06/10/2024 droPERidoL injection 0.625 mg (Inapsine) 0.625 mg, intravenous, Every 6 hours PRN, nausea, vomiting, Starting on Mon06/10/24 at 1850, PACU (only), For a total of 3 doses in a 24 hour period. RASS must be -2 or higher to administer. If nausea and vomiting persists move to granisetron. (Order of antiemetic administration - ondansetron then haloperidol or droperidol then granisetron) fentaNYL injection 25 mcg (Sublimaze) 25 mcg, intravenous, Every 2 min PRN, moderate pain or score 4-6 of 10, severe pain or score 7-10 of 10, Starting on Mon06/10/24 at 1850, PACU (only), Up to maximum total dose of 200 mcg granisetron (PF) injection 1 mg (KytriL) 1 mg, intravenous, Once as needed, nausea, vomiting, Starting on Mon06/10/24 at 1850, For 1 dose, PACU (only), If patient does not respond to ondansetron or haloperidol. (Order of antiemetic administration - ondansetron then haloperidol or droperidol then granisetron) heparin flush 500 Units (COMPLETED) 500 Units, intra-catheter, During hospitalization, line care, Prior to discharge, Starting on Mon06/10/24 at 1449, For 1 dose, Implanted Vascular Access Device (IVAD) Venous Non-Valved: flush 5 mL (500 units) per port/lumen following saline flush prior to discharge. 2054 (Given - Provid er: Erika Srivastava R.N.) ipratropium-albuteroL 0.5-2.5 mg/3 mL nebulizer solution 3 mL (DuoNeb) 3 mL, nebulization, Once as needed, shortness of breath, Starting on Mon06/10/24 at 1850, For 1 dose, PACU (only) lidocaine 10 mg/mL (1 %) injection (Xylocaine) (CANCELED) As needed, Starting on Mon06/10/24 at 1751, Intra-Op 1751 (Given - Provid er: Marvel Alegria M.D.) ondansetron (PF) injection 4 mg (Zofran) 4 mg, intravenous, Once as needed, nausea, vomiting, Starting on Mon06/10/24 at 1436, For 1 dose, Pre-Op oxyCODONE IR tablet 5 mg (Roxicodone) (COMPLETED) 5 mg, oral, Once as needed, For pain 4 or greater, Starting on Mon06/10/24 at 1850, For 1 dose, PACU (only) 1903 (Given - Provid er: Mary Jane Guardado, R.N.) sodium chloride 0.9 % injection 10 mL 10 mL, intravenous, As needed, line care, Starting on Mon06/10/24 at 1413, Pre-Op, Peripheral Intravenous Catheter and Rapid Infusion Catheter, prior to blood sampling, post blood transfusion or post blood sampling sodium chloride 0.9 % injection 10 mL 10 mL, intravenous, As needed, line care, Starting on Mon06/10/24 at 1436, Pre-Op, Peripheral Intravenous Catheter and Rapid Infusion Catheter, prior to blood sampling, post blood transfusion or post blood sampling sodium chloride 0.9 % injection 10-20 mL 10-20 mL, intravenous, During hospitalization, line care, Prior to discharge, Starting on Mon06/10/24 at 1449, For 1 dose, Implanted Vascular Access Device (IVAD) Venous Non-Valved: Flush 10 mL per port/lumen followed by heparin flush prior to discharge. sodium chloride 0.9 % injection 3 mL 3 mL, intravenous, As needed, line care, Starting on Mon06/10/24 at 1413, Pre-Op, Prior to and following infusion and between multiple consecutive infusions: sodium chloride 0.9 % injection sodium chloride 0.9 % injection 3 mL 3 mL, intravenous, As needed, line care, Starting on Mon06/10/24 at 1436, Pre-Op, Prior to and following infusion and between multiple consecutive infusions: sodium chloride 0.9 % injection documented in this encounter Care Teams Roll Weigher Relationship Specialty Start Date End Date Elsewhere, Pcp PCP - General Internal Medicine 03/23/24 documented as of this encounter
--- OUTSIDE RECORDS SUMMARY | 2024-06-25 11:51 | XMS_ITS ---
Author Organization [facility] Address [address] [place] [address] Care Team Providers Care Rn Chemical Dependency Name Role Phone Unavailable Unavailable Unavailable Surgery Details Not on file Complications Check Surgery Details section. Procedure Estimated Blood Loss Check Surgery Details section. Procedure Findings Check Surgery Details section. Procedure Specimens Taken Check Surgery Details section.
--- OUTSIDE RECORDS SUMMARY | 2024-06-25 11:51 | XMS_ITS | Encounter Summary ---
Author Organization [facility] Address [address] [place] [address] Care Team Providers Care Educational Administration Teacher Name Role Phone Elsewhere, Pcp Primary Care Provider Unavailabl e Reason for Visit * Reason Onset Date Comments Pleurx Catheter 06/11/2024 Encounter Details Date Type Department Care Team (Latest Contact Info) Description 06/11/2024 Clinical Communication Division of Pulmonary Medicine in [place], [place] [address] [place] [address] Greg Ramirez M.D. [address] [place] [address] Pleurx Catheter Social History Tobacco Use Types Packs/Day Years Used Date Smoking Tobacco: Former Cigarettes 2.5 30.1 0 09/18/1965 - 11/01/1995 Passive Smoke Exposure: Never Smokeless Tobacco: Never Alcohol Use Standard Drinks/Week Comments Not Currently 1 (1 standard drink = 0.6 oz pur e alcohol) drink on special occasions [facility] Utilities Answer Date Recorded In the past [...] 01/27/2023 How often do you attend chur or protestant services? More than 4 times per year 01/27/2023 Do you belong to any clubs o r organizations such as voodoo groups, unions, fraternal or athletic groups, or [...] care, and heating? Not very hard 01/27/2023 [facility] of Occupat ional Health - Occupational Stress [...] money to buy more. Never true 03/31/20 Within the past 12 months, t he [...] your living situation today? I have a [facility] place to live 03/31/2024 Education Answer Date [...] PM CDT documented as of this encounter Miscellaneous Notes * Telephone Encounter - Angel Cortez, R.N. - 06/11/2024 1:07 PM CDT Information Discussed From her description it sounds like when they were in for another procedure, the nurses in pre/post(not pulmonary) did a drainage and left the roller clamp on. We went over how to take it over and place the valve cap on and redress it. She did state that she would take a picture of it and send it to us to verify. PLAN Disposition/Recommendation: self-care is appropriate at this time, patient encouraged to call back with questions Information/Education: patient/caller able to teach back Caller agreeable to plan of care: yes The following references were used: nursing clinical judgement * Telephone Encounter - Renee Hinojosa - 06/11/2024 11:13 AM CDT Last visit: 06/10/2024 Placement of tunneled pleural catheter with pleuroscopy. Caller: Lynda from [facility] [phone] Message: [facility] is taking over patient's care. Lynda called to speak to someone about managing Pleurx catheter. Request: Can someone call Lynda about his catheter questions? Thank you, [id number] documented in this encounter Plan of Treatment Not on file documented as of this encounter Visit Diagnoses Not on filedocumented in this encounter Care Teams Educational Administration Teacher Relationship Specialty Start Date End Date Elsewhere, Pcp PCP - General Internal Medicine 03/23/24 documented as of this encounter
--- OUTSIDE RECORDS SUMMARY | 2024-06-25 11:51 | XMS_ITS | Encounter Summary ---
Author Organization [facility] Address [address] [place] [address] Care Team Providers Care Circle Saw Operator Name Role Phone Elsewhere, Pcp Primary Care Provider Unavailabl e Encounter Details Date Type Department Care Team (Late st Contact Info) Description 06/10/2024 3:45 PM CDT Ancillary Procedure Department of General Surgery Social History Tobacco Use Types Packs/Day Years Used Date Smoking Tobacco: Former Cigarettes 2.5 30.1 0 09/18/1965 - 11/01/1995 Passive Smoke Exposure: Never Smokeless Tobacco: Never Alcohol Use Standard Drinks/Week Comments Not Currently 1 (1 standard drink = 0.6 oz pur e alcohol) drink on special occasions [facility] Utilities Answer Date Recorded In the past 12 months has [employer], gas, oil, or water [employer] threatened to shut off services in your [...] How often do you attend chur or buddhist services? More than 4 times per year 01/27/2023 Do you belong to any clubs o r organizations such as hindu groups, unions, fraternal or athletic groups, or [...] care, and heating? Not very hard 01/27/2023 [facility] of Occupat ional Health - Occupational Stress [...] your living situation today? I have a [facility] place to live 03/31/2024 Education Answer [...] PM CDT documented as of this encounter Plan of Treatment Not on file documented as of this encounter Procedures Procedure Name Priority Date/Time Associated Diagnosis Comments SURGERY IMAGE EXAM Routine 06/10/2024 3: 45 PM CDT documented in this encounter Results * Surgery Image Exam-Surgery Image Exam (06/10/2024 3:45 PM CDT) 06/10/2024 3:44 PM CDT Narrative [facility] - 06/10/2024 6:09 PM CDT This order has been created and auto-finalized to support the import of images acquired without order. The clinical documentation to support these images can be found on the encounter that produced images. Provider Not In System IMG NON RAD IMAGI NG PROCEDURES [facility] NA documented in this encounter Visit Diagnoses Not on filedocumented in this encounter Care Teams Circle Saw Operator Relationship Specialty Start Date End Date Elsewhere, Pcp PCP - General Internal Medicine 03/23/24 documented as of this encounter
--- OUTSIDE RECORDS SUMMARY | 2024-06-25 11:51 | XMS_ITS ---
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 Shelter Current Drug Therapy, Chemotherapy Dehydration 07/05/2023 Dehydration 06/16/2023 Reaction Drug Adverse Initial 05/29/2023 Other Durable Medical Equipment Repairer Current Drug Therapy 05/08/2023 Abnormal Findings On [...] Mass Index 36.0 To 36.9 Adult 12/19/2018 Current Oncology Plans Vascular Access Patency - Peripheral Intravenous Catheter and Rapid Infusion Catheter & Vascular Access Patency - Implanted Vascular Access Device (IVAD) Venous Non-Valved* Plan Start Date:05/29/2023 Linked Problems 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 Past Plans Blood Plan Name Start Date Discontinue Date Treatment Medications Discontinue Reason Plan Provider *Blood Administration - Red Blood Cells (RBC) - For patients greater than 35 kg (Units) 06/07/2024 06/07/2024 No medications scheduled. Therapy Complete Elena Salas M.D. *Blood Administration - Red Blood Cells (RBC) - For patients greater than 35 kg (Units) 04/30/2024 04/30/2024 No medications scheduled. Therapy Complete Luzma Howell M.D. Conditional Blood Orders RBC Plan Name Start Date Discontinue Date Treatment Medications Discontinue Reason Plan Provider Conditional Blood Administration - Red Blood Cells (RBC) For patients weighing greater than 35 kg (units) Hem Onc / BMT Only 04/30/2024 04/30/2024 No medications scheduled. Unlisted Luzma Howell M.D. Hem/Onc Therapy Plan 1 Plan Name Start Date Discontinue Date Treatment Medications Discontinue Reason Plan Provider Hydration 07/07/2023 04/30/2024 No medications scheduled. Therapy Complete Litzy Dallas APRN, C.N.P., D.N.P. Hematology / Oncology Treatment 1 Plan Name Start Date Discontinue Date Treatment Medications Discontinue Reason Plan Provider Cycles FOLFOX6 ( Fluorouracil / Leucovorin / Oxaliplatin ) / Nivolumab ( GI ) 4 02/14/2024 fluorouraciL (AdruciL)fluoro uraciL (AdruciL) IVPB in 92 mL (c-series) (AdruciL)leucov sima 100 mg IVPB in D5W 100 mL (20 mg/mL)nivolumab (Opdivo)nivolum ab (Opdivo) 240 MG IVPB in NaCl 0.9% 100 mL (Opdivo)oxalipl atin (Eloxatin)oxali platin (Eloxatin) IVPB in 250 mL (Eloxatin) Progression Paddy Jha, P.A.-C., M.S. 4 of 12 cycles started CARBOplatin AUC 2 weekly / PACLitaxel WEEKLY ( with Radiation ) ( GI ) 3 08/18/2023 CARBOplatin (Paraplatin) IVPB (BY AUC) in 250 mL (Paraplatin)PAC LItaxeL (TaxoL) IVPB in 250 mL (TaxoL) Therapy Complete Paddy Jha P.A.-C., M.S. 1 of 1 cycle started Hematology / Oncology Treatment 2 Plan Name Start Date Discontinue Date Treatment Medications Discontinue Reason Plan Provider Cycles Ramucirumab / PACLitaxel 4 04/30/2024 PACLitaxel (TaxoL)PACLIta xeL (TaxoL) IVPB in 250 mL (TaxoL)ramucir umab (Cyramza)ramuc irumab (Cyramza) IVPB (Cyramza) Not Tolerated Paddy Jha P.A.-C., M.S. 2 of 4 cycles started Infusion Therapy 1 Plan Name Start Date Discontinue Date Treatment Medications Discontinue Reason Plan Provider Hydration 06/16/2023 05/30/2024 No medications scheduled. Therapy Complete Osmany Desai M.D. Radiation Treatments * Plan Last Treated On Elapsed Days Fractions Treated Prescribed Fraction Dose Prescribed Total Dose [id number]: 1 05/08/2024 6 5 of 5 400 cGy 2,000 cGy [id number] 06/30/2023 32 25 of 25 200 cGy 5,000 c Gy Reference Point Last Treated On Elapsed Days Session Dose Total Dose [id number] 05/08/2024 6 400 cGy 2,000 cG y [id number] 06/30/2023 32 169 cGy 5,000 cGy Lifetime Dose Tracking * Chemical Lifetime Dose Automatic Entry Manual Entr y Radiation 14.04 mGy 14.04 mGy 0 mGy Fluoro Time 1.22 minutes 1.22 minutes 0 minutes DAP (uGy-m2) 435.94 uGy-m2 435.94 uGy-m2 0 uGy-m2
--- OUTSIDE RECORDS SUMMARY | 2024-06-25 11:51 | XMS_ITS | Encounter Summary ---
Author Organization [facility] Address [address] [place] [address] Care Team Providers Care Solar Energy Systems Designer Name Role Phone Elsewhere, Pcp Primary Care Provider Unavailabl e Encounter Details Date Type Department Care Team (Late st Contact Info) Description 06/10/2024 4:25 PM CDT Ancillary Procedure Department of Pulmonary and CC Medicine Social History Tobacco Use Types Packs/Day Years Used Date Smoking Tobacco: Former Cigarettes 2.5 30.1 0 09/18/1965 - 11/01/1995 Passive Smoke Exposure: Never Smokeless Tobacco: Never Alcohol Use Standard Drinks/Week Comments Not Currently 1 (1 standard drink = 0.6 oz pur e alcohol) drink on special occasions [facility] Utilities Answer Date Recorded In the past 12 months has e [employer], gas, oil, or water [employer] threatened to shut off services in your [...] How often do you attend chur or yazdanism services? More than 4 times per year 01/27/2023 Do you belong to any clubs o r organizations such as uatsdin groups, unions, fraternal or athletic groups, or [...] care, and heating? Not very hard 01/27/2023 [facility] of Occupat ional Health - Occupational Stress [...] your living situation today? I have a [facility] place to live 03/31/2024 Education Answer [...] Procedure Name Priority Date/Time Associated Diagnosis Comments PULMONARY AND CC MEDICINE IMAGE EXAM Routine 06/10/2024 4:25 PM CDT documented in this encounter Results * Non-Radiology Image-Pulmonary And CC Medicine Image Exam (06/10/2024 4:25 PM CDT) 06/10/2024 4:21 PM CDT Narrative IIMS - 06/10/2024 4:37 PM CDT This order has been created and auto-finalized to support the import of images acquired without order. The clinical documentation to support these images can be found on the encounter that produced images. Provider Not In System IMG NON RAD IMAGI NG PROCEDURES IIMS NA documented in this encounter Visit Diagnoses Not on filedocumented in this encounter Care Teams Solar Energy Systems Designer Relationship Specialty Start Date End Date Elsewhere, Pcp PCP - General Internal Medicine 03/23/24 documented as of this encounter
--- OUTSIDE RECORDS SUMMARY | 2024-06-25 11:51 | XMS_ITS | Encounter Summary ---
Author Organization [facility] Address [address] [place] [address] Care Team Providers Care Steward/Stewardess Deck Name Role Phone Elsewhere, Pcp Primary Care Provider Unavailabl e Encounter Details Date Type Department Care Team (Late st Contact Info) Description 06/10/2024 5:18 PM CDT - 06/10/2024 6:44 PM CDT Surgery [facility] [address] [place] [phone] Greg Ramirez M.D. [address] [place] [id number] PLACEMENT TUNNELED PLEURAL CATHETER WITH PLEUROSCOPY Social History Tobacco Use Types Packs/Day Years Used Date Smoking Tobacco: Former Cigarettes 2.5 30.1 0 09/18/1965 - 11/01/1995 Passive Smoke Exposure: Never Smokeless Tobacco: Never Alcohol Use Standard Drinks/Week Comments Not Currently 1 (1 standard drink = 0.6 oz pur e alcohol) drink on special occasions [facility] Utilities Answer Date Recorded In the [...] How often do you attend chur or jewish services? More than 4 times per year 01/27/2023 Do you belong to any clubs o r organizations such as scientology groups, unions, fraternal or athletic groups, or [...] care, and heating? Not very hard 01/27/2023 [facility] [place] of Occupat ional Health - Occupational Stress [...] your living situation today? I have a [facility] place to live 03/31/2024 Education [...] Sign Reading Time Taken Comments Blood Pressure 106/62 06/10/2024 12:37 PM CDT Pulse 69 06/10/2024 12:37 PM CDT Temperature 36.4 ??C (97.5 ??F) 06/10/2024 12:37 PM C DT Respiratory Rate 16 06/10/2024 12:37 PM CDT Oxygen Saturation 97% 06/10/2024 12:37 PM CDT Inhaled Oxygen Concentration - - Weight 103 kg (227 lb 8.2 oz) 06/10/2024 12:37 P M CDT Height 182.9 cm (6') 06/10/2024 12:37 PM CDT Body Mass Index 30.86 06/10/2024 12:37 PM CDT documented in this encounter Discharge Instructions * Attachments The following attachments cannot be sent through Care Everywhere. * Tunneled Pleural Drainage Catheter (Bhutanese) documented in this encounter Medications at Time of Discharge Medication Sig Dispensed Refills Start Date End Date acetaminophen (TylenoL) 500 mg tablet Take 2 tablets (1,000 mg total) by mouth 3 (three) times a day. 05/02/2024 albuterol 90 mcg/actuation inhalerIndications:Emphys sally ([facility]) INHALE 2 PUFFS EVERY 4 HRS NEEDED FOR WHEEZING OR SHORTNESS OF BREATH. USE WITH CONCRETE FORM SETTER TUBE. 18 g 11 07/27/2023 07/26/2024 DME OxygenIndications:Fibrosi s Pulmonary ([facility]) DME Order - for details see Order Report 1 each 04/16/2024 Eliquis 5 mg tablet Take 5 mg by mouth 2 (two) times a day. 07/02/2023 heparin 100 unit/mL syringeIndications:Malign ant Neoplasm Of Gastroesophageal Junction (HCC),Director Patient Financial Services Current Drug Therapy, Chemotherapy 5 mL (500 Units total) by intra-catheter route once as needed for line care for up to 1 dose. Flush IV line AFTER 0.9% Sodium Chloride flush 60 mL 3 12/18/2023 inhalational spacing device (AEROCHAMBER) spacerIndications:Emphyse ma ([facility]) 1 each as needed (for use with Albuterol inhaler). 1 each 1 12/28/2018 LORazepam (Ativan) 0.5 mg tablet Take 0.5 mg by mouth 2 (two) times a day as needed. See attached for detailed directions. 06/04/2024 multivitamin tablet Take 1 tablet by mouth daily. GUMMIES OLANZapine (ZyPREXA) 5 mg tabletIndications:Maligna nt Neoplasm Of Gastroesophageal Junction (HCC),Residential Current Drug Therapy, Chemotherapy TAKE 1 TABLET BY MOUTH AT BEDTIME NEEDED (NAUSEA, VOMITING). MAY TAKE DOSE EARLY IF NEEDED. 90 tablet 1 03/05/2024 omeprazole (PriLOSEC) [address] capsule Take 20 mg by mouth every morning before breakfast. ondansetron (ZOFRAN) 8 mg tabletIndications:Maligna nt Neoplasm Of Gastroesophageal Junction (HCC),Residential Current Drug Therapy, Chemotherapy Take 1 tablet [...] mg tabletIndications:Maligna nt Neoplasm Of Gastroesophageal Junction (HCC),Residential Current Drug Therapy, Chemotherapy Take 1 tablet [...] services tomorrow. Patient was able to name [facility] as their hospice agency. With patient's permission, SW contacted [facility] to confirm that he was being readmitted to service tomorrow. He has an appointment tomorrow morning at 10:00 AM. As long as we send 5 kits, they will take over supply ordering and expressed no concerns. SW was contacted this evening at completion of his procedure and this information was conveyed to the staff engineer. RN was also sharing that it was [...] Images were captured stored and downloaded to [employer]. A 1 cm incision was then made [...] 4:53 PM CDT Effusion Pleural Case Notes Playground Equipment Erector 1200 CBC WITHOUT DIFFERENTIAL, B STAT 06/10/2024 [...] low SVC.Partially visualized ACDF. Greg Ramirez M.D. IMG DIAGNOSTIC IMAGI NG PROCEDURES * (ABNORMAL) CBC [...] CDT Will García M.D. LAB BLOOD ADD-ON [facility] [address] [place] [address], [place] [facility] Formerly named [facility] [address] [place] [address] documented in this encounter Visit Diagnoses Diagnosis Effusion Pleural documented in this encounter Administered Medications Inactive Administered [...] Given 06/10/2024 2:24 PM CDT 3 mL lidocaine 10 mg/mL (1 %) injection (Xylocaine) As needed, Starting on Mon06/10/24 at 1751, Intra-Op Given 06/10/2024 5:51 PM CDT 6 mL oxyCODONE IR tablet 5 mg (Roxicodone) [...] Mon06/10/24 at 1430, For 1 dose, Pre-Op 1423 (Given - Provid er: Nohemy Bernard R.N., CCRN) acetaminophen tablet 1,000 mg (TylenoL) (COMPLETED) 1,000 mg, oral, Once, On Mon06/10/24 at 2100, For 1 dose, PACU (only) 204 (Given - Provid er: America Gatica R.N.) famotidine injection 20 mg (Pepcid) (COMPLETED) 20 mg, intravenous, Once, On Mon06/10/24 at 1500, For 1 dose, Pre-Op, 30 minutes pre-op, Drug Monitoring Program: Pharmacist to adjust medication dosing based on indication and drug clearance factors. 1445 (Given - Provid er: Nohemy Bernard R.N., CCRN) ipratropium-albuteroL 0.5-2.5 mg/3 mL nebulizer solution 3 mL (DuoNeb) (COMPLETED) 3 mL, nebulization, Once, On Mon06/10/24 at 1430, For 1 dose, Pre-Op 1424 (Given - Provid er: Nohemy Bernard R.N., CCRN) sodium chloride 0.9 % injection [...] to discharge. 2054 (Given - Provid er: Cait VermaNJma) ipratropium-albuteroL 0.5-2.5 mg/3 mL nebulizer solution 3 [...] injection documented in this encounter Care Teams Steward/Stewardess Deck Relationship Specialty Start Date End Date Elsewhere, Pcp PCP - General Internal Medicine 03/23/24 documented as of this encounter
--- OUTSIDE RECORDS SUMMARY | 2024-06-25 11:51 | XMS_ITS | Referral Summary ---
Author Organization [facility] Address [address] [place] [address] Care Team Providers Care Health Coordinator Name Role Phone Elsewhere, Pcp Primary Care Provider Unavailabl e Source Comments Patient records contain information from all sites at [facility]. For routine questions regarding patient records, call [phone] during business hours, M-F 8:00 AM - 5:00 PM Central Time. Record requests for emergency care only can be directed to [phone] at any time.[facility] Encounters Date Type Department Care Team Description 06/11/2024 Clinical Communication Division of Pulmonary Medicine in [place], [place] [address] [place] [address] Greg Ramirez M.D. Pleurx Catheter 06/10/2024 3:45 PM CDT Ancillary Procedure Department of General Surgery 06/10/2024 4:25 PM CDT Ancillary Procedure Department of Pulmonary and CC Medicine 06/10/2024 5:13 PM CDT Anesthesia Event [facility] [address] [place] [phone] Kalpesh Mckenzie APRN, DARIA, Lanie Orellana M.D. 06/10/2024 5:18 PM CDT - 06/10/2024 6:44 PM CDT Surgery [facility] [address] [place] [phone] Greg Ramirez M.D. PLACEMENT TUNNELED PLEURAL CATHETER WITH PLEUROSCOPY 06/10/2024 11:56 AM CDT - 06/10/2024 10:03 PM CDT Hospital Encounter [facility] [address] [place] [phone] Greg Ramirez M.D. Discharge Disposition: Home or Self Care 06/07/2024 5:45 PM CDT Infusion Department of Infusion Therapy in [place], [place] [address] [place] [phone] Elena Salas M.D. 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 Malignant Neoplasm Of Gastroesophageal Junction (HCC) (Primary Dx); Effusion Pleural; Anemia In Chronic Kidney Disease 06/07/2024 1:50 PM CDT Ancillary Procedure Department of Pulmonary and CC Medicine 06/07/2024 Orders Only Division of Pulmonary Medicine in [place], [place] [address] [place] [phone] Elena Salas M.D. Effusion Pleural (Primary Dx); Secondary Malignant Neoplasm Bone (HCC); Anemia In Neoplastic Disease; Malignant Neoplasm Of Gastroesophageal Junction (HCC) 06/07/2024 2:00 PM CDT Education Division of Pulmonary Medicine in [place], [place] [address] [place] [phone] Elena Salas M.D. McDonald, Charles W, R.N. Effusion Pleural (Primary Dx) 06/07/2024 1:12 PM CDT - 06/07/2024 3:34 PM CDT Hospital Encounter Division of Pulmonary Medicine in [place], [place] [address] [place] [phone] Elena Salas M.D. Effusion Pleural (Primary Dx); Personal History Of Malignant Neoplasm Of Bladder; Anemia In Chronic Kidney Disease; Malignant Neoplasm Of Gastroesophageal Junction (HCC) Discharge Disposition: Home or Self Care 06/07/2024 10:57 AM CDT - 06/07/2024 1:11 PM CDT Hospital Encounter Department of Radiology, [facility], in [place], [place] [address] [place] [phone] Kuldeep Ruth M.D. Personal History Of Malignant Neoplasm Of Bladder Discharge Disposition: Home or Self Care 06/06/2024 Orders Only Division of Pulmonary Medicine in [place], [place] [address] [place] [phone] Kuldeep Ruth M.D. Personal History Of Malignant Neoplasm Of Bladder (Primary Dx) 05/08/2024 8:10 AM CDT - 05/22/2024 5:04 PM CDT Hospital Encounter Department of Radiation Oncology in [place], [place] [address] [place] [address] Dread Doyle M.D. Secondary Malignant Neoplasm Bone (HCC) 05/21/2024 Orders Only Division of Pulmonary Medicine in [place], [place] [address] [place] [phone] Edagrdo Joy D.O. Fibrosis Pulmonary (HCC) (Primary Dx); Emphysema (HCC) 05/16/2024 10:15 AM CDT Telemedicine Department of Palliative Care in [place], [place] [address] [place] [phone] Evonne Garcia APRN, C.N.P., D.N.P. Malignant Neoplasm Of Gastroesophageal Junction (HCC); Secondary Malignant Neoplasm Bone (HCC); Pain Cancer Associated; Palliative Care; Emphysema (HCC); Dyspnea; Advanced Care Planning 04/22/2024 9:57 AM CDT - 05/13/2024 10:44 PM CDT Hospital Encounter Department of Radiation Oncology in [place], [place] [address] [place] [phone] Kuldeep Ritchie M.D. Secondary Malignant Neoplasm Bone (HCC) (Primary Dx); Malignant Neoplasm Of Gastroesophageal Junction (HCC) 05/10/2024 Clinical Communication Department of Palliative Care in [place], [place] [address] [place] [phone] Hannah Alcantara M.D. 05/08/2024 Documentation Department of Radiation Oncology in [address] [phone] Dread Doyle M.D. 05/08/2024 8:31 AM CDT - 05/08/2024 11:59 PM CDT Hospital Encounter Department of Radiation Oncology in [address] [phone] Dread Doyle M.D. Discharge Disposition: Home or Self Care 05/07/2024 10:08 AM CDT - 05/07/2024 11:59 PM CDT Hospital Encounter Department of Radiation Oncology in [address] [phone] Dread Doyle M.D. Discharge Disposition: Home or Self Care 05/06/2024 8:57 AM CDT - 05/06/2024 11:59 PM CDT Hospital Encounter Department of Radiation Oncology in [address] [phone] Dread Doyle M.D. Discharge Disposition: Home or Self Care 05/02/2024 9:43 AM CDT - 05/06/2024 2:20 PM CDT Hospital Encounter Department of Radiation Oncology in [address] [phone] Dread Doyle M.D. Secondary Malignant Neoplasm Bone (HCC) 05/03/2024 1:38 PM CDT - 05/03/2024 11:59 PM CDT Hospital Encounter Department of Radiation Oncology in [address] [phone] Dread Doyle M.D. Discharge Disposition: Home or Self Care 05/03/2024 7:29 AM CDT - 05/03/2024 8:20 AM CDT Hospital Encounter Department of Radiology, [facility] in [address] [phone] Merly Beavers APRN, C.N.P., M.S. Secondary Malignant Neoplasm Bone (HCC); Malignant Neoplasm Of Gastroesophageal Junction (HCC); Effusion Pleural Discharge Disposition: Home or Self Care 05/03/2024 3:00 PM CDT Telemedicine Division of Pulmonary Medicine in [address] [phone] Edgardo Joy, DWilber Dyspnea On Exertion; Fibrosis Pulmonary (HCC); Emphysema (HCC) 05/02/2024 Orders Only Department of Oncology in [address] [phone] Luzma Howell M.D. Diarrhea (Primary Dx) 05/02/2024 2:00 PM CDT Comprehensive Visit Department of Palliative Care in [address] [phone] Hannah Alcantara M.D. Melba Hodge RMabel., CHPN Malignant Neoplasm Of Gastroesophageal Junction (HCC); Secondary Malignant Neoplasm Bone (HCC) 05/02/2024 10:28 AM CDT - 05/02/2024 11:59 PM CDT Hospital Encounter Department of Radiation Oncology in [address] [phone] Dread Doyle M.D. Discharge Disposition: Home or Self Care 05/01/2024 Clinical Communication RST RO Maritza Preciado, M.S.W., L.I.C.S.W. 04/30/2024 4:15 PM CDT Infusion Department of Infusion Therapy in [address] [phone] Luzma Howell M.D. Malignant Neoplasm Of Gastroesophageal Junction (HCC) (Primary Dx); Secondary Malignant Neoplasm Bone (HCC) 04/30/2024 2:20 PM CDT Lab Department of Infusion Therapy in [address] [phone] Luzma Howell M.D. Malignant Neoplasm Of Gastroesophageal Junction (HCC) (Primary Dx) 04/30/2024 Orders Only Department of Oncology in [address] [place] [address] Luzma Howell M.D. Malignant Neoplasm Of Gastroesophageal Junction (HCC) (Primary Dx) 04/30/2024 Orders Only Department of Oncology in [place], [place] [address] [place] [phone] Merly Beavers APRN C.N.P., M.S. 04/30/2024 1:00 PM CDT Office Visit Department of Oncology in [place], [place] [address] [place] [phone] Luzma Howell M.D. 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 Malignant Neoplasm Of Gastroesophageal Junction (HCC) (Primary Dx) 04/22/2024 Orders Only Department of Oncology in [place], [place] [address] [place] [phone] Merly Beavers APRN, C.N.P., M.S. Secondary Malignant Neoplasm Bone (HCC) (Primary Dx); Malignant Neoplasm Of Gastroesophageal Junction (HCC); Effusion Pleural 04/22/2024 Orders Only Department of Radiation Oncology in [place], [place] [address] [place] [phone] Kuldeep Ritchie M.D. Secondary Malignant Neoplasm Bone (HCC) (Primary Dx) 04/22/2024 1:32 PM CDT - 04/22/2024 11:59 PM CDT Hospital Encounter Department of Radiation Oncology in [address] [phone] Kuldeep Ritchie M.D. Secondary Malignant Neoplasm Bone (HCC) Discharge Disposition: Home or Self Care 04/22/2024 8:52 AM CDT - 04/22/2024 9:56 AM CDT Hospital Encounter Department of Radiology, [facility], in [place], [place] [address] [place] [phone] Merly Beavers APRN, C.N.P., M.S. Malignant Neoplasm Of Gastroesophageal Junction (HCC); Secondary Malignant Neoplasm Bone (HCC) Discharge Disposition: Home or Self Care 04/19/2024 Orders Only Department of Radiation Oncology in [place], [place] [address] [place] [phone] Kuldeep Ritchie M.D. Secondary Malignant Neoplasm Bone (HCC) (Primary Dx) 04/19/2024 9:42 AM CDT - 04/19/2024 11:59 PM CDT Hospital Encounter Department of Radiology, [facility], in [place], [place] [address] [place] [phone] Merly Beavers APRN, C.N.P., M.S. Malignant Neoplasm Of Gastroesophageal Junction (HCC); Secondary Malignant Neoplasm Bone (HCC) Discharge Disposition: Home or Self Care 04/17/2024 7:00 AM CDT Infusion Department of Oncology in [address] [phone] Luzma Howell M.D. Malignant Neoplasm Of Gastroesophageal Junction (HCC) (Primary Dx); Secondary Malignant Neoplasm Bone (HCC) 04/16/2024 Orders Only Division of Pulmonary Medicine in [address] [phone] Edgardo Joy, D.O. Dyspnea On Exertion (Primary Dx); Fibrosis Pulmonary (HCC); Emphysema (HCC) 04/16/2024 Clinical Communication Division of Pulmonary Medicine in [address] [phone] Edgardo Joy, D.OJam 04/16/2024 11:00 AM CDT Lab Department of Oncology in [address] [phone] Luzma Howell M.D. Malignant Neoplasm Of Gastroesophageal Junction (HCC) (Primary Dx) 04/16/2024 2:00 PM CDT Office Visit Department of Oncology in [address] [phone] Merly Beavers APRN, C.N.P., M.S. Malignant Neoplasm Of Gastroesophageal Junction (HCC); Secondary Malignant Neoplasm Bone (HCC) 04/11/2024 1:00 PM CDT Diagnostic Division of Pulmonary Medicine in [place], [place] [address] [place] [phone] Edgardo Joy D.O. Fibrosis Pulmonary (HCC); Chronic Cough 04/11/2024 2:00 PM CDT Lab Department of Infusion Therapy in [place], [place] [address] [place] [phone] Paddy Jha P.A.-C., M.S. Malignant Neoplasm Of Gastroesophageal Junction (HCC) (Primary Dx) 04/11/2024 3:00 PM CDT Office Visit Department of Oncology in [place], [place] [address] [place] [phone] Luzma Howell M.D. Malignant Neoplasm Of Gastroesophageal Junction (HCC) (Primary Dx); Chronic Respiratory Failure With Hypoxia (HCC) 04/05/2024 Clinical Communication Division of Pulmonary Medicine in [place], [place] [address] [place] [phone] Edgardo Joy, D.O. TIRSO 04/05/2024 Clinical Communication Division of Pulmonary Medicine in [address] [phone] Edgardo Joy D.O. 04/05/2024 Clinical Communication Division of Pulmonary Medicine in [place], [place] [address] [place] [phone] Edgardo Joy D.O. 04/05/2024 12:00 PM CDT Office Visit Division of Pulmonary Medicine in [place], [place] [address] [place] [phone] Edgardo Joy D.O. Chronic Cough (Primary Dx); Fibrosis Pulmonary (HCC) 04/05/2024 10:30 AM CDT Diagnostic Division of Pulmonary Medicine in [place], [place] [address] [place] [phone] Edgardo Joy D.O. Fibrosis Pulmonary (HCC) 04/03/2024 10:30 AM CDT Clinical Communication Virtual Review in [place], [place] [address] [place] [address] Pre-visit Intake 03/26/2024 Clinical Communication Department of Oncology in [place], [place] [address] [place] [address] Paddy Jha P.A.-C., M.S. 03/23/2024 7:19 AM CDT - 03/26/2024 6:48 PM CDT Hospital Encounter [facility], 7th Floor [address] [place] [address] Lanie Phillips P.A.-C., M.S. Maikol Skinner M.D., Ph.D. Luzma Howell M.D. Dyspnea (Primary Dx); Hypoxia; Anemia; Stool Positive Occult Blood; Malignant Neoplasm Of Gastroesophageal Junction (HCC); Anticoagulant Therapy; Dyspnea On Exertion; Decline Functional Status [R53.81] Discharge Disposition: Home or Self Care from Last 3 Months Allergies No known active allergies Medications Medication [...] daily. Active albuterol 90 mcg/actuation inhalerIndications:Em physema ([facility]) INHALE 2 PUFFS EVERY 4 HRS NEEDED FOR WHEEZING OR SHORTNESS OF BREATH. 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 18 g 11 07/27/2023 07/26/20 24 Active Eliquis 5 mg tablet Take 5 mg by mouth 2 (two) times a day. 07/02/2023 Active prochlorperazine (COMPAZINE) 10 mg tabletIndications:Mal ignant Neoplasm Of Gastroesophageal Junction (HCC),Usp Current Drug Therapy, Chemotherapy Take 1 tablet (10 mg total) by mouth every 6 (six) hours as needed for nausea or vomiting. 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 Current Drug Therapy 05/08/2023 Abnormal Findings On [...] Mass Index 36.0 To 36.9 Adult 12/19/2018 Immunizations Name Administration Dates Next Due SARS-COV-2 (COVID-19) - MODERNA(Discontinued) ,10/31/2020 Social History Tobacco Use Types Packs/Day Years Used Date Smoking Tobacco: Former Cigarettes 2.5 30.1 0 09/18/1965 - 11/01/1995 Passive Smoke Exposure: Never Smokeless Tobacco: Never Tobacco Cessation:Counseling Given: Not Answered Alcohol Use Standard Drinks/Week Comments Not Currently 1 (1 standard drink = 0.6 oz pur e alcohol) drink on special occasions [facility] Utilities Answer Date Recorded In the past [...] week 01/27/2023 How often do you attend [facility] or gnosticist services? More than 4 times per year [...] care, and heating? Not very hard 01/27/2023 [facility] [place] of Occupat ional Health - Occupational Stress [...] 06/10/2024 12:37 PM CDT Plan of Treatment Not on file Medical Devices Implanted Type Area Carbonation Equipment Operator Device Identifier Shelf Expiration Date Model / Serial / Lot Hardware E.G. Pins/Screws/R ods Hardware e.g. pins/screws/effie s Neck Description:Vertebra 4 5 and 6 Prt Cath Infus Mri Intrmd 8f - [id number] Implanted:Qty : 1 on 12/05/2023 by Nomi Cowart M.D. 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 06/10/2024 4:21 PM CDT Narrative IIMS - 06/10/2024 4:37 PM CDT This order has been created and auto-finalized to support the import of images acquired without order. The clinical documentation to support these images can be found on the encounter that produced images. Provider Not In System IMG NON RAD IMAGI NG PROCEDURES IIMS NA * Surgery Image Exam-Surgery Image Exam [...] RAD IMAGI NG PROCEDURES Performing Organization Address [facility] Co de Phone Number IIMS NA * (ABNORMAL) CBC without Differential (06/10/2024 [...] CDT Will García M.D. LAB BLOOD ADD-ON [facility] [address] [place] [address], [facility] STMA [facility] [address] [place] [address] * Transfuse Red Blood Cells : (06/07/2024 [...] 06/07/2024 4:06 PM CDT ETRM Testing Location [place] DEFAULT 06/07/2024 3:29 PM CDT ETRM Blood (Blood, Venous) 06/07/2024 3:14 PM CDT 06/07/2024 3:29 PM CDT Elena Salas M.D. LAB BLOOD BANK TEST ORDERABLES [facility] [address] [place] [address], [facility] ETRM [facility] [address] [place] [address] * DX Chest AP or PA and [...] Elapsed Days 6 MARSH ARIA Reference Point [id number] LHumeru MARSH ARIA Dosage Given to Date cGy 1999 MARSH ARIA Plan ID [id number]: 1 MARSH ARIA Fractions Treated to Date 5 MARSH ARIA Planned Total Fractions 5 MARSH ARIA Prescribed Dose Per Fraction 400 MARSH ARIA Prescription Dose in cGy 1999 MARSH ARIA Predecessor Plan [id number] MARSH ARIA Plan Primary Reference Point [id number] LHumeru MARSH ARIA 05/08/2024 9:19 AM CDT Provider Not In System RADIATION ONCOLOG Y ORDERABLES [facility] * Aria Daily Treatment Information (05/08/2024 9:19 AM CDT) Only the most recent of5 resultswithin the time period is included. Course ID [id number] MARSH ARIA Course Start Date 04/19/2024 15:21 CDT MARSH ARIA First Treatment Date 05/02/2024 10:51 CDT MARSH ARIA Last Treatment Date 05/08/2024 09:19 CDT MARSH ARIA Treatment Elapsed Days 6 MARSH ARIA Reference Point [id number] LHumeru MARSH ARIA Dosage Given to Date cGy 1999 MARSH ARIA Session Dosage Given 400 MARSH ARIA Plan ID [id number]: 1 MARSH ARIA Fractions Treated to Date 5 MARSH ARIA Planned Total Fractions 5 MARSH ARIA Prescribed Dose Per Fraction 400 MARSH ARIA Prescription Dose in cGy 1999 MARSH ARIA Predecessor Plan [id number] MARSH ARIA Plan Primary Reference Point [id number] LHumeru MARSH ARIA 05/08/2024 9:19 AM CDT [...] EP Merly Beavers APRN, C.N.P., M.S. IM G US PROCEDURES * (ABNORMAL) GI Pathogen Panel, [...] CDT DTL Yersinia species Negative Negative 05/02/20 3:23 PM CDT DTL Enteroaggregative E. coli [...] This assay is performed using the FDA-cleared DNsolutionArray GI Panel ([employer] Semi-Urgent This is a semi-urgen t result(BENÍTEZ) [facility] Stool (Stool) 05/02/2024 1:0 2 PM CDT 05/02/2024 1:36 PM CDT Luzma Howell M.D. LAB MICROBIOLOGY - G ENERAL ORDERABLES [facility] [address] [place] [address], [facility] DTL [address] [facility] [address] [place] [address] * (ABNORMAL) CBC with Differential, Blood (04/30/2024 [...] AM CDT Merly Beavers APRN, C.N.P., Arias OOCNNOR BLOOD ADD-ON Performing Organization Address [facility] Co de Phone Number [facility] [address] [place] [address] * Bilirubin, Direct (04/30/2024 6:54 AM CDT) Only the most recent of2 resultswithin the time period is included. Bilirubin, Direct, S <0.2 0.0 - 0.3 mg/dL 04/30/2024 8:01 AM CDT DTL Blood (Blood, Venous) 04/30/2024 6:54 AM CDT 04/30/2024 7:42 AM CDT Merly Beavers APRN, C.N.P., Arias OCONNOR BLOOD ADD-ON Performing Organization Address City/[facility] Co de Phone Number [facility] [address] [place] [address] * (ABNORMAL) Comprehensive Metabolic Panel (04/30/2024 6:54 [...] APRN C.N.P., M.S. LA B BLOOD ADD-ON [facility] [address] [place] [address], [facility] [address] [place] [address] * Initial Rad Onc Treatment Planning CT Simulation (04/22/2024 2:15 PM CDT) Narrative SALMA COREY - 04/22/2024 2:15 PM CDT Rut Cordon, RTT ? 04/22/2024 ??2:15 PM Initial Rad Onc [...] - 6.45 x10(9)/L 04/11/2024 2:23 PM CDT [facility] Blood (Blood, Venous) 04/11/2024 1:59 PM CDT 04/11/2024 2:18 PM CDT Paddy Jha P.A.-C., M.S. LAB BLOOD A DD-ON Performing Organization Address [facility] Co de Phone Number [facility] [address] [place] [address], [facility] DTL [facility] [address] [place] [address] [facility] [address] [place] [address] * PUL Home Overnight Oximetry (04/11/2024) 04/11/2024 Impressions [place] NED EAP - 04/12/2024 3:50 PM CDT Despite supplemental oxygen, there is persistence of baseline and positional gas exchange abnormality. Physician: Stan Romero M.D. [id number] Narrative Procedure Note Stan Romero M.D. - 04/12/2024 IMPRESSION: Despite supplemental oxygen, there is persistence of baseline andpositional gas exchange abnormality. Physician: Stan Romero M.D. [id number] Edgardo Joy D.O. PFT ORDERABLES Performing Organization Address [facility] Co de Phone Number [facility] * Oxygen Titration (04/05/2024 11:03 AM CDT) [...] CDT Neida Granados M.D. LAB BLOOD ADD-ON Performing Organization Address City/[facility]/ZIP Co de Phone Number [facility] [address] [place] [address], [facility] [address] [place] [address] * Magnesium (03/25/2024 2:59 AM CDT) Magnesium, S 1.9 1.7 - 2.3 mg/dL 03/25/2024 4:16 AM CDT DTL Blood (Blood, Venous) 03/25/2024 2:59 AM CDT 03/25/2024 4:01 AM CDT Neida Granados M.D. LAB BLOOD ADD-ON [facility] [address] [place] [address], [facility] DTL [facility] [address] [place] [address] * CT Abdomen Pelvis with IV Contrast [...] Advance Directives For more information, please contact: [phone] Documents on File Type Date Recorded Patient Scrap Preparer Expl anation Advance Directives 05/02/2024 4:04 PM POLPam T/MOLST Advance Directives 09/28/2022 10:25 AM Luz [...] Communication Luz Cho Spouse Health Care Agent [email or web address] Alaina Chang Daughter First Alternate Health Care Agent Care Teams Health Coordinator Relationship Specialty Start Date End Date Elsewhere, Pcp PCP - General Internal Medicine 03/23/24
--- OUTSIDE RECORDS SUMMARY | 2024-06-25 11:52 | XMS_ITS | Encounter Summary ---
Author Organization [facility] Address [address] [place] [phone] Care Team Providers Care Fruit Or Nut Grower Name Role Phone Elsewhere, Pcp Primary Care Provider Unavailabl e Reason for Visit * Outpatient (Routine) - Closed Specialty Diagnoses / Procedures Referred By Fabian hernández Referred To Contact Palliative Medicine Hannah Alcantara M.D. [address] [place] [phone] [facility] Referral ID Status Reason Start Date Expiration Date Visits Re quested Visits Authorized [id number] Closed 05/02/2024 11/01/2025 1 1 Encounter Details Date Type Department Care Team (Latest Contact Info) Description 05/16/2024 10:15 AM CDT Telemedicine Department of Palliative Care in [place], [place] [address] [place] [phone] Evonne Garcia APRN, C.N.P., D.N.P. [address] [place] [phone] Malignant Neoplasm Of Gastroesophageal Junction (HCC); Secondary Malignant Neoplasm Bone (HCC); Pain Cancer Associated; Palliative Care; Emphysema (HCC); Dyspnea; Advanced Care Planning Social History Tobacco Use Types Packs/Day Years Used Date Smoking Tobacco: Former Cigarettes 2.5 30.1 0 09/18/1965 - 11/01/1995 Passive Smoke Exposure: Never Smokeless Tobacco: Never Alcohol Use Standard Drinks/Week Comments Not Currently 1 (1 standard drink = 0.6 oz pur e alcohol) drink on special occasions [facility] Utilities Answer Date Recorded In the past [...] How often do you attend chur or rastafarian services? More than 4 times per year 01/27/2023 Do you belong to any clubs o r organizations such as adventist groups, unions, fraternal or athletic groups, or [...] care, and heating? Not very hard 01/27/2023 [facility] [place] of Occupat ional Health - Occupational Stress [...] your living situation today? I have a [facility] place to live 03/31/2024 Education Answer [...] PM CDT documented as of this encounter Progress Notes * Evonne Garcia APRN, C.N.P., D.N.P. - 05/16/2024 10:15 AM CDT SUBJECTIVE PRIMARY CARE PROVIDER ELSEWHERE, PCP Patient Care Team: Annie Layton M.D. as External Primary Care Physician (Internal Medicine) REFERRING PROVIDER Hannah Alcantara M.D. [phone] REFERRING SERVICE Oncology CHIEF COMPLAINT / REASON FOR CONSULT Rin Cho is a 79 y.o. male with a past medical history of metastatic GE junctional adenocarcinoma s/p chemoradiation with multiple lines of therapy #1 with carboplatin and paclitaxel + radiation of esophagus, c/b recurrence/progression of the GE junctional mass as well as metastatic disease to the bone, lung, and lymph nodes, s/p #2 [id number] c/b progression/relapse after 4 cycles, with most recent #3 chemotherapy with ramucirumab/paclitaxel (RAMTAX) (02/13-04/17), and radiation to the left humerus (05/02) who presents for evaluation of non-pain symptoms and pain. History also significant for pulmonary fibrosis and emphysema. established patient visit Visit conducted via virtual visit. The following person/people were also present during the discussion: None Medical Record review was conducted prior to the virtual visit. Date of last in-person clinic visit: 09/27/2022 Interval History: Returns today for routine follow-up, last seen by our team on 05/02/2024 with decision to forego additional systemic therapy in goals of best supportive care. Completed radiation to left humerus on 05/08/2024. Received 2 units of PRBC on 05/03/2024 for low hemoglobin. Right sided thoracentesis on 05/03/2024 for 650 mL. States today he feels the best he has in while. Pain in left arm in improving. Will complete course of dexamethasone 2 mg daily on 05/17. Using Tylenol 500-1000 mg 2-3 times daily as needed. Continues to use supplemental oxygen. 4L NC at bedtime. Is sleeping well through the night. Minimalnapping as to not disrupt nighttime sleep. [place] provided ramp in garage to get into home as well as bed rails. Received compression socks aswell. Has received a listing of local palliative and hospice agencies but have not made a lot of progressforward. In part feeling in no pak since he feels well. Sounds like they have spoke to a hospice agency but have not made decision to enroll. Is followed by PCP, Dr. Layton at [facility] indicating it has been awhile since being seen. Has on list to schedule follow-up. CODE STATUS DNR/DNI OBJECTIVE PHYSICAL EXAM Blood Pressure: ()/() Arterial Line BP: ()/() General: Fatigued; in wheelchair in no acute distress Eyes: Conjunctiva clear, sclera non-icteric Lungs: Unlabored respirations on NC Psychiatric: Alert and appropriate with conversation. Intact recent and remote memory, judgment andinsight, congruent mood and affect. DIAGNOSTICS I have reviewed relevant diagnostics. 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 Provided anticipatory guidance on end-of-life trajectory and options in care moving forward. Clarified the nuances in enrolling in hospice including alignment with philosophy of care versus maintaining standard insurance. Rin may benefit from additional blood transfusions for quality of life improvement and may also need pleural tunneled drain prior to enrollment in hospice; he understands these are typically not covered by hospice. Once Rin is certain he would not want to return to hospital I would recommend enrollment in hospice. Answered all quesitons to the best of my ability. No follow-up scheduled, transition to local Palliative Care or Hospice with ongoing guidance from PCP. Call is out to PCP for [id number] sign out. RECOMMENDATIONS: - continue Tylenol 1000 mg every 8 hours as needed for pain - continue oxycodone 5 mg every 4 hours as needed for cancer-associated pain and/or air hunger - complete dexamethasone taper, if symptoms of fatigue and appetite worsen consider use of dexamethasone 2 mg once daily ongoing - schedule follow-up with Dr. Layton with referral to local palliative care and hospice when appropriate Thank you for the opportunity to see this patient. Total time spent 45 minutes. Consult conducted via real-time audio/video technology by Evonne Garcia APRN, Radha.N.Ruiz, D.N.P. in [facility] to the patient in Patient's Home Evonne Garcia APRN, Radha.N.Ruiz, D.N.P. 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 difficile 05/02/2024 05/02/2024 05/30/2024 5:54 AM CDT documented as of this encounter Care Teams Fruit Or Nut Grower Relationship Specialty Start Date End Date Elsewhere, Pcp PCP - General Internal Medicine 03/23/24 documented as of this encounter
--- OUTSIDE RECORDS SUMMARY | 2024-06-25 11:52 | XMS_ITS | Encounter Summary ---
Author Organization [facility] Address [address] [place] [address] Care Team Providers Care Hairmasters Manager Name Role Phone Elsewhere, Pcp Primary Care Provider Unavailabl e Reason for Visit * Reason Comments Patient Education Pre Procedure PleurX education * Outpatient (Routine) - Closed Specialty Diagnoses / Procedures Referred By Fabian t Referred To Contact Pulmonary Medicine Elena Salas M.D. [address] [place] [phone] [facility] Referral ID Status Reason Start Date Expiration Date Visits Re quested Visits Authorized [id number] Closed 06/06/2024 12/06/2025 1 1 Encounter Details Date Type Department Care Team (Late st Contact Info) Description 06/07/2024 2:00 PM CDT Education Division of Pulmonary Medicine in [place], [place] [address] [place] [phone] Elena Salas M.D. [address] [place] [phone] Angel Cortez R.N. [address] [place] [phone] Effusion Pleural (Primary Dx) Social History Tobacco Use Types Packs/Day Years Used Date Smoking Tobacco: Former Cigarettes 2.5 30.1 0 09/18/1965 - 11/01/1995 Passive Smoke Exposure: Never Smokeless Tobacco: Never Alcohol Use Standard Drinks/Week Comments Not Currently 1 (1 standard drink = 0.6 oz pur e alcohol) drink on special occasions [facility] Utilities Answer Date Recorded In the past [...] How often do you attend chur or yarsanism services? More than 4 times per year 01/27/2023 Do you belong to any clubs o r organizations such as congregational groups, unions, fraternal or athletic groups, or [...] care, and heating? Not very hard 01/27/2023 [facility] [place] of Occupat ional Health - Occupational Stress [...] your living situation today? I have a [facility] place to live 03/31/2024 Education Answer [...] as of this encounter Visit Diagnoses Diagnosis Effusion Pleural- Primary documented in this encounter Care Teams Hairmasters Manager Relationship Specialty Start Date End Date Elsewhere, Pcp PCP - General Internal Medicine 03/23/24 documented as of this encounter
--- OUTSIDE RECORDS SUMMARY | 2024-06-25 11:52 | XMS_ITS | Encounter Summary ---
Author Organization [facility] Address [address] [place] [address] Care Team Providers Care Title Lawyer Name Role Phone Elsewhere, Pcp Primary Care Provider Unavailabl e Encounter Details Date Type Department Care Team (Latest Contact Info) Description 05/08/2024 8:31 AM CDT - 05/08/2024 11:59 PM CDT Hospital Encounter Department of Radiation Oncology in [place], [place] [address] [place] [phone] Dread Doyle M.D. [address] [place] [phone] Discharge Disposition: Home or Self Care Social History Tobacco Use Types Packs/Day Years Used Date Smoking Tobacco: Former Cigarettes 2.5 30.1 0 09/18/1965 - 11/01/1995 Passive Smoke Exposure: Never Smokeless Tobacco: Never Alcohol Use Standard Drinks/Week Comments Not Currently 1 (1 standard drink = 0.6 oz pur e alcohol) drink on special occasions [facility] Utilities Answer Date Recorded In the past 12 months has e [employer], gas, oil, or water natue threatened to shut off services in your [...] How often do you attend chur or evangelical services? More than 4 times per year 01/27/2023 Do you belong to any clubs o r organizations such as jew groups, unions, fraternal or athletic groups, or [...] care, and heating? Not very hard 01/27/2023 [facility] [place] of Occupat ional Health - Occupational Stress [...] your living situation today? I have a [facility] place to live 03/31/2024 Education Answer [...] PM CDT documented as of this encounter Medications at Time of Discharge Medication Sig Dispensed Refills Start Date End Date acetaminophen (TylenoL) 500 mg tablet Take 2 tablets (1,000 mg total) by mouth 3 (three) times a day. 05/02/2024 albuterol 90 mcg/actuation inhalerIndications:Emphys sally (HCC) INHALE 2 PUFFS EVERY 4 HRS NEEDED FOR WHEEZING OR SHORTNESS OF BREATH. USE WITH GRAPHIC DESIGN TEACHER TUBE. 18 g 11 07/27/2023 07/26/2024 DME OxygenIndications:Fibrosi s Pulmonary (HCC) DME Order - for details see Order Report 1 each 04/16/2024 Eliquis 5 mg tablet Take 5 mg by mouth 2 (two) times a day. 07/02/2023 heparin 100 unit/mL syringeIndications:Malign ant Neoplasm Of Gastroesophageal Junction (HCC),Machine Operator Hop Worker Current Drug Therapy, Chemotherapy 5 mL (500 Units total) by intra-catheter route once as needed for line care for up to 1 dose. Flush IV line AFTER 0.9% Sodium Chloride flush 60 mL 3 12/18/2023 inhalational spacing device (AEROCHAMBER) spacerIndications:Emphyse ma (HCC) 1 each as needed (for use with Albuterol inhaler). 1 each 1 12/28/2018 multivitamin tablet Take 1 tablet by mouth daily. GUMMIES OLANZapine (ZyPREXA) 5 mg tabletIndications:Maligna nt Neoplasm Of Gastroesophageal Junction (HCC),Long-Term Current Drug Therapy, Chemotherapy TAKE 1 TABLET BY MOUTH AT BEDTIME NEEDED (NAUSEA, VOMITING). MAY TAKE DOSE EARLY IF NEEDED. 90 tablet 1 03/05/2024 omeprazole (PriLOSEC) [address] capsule Take 20 mg by mouth every morning before breakfast. ondansetron (ZOFRAN) 8 mg tabletIndications:Maligna nt Neoplasm Of Gastroesophageal Junction (HCC),Machine Operator Hop Worker Current Drug Therapy, Chemotherapy Take 1 tablet (8 mg total) by mouth every 8 (eight) hours as needed for nausea or vomiting (unrelieved by prochlorperazine) . 30 tablet 3 12/08/2023 12/07/2024 oxyCODONE (Roxicodone) 5 mg immediate release tabletIndications:Chronic Pain/Nonacute Pain Take 1 tablet (5 mg total) by mouth every 6 (six) hours as needed for pain or severe pain or score 7-10 of 10 Indication: Chronic Pain/Nonacute Pain. 30 tablet 04/30/2024 prochlorperazine (COMPAZINE) 10 mg tabletIndications:Maligna nt Neoplasm Of Gastroesophageal Junction (HCC),Machine Operator Hop Worker Current Drug Therapy, Chemotherapy Take 1 tablet [...] lollipop in one day. 3 each 04/05/2024 vancomycin (Vancocin) 125 mg capsule Take 1 capsule (125 mg total) by mouth 4 (four) times a day for 10 days. 40 capsule 05/02/2024 05/12/2024 dexAMETHasone (Decadron) 4 mg tablet Take 1 tablet (4 mg total) by mouth daily for 7 doses. 7 tablet 05/02/2024 05/10/2024 DME OxygenIndications:Dyspnea DME Order - for details see Order Report 1 each 03/26/2024 05/16/2024 DME OxygenIndications:Fibrosi s Pulmonary (HCC) DME Order - for details see Order Report 1 each 04/05/2024 05/16/2024 umeclidinium-vilanteroL (Anoro Ellipta) 62.5-25 mcg/actuation inhaler Inhale 1 puff daily. 04/03/2019 05/21/2024 documented as of this encounter Plan of Treatment Not on file documented as of this encounter Visit Diagnoses Not on filedocumented in this encounter Additional Health Concerns Infection Onset Date Last Indicated Resolved Time Protective Environment 04/17/2024 04/17/202405/19 5:39 AM CDT C. difficile 05/02/2024 05/02/2024 05/30/2024 5:54 AM CDT documented as of this encounter Care Teams Title Lawyer Relationship Specialty Start Date End Date Elsewhere, Pcp PCP - General Internal Medicine 03/23/24 documented as of this encounter
--- OUTSIDE RECORDS SUMMARY | 2024-06-25 11:52 | XMS_ITS | Encounter Summary ---
Author Organization [facility] Address [address] [place] [address] Care Team Providers Care Profile Saw Setup Operator Name Role Phone Elsewhere, Pcp Primary Care Provider Unavailabl e Encounter Details Date Type Department Care Team (Late st Contact Info) Description 06/07/2024 5:45 PM CDT Infusion Department of Infusion Therapy in [place], [place] [address] [place] [phone] Elena Salas M.D. 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); Malignant Neoplasm Of Gastroesophageal Junction (HCC); Secondary Malignant Neoplasm Bone (HCC) Social History Tobacco Use Types Packs/Day Years Used Date Smoking Tobacco: Former Cigarettes 2.5 30.1 0 09/18/1965 - 11/01/1995 Passive Smoke Exposure: Never Smokeless Tobacco: Never Alcohol Use Standard Drinks/Week Comments Not Currently 1 (1 standard drink = 0.6 oz pur e alcohol) drink on special occasions [facility] Utilities Answer Date Recorded In the past 12 months has e [email or web address], gas, oil, or water [employer] threatened to shut off services in your [...] any clubs o r organizations such as christianity groups, unions, fraternal or athletic groups, or [...] and heating? Not very hard 01/27/2023 [facility] [place] of Occupat ional Health - Occupational Stress [...] your living situation today? 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 BLOOD TRANSFUSION OR DERABLES * Transfuse Red Blood Cells : , 2 Units (06/07/2024 11:29 PM CDT) Elena Salas M.D. BLOOD TRANSFUSION OR DERABLES * Transfuse Red Blood Cells : (06/07/2024 8:38 PM CDT) Elena Salas M.D. 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 5 mL (500 units) of Heparin 100 units/mL to each port/lumen. When IVAD not accessed or infusing: When no infusion to maintain patency flush every 28 days following NaCL flush. 5 mL (500 units) of Heparin 100 units/mL to each port/lumen. Given 06/07/2024 11:23 PM CDT 500 Units sodium chloride 0.9 % injection 10-20 mL 10-20 mL, intra-catheter, As needed, line care, Starting on Mon06/07/24 at 1802, When IVAD accessed and infusing: Flush prior to and following infusion, between multiple consecutive infusions. 10 mL to each port/lumen. Given 06/07/2024 11:23 PM CDT 10 mL Given 06/07/2024 11:22 PM CDT 10 mL documented in this encounter Care Teams Profile Saw Setup Operator Relationship Specialty Start Date End Date Elsewhere, Pcp PCP - General Internal Medicine 03/23/24 documented as of this encounter
--- OUTSIDE RECORDS SUMMARY | 2024-06-25 11:52 | XMS_ITS | Encounter Summary ---
Author Organization [facility] Address [address] [place] [address] Care Team Providers Care Technical Inspector Name Role Phone Elsewhere, Pcp Primary Care Provider Unavailabl e Encounter Details Date Type Department Care Team (Late st Contact Info) Description 05/10/2024 Clinical Communication Department of Palliative Care in [place], [place] [address] [place] [phone] Hannah Alcantara M.D. [address] [place] [phone] Social History Tobacco Use Types Packs/Day Years Used Date Smoking Tobacco: Former Cigarettes 2.5 30.1 0 09/18/1965 - 11/01/1995 Passive Smoke Exposure: Never Smokeless Tobacco: Never Alcohol Use Standard Drinks/Week Comments Not Currently 1 (1 standard drink = 0.6 oz pur e alcohol) drink on special occasions [facility] Utilities Answer Date Recorded In the [...] How often do you attend chur or sabianism services? More than 4 times per year 01/27/2023 Do you belong to any clubs o r organizations such as confucianism groups, unions, fraternal or athletic groups, or [...] care, and heating? Not very hard 01/27/2023 [facility] [place] of Occupat ional Health - Occupational Stress [...] your living situation today? I have a [facility] place to live 03/31/2024 Education Answer [...] encounter Miscellaneous Notes * Telephone Encounter - Mag Gonsalez R.N., [facility] - 05/10/2024 1:58 PM CDT Information Discussed Rin Cho is a 78 y.o. male with a past medical history of metastatic GE junctional adenocarcinoma with recent radiation to the left humerus (05/02) who was seen by Dr. Alcantara on 05/02/24 for evaluation of non-pain symptoms and pain. Contacted patient today for a progress report on pain. Mr. Cho reports that his pain is currently well controlled. He took is last dose of Dexamethasone 4 mg yesterday () morning. Today has gone well thus far. He also uses Tylenol 1000 mg three time a day. Patient prefers to avoid Oxycodone use unless absolutely necessary. We discussed that as he is just two days post radiation completion, it may be good to taper off the Dexamethasone,using a lower dose for a few days in hopes of avoiding a pain flare. He is in agreement to this if provider agrees. Mr. Cho reports he has completed a 10 day course of Vancomycin for C.diff infection. He inquires if he needs further treatment. We discussed that he should continue to monitor for signs and symptoms of repeat infection. If he does develop diarrhea or has concerns, reach out to his PCP. We briefly discussed the role of hospice. He and his family would like to have further discussions about the timing of enrollment, signs of disease progression, etc. Reassured patient that our team can help process through this decision making at future appointments. PLAN Discussed with Dr. Byers. Continue Dexamethasone 2 mg daily until follow up with our team on 05/16/24. Disposition/Recommendation: recommended continue engagement in self-management activities Information/Education: patient/caller able to teach back Caller agreeable to plan of care: yes The following references were used: nursing clinical judgement documented in this encounter Plan of Treatment Not on file documented as of this encounter Visit Diagnoses Not on filedocumented in this encounter Additional Health Concerns Infection Onset Date Last Indicated Resolved Time Protective Environment 04/17/2024 04/17/202405/19 5:39 AM CDT C. difficile 05/02/2024 05/02/2024 05/30/2024 5:54 AM CDT documented as of this encounter Care Teams Technical Inspector Relationship Specialty Start Date End Date Elsewhere, Pcp PCP - General Internal Medicine 03/23/24 documented as of this encounter
--- OUTSIDE RECORDS SUMMARY | 2024-06-25 11:52 | XMS_ITS | Encounter Summary ---
Author Organization [facility] Address [address] [place] [address] Care Team Providers Care Fuse Maker Name Role Phone Elsewhere, Pcp Primary Care Provider Unavailabl e Reason for Referral * Outpatient (Routine) - Closed Specialty Diagnoses / Procedures Referred By Fabian hernández Referred To Contact Diagnoses Personal History Of Malignant Neoplasm Of Bladder Procedures DX Chest AP or PA and Lateral 2 Views Kuldeep Ruth M.D. [address] [place] [address] [facility] Referral ID Status Reason Start Date Expiration Date Visits Re quested Visits Authorized [id number] Closed 06/06/2024 06/06/2025 1 1 * Outpatient (Routine) - Closed Specialty Diagnoses / Procedures Referred By Fabian hernández Referred To Contact Pulmonary Medicine Diagnoses Personal History Of Malignant Neoplasm Of Bladder Kuldeep Ruth M.D. [address] [place] [address] [facility] Referral ID Status Reason Start Date Expiration Date Visits Re quested Visits Authorized [id number] Closed 06/06/2024 12/06/2025 1 1 Encounter Details Date Type Department Care Team (Late st Contact Info) Description 06/06/2024 Orders Only Division of Pulmonary Medicine in [place], [place] [address] [place] [address] Kuldeep Ruth M.D. [address] [place] [address] Personal History Of Malignant Neoplasm Of Bladder (Primary Dx) Social History Tobacco Use Types Packs/Day Years Used Date Smoking Tobacco: Former Cigarettes 2.5 30.1 0 09/18/1965 - 11/01/1995 Passive Smoke Exposure: Never Smokeless Tobacco: Never Alcohol Use Standard Drinks/Week Comments Not Currently 1 (1 standard drink = 0.6 oz pur e alcohol) drink on special occasions [facility] [employer] Answer Date Recorded In the past 12 months has e [employer], gas, oil, or water [employer] threatened to shut off services in your [...] How often do you attend chur or yazidism services? More than 4 times per year 01/27/2023 Do you belong to any clubs o r organizations such as buddhist groups, unions, fraternal or athletic groups, or [...] care, and heating? Not very hard 01/27/2023 [facility] of Occupat ional Health - Occupational Stress [...] as of this encounter Plan of Treatment Scheduled Referrals Name Type Priority Associated Diagnoses Order Schedule Pulmonary Medicine - Pleural Disease consult (clinic) Outpatient Referral Routine Personal History Of Malignant Neoplasm Of Bladder 1 Occurrences starting 06/06/2024 until 09/05/2025 documented as of this encounter Results * DX Chest AP or PA and [...] vasculature. Partially visualized ACDF. Kuldeep Ruth M.D. IMTj DIAGNOSTIC IMAG ING PROCEDURES documented in this encounter Visit Diagnoses Diagnosis Personal History Of Malignant Neoplasm Of Bladder- Primary Personal History Of Malignant Neoplasm Of Bladder documented in this encounter Care Teams Fuse Maker Relationship Specialty Start Date End Date Elsewhere, Pcp PCP - General Internal Medicine 03/23/24 documented as of this encounter
--- OUTSIDE RECORDS SUMMARY | 2024-06-25 11:52 | XMS_ITS | Encounter Summary ---
Author Organization [facility] Address [address] [place] [id number] Care Team Providers Care Stamping Die Maker Bench Name Role Phone Elsewhere, Pcp Primary Care Provider Unavailabl e Encounter Details Date Type Department Care Team (Late st Contact Info) Description 06/07/2024 Orders Only Division of Pulmonary Medicine in [place], [place] [address] [place] [address] Elena Salas M.D. [address] [place] [address] Effusion Pleural (Primary Dx); Secondary Malignant Neoplasm Bone (HCC); Anemia In Neoplastic Disease; Malignant Neoplasm Of Gastroesophageal Junction (HCC) Social History Tobacco Use Types Packs/Day Years Used Date Smoking Tobacco: Former Cigarettes 2.5 30.1 0 09/18/1965 - 11/01/1995 Passive Smoke Exposure: Never Smokeless Tobacco: Never Alcohol Use Standard Drinks/Week Comments Not Currently 1 (1 standard drink = 0.6 oz pur e alcohol) drink on special occasions [facility] Utilities Answer Date Recorded In the [...] often do you attend chur ch or methodist services? More than 4 times per year 01/27/2023 Do you belong to any clubs o r organizations such as scientologist groups, unions, fraternal or athletic groups, or [...] care, and heating? Not very hard 01/27/2023 [facility] of Occupat ional Health - Occupational Stress [...] your living situation today? I have a [facility] place to live 03/31/2024 Education Answer [...] as of this encounter Miscellaneous Notes * Addendum Note - Elena Salas M.D. - 06/07/2024 1:53 PM CDTAddended by: ELENA SALAS on: 06/07/2024 04:28 PM Modules accepted: Orders * Addendum Note - Elena Salas M.D. - 06/07/2024 1:53 PM CDTAddended by: ELENA SALAS on: 06/07/2024 04:38 PM Modules accepted: Orders documented in this encounter Plan of Treatment Not on file documented as of this encounter Results * (ABNORMAL) CBC without Differential (06/07/2024 3:14 PM CDT) Hemoglobin 6.1(L) 13.2 - 16.6 g/dL 06/07/2024 4:16 PM CDT [facility] Hematocrit 20.4(L) 38.3 - 48.6 % 06/07/2024 4:16 PM CDT [facility] Erythrocytes 2.48(L) 4.35 - 5.65 x10(12)/L 06/07/2024 4:16 PM CDT [facility] MCV 82.3 78.2 - 97.9 fL 06/07/2024 4:16 PM CDT [facility] RBC Distrib Width 19.8(H) 11.8 - 14.5 % 06/07/2024 4:16 PM CDT [facility] Platelet Count 392(H) 135 - 317 x10(9)/L 06/07/2024 4:16 PM CDT [facility] Leukocytes 6.6 3.4 - 9.6 x10(9)/L 06/07/2024 4:16 PM CDT [facility] Blood (Blood, Venous) 06/07/2024 3:14 PM CDT 06/07/2024 3:25 PM CDT Elena Salas M.D. LAB BLOOD ADD-ON [facility] [address] [place] [address], 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
--- OUTSIDE RECORDS SUMMARY | 2024-06-25 11:52 | XMS_ITS | Encounter Summary ---
Author Organization [facility] Address [address] [place] [address] Care Team Providers Care Lithographer Helper Name Role Phone Elsewhere, Pcp Primary Care Provider Unavailabl e Encounter Details Date Type Department Care Team (Late st Contact Info) Description 05/21/2024 Orders Only Division of Pulmonary Medicine in [place], [place] [address] [place] [address] Edgardo Joy D.O. [address] [place] [address] Fibrosis Pulmonary (HCC) (Primary Dx); Emphysema (HCC) Social History Tobacco Use Types Packs/Day Years Used Date Smoking Tobacco: Former Cigarettes 2.5 30.1 0 09/18/1965 - 11/01/1995 Passive Smoke Exposure: Never Smokeless Tobacco: Never Alcohol Use Standard Drinks/Week Comments Not Currently 1 (1 standard drink = 0.6 oz pur e alcohol) drink on special occasions [facility] Utilities Answer Date Recorded In the past 12 months has [employer], gas, oil, or water company threatened to [...] How often do you attend chur or church services? More than 4 times per year 01/27/2023 Do you belong to any clubs o r organizations such as quaker groups, unions, fraternal or athletic groups, or [...] care, and heating? Not very hard 01/27/2023 [facility] [place] of Occupat ional Health - Occupational Stress [...] your living situation today? I have a [facility] place to live 03/31/2024 Education Answer Date [...] as of this encounter Visit Diagnoses Diagnosis Fibrosis Pulmonary (HCC)- Primary Emphysema (HCC) documented in this encounter Additional Health Concerns Infection Onset Date Last Indicated Resolved Time C. difficile 05/02/2024 05/02/2024 05/30/2024 5:54 AM CDT documented as of this encounter Care Teams Lithographer Helper Relationship Specialty Start Date End Date Elsewhere, Pcp PCP - General Internal Medicine 03/23/24 documented as of this encounter
--- OUTSIDE RECORDS SUMMARY | 2024-06-25 11:52 | XMS_ITS | Encounter Summary ---
Author Organization [facility] Address [address] [place] [address] Care Team Providers Care Cinder Block Maker Name Role Phone Elsewhere, Pcp Primary Care Provider Unavailabl e Reason for Referral * Radiation Therapy (Routine) - Authorized Specialty Diagnoses / Procedures Referred By Contac t Referred To Contact Diagnoses Secondary Malignant Neoplasm Bone (HCC) Procedures Management Visit Dread Doyle M.D. [address] [place] [address] [facility] Region Referral ID Status Reason Start Date Expiration Date V isits Requested Visits Authorized [id number] Authorized 05/01/2024 05/01/2025 5 5 Reason for Visit * Radiation Therapy (Routine) - Authorized Specialty Diagnoses / Procedures Referred By Contac t Referred To Contact Diagnoses Secondary Malignant Neoplasm Bone (HCC) Procedures Management Visit Dread Doyle M.D. [address] [place] [address] [facility] Region Referral ID Status Reason Start Date Expiration Date V isits Requested Visits Authorized [id number] Authorized 05/01/2024 05/01/2025 5 5 Encounter Details Date Type Department Care Team (Latest Contact Info) Description 05/08/2024 8:10 AM CDT - 05/22/2024 5:04 PM CDT Hospital Encounter Department of Radiation Oncology in [place], [place] [address] [place] [phone] Dread Doyle M.D. [address] [place] [address] Secondary Malignant Neoplasm Bone (HCC) Social History Tobacco Use Types Packs/Day Years Used Date Smoking Tobacco: Former Cigarettes 2.5 30.1 0 09/18/1965 - 11/01/1995 Passive Smoke Exposure: Never Smokeless Tobacco: Never Alcohol Use Standard Drinks/Week Comments Not Currently 1 (1 standard drink = 0.6 oz pur e alcohol) drink on special occasions [facility] [employer] Answer Date Recorded In the past 12 months has e [employer], gas, oil, or water [employer] threatened to shut off services in your [...] often do you attend chur ch or adventism services? More than 4 times per year [...] care, and heating? Not very hard 01/27/2023 [facility] of Occupat ional Health - Occupational Stress [...] Sign Reading Time Taken Comments Blood Pressure 110/56 05/08/2024 8:17 AM CDT Pulse 64 05/08/2024 8:17 AM CDT Temperature 36.7 ??C (98 ??F) 05/08/2024 8:17 AM CDT Respiratory Rate - - Oxygen Saturation - - Inhaled Oxygen Concentration - - Weight 106 kg (233 lb 11 oz) 05/08/2024 8:17 AM CDT Height - - Body Mass Index 31.48 04/30/2024 1:03 PM CDT documented in this encounter Medications at Time of Discharge Medication Sig Dispensed Refills Start Date End Date acetaminophen (TylenoL) 500 mg tablet Take 2 tablets (1,000 mg total) by mouth 3 (three) times a day. 05/02/2024 albuterol 90 mcg/actuation inhalerIndications:Emphys sally ([facility]) INHALE 2 PUFFS EVERY 4 HRS NEEDED FOR WHEEZING OR SHORTNESS OF BREATH. USE WITH [employer] NETWORK ANALYST TUBE. 18 g 11 07/27/2023 07/26/2024 DME OxygenIndications:Fibrosi s Pulmonary ([facility]) DME Order - for details see Order Report 1 each 04/16/2024 Eliquis 5 mg tablet Take 5 mg by mouth 2 (two) times a day. 07/02/2023 heparin 100 unit/mL syringeIndications:Malign ant Neoplasm Of Gastroesophageal Junction (HCC),Detention Current Drug Therapy, Chemotherapy 5 mL (500 [...] mg tabletIndications:Maligna nt Neoplasm Of Gastroesophageal Junction (HCC),Insole Channeler Current Drug Therapy, Chemotherapy TAKE 1 TABLET BY MOUTH AT BEDTIME NEEDED (NAUSEA, VOMITING). MAY TAKE DOSE EARLY IF NEEDED. 90 tablet 1 03/05/2024 omeprazole (PriLOSEC) [address] capsule Take 20 mg by mouth every morning before breakfast. ondansetron (ZOFRAN) 8 mg tabletIndications:Maligna nt Neoplasm Of Gastroesophageal Junction (HCC),Insole Channeler Current Drug Therapy, Chemotherapy Take 1 tablet [...] mg tabletIndications:Maligna nt Neoplasm Of Gastroesophageal Junction (HCC),Insole Channeler Current Drug Therapy, Chemotherapy Take 1 tablet [...] 1 puff daily. 60 each 11 05/21/2024 dexAMETHasone (Decadron) 2 mg tablet Take 1 tablet (2 mg total) by mouth daily for 7 doses. 6 tablet 05/10/2024 06/10/2024 documented as of this encounter Progress Notes * Dread Doyle M.D. - 05/08/2024 8:30 AM CDT SUBJECTIVE CHIEF COMPLAINT/REASON FOR VISIT Evaluation for side effects while receiving radiation treatment for 1. Secondary Malignant Neoplasm Bone (HCC) SUPERVISED BY: Dread Doyle M.D. HISTORY OF PRESENT ILLNESS Mr. Rin Cho is a 79 y.o. 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 Treatment Course: 2xHumerus Plan ID Fractions Dose / Fraction (cGy) Dose Treated (cGy) Dose Planned (cGy) First Treatment Last Treatment Elapsed Days [id number] 400 1600 199905/02/2024 05/07/2024 5 Course Summary 05/02/2024 05/07/2024 5 The patient was seen and examined today with Dr. Doyle. The patient reports to be feeling well overall. He denies worsening pain in his left shoulder. He rates his pain a 1 out of 10 and it does increase slightly with certain movements. He is not currently using Oxycodone. His pain is controlled with Extra Strength Tylenol three times daily. He denies skin irritation or any other issues or concerns at this time. PATIENT REPORTED SYMPTOM SCREEN: FATIGUE (Scale: 0 = no fatigue; 10 = worst fatigue you can imagine): not answered PAIN (Scale: 0 = no pain; 10 = worst pain you can imagine): 1 OVERALL QUALITY OF LIFE (Scale: 0 = as bad as can be; 10 = as good as can be): not answered OBJECTIVE BP 110/56 (BP Location: Right arm, Patient Position: Sitting, Cuff Size: Regular) Pulse 64 Temp36.7 ??C (Temporal) Wt 106 kg BMI 31.48 kg/m?? PHYSICAL EXAMINATION General: Alert and oriented, in no apparent distress. 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 Patient can continue to use Tylenol forpain control. If skin irritation were to occur patient can apply lotion to area of irritation. Reviewed post radiation recovery time frame and side effects. Patient will have follow up with Palliative care on our [facility] on May 16, 2024. Follow up with Dr. Doyle will be as needed.He can contact our care team with any questions or concerns. Signed by: Sarah Roe R.N. 05/08/2024 8:36 AM CDT ATTESTATION FOR MANAGEMENT VISIT I saw and evaluated the patient and participated in the anderson portions of the service including medical decision making as noted above. I reviewed the documentation of Ms. Sarah Roe RN and agree with the findings and plan. The patient appears well on exam. We will continue with radiation as planned. After radiation he will follow up with Medical Oncology and we encouraged him to contact uswith any questions, concerns, or new symptoms. Dread Doyle M.D., 05/22/2024 documented in this encounter Plan of Treatment Scheduled Orders Name Type Priority Associated Diagnoses Orde r Schedule Management Visit Radiation Oncology Routine Secondary Malignant Neoplasm Bone (HCC) Once for 1 Occurrences starting 05/08/2024 until 05/08/2024 documented as of this encounter Visit Diagnoses Diagnosis Secondary Malignant Neoplasm Bone (HCC) documented in this encounter Additional Health Concerns Infection Onset Date Last Indicated Resolved Time Protective Environment 04/17/2024 04/17/202405/19 5:39 AM CDT C. difficile 05/02/2024 05/02/2024 05/30/2024 5:54 AM CDT documented as of this encounter Care Teams Cinder Block Maker Relationship Specialty Start Date End Date Elsewhere, Pcp PCP - General Internal Medicine 03/23/24 documented as of this encounter
--- OUTSIDE RECORDS SUMMARY | 2024-06-25 11:52 | XMS_ITS | Encounter Summary ---
Author Organization [facility] Address [address] [place] [address] Care Team Providers Care Nursing Director Name Role Phone Elsewhere, Pcp Primary Care Provider Unavailabl e Reason for Referral * Outpatient (Routine) - Closed Specialty Diagnoses / Procedures Referred By Fabian t Referred To Contact Diagnoses Personal History Of Malignant Neoplasm Of Bladder Procedures DX Chest AP or PA and Lateral 2 Views Kuldeep Ruth M.D. [address] [place] [address] [facility] Referral ID Status Reason Start Date Expiration Date Visits Re quested Visits Authorized [id number] Closed 06/06/2024 06/06/2025 1 1 Reason for Visit * Outpatient (Routine) - Closed Specialty Diagnoses / Procedures Referred By Fabian hernández Referred To Contact Diagnoses Personal History Of Malignant Neoplasm Of Bladder Procedures DX Chest AP or PA and Lateral 2 Views Kuldeep Ruth M.D. [address] [place] [address] [facility] Referral ID Status Reason Start Date Expiration Date Visits Re quested Visits Authorized [id number] Closed 06/06/2024 06/06/2025 1 1 Encounter Details Date Type Department Care Team (Latest Contact Info) Description 06/07/2024 10:57 AM CDT - 06/07/2024 1:11 PM CDT Hospital Encounter Department of Radiology, [facility], in [place], [place] [address] [place] [address] Kuldeep Ruth M.D. [address] [place] [address] Personal History Of Malignant Neoplasm Of Bladder Discharge Disposition: Home or Self Care Social History Tobacco Use Types Packs/Day Years Used Date Smoking Tobacco: Former Cigarettes 2.5 30.1 0 09/18/1965 - 11/01/1995 Passive Smoke Exposure: Never Smokeless Tobacco: Never Alcohol Use Standard Drinks/Week Comments Not Currently 1 (1 standard drink = 0.6 oz pur e alcohol) drink on special occasions [facility] [employer] Answer Date Recorded In the past 12 months has e [employer], gas, oil, or water [employer] threatened to shut off services in your [...] week 01/27/2023 How often do you attend [facility] or confucianism services? More than 4 times per year 01/27/2023 Do you belong to any clubs o r organizations such as hoahaoism groups, unions, fraternal or athletic groups, or [...] care, and heating? Not very hard 01/27/2023 [facility] of Occupat ional [facility] - Occupational Stress Questionnaire Answer [...] day. 05/02/2024 albuterol 90 mcg/actuation inhalerIndications:Emphys sally ([facility]) INHALE 2 PUFFS EVERY 4 HRS NEEDED FOR WHEEZING OR SHORTNESS OF BREATH. USE WITH MATERIAL REQUIREMENTS PLANNING MANAGER TUBE. 18 g 11 07/27/2023 07/26/2024 DME OxygenIndications:Fibrosi s Pulmonary ([facility]) DME Order - for details see Order Report 1 each 04/16/2024 Eliquis 5 mg tablet Take 5 mg by mouth 2 (two) times a day. 07/02/2023 heparin 100 unit/mL syringeIndications:Malign ant Neoplasm Of Gastroesophageal Junction ([facility]),[facility] Current Drug Therapy, Chemotherapy 5 mL (500 Units total) by intra-catheter route once as needed for line care for up to 1 dose. Flush IV line AFTER 0.9% Sodium Chloride flush 60 mL 3 12/18/2023 inhalational spacing device (AEROCHAMBER) spacerIndications:Emphyse ma ([facility]) 1 each as needed (for use with Albuterol inhaler). 1 each 1 12/28/2018 LORazepam (Ativan) 0.5 mg tablet Take 0.5 mg by mouth 2 (two) times a day as needed. See attached for detailed directions. 06/04/2024 multivitamin tablet Take 1 tablet by mouth daily. GUMMIES OLANZapine (ZyPREXA) 5 mg tabletIndications:Maligna nt Neoplasm Of Gastroesophageal Junction (HCC),Mcc Current Drug Therapy, Chemotherapy TAKE 1 TABLET BY MOUTH AT BEDTIME NEEDED (NAUSEA, VOMITING). MAY TAKE DOSE EARLY IF NEEDED. 90 tablet 1 03/05/2024 omeprazole (PriLOSEC) [address] capsule Take 20 mg by mouth every morning before breakfast. ondansetron (ZOFRAN) 8 mg tabletIndications:Maligna nt Neoplasm Of Gastroesophageal Junction (HCC),Baker Operator Automatic Current Drug Therapy, Chemotherapy Take 1 tablet [...] mg tabletIndications:Maligna nt Neoplasm Of Gastroesophageal Junction (HCC),[facility]cc Current Drug Therapy, Chemotherapy Take 1 tablet [...] (HCC) Inhale 1 puff daily. 60 each 05/21/2024 dexAMETHasone (Decadron) 2 mg tablet Take 1 tablet (2 mg total) by mouth daily for 7 doses. 6 tablet 05/10/2024 06/10/2024 documented as of this encounter Plan of Treatment Not on file documented as of this encounter Procedures Procedure Name Priority Date/Time Associated Diagnosis Comments DX CHEST AP OR PA AND LATERAL 2 VIEWS RAD - Routine (most inpatients and all outpatients) 06/07/2024 11:21 AM CDT Personal History Of Malignant Neoplasm Of Bladder documented in this encounter Results * DX Chest AP [...] central pulmonary vasculature. Partially visualized ACDF. Kuldeep HDZ DIAGNOSTIC IMAG ING PROCEDURES documented in this encounter Visit Diagnoses Diagnosis Personal History Of Malignant Neoplasm Of Bladder documented in this encounter Care Teams Nursing Director Relationship Specialty Start Date End Date Elsewhere, Pcp PCP - General Internal Medicine 03/23/24 documented as of this encounter
--- OUTSIDE RECORDS SUMMARY | 2024-06-25 11:52 | XMS_ITS | Encounter Summary ---
Author Organization [facility] Address [address] [place] [address] Care Team Providers Care Mechanical Service Technician Name Role Phone Elsewhere, Pcp Primary Care Provider Unavailabl e Reason for Referral * Outpatient (Routine) - Closed Specialty Diagnoses / Procedures Referred By Contac t Referred To Contact Radiation Oncology Diagnoses Secondary Malignant Neoplasm Bone (HCC) Kuldeep Ritchie M.D. 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 [address] [place] [phone] [facility] Referral ID Status Reason Start Date Expiration Date Visits Re quested Visits Authorized [id number] Closed 04/16/2024 10/16/2025 1 1 Encounter Details Date Type Department Care Team (Latest Contact Info) Description 04/22/2024 9:57 AM CDT - 05/13/2024 10:44 PM CDT Hospital Encounter Department of Radiation Oncology in [place], [place] [address] [place] [phone] Kuldeep Ritchie M.D. [address] [place] [phone] Secondary Malignant Neoplasm Bone (HCC) (Primary Dx); Malignant Neoplasm Of Gastroesophageal Junction (HCC) Social History Tobacco Use Types Packs/Day Years Used Date Smoking Tobacco: Former Cigarettes 2.5 30.1 0 09/18/1965 - 11/01/1995 Passive Smoke Exposure: Never Smokeless Tobacco: Never Alcohol Use Standard Drinks/Week Comments Not Currently 1 (1 standard drink = 0.6 oz pur e alcohol) drink on special occasions [facility] Utilities Answer Date Recorded In the past 12 months has videof.me, oil, or water [employer] threatened to shut off services in your [...] often do you attend chur ch or catholic services? More than 4 times per year 01/27/2023 Do you belong to any clubs o r organizations such as jewish groups, unions, fraternal or athletic groups, or [...] your living situation today? I have a [facility] place to live 03/31/2024 Education [...] Sign Reading Time Taken Comments Blood Pressure - - Pulse - - Temperature - - Respiratory Rate - - Oxygen Saturation - - Inhaled Oxygen Concentration - - Weight 104 kg (229 lb 15 oz) 04/22/2024 10:13 AM CDT Height - - Body Mass Index 30.98 04/11/2024 2:47 PM CDT documented in this encounter Medications at Time of Discharge Medication Sig Dispensed Refills Start Date End Date acetaminophen (TylenoL) 500 mg tablet Take 2 tablets (1,000 mg total) by mouth 3 (three) times a day. 05/02/2024 albuterol 90 mcg/actuation inhalerIndications:Emphys sally (HCC) INHALE 2 PUFFS EVERY 4 HRS NEEDED FOR WHEEZING OR SHORTNESS OF BREATH. USE WITH COMMUNICATIONS PROJECT LEAD TUBE. 18 g 11 07/27/2023 07/26/2024 DME OxygenIndications:Fibrosi s Pulmonary (HCC) DME Order - for details see Order Report 1 each 04/16/2024 Eliquis 5 mg tablet Take 5 mg by mouth 2 (two) times a day. 07/02/2023 heparin 100 unit/mL syringeIndications:Malign ant Neoplasm Of Gastroesophageal Junction (HCC),Half-Way Current Drug Therapy, Chemotherapy 5 mL (500 [...] mg tabletIndications:Maligna nt Neoplasm Of Gastroesophageal Junction (HCC),Half-Way Current Drug Therapy, Chemotherapy TAKE 1 TABLET BY MOUTH AT BEDTIME NEEDED (NAUSEA, VOMITING). MAY TAKE DOSE EARLY IF NEEDED. 90 tablet 1 03/05/2024 omeprazole (PriLOSEC) [address] capsule Take 20 mg by mouth every morning before breakfast. ondansetron (ZOFRAN) 8 mg tabletIndications:Maligna nt Neoplasm Of Gastroesophageal Junction (HCC),Hat Presser Current Drug Therapy, Chemotherapy Take 1 tablet [...] mg tabletIndications:Maligna nt Neoplasm Of Gastroesophageal Junction (HCC),Half-Way Current Drug Therapy, Chemotherapy Take 1 tablet [...] lollipop in one day. 3 each 04/05/2024 dexAMETHasone (Decadron) 2 mg tablet Take 1 tablet (2 mg total) by mouth daily for 7 doses. 6 tablet 05/10/2024 06/10/2024 DME OxygenIndications:Dyspnea DME Order - for details see Order Report 1 each 03/26/2024 05/16/2024 DME OxygenIndications:Fibrosi s Pulmonary (HCC) DME Order - for details see Order Report 1 each 04/05/2024 05/16/2024 umeclidinium-vilanteroL (Anoro Ellipta) 62.5-25 mcg/actuation inhaler Inhale 1 puff daily. 04/03/2019 05/21/2024 documented as of this encounter Consult Notes * Naida De La Torre M.B.B.S. - 04/22/2024 10:15 AM CDT RADIATION ONCOLOGY CONSULTATION Supervising Plant Science Professor: Dr. Kuldeep Ritchie REQUESTING PROVIDER Merly Beavers APRN, C.N.P., M.S. SUBJECTIVE HISTORY OF PRESENT ILLNESS Mr. Rin Cho is a 78 y.o. male who resides in [facility] with medical history of FABIANA,emphysema and pulmonary fibrosis on 2-4 L nasal cannula and metastatic GJ adenocarcinoma, treated with protons 50 Gy in 25 fractions with concurrent carboplatin/paclitaxel completed on 06/30/2023. CTCAP and PET-CT on 11/23/2023 was concerning for recurrence/progression of GE Junction mass, as well as new bone, peritoneal, lymphadenopathy, and lung lesions concerning for metastases, biopsy of the left humerus on 12/05/23 confirmed metastasis,he progressed after 4 cycles of FOLFOX plus nivolumab, switched to Ramucirumab / Paclitaxel but now only on paclitaxel last dose on 04/17/24. Mr.Merle Kelli borrego presents today to discuss palliative radiotherapy to left humerus. Oncology History Malignant Neoplasm Of Gastroesophageal Junction (HCC) 03/29/2023 Initial Diagnosis Malignant Neoplasm Of Gastroesophageal Junction (HCC) 02/2023 CT Chest: New ill-defined soft tissue thickening bridging the gastroesophageal junction withnew and increased surrounding adenopathy in the upper abdomen is highly concerning for malignancy. Presented with six-month history of dysphagia and weight loss of 15 lb. EGD on March 29, 2023 showeda malignant-appearing esophageal mass in the distal esophagus and GE junction with a biopsy confirming adenocarcinoma. Subsequently he underwent EGD and EUS on April 10. This demonstrated a large ulcerating mass in the lower 3rd of the esophagus extending to the GE junction and cardia, biopsied,Siewert 1, multiple > 4 hypoechoic malignant-appearing enlarged lymph nodes in the middle paraesophageal mediastinum, lower paraesophageal mediastinum, diaphragmatic region and gastrohepatic ligament, cT3 N2 by endosonographic criteria. EGD March 29, 2023 Stomach, tumor, gastroesophageal junction, endoscopic biopsy: Invasive moderately to poorly differentiated adenocarcinoma. PMMR 03/31/[address] AP: Masslike thickening of the GE junction representing the biopsy-proven adenocarcinoma with suspicious locoregional lymph node metastases. 04/10/2023 Biopsy/Pathology Esophagus, middle third, lower third, endoscopic biopsy: Scant sampling of poorly-differentiated carcinoma compatible with adenocarcinoma associated with abundant necrosis. Immunohistochemical stain for p40 is negative while CDX2 is positive. These findings support the diagnosis. HER2 IHC 0. 04/17/2023 Genetic Testing and Tumor Genotyping pMMR, HER2 negative 04/20/[address]: 1. FDG avid mass in the distal esophagus extending into the superior portion of stomach consistent with a malignant tumor. 2. Multiple FDG avid distal periesophageal nodes, gastrohepatic ligament nodes, and perigastric nodes with increased FDG uptake are likely metastatic. 3. No evidence of liver or distant metastasis. 05/29/2023 - 06/26/2023 Chemotherapy CARBOplatin AUC 2 weekly / PACLitaxel WEEKLY ( with Radiation ) ( GI ) Start Date: 05/29/2023 05/29/2023 - 06/30/2023 Radiation Therapy Radiation Therapy Treatment Details (05/29/2023 - 06/30/2023) Site: Lower esophagus Technique: No technique specified Goal: Curative Planned Treatment Start Date: 05/29/2023 08/16/2023 Critical Imaging PET-CT shows marked metabolic response in the GE junction malignancy and adjacent local regional lymphadenopathy. New tiny FDG avid right upper lobe nodularity is indeterminate. 08/18/2023 Other Decision made to proceed with salvage pathway. Discuss the possibility of administering an additional 2 months of chemotherapy versus observation, and patient decided on observation. We will see patient back in 3 months with restaging scans. 11/23/2023 Progression/Relapse Repeat CT CAP and PET-CT concerning for recurrence/progression of GE Junction mass, as well as new bone, peritoneal, lymphadenopathy, and lung lesions concerning for metastases. 12/05/23: Biopsy of left humerus lesion was positive for metastatic adenocarcinoma consistent with known upper GI primary. 12/05/2023 Genetic Testing and Tumor Genotyping HER2 negative, PDL1 CPS 20 12/18/2023 - 01/30/2024 Chemotherapy FOLFOX6 ( Fluorouracil / Leucovorin / Oxaliplatin ) / Nivolumab ( GI ) Start Date: 12/18/2023 02/13/2024 Progression/Relapse Repeat PET-CT overall shows progression of disease after 4 cycles of FOLFOX plus nivolumab 02/14/2024 - Chemotherapy Ramucirumab / PACLitaxel Start Date: 02/14/2024 04/22/[address] chest: IMPRESSION: 1. Increase in size of now small to moderate right pleural effusion. Otherwise, no significant change including stable small to trace left pleural effusion. 2. Increased partially visualized metastatic peritoneal nodularity. 3. 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 Xray tibia/fibula negative for metastatic disease Interval History It was a pleasure to meet Mr. Rin Cho today in clinic, he was accompanied by his family. He reports that he is doing relatively well. He endorses fatigue and him needing to take naps during the day. He reports mild, dull epigastric pain, rating it 3/10 associated with nausea but no episodes of vomiting, has not needed to take anything for the pain. He reports that around 2 weeks ago he has Left shoulder pain that radiated to left arm worse and was worse with coughing,rated it 7/10 and was using tylenol for it. The pain has since resolved.he also notes left tibia/fibula pain which he only notices when pressing around the area. Xray of left Tibia done today showed discrete lytic or sclerotic lesion and pathologic fractures. He reported that he has noted 1 episodes of mild nose bleed and blood tinged sputum in the morning,We discussed that if that continues he should let us know or go to the nearest hospital for urgent care. History of Radiotherapy Treatment Course: 1pEsophagus Plan ID Fractions Dose / Fraction (cGy) Dose Treated (cGy) Dose Planned (cGy) First Treatment Last Treatment Elapsed Days [id number] 200 5000 5000 05/29/2023 06/30/2023 32 Course Summary 05/29/2023 06/30/2023 32 ROS: Pertinent items are noted in HPI and as reported by patient below. Medications, Allergies, Pertinent Past Medical History, Past Surgical History, Social History, and Family History were reviewed. Pertinent findings are as follows: I have reviewed and updated the following: allergies, current medications, prior to admission medications, family history, medical history, social history, surgical history, and problem list Social History Tobacco Use Smoking status: Former Current packs/day: 0.00 Average packs/day: 2.5 packs/day for 30.1 years (75.3 ttl pk-yrs) Types: Cigarettes Start date: 09/18/1965 Quit date: 11/01/1995 Years since quittin.4 Passive exposure: Never Smokeless tobacco: Never Vaping Use Vaping status: never used Substance Use Topics Alcohol use: Not Currently Alcohol/week: 1.0 standard drink of alcohol Types: 1 Standard drinks or equivalent per week Comment: drink on special occasions Drug use: No Current Outpatient Medications Medication Instructions albuterol 90 mcg/actuation inhaler INHALE 2 PUFFS EVERY 4 HRS NEEDED FOR WHEEZING OR SHORTNESS OF BREATH. USE WITH COMMUNICATIONS PROJECT LEAD TUBE. Anoro Ellipta 62.5-25 mcg/actuation inhaler inhale 1 puff by mouth every day DME Oxygen DME Order - for details see Order Report DME Oxygen DME Order - for details see Order Report DME Oxygen DME Order - for details see Order Report Eliquis 5 mg, oral, 2 times daily heparin 500 Units, intra-catheter, Once as needed, Flush IV line AFTER 0.9% Sodium Chloride flush inhalational spacing device (AEROCHAMBER) spacer 1 each, miscellaneous, As needed multivitamin tablet 1 tablet, oral, Daily, GUMMIES OLANZapine (ZyPREXA) 5 mg tablet TAKE 1 TABLET BY MOUTH AT BEDTIME NEEDED (NAUSEA, VOMITING). MAY TAKE DOSE EARLY IF NEEDED. omeprazole (PRILOSEC) 20 mg, oral, Daily before morning meal ondansetron (ZOFRAN) 8 mg, oral, Every 8 hours PRN prochlorperazine (COMPAZINE) 10 mg, oral, Every 6 hours PRN tamsulosin (FLOMAX) 0.4 mg, oral, Daily tetracaine HCl 1 % adult lollipop (sugar free) Suck on lollipop for 5 to 15 seconds only.Limit use to no more than 3 times per hour.Return lollipop to the child resistant container after each use. Donot use more than 1 lollipop in one day. umeclidinium-vilanteroL (Anoro Ellipta) 62.5-25 mcg/actuation inhaler 1 puff, inhalation, Daily OBJECTIVE There were no vitals taken for this visit. Weight: 104 kg (04/17/2024 7:33 AM) Height: 183.5 cm (04/11/2024 2:47 PM) Weight change: PHYSICAL EXAMINATION ECOG score: 1-2 General: Well-appearing, in no acute distress. Head: Normocephalic, atraumatic. Respiratory: Non-labored breathing on room air Abdomen: Soft, non-tender, non-distended Neuro/Psych: Awake, alert and oriented with intact attention and congruent mood/affect. No evidenceof disorganized thinking. 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 Skin: Intact, dry. Normal coloration. No visible lesions. ASSESSMENT / PLAN #1 Metastatic GEJ adenocarcinoma. Mr. Rin Cho is a 78 y.o. male who resides in [facility] with medical history of FABIANA,emphysema and pulmonary fibrosis on 2-4L nasal cannula and metastatic GEJ adenocarcinoma, treated with protons 50 Gy in 25 fractions with concurrent carboplatin/paclitaxel completed on 06/30/2023. CTCAP and PET-CT on 11/23/2023 was concerning for recurrence/progression of GE Junction mass, as well as new bone, peritoneal, lymphadenopathy, and lung lesions concerning for metastases, biopsy of the left humerus on 12/05/23 confirmed metastasis, he progressed after 4 cycles of FOLFOX plus nivolumab, switched to Ramucirumab / Paclitaxel but now only on paclitaxel last dose on 04/17/24. Mr.Merle Kelli kramer presents today to discuss palliative radiotherapy to left humerus. We reviewed the pertinent clinical and recent imaging. In this setting, we recommend palliative radiotherapy 20 Gy in 5 fraction to the left humerus to prevent further progression and pain. We discussed the logistics of radiation simulation, planning, and daily treatment. We will plan forCT simulation 04/22/2024.Mr. Rin Cho is still getting paclitaxel every 2 weeks,his last dose was on 04/17/24 and next dose is planned on 04/30/24. We will plan to start radiotherapy tentatively after next cycle of chemotherapy.We discussed since he is from [place] it is more convenient for him to get treatment in [place].Mr. Rin Cho is aware that he will meet with the treating team in [place] before the Start of treatment. We also reviewed the acute toxicities associated with radiation treatment including, but not limited to fatigue, radiation skin changes, pain flare which we manage with pain medications and steroids.The risk of late toxicities and expected long-term oncologic outcomes were also discussed, including risk of fracture. Mr. Rin Cho expressed a desire to proceed with radiotherapy in [place]. The patient and plan were discussed with Radiation transportation sales consultant, Dr. Ritchie. Please see their accompanying documentation for further details.All questions were answered to the patients apparent satisfaction. Mr. Rin Cho and family were encouraged to contact our department with any questions or concerns. PLAN CT simulation left Humerus 04/22/2024 and treatment in [place] Raquel PhilippeS, Radiation Oncology Fellow. [id number] Associated attestation - Kuldeep Ritchie M.D. - 04/29/2024 12:47 PM CDT I saw and examined the patient and agree with the documentation below by JASMIN Philippe. Mr. Cho has had prior RT for esophageal carcinoma, now with metastatic disease including the left humerus which has improved but can flair. He described additional left steward pain. He is receiving palliative paclitaxel. I discussed the role of RT to the left humerus given his pain, vs observation. I counseled him on the risk and benefits of treatment, as well as practical considerations includingtiming. After discussion, he wishes to proceed with simulation and treatment to start 05/02/24 in [place]. We will plan for 20 Gy in 5 fractions. There is no lesion on tib/fib X ray to correspond to his pain and no indication for RT to this site. Depending on his course palliative RT could be considered to other sites in the future. He and his family, spouse and daughter present agree with the plan of care. Kuldeep Ritchie M.D. 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 difficile 05/02/2024 05/02/2024 05/30/2024 5:54 AM CDT documented as of this encounter Care Teams Mechanical Service Technician Relationship Specialty Start Date End Date Elsewhere, Pcp PCP - General Internal Medicine 03/23/24 documented as of this encounter
--- OUTSIDE RECORDS SUMMARY | 2024-06-25 11:52 | XMS_ITS | Encounter Summary ---
Author Organization [facility] Address [address] [place] [id number] Care Team Providers Care Aircraft Pneudraulic Systems Mechanic Name Role Phone Elsewhere, Pcp Primary Care Provider Unavailabl e Encounter Details Date Type Department Care Team (Late st Contact Info) Description 06/07/2024 3:20 PM CDT Lab Department of Infusion Therapy in [place], [place] [address] [place] [address] Elena Salas M.D. [address] [place] [address] Malignant Neoplasm Of Gastroesophageal Junction (HCC) (Primary Dx); Effusion Pleural; Anemia In Chronic Kidney Disease Social History Tobacco Use Types Packs/Day Years Used Date Smoking Tobacco: Former Cigarettes 2.5 30.1 0 09/18/1965 - 11/01/1995 Passive Smoke Exposure: Never Smokeless Tobacco: Never Alcohol Use Standard Drinks/Week Comments Not Currently 1 (1 standard drink = 0.6 oz pur e alcohol) drink on special occasions [facility] Utilities Answer Date Recorded In the past 12 months has e [employer], gas, oil, or water company threatened to [...] often do you attend chur ch or sabianist services? More than 4 times per year 01/27/2023 Do you belong to any clubs o r organizations such as zoroastrianism groups, unions, fraternal or athletic groups, or [...] care, and heating? Not very hard 01/27/2023 [facility] [place] of Occupat ional Health - Occupational Stress [...] your living situation today? I have a [facility] place to live 03/31/2024 Education Answer [...] Procedure Name Priority Date/Time Associated Diagnosis Comments CBC WITHOUT DIFFERENTIAL, B Routine 06/07/2024 3:14 PM CDT Effusion Pleural TYPE AND SCREEN Routine 06/07/2024 3:14 PM CDT Anemia In Chronic Kidney Disease documented in this encounter Results * Type and Screen (with Reflex Antibody ID) (06/07/2024 3:14 PM CDT) Pathologist [facility] ABORh O Pos Not applicable 06/07/2024 4:06 PM CDT ETRM Antibody Screen Negative Negative 06/07/2024 4:11 PM CDT ETRM Type & Screen Expiration 06/10/2024 23:59 06/07/2024 4:06 PM CDT ETRM Testing Location [place] DEFAULT 06/07/2024 3:29 PM CDT ETRM Blood (Blood, Venous) 06/07/2024 3:14 PM CDT 06/07/2024 3:29 PM CDT Elena Salas M.D. LAB BLOOD BANK TEST ORDERABLES [facility] [address] [place] [address], [facility] ETRM [facility] [address] [place] [address] * (ABNORMAL) CBC without Differential (06/07/2024 3:14 PM CDT) Pathologist [facility] Hemoglobin 6.1(L) 13.2 - 16.6 g/dL 06/07/2024 [...] CDT Elena Salas M.D. LAB BLOOD ADD-ON [facility] - [facility] [address] [place] [address], [place] [facility] [address] [place] [address] documented in this encounter Visit Diagnoses Diagnosis Malignant Neoplasm Of Gastroesophageal Junction (HCC)- Primary Effusion Pleural Anemia In Chronic Kidney Disease documented in this encounter Administered Medications Inactive Administered Medications - up to 3 most recent administrations Medication Order MAR Action Action Date Dose Rate Site heparin flush 500 Units 500 Units, intra-catheter, As needed, line care, Starting on Mon06/07/24 at 1518, When IVAD accessed and not infusing: When no infusion to maintain patency flush every 7 days following NaCL flush. 5 mL (500 units) of Heparin 100 units/mL to each port/lumen. When IVAD not accessed or infusing: When no infusion to maintain patency flush every 28 days following NaCL flush. 5 mL (500 units) of Heparin 100 units/mL to each port/lumen. Given 06/07/2024 3:18 PM CDT 500 Units sodium chloride 0.9 % injection 10-20 mL 10-20 mL, intra-catheter, As needed, line care, Starting on Mon06/07/24 at 1518, When IVAD accessed and infusing: Flush prior to and following infusion, between multiple consecutive infusions. 10 mL to each port/lumen. Given 06/07/2024 3:18 PM CDT 20 mL sodium chloride 0.9 % injection 10-20 mL 10-20 mL, intra-catheter, As needed, line care, Starting on Mon06/07/24 at 1518, When IVAD accessed and not infusing: When no infusion to maintain patency flush every 7 days followed by heparin flush. 10 mL to each port/lumen. When IVAD not accessed or infusing: When no infusion to maintain patency flush every 28 days followed by heparin flush. 10 mL to each port/lumen. Given 06/07/2024 3:18 PM CDT 20 mL documented in this encounter Care Teams Aircraft Pneudraulic Systems Mechanic Relationship Specialty Start Date End Date Elsewhere, Pcp PCP - General Internal Medicine 03/23/24 documented as of this encounter
--- OUTSIDE RECORDS SUMMARY | 2024-06-25 11:52 | XMS_ITS | Encounter Summary ---
Author Organization [facility] Address [address] [place] [address] Care Team Providers Care Equine Science Instructor Name Role Phone Elsewhere, Pcp Primary Care Provider Unavailabl e Reason for Referral * Outpatient (Routine) - Closed Specialty Diagnoses / Procedures Referred By Contac t Referred To Contact Pulmonary Medicine Diagnoses Personal History Of Malignant Neoplasm Of Bladder Kuldeep Ruth M.D. [address] [place] [address] [facility] Referral ID Status Reason Start Date Expiration Date Visits Re quested Visits Authorized [id number] Closed 06/06/2024 12/06/2025 1 1 * Outpatient (Routine) - Closed Specialty Diagnoses / Procedures Referred By Contoly t Referred To Contact Pulmonary Medicine Elena Salas M.D. [address] [place] [address] [facility] Referral ID Status Reason Start Date Expiration Date Visits Re quested Visits Authorized [id number] Closed 06/06/2024 12/06/2025 1 1 Reason for Visit * Outpatient (Routine) - Closed Specialty Diagnoses / Procedures Referred By Contac t Referred To Contact Pulmonary Medicine Diagnoses Personal History Of Malignant Neoplasm Of Bladder Kuldeep Ruth M.D. [address] [place] [address] [place] Referral ID Status Reason Start Date Expiration Date Visits Re quested Visits Authorized [id number] Closed 06/06/2024 12/06/2025 1 1 Encounter Details Date Type Department Care Team (Latest Contact Info) Description 06/07/2024 1:12 PM CDT - 06/07/2024 3:34 PM CDT Hospital Encounter Division of Pulmonary Medicine in [place], [place] [address] [place] [address] Elena Salas M.D. [address] [place] [phone] Effusion Pleural (Primary Dx); Personal History Of Malignant Neoplasm Of Bladder; Anemia In Chronic Kidney Disease; Malignant Neoplasm Of Gastroesophageal Junction (HCC) Discharge Disposition: Home or Self Care Social History Tobacco Use Types Packs/Day Years Used Date Smoking Tobacco: Former Cigarettes 2.5 30.1 0 09/18/1965 - 11/01/1995 Passive Smoke Exposure: Never Smokeless Tobacco: Never Alcohol Use Standard Drinks/Week Comments Not Currently 1 (1 standard drink = 0.6 oz pur e alcohol) drink on special occasions [facility] Utilities Answer Date Recorded In the past 12 months has e [email or web address], gas, oil, or water [employer] threatened to shut off services in your [...] often do you attend chur ch or rastafarian services? More than 4 times per year 01/27/2023 Do you belong to any clubs o r organizations such as caodaism groups, unions, fraternal or athletic groups, or [...] care, and heating? Not very hard 01/27/2023 [facility] - Occupational Stress Questionnaire Answer Date [...] your living situation today? I have a [facility] place to live 03/31/2024 Education Answer [...] - Respiratory Rate - - Oxygen Saturation 94% 06/07/2024 1:29 PM CDT 4 liters Inhaled Oxygen Concentration - - Weight - - Height - - Body Mass Index - - documented in this encounter Medications at Time of Discharge Medication Sig Dispensed Refills Start Date End Date acetaminophen (TylenoL) 500 mg tablet Take 2 tablets (1,000 mg total) by mouth 3 (three) times a day. 05/02/2024 albuterol 90 mcg/actuation inhalerIndications:Emphys sally ([facility]) INHALE 2 PUFFS EVERY 4 HRS NEEDED FOR WHEEZING OR SHORTNESS OF BREATH. USE WITH AUTHORIZATION MANAGER TUBE. 18 g 11 07/27/2023 07/26/2024 DME OxygenIndications:Fibrosi s Pulmonary ([facility]) DME Order - for details see Order Report 1 each 04/16/2024 Eliquis 5 mg tablet Take 5 mg by mouth 2 (two) times a day. 07/02/2023 heparin 100 unit/mL syringeIndications:Malign ant Neoplasm Of Gastroesophageal Junction (HCC),Mcc Current Drug Therapy, Chemotherapy 5 mL (500 [...] mg tabletIndications:Maligna nt Neoplasm Of Gastroesophageal Junction (HCC),Family Support Specialist Current Drug Therapy, Chemotherapy TAKE 1 TABLET BY MOUTH AT BEDTIME NEEDED (NAUSEA, VOMITING). MAY TAKE DOSE EARLY IF NEEDED. 90 tablet 1 03/05/2024 omeprazole (PriLOSEC) [address] capsule Take 20 mg by mouth every morning before breakfast. ondansetron (ZOFRAN) 8 mg tabletIndications:Maligna nt Neoplasm Of Gastroesophageal Junction (HCC),Family Support Specialist Current Drug Therapy, Chemotherapy Take 1 [...] 05/10/2024 06/10/2024 documented as of this encounter Consult Notes * Elena Salas M.D. - 06/07/2024 1:30 PM CDT SUBJECTIVE REFERRING PROVIDER Kuldeep Ruth M.D. [address] [place] [phone] CHIEF COMPLAINT/REASON FOR VISIT Pleural effusion HISTORY OF PRESENT ILLNESS Mr. Rin Cho is a 79 y.o. male who presents to clinic for evaluation of a pleural effusion. 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 Cho has a known history of metastatic adenocarcinoma of the gastroesophageal junction with associated malignant right pleural effusion. He recently enrolled in hospice. He has persistent dyspnea in the setting of combined pulmonary fibrosis and emphysema as well as the pleural effusion. He also requires supplemental oxygen. He has previously undergone therapeutic thoracenteses including 02/21/24 (removed 625 mL) and 8/16/2 (removed 650 mL). For symptomatic relief, his hospice agency and primary provider recommended consideration of a tunneled pleural catheter. CXR today demonstrated increased size of a now small right pleural effusion, but otherwise no significant change. Today, Mr. Cho endorses significant shortness of breath, especially with any exertion. He iscurrently utilizing 6 L O2 by MD consistently. He has also been using his inhalers and nebulizers as prescribed. Mr. Cho notes that he had improvement in his shortness of breath after previousthoracenteses. He also noted significant improvement in symptoms after prior blood transfusion. CURRENT MEDICATIONS Current Outpatient Medications: acetaminophen (TylenoL) 500 mg tablet, Take 2 tablets (1,000 mg total) by mouth 3 (three) times a day., Disp: , Rfl: albuterol 90 mcg/actuation inhaler, INHALE 2 PUFFS EVERY 4 HRS NEEDED FOR WHEEZING OR SHORTNESS OF BREATH. USE WITH AUTHORIZATION MANAGER TUBE., Disp: 18 g, Rfl: 11 dexAMETHasone (Decadron) 2 mg tablet, Take 1 tablet (2 mg total) by mouth daily for 7 doses., Disp:6 tablet, Rfl: 0 DME Oxygen, DME Order - for details see Order Report, Disp: 1 each, Rfl: 0 Eliquis 5 mg tablet, Take 5 mg by mouth 2 (two) times a day., Disp: , Rfl: heparin 100 unit/mL syringe, 5 mL (500 Units total) by intra-catheter route once as needed for linecare for up to 1 dose. Flush IV line AFTER 0.9% Sodium Chloride flush (Patient taking differently: 5 mL by intra-catheter route as needed for line care. Flush IV line AFTER 0.9% Sodium Chloride flush), Disp: 60 mL, Rfl: 3 inhalational spacing device (AEROCHAMBER) spacer, 1 each as needed (for use with Albuterol inhaler)., Disp: 1 each, Rfl: 1 multivitamin tablet, Take 1 tablet by mouth daily. GUMMIES, Disp: , Rfl: OLANZapine (ZyPREXA) 5 mg tablet, TAKE 1 TABLET BY MOUTH AT BEDTIME NEEDED (NAUSEA, VOMITING). MAY TAKE DOSE EARLY IF NEEDED., Disp: 90 tablet, Rfl: 1 omeprazole (PriLOSEC) [address] capsule, Take 20 mg by mouth every morning before breakfast., Disp: , Rfl: ondansetron (ZOFRAN) 8 mg tablet, Take 1 tablet (8 mg total) by mouth every 8 (eight) hours as needed for nausea or vomiting (unrelieved by prochlorperazine)., Disp: 30 tablet, Rfl: 3 oxyCODONE (Roxicodone) 5 mg immediate release tablet, Take 1 tablet (5 mg total) by mouth every 6 (six) hours as needed for pain or severe pain or score 7-10 of 10 Indication: Chronic Pain/Nonacute Pain., Disp: 30 tablet, Rfl: 0 prochlorperazine (COMPAZINE) 10 mg tablet, Take 1 tablet (10 mg total) by mouth every 6 (six) hoursas needed for nausea or vomiting., Disp: 30 tablet, Rfl: 3 tamsulosin (FLOMAX) 0.4 mg 24 hr capsule, Take 0.4 mg by mouth daily., Disp: , Rfl: tetracaine HCl 1 % adult lollipop (sugar free), Suck on lollipop for 5 to 15 seconds only.Limit useto no more than 3 times per hour.Return lollipop to the child resistant container after each use. Do not use more than 1 lollipop in one day., Disp: 3 each, Rfl: 0 umeclidinium-vilanteroL (Anoro Ellipta) 62.5-25 mcg/actuation inhaler, Inhale 1 puff daily., Disp: 60 each, Rfl: 11 ALLERGIES/CONTRAINDICATIONS Allergies as of 06/07/2024 (No Known Allergies) SYSTEMS REVIEW Pertinent items are noted in HPI; all other review of systems was negative. PAST MEDICAL/SURGICAL HISTORY Past Medical History: Diagnosis Date Apnea Sleep Obstructive BenignProstatic Hyperplasia Localized Body Mass Index 36.0 To 36.9 Adult Chronic Obstructive Pulmonary Disease (HCC) Headache Unspecified Malignant Neoplasm Of Bladder (HCC) Malignant Neoplasm Of Skin Basal Cell Carcinoma Malignant Primary Neoplasm (Unknown Site) Unspecified (HCC) Other Injury Of Unspecified Body Region right arm and fusion of 5,6,7 in neck Pneumonia Polyp Colon Sleep Apnea Past Surgical History: Procedure Laterality Date BLADDER SURGERY Feb 2014 CERVICAL FUSION C5-7 CYSTOSCOPY BIOPSY FULGURATION SPINE SURGERY 06/2003 fusion of 5,6,7 TONSILLECTOMY 1951 also adenoids TONSILLECTOMY AND ADENOIDECTOMY SOCIAL HISTORY Social History Socioeconomic History Marital status: Highest education level: Associate degree: occupational, technical, or vocational program Tobacco Use Smoking status: Former Current packs/day: 0.00 Average packs/day: 2.5 packs/day for 30.1 years (75.3 ttl pk-yrs) Types: Cigarettes Start date: 09/18/1965 Quit date: 11/01/1995 Years since quittin.6 Passive exposure: Never Smokeless tobacco: Never Vaping Use Vaping status: never used Substance and Sexual Activity Alcohol use: Not Currently Alcohol/week: 1.0 standard drink of alcohol Types: 1 Standard drinks or equivalent per week Comment: drink on special occasions Drug use: No Sexual activity: Not Currently Partners: Female control/protection: None Social Determinants of Health Food Insecurity: No Food Insecurity (03/31/2024) Hunger Vital Sign Worried About Running Out of Food in the Last Year: Never true Ran Out of Food in the Last Year: Never true Transportation Needs: No Transportation Needs (03/31/2024) PRAPARE - Transportation Lack of Transportation (Medical): No Lack of Transportation (Non-Medical): No Physical Activity: Inactive (03/31/2024) Exercise Vital Sign Days of Exercise per Week: 0 days Minutes of Exercise per Session: 0 min Intimate Partner Violence: Patient Unable To Answer (03/24/2024) Humiliation, Afraid, Rape, and Kick questionnaire Fear of Current or Ex-Partner: Patient unable to answer Emotionally Abused: Patient unable to answer Physically Abused: Patient unable to answer Sexually Abused: Patient unable to answer Housing Stability: Low Risk (03/31/2024) Housing Stability Housing: Living Situation: I have a steady place to live FAMILY HISTORY Family History Problem Relation Name Age of Onset Sleep apnea Child Son Prostate cancer Brother Amador Prostate removed 2015 Other cancer Mother Daniel Cho Brain Tumor Stroke Mother Daniel Cho Hypertension Mother Daniel Marquis Migraines Mother Daniel DunhamMarquis Stroke Father Tray Cho Stroke , 3 days later Migraines Daughter Bess Genetic disease Daughter Bess Mihlqb-kmyoxx-foawcklss OBJECTIVE VITAL SIGNS Vitals: 06/07/24 1329 SpO2: 94% PHYSICAL EXAMINATION General: 79-year-old man in no acute distress. Pleasant with conversation. HEENT: Normocephalic, atraumatic. EOMI. No scleral icterus. CV: Regular rate and rhythm. S1 and S2 normal. Resp: Mildly labored respirations on nasal cannula. Diminished breath sounds throughout. Bedside ultrasound with small right pleural effusion, though there appears to be additional fluid anteriorly. Left side with no pleural fluid. Images uploaded into [employer]. Skin: Warm, dry. No visible rashes. Extremities: Warm, well perfused. Mental: Alert, oriented. Appropriate with conversation. ASSESSMENT / PLAN IMPRESSION/REPORT/PLAN Mr. Rin Cho is a 79 y.o. male who presents to clinic for evaluation of a pleural effusion. 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 Cho presents for evaluation of dyspnea in the setting of known malignant right pleural effusion. He also has combined pulmonary fibrosis with emphysema and is requiring 6 L O2 by NC. He appears to be optimized from a bronchodilator therapy regimen. He recently enrolled in hospice and both the agency and his primary provider have recommended considering tunneled pleural catheter. While the effusion is small on bedside ultrasound, there appears to be additional fluid more anteriorly. Furthermore, he noted symptomatic improvement with prior thoracenteses. Discussed the indications, benefits, and potential risks of tunneled pleural catheter vs. serial thoracenteses. Ultimately, aftera shared decision-making discussion, Mr. Cho elected to proceed with the former. Thoracentesis was deferred today in clinic to allow enough fluid for placement of the catheter next week. Mr. Cho was instructed to hold apixaban starting today. Have also requested a nursing education visit. NOTE TO PROCEDURALIST: Please confirm Mr. Cho has held apixaban as instructed. Please place a right-sided tunneled pleural catheter. Please provide instructions to Mr. Cho on when to resume apixaban depending on how the procedure goes. Of note, Mr. Cho was found to have significant anemia in early April 2024 (hemoglobin 6.1 on 04/30/24). He received pRBC transfusion with improvement in symptoms. Will check a repeat hemoglobin to see if Mr. Cho would benefit symptomatically from another transfusion. Will also obtain a type and screen. ADDENDUM 06/07/24 at 1645: Hemoglobin returned low at 6.1. Have ordered 2 units pRBCs to be administered in the [facility]fusion [facility]. Note, there is a blood administration consent form in the EMRdated 03/26/24. Transfusion was able to be arranged this evening to which Mr. Cho was amenable. Mr. Cho had no questions or concerns. He expressed understanding and was amenable to the plan. He was encouraged to contact the clinic should questions or concerns arise. PATIENT EDUCATION Learning needs assessment was performed. No learning barriers were identified. Explained diagnosis and treatment plan. Patient expressed understanding and was able to teach back. I personally spent 40 minutes in care of the patient today. Time includes both non isss-uh-tkov puhehzu-eu-zohk patient care. documented in this encounter Miscellaneous Notes * Addendum Note - Elena Salas M.D. - 06/07/2024 1:30 PM CDTEncounter addended by: Elena Salas M.D. on: 06/07/2024 4:46 PM Actions taken: Clinical Note Signed documented in this encounter Plan of Treatment Scheduled Referrals Name Type Priority Associated Diagnoses Order Schedule Pulmonary Medicine nurse visit (clinic) Outpatient Referral Routine Expected: 06/07/2024, Expires: 09/05/2025 Pulmonary Medicine - Pleural Disease consult (clinic) Outpatient Referral Routine Personal History Of Malignant Neoplasm Of Bladder Once for 1 Occurrences starting 06/07/2024 until 06/07/2024 documented as of this encounter Results * Type and Screen (with Reflex Antibody ID) (06/07/2024 3:14 PM CDT) ABORh O Pos Not applicable 06/07/2024 4:06 PM CDT ETRM Antibody Screen Negative Negative 06/07/2024 4:11 PM CDT ETRM Type & Screen Expiration 06/10/2024 23:59 06/07/2024 4:06 PM CDT ETRM Testing Location [place] DEFAULT 06/07/2024 3:29 PM CDT ETRM Blood (Blood, Venous) 06/07/2024 3:14 PM CDT 06/07/2024 3:29 PM CDT Elena Salas M.D. LAB BLOOD BANK TEST ORDERABLES [facility] [address] [place] [address], [facility] ETRM [facility] [address] [place] [address] documented in this encounter Visit Diagnoses Diagnosis Effusion Pleural- Primary Personal History Of Malignant Neoplasm Of Bladder Anemia In Chronic Kidney Disease Malignant Neoplasm Of Gastroesophageal Junction (HCC) documented in this encounter Care Teams Equine Science Instructor Relationship Specialty Start Date End Date Elsewhere, Pcp PCP - General Internal Medicine 03/23/24 documented as of this encounter
--- OUTSIDE RECORDS SUMMARY | 2024-06-25 11:52 | XMS_ITS | Encounter Summary ---
Author Organization [facility] Address [address] [place] [address] Care Team Providers Care Community Midwife Name Role Phone Elsewhere, Pcp Primary Care Provider Unavailabl e Encounter Details Date Type Department Care Team (Late st Contact Info) Description 05/08/2024 Documentation Department of Radiation Oncology in [place], [place] [address] [place] [phone] Dread Doyle M.D. [address] [place] [phone] Social History Tobacco Use Types Packs/Day Years Used Date Smoking Tobacco: Former Cigarettes 2.5 30.1 0 09/18/1965 - 11/01/1995 Passive Smoke Exposure: Never Smokeless Tobacco: Never Alcohol Use Standard Drinks/Week Comments Not Currently 1 (1 standard drink = 0.6 oz pur e alcohol) drink on special occasions [facility] Utilities Answer Date Recorded In the [...] How often do you attend chur or religion services? More than 4 times per year 01/27/2023 Do you belong to any clubs o r organizations such as latter-day groups, unions, fraternal or athletic groups, or [...] care, and heating? Not very hard 01/27/2023 [facility] [place] of Occupat ional Health - Occupational Stress [...] your living situation today? I have a [facility] place to live 03/31/2024 Education [...] as of this encounter Miscellaneous Notes * Radiation Completion Notes - Gloria Pina, RJamN. - 05/08/2024 11:59 PM CDT DIAGNOSIS: 1. Malignant Neoplasm Of Gastroesophageal Junction (HCC) 2. Secondary Malignant Neoplasm Bone (HCC) Attending Physician: Dread Doyle M.D. Treatment Intent: Palliative Concomitant Therapy: None Single Plan Treatment Course: 2xHumerus Plan ID Fractions Dose / Fraction (cGy) Dose Treated (cGy) Dose Planned (cGy) First Treatment Last Treatment Elapsed Days [id number] 5 400 199905/02/2024 05/08/2024 6 Course Summary 05/02/2024 05/08/2024 6 Radiation Modality: Photons CLINICAL SUMMARY Mr. Rin Cho completed radiation treatment as planned without interruptions. The course of treatment was tolerated well. The patient experienced no toxicities during radiation treatment. TREATMENT RESPONSE: Response to treatment will be determined by post-treatment imaging and/or laboratory work. RECOMMENDED FOLLOW UP: Palliative Care . Patient will have follow up with Palliative care on our [facility] [place] on May 16, 2024. Follow up with Dr. Doyle will be as needed. Signed by: Gloria Pina R.N., 05/27/2024 3:50 PM CDT [facility] [address] [place] [address] documented in this encounter Plan of Treatment Not on file documented as of this encounter Visit Diagnoses Diagnosis Malignant Neoplasm Of Gastroesophageal Junction (HCC)- Primary Secondary Malignant Neoplasm Bone (HCC) documented in this encounter Additional Health Concerns Infection Onset Date Last Indicated Resolved Time Protective Environment 04/17/2024 04/17/202405/19 5:39 AM CDT C. difficile 05/02/2024 05/02/2024 05/30/2024 5:54 AM CDT documented as of this encounter Care Teams Community Midwife Relationship Specialty Start Date End Date Elsewhere, Pcp PCP - General Internal Medicine 03/23/24 documented as of this encounter
--- OUTSIDE RECORDS SUMMARY | 2024-06-25 11:52 | XMS_ITS | Encounter Summary ---
Author Organization [facility] Address [address] [place] [address] Care Team Providers Care Assistant Hall Director Name Role Phone Elsewhere, Pcp Primary Care Provider Unavailabl e Encounter Details Date Type Department Care Team (Late st Contact Info) Description 06/07/2024 1:50 PM CDT Ancillary Procedure Department of Pulmonary and CC Medicine Social History Tobacco Use Types Packs/Day Years Used Date Smoking Tobacco: Former Cigarettes 2.5 30.1 0 09/18/1965 - 11/01/1995 Passive Smoke Exposure: Never Smokeless Tobacco: Never Alcohol Use Standard Drinks/Week Comments Not Currently 1 (1 standard drink = 0.6 oz pur e alcohol) drink on special occasions [facility] Utilities Answer Date Recorded In the past 12 months has e [employer], gas, oil, or water [employer] threatened to shut off services in your [...] How often do you attend chur or buddhism services? More than 4 times per year 01/27/2023 Do you belong to any clubs o r organizations such as worship groups, unions, fraternal or athletic groups, or [...] care, and heating? Not very hard 01/27/2023 [facility] of Occupat ional Health - Occupational [...] your living situation today? I have a [facility] place to live 03/31/2024 Education Answer [...] IMAGE EXAM Routine 06/07/2024 1:50 PM CDT documented in this encounter Results * Non-Radiology Image-Pulmonary And CC Medicine Image Exam (06/07/2024 1:50 PM CDT) 06/07/2024 1:46 PM CDT Narrative [facility] - 06/07/2024 1:55 PM CDT This order has been created and auto-finalized to support the import of images acquired without order. The clinical documentation to support these images can be found on the encounter that produced images. Provider Not In System IMG NON RAD IMAGI NG PROCEDURES [facility] NA documented in this encounter Visit Diagnoses Not on filedocumented in this encounter Care Teams Assistant Hall Director Relationship Specialty Start Date End Date Elsewhere, Pcp PCP - General Internal Medicine 03/23/24 documented as of this encounter
--- OUTSIDE RECORDS SUMMARY | 2024-06-25 11:53 | XMS_ITS | Encounter Summary ---
Author Organization [facility] Address [address] [place] [id number] Care Team Providers Care Peanut Blancher Name Role Phone Elsewhere, Pcp Primary Care Provider Unavailabl e Encounter Details Date Type Department Care Team (Late st Contact Info) Description 04/30/2024 Orders Only Department of Oncology in [place], [place] [address] [place] [address] Merly Beavers, MINESH, C.N.P., M.S. [address] [place] [phone] Social History Tobacco Use Types Packs/Day Years Used Date Smoking Tobacco: Former Cigarettes 2.5 30.1 0 09/18/1965 - 11/01/1995 Passive Smoke Exposure: Never Smokeless Tobacco: Never Alcohol Use Standard Drinks/Week Comments Not Currently 1 (1 standard drink = 0.6 oz pur e alcohol) drink on special occasions [facility] Utilities Answer Date Recorded In [...] week 01/27/2023 How often do you attend [facility] or protestant services? More than 4 times per year 01/27/2023 Do you belong to any clubs o r organizations such as presybeterian groups, unions, fraternal or athletic groups, or [...] care, and heating? Not very hard 01/27/2023 [facility] [place] of Occupat ional Health - Occupational Stress [...] your living situation today? I have a [facility] place to live 03/31/2024 Education [...] documented as of this encounter Care Teams Peanut Blancher Relationship Specialty Start Date End Date Elsewhere, Pcp PCP - General Internal Medicine 03/23/24 documented as of this encounter
--- OUTSIDE RECORDS SUMMARY | 2024-06-25 11:53 | XMS_ITS | Encounter Summary ---
Author Organization [facility] Address [address] [place] [id number] Care Team Providers Care Vending Machine Filler Name Role Phone Elsewhere, Pcp Primary Care Provider Unavailabl e Reason for Referral * Outpatient (Routine) - Closed Specialty Diagnoses / Procedures Referred By Fabian hernández Referred To Contact Palliative Medicine Hannah Alcantara M.D. 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 [address] [place] [phone] [facility] Referral ID Status Reason Start Date Expiration Date Visits Re quested Visits Authorized [id number] Closed 04/16/2024 10/16/2025 1 1 Encounter Details Date Type Department Care Team (Latest Contact Info) Description 05/02/2024 2:00 PM CDT Comprehensive Visit Department of Palliative Care in [place], [place] 200 [place] [address] Hannah Alcantara M.D. 200 [place] [phone] Melba Hodge R.N., [facility] 200 [place] [phone] Malignant Neoplasm Of Gastroesophageal Junction (HCC); Secondary Malignant Neoplasm Bone (HCC) Social History Tobacco Use Types Packs/Day Years Used Date Smoking Tobacco: Former Cigarettes 2.5 30.1 0 09/18/1965 - 11/01/1995 Passive Smoke Exposure: Never Smokeless Tobacco: Never Alcohol Use Standard Drinks/Week Comments Not Currently 1 (1 standard drink = 0.6 oz pur e alcohol) drink on special occasions [facility] [employer] Answer Date Recorded In the past 12 months has [employer] gas, oil, or water [employer] threatened to shut off services in your [...] week 01/27/2023 How often do you attend [facility] or anglican services? More than 4 times [...] care, and heating? Not very hard 01/27/2023 [facility] of Occupat ional Health - Occupational [...] living situation today? I have a [facility] place to live 03/31/2024 Education Answer [...] Pressure - - Pulse - - Temperature 36.4 ??C (97.5 ??F) 05/02/2024 1:51 PM CD T Respiratory Rate - - Oxygen Saturation 93% 05/02/2024 1:51 PM CDT Inhaled Oxygen Concentration - - Weight - - Height - - Body Mass Index - - documented in this encounter Progress Notes * Melba Hodge R.N., [facility] - 05/02/2024 2:00 PM CDT Palliative Care Introduction I introduced the patient and/or family to role of palliative medicine in the care of patients with serious illness, namely expertise in pain and non-pain symptom management, psychosocial, and spiritual support for patients and families as well as assistance in broader medical decision making. Palliative Medicine Clinic team sheet and contact information was reviewed with the patient. Chief Complaint/Purpose of Visit Patient was here for patient education. Patient was referred by Dr. Hannah Alcantara Impression/Report/Plan Please see After Visit Summary for specific patient instructions. Patient Education: Education provided to patient and spouse and daughter For details involving the learning needs assessment, teaching methods used, and evaluation of learning, please refer to the patient education flowsheet. Education topics covered in this visit include: Clinic Care Team/Contacting the Clinic, Opioid Medication , and Hospice Palliative Medicine Clinic face sheet & contact information, Palliative Care: Care for People with Serious Illness [id number] and Integrative and Supportive Therapies for Palliative Care Patients [id number] provided at this visit. Standard Opioid education included: Medication specific education for Oxycodone Safe Management of Controlled Substances [id number] Important Information About Opioid Medication [id number] (page 7 opioid withdrawal) Treating Constipation Caused by Pain Medications [id number] Educational materials provided were: Choosing Hospice [id number] and Notebook [id number] Follow-up as per the consult note of Dr. Hannah Alcantara - we will have an RN follow up with Mr. Cho next Monday documented in this encounter Consult Notes * Jarod Hughes M.D., M.S. - 05/02/2024 2:00 PM CDT SUBJECTIVE PRIMARY CARE PROVIDER ELSEWHERE, PCP Patient Care Team: Annie Layton M.D. as External Primary Care Physician (Internal Medicine) REFERRING PROVIDER Merly Beavers APRN, C.N.P., M.S. [phone] REFERRING SERVICE Oncology CHIEF COMPLAINT / REASON FOR CONSULT Rin Cho is a 78 y.o. male [...] for evaluation of non-pain symptoms and pain. HISTORY OF PRESENT ILLNESS The patient's medical history has been well delineated in the electronic medical record. I refer you to the detailed notes of Dr. Howell for full details. Brief description of his course is in the chiefcomplaint. 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 This has progressed/relapsed despite multiple lines of chemotherapy. Complications include [id number] right pleural effusion, as well as fibrotic changes in the lung. He also recently needed to be admitted to the hospital in March 2024 for dyspnea, diarrhea in the setting of C diff colitis, and overall failure to thrive. His last dose of chemotherapy was 1 dose of paclitaxel 40% reduced on 04/17/2024. He was last seen by Dr. Howell in Medical Oncology on 04/30/2024. At that visit, he reported progressive fatigue, shortness of breath, and diarrhea since chemotherapy on 04/17. His poor prognosis was discussed, and patient and family shared that they worried that the patient would not be able to tolerate further chemotherapy and would like to focus on supportive care. The decision to not offer any more chemotherapy was made by oncology. He was given 2 units of blood given his anemia with a hemoglobin of 6, and a thoracentesis was also scheduled given his shortness of breath in the setting of a pleural effusion, which is scheduled for tomorrow. A GI pathogen panel was obtained given the continued diarrhea nonresponsive to loperamide, which is pending at this time. For pain, predominantly in the left shoulder, he was scheduled for radiation to be given in 5 fractions, starting possibly latertoday. He was also prescribed 5 mg oxycodone p.r.n. for pain. Today, he presents with his , Luz, and daughter, Alaina. They were able to tell me the conversations in the Oncology visit 2 days ago, including the decision to not offer further chemotherapy. They expressed good understanding of the illness and poor prognosis going forward. They noted that the oncologist had brought up the topic of hospice, but that no decision had been made. Symptom based assessment as below: Pain: His primary pain generators are bony disease resulting in left arm pain, with plans of 5 fractions of radiation to this area starting tomorrow, an achy deep- seated pain in both legs from the groin through about the knee, and finally, a similar ache like pain in the right upper back. The 1st 2, he rates as a 7 on 10 at its worst. He was recently prescribed oxycodone 5 mg p.r.n. for this, and findsthis beneficial; he has been taking this with 500 mg of Tylenol at most every 6 hours. The pain does not wake him up from sleep. Of note, he does not like taking many medications, and thus is very conservative with the oxycodone. Mood/anxiety: He endorses good mood overall in the context of some grief related to his cancer and prognosis. He finds michelle and spending time with family, being in nature at home, with the jewish community, and sometimes watching TV including war movies. Appetite: His cooks for him. He has a good appetite currently. He has not had any weight loss. On days when he does not have a good appetite, he at least make sure to get some premier protein drinks. Diarrhea/constipation: He had a significant amount of diarrhea starting with the last chemotherapy round on 04/17/2024. This is slowly improving over the last couple of days, to the point that he is only having a couple ofloose stools everyday. He is not taking any Imodium. I note that a GI pathogen panel is pending. Overall, he feels that this is well-controlled and improving. Sleep: He is sleeping well. Dyspnea: He does have a significant amount of dyspnea. At rest, he is using 3 L of oxygen, and does use 5 L of oxygen at sleep. He has been using oxygen for the past 2 years. He was able to perform certain activities of daily living such as showering and eating food, although does have to be slow with thesewith dyspnea being the limiting factor. He has not noticed the oxycodone helping significantly withany air hunger. He is scheduled for a thoracentesis tomorrow. Life in general: Overall, he is happy with his life as it is currently. He feels he and his are self sufficientat home and enjoys being at home. He recognizes that there are limits to his mobility posed by cancer/ associated debility, but does find meaning and enjoyment in life. He has not had any falls recently, but his daughter does worry about any falls in the future. Social History: He lives at home with his in [place]. They have a multi story house, but he is completely self-sufficient on the 1st floor and does not have to use stairs. His daughter lives about an hour away. His son lives 11 hours away in [place]. Spiritual Assessment: He is spiritual and involved in his jewish community. CODE STATUS DNR/DNI [place] [employer] Who completed this form?: Patient No Pain = 0 and Worst Pain = 10: 3 No Fatigue = 0 and Worst Fatigue = 10: 2 No Nausea = 0 and Worst Nausea = 10: 2 No Depression = 0 and Worst Depression = 10: 2 No Anxiety = 0 and Worst Anxiety = 10: 2 No Drowsiness = 0 and Worst Drowsiness = 10 : 3 No Shortness of Breath = 0 and Worst Shortness of Breath = 10: 6 Best Appetite = 0 and Worst Appetite = 10: 2 Best Feeling of Well Being = 0 and Worst Feeling of Well Being = 10: 4 Best Sleep = 0 and Worst Sleep = 10: 0 No Financial Distress (Distress/suffering experienced secondary to financial issues) = 0 and Worst Financial Distress = 10: 1 No Spiritual Pain (Pain deep in your soul/being that is not physical) = 0 and Worst Spiritual Pain = 10: 1 OBJECTIVE PHYSICAL EXAM Blood Pressure: (110)/(55) 110/55 Pulse Rate: [70] 70 General: Fatigued; in wheelchair in no acute distress Eyes: Conjunctiva clear, sclera non-icteric Lungs: Unlabored respirations on NC Psychiatric: Alert and appropriate with conversation. Intact recent and remote memory, judgment andinsight, congruent mood and affect. DIAGNOSTICS I have reviewed relevant diagnostics. 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 We introduced the patient and their caregiver's to role of palliative care in the care of patients with serious illness, namely expertise in pain and non-pain symptom management, psychosocial, and spiritual support for patients and families as well as assistance in broader medical decision making. I have reviewed the patient's case and plan of care with Dr. Hannah Alcantara. Symptom based recommendations and serious illness conversation as below. RECOMMENDATIONS Pain: He has a significant burden of nociceptive cancer pain. Recommend trialing dexamethasone 4 mg for aweek, which he is amenable to. We will then check up on him to see how he is doing and make decisions about ongoing dexamethasone. He will continue taking oxycodone 5 mg on top of this up to every 4 hours p.r.n. Also instructed scheduled Tylenol 1000 mg TID. The dexamethasone may also help with hisenergy levels and appetite. The oxycodone may help w/ air hunger. Opioid Summary Opioid Need: This patient has a condition that necessitates treatment with an opioid for longer than 7 days. Additionally, a non-opioid alternative was not appropriate or inadequate to manage patient???s pain. We have reviewed risks, benefits and alternatives related to opioid prescribing as well as relevant mitigation strategies. Diagnosis related to controlled substance prescribing: Nociceptive cancer pain [place] [employer] [place] Review: We have reviewed the patient's record in the [place] prescription monitoring program 05/02/2024. Opioid Toxicity Review: We have reviewed the risks of opioid therapy and completed an assessment oftoxicities. Opioid Aberrant Use Concerns: None Recommended Opioid Regimen as of 05/02/2024.: as documented above Current Oral Morphine Equivalents (OME/MME): No scheduled opioids Naloxone prescribed: no, MEDD< 90 and no concurrent sedating medications Advance Care Planning Surrogate decision maker: discussed today: , Luz, in conjunction with daughter, Alaina. Will have him fill out a POLST form with our nursing team. They have been working on filling out anadvanced directive, which they we will share with us over the portal. Code status: discussed today, DNR/DNI - updated in chart Serious Illness Conversation People present: , Luz, daughter - Alaina, and patient, Rin. We aligned on the patient's poor prognosis, especially in the setting of no more illness directed options. We introduced the concept of hospice care and how it can be delivered. He noted that currently, him and his were able to function adequately at home. I suggested that given that he valuesbeing at home, home hospice at this stage may allow us to bring all his retirement, and that it could serve as a bridge to facility hospice in the future as and when that time comes. I answered specific questions about the ability to do thoracentesis/pursue PleurX during hospice, preferring to finish palliative radiation prior to hospice, and the ability to blood transfusions in hospice. Additional questions were answered. At this time, they preferred to receive information about hospice facilities around their residence, and would like more time to consider. Patient???s Illness Understanding/Prognostic Awareness: Patient has good illness understanding and prognostic awareness. Hopes and Worries: He hopes to continue living as long as possible, but does realize that in the absence of chemotherapy options, his prognosis is limited. Patient Coping Assessment and Needs He has a good support structure including friends, family, neighbors, in his jewish. He was happy with this level of support. We will discuss all other supports IDT has to offer today. Caregiver Coping Assessment and Needs: Not assessed today Thank you for the opportunity to see this patient. Patient has our contact information and understands to call with new/worsening symptoms or concerns. We will work alongside the primary outpatient team to address these issues. Palliative care outpatient clinic will continue to follow along. Follow up visit: 2 weeks. Jarod Hughes M.D., M.S. Associated attestation - Hannah Alcantara M.D. - 05/02/2024 3:43 PM CDT I saw and evaluated the patient, participating in the anderson portions of the service. I reviewed Dr. Hughes???s note. I agree with Dr. Hughes???s findings and plan. Briefly Mr. Cho is a 78-year-old gentleman with metastatic GE junction adenocarcinoma. He isreferred to palliative Care to assist in symptom management and discuss goals of care. At this timehe notes pain in his left arm in his hips and into his legs. We discussed scheduling Tylenol 1000 mg 3 times a day. He is using oxycodone 5 mg every 6 hours for the pain which he does find helpful. We discussed continuing this using it every 4 hours as needed he is also undergoing radiation to leftarm. We talked about adding dexamethasone 4 mg in the morning so he could take this during radiation that would hopefully help pain as well as help fatigue. He would prefer to do this rather than adda long- acting opioid at this time. He already is taking omeprazole. We discussed the use of oxycodone for shortness of breath as well for him to keep track of this is helpful if not we can consider transitioning to a different opioid that might be more helpful for dyspnea. We also explored the next steps in his care. He understands that he would not move forward with anyfurther cancer directed therapy. We again introduced the role of hospice at this time. They have a friend who is part of the jewish who has hospice nurse and they like to discuss different hospice agencies with them we provided them a list today. They will let us know if they would like us to reachout to any specific agency with a referral so that they can have an introductory visit. In the meantime we filled out a POLST form and updated his code status to DNR/DNI. We will have our nurses check in in a week and also plan to visit back in a couple weeks via video. For further details of her visit and plan please see the note of Dr. 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 difficile 05/02/2024 05/02/2024 05/30/2024 5:54 AM CDT documented as of this encounter Care Teams Vending Machine Filler Relationship Specialty Start Date End Date Elsewhere, Pcp PCP - General Internal Medicine 03/23/24 documented as of this encounter
--- OUTSIDE RECORDS SUMMARY | 2024-06-25 11:53 | XMS_ITS | Encounter Summary ---
Author Organization [facility] Address [address] [place] [address] Care Team Providers Care Deputy Program Manager Name Role Phone Elsewhere, Pcp Primary Care Provider Unavailabl e Encounter Details Date Type Department Care Team (Late st Contact Info) Description 05/01/2024 Clinical Communication RST RO Maritza Preciado, M.S.W., L.I.C.S.W. [address] [place] [address] Social History Tobacco Use Types Packs/Day Years Used Date Smoking Tobacco: Former Cigarettes 2.5 30.1 0 09/18/1965 - 11/01/1995 Passive Smoke Exposure: Never Smokeless Tobacco: Never Alcohol Use Standard Drinks/Week Comments Not Currently 1 (1 standard drink = 0.6 oz pur e alcohol) drink on special occasions [facility] Utilities Answer Date Recorded In the past 12 months has e [employer], gas, oil, or water [employer] threatened to shut off services in your [...] How often do you attend chur or baptism services? More than 4 times per year 01/27/2023 Do you belong to any clubs o r organizations such as anabaptism groups, unions, fraternal or athletic groups, or [...] heating? Not very hard 01/27/2023 [facility] of Occupat ional Health - Occupational Stress [...] encounter Miscellaneous Notes * Telephone Encounter - Maritza Crews M.S.W., L.I.C.S.W. - 05/01/2024 4:55 PM CDT Spoke with Mr. Cho's daughter - Alaina ([phone]) via phone. Lengthy conversation about 's recent consultation with Medical Oncology where there was no further clinical recommendations for cancer directed care. Also, talked about Mr. Cho's upcoming consultation with Palliative Care provider (Dr. Nino) & hope that this visit will offer insight about pain management options, difference between palliative & hospice care. Alaina is very supportive of Mr. Cho's autonomy to make health care decisions. She has documents supporting own role as health care agent, should this ever be clinically appropriate / needed. Alaina acknowledges that life is quite full presently due to role as caregiver to both parents, a child about to leave home for first year of colleagues, & many other personal, professional responsibilities. She is doing best to attend to each role with sophie & humor, though admits there are many moments of exhaustion & overwhelm. Alaina had several insightful questions to bring forth during discussion. Many of these surrounded FMLA, hospice, palliative care, health insurance benefits for certain clinical services. All questions were answered to best of abilities & within scope / role. She is aware of clinicians availability & how to reach out should questions or assistance with navigating resources arise going forth. documented in this encounter Plan of Treatment Not on file documented as of this encounter Visit Diagnoses Not on filedocumented in this encounter Additional Health Concerns Infection Onset Date Last Indicated Resolved Time Protective Environment 04/17/2024 04/17/202405/19 5:39 AM CDT documented as of this encounter Care Teams Deputy Program Manager Relationship Specialty Start Date End Date Elsewhere, Pcp PCP - General Internal Medicine 03/23/24 documented as of this encounter
--- OUTSIDE RECORDS SUMMARY | 2024-06-25 11:53 | XMS_ITS | Encounter Summary ---
Author Organization [facility] Address [address] [place] [address] Care Team Providers Care Biomedical Engineer Name Role Phone Elsewhere, Pcp Primary Care Provider Unavailabl e Encounter Details Date Type Department Care Team (Late st Contact Info) Description 05/02/2024 Orders Only Department of Oncology in [place], [place] [address] [place] [address] Luzma Howell M.D. [address] [place] [address] Diarrhea (Primary Dx) Social History Tobacco Use Types Packs/Day Years Used Date Smoking Tobacco: Former Cigarettes 2.5 30.1 0 09/18/1965 - 11/01/1995 Passive Smoke Exposure: Never Smokeless Tobacco: Never Alcohol Use Standard Drinks/Week Comments Not Currently 1 (1 standard drink = 0.6 oz pur e alcohol) drink on special occasions [facility] Utilities Answer Date Recorded In [...] How often do you attend chur or advent services? More than 4 times per year 01/27/2023 Do you belong to any clubs o r organizations such as denominational groups, unions, fraternal or athletic groups, or [...] care, and heating? Not very hard 01/27/2023 [facility] [place] of Occupat ional Health - Occupational Stress [...] your living situation today? I have a [facility] place to live 03/31/2024 Education Answer [...] as of this encounter Progress Notes * Luzma Howell M.D. - 05/02/2024 3:48 PM CDT I called patient and family and informed them that the C diff testing is positive. Given focus on best supportive care, I recommended and prescribed 10 days of vancomycin. Patient and family understood and agreed with plan. documented in this encounter Plan of Treatment Not on file documented as of this encounter Visit Diagnoses Diagnosis Diarrhea- Primary documented in this encounter Additional Health Concerns Infection Onset Date Last Indicated Resolved Time Protective Environment 04/17/2024 04/17/202405/19 5:39 AM CDT C. difficile 05/02/2024 05/02/2024 05/30/2024 5:54 AM CDT documented as of this encounter Care Teams Biomedical Engineer Relationship Specialty Start Date End Date Elsewhere, Pcp PCP - General Internal Medicine 03/23/24 documented as of this encounter
--- OUTSIDE RECORDS SUMMARY | 2024-06-25 11:53 | XMS_ITS | Encounter Summary ---
Author Organization [facility] Address [address] [place] [address] Care Team Providers Care Director Of Emergency Nursing Name Role Phone Elsewhere, Pcp Primary Care Provider Unavailabl e Encounter Details Date Type Department Care Team (Latest Contact Info) Description 05/02/2024 10:28 AM CDT - 05/02/2024 11:59 PM CDT Hospital Encounter Department of Radiation Oncology in [place], [place] [address] [place] [phone] Dread Doyle M.D. [address] [place] [phone] Discharge Disposition: Home or Self Care Social History Tobacco Use Types Packs/Day Years Used Date Smoking Tobacco: Former Cigarettes 2.5 30.1 0 09/18/1965 - 11/01/1995 Passive Smoke Exposure: Never Smokeless Tobacco: Never Alcohol Use Standard Drinks/Week Comments Not Currently 1 (1 standard drink = 0.6 oz pur e alcohol) drink on special occasions [facility] Utilities Answer Date Recorded In the past 12 months has e [employer], gas, oil, or water [employer] threatened to shut off services in your [...] How often do you attend chur or anabaptist services? More than 4 times per year [...] care, and heating? Not very hard 01/27/2023 [facility] [place] of Occupat ional Health - Occupational Stress [...] your living situation today? [facility] 03/31/2024 Education Answer [...] WHEEZING OR SHORTNESS OF BREATH. USE WITH DIRECTOR INFORMATICS TUBE. 18 g 11 07/27/2023 07/26/2024 DME OxygenIndications:Fibrosi s Pulmonary (HCC) DME Order - for details see Order Report 1 each 04/16/2024 Eliquis 5 mg tablet Take 5 mg by mouth 2 (two) times a day. 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 MAY TAKE DOSE EARLY IF NEEDED. 90 tablet 1 03/05/2024 omeprazole (PriLOSEC) [address] capsule Take 20 mg by mouth every morning before breakfast. ondansetron (ZOFRAN) 8 mg tabletIndications:Maligna nt Neoplasm Of Gastroesophageal Junction (HCC),Senior Care Current Drug Therapy, Chemotherapy Take 1 tablet [...] mg tabletIndications:Maligna nt Neoplasm Of Gastroesophageal Junction (HCC),Senior Care Current Drug Therapy, Chemotherapy Take 1 tablet [...] documented as of this encounter Care Teams Director Of Emergency Nursing Relationship Specialty Start Date End Date Elsewhere, Pcp PCP - General Internal Medicine 03/23/24 documented as of this encounter
--- OUTSIDE RECORDS SUMMARY | 2024-06-25 11:53 | XMS_ITS | Encounter Summary ---
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 [address] [place] [phone] [facility] Referral ID Status Reason Start Date Expiration Date Visits Re quested Visits Authorized [id number] Closed 04/22/2024 04/22/2025 1 1 Encounter Details Date Type Department Care Team (Latest Contact Info) Description 05/03/2024 7:29 AM CDT - 05/03/2024 8:20 AM CDT Hospital Encounter Department of Radiology, [facility] in [place], [place] [address] [place] [address] Merly Beavers APRN, C.N.P., M.S. [address] [place] [address] Secondary Malignant Neoplasm Bone (HCC); Malignant Neoplasm Of Gastroesophageal Junction (HCC); Effusion Pleural Discharge Disposition: Home or Self Care Social History Tobacco Use Types Packs/Day Years Used Date Smoking Tobacco: Former Cigarettes 2.5 30.1 0 09/18/1965 - 11/01/1995 Passive Smoke Exposure: Never Smokeless Tobacco: Never Alcohol Use Standard Drinks/Week Comments Not Currently 1 (1 standard drink = 0.6 oz pur e alcohol) drink on special occasions [facility] [employer]ities Answer Date Recorded In the past 12 months has [employer], gas, oil, or water [employer] threatened to shut off services in your [...] How often do you attend chur or gnosticist services? More than 4 times per year 01/27/2023 Do you belong to any clubs o r organizations such as confucianist groups, unions, fraternal or athletic groups, or [...] care, and heating? Not very hard 01/27/2023 [facility] of Occupat ional Health - Occupational Stress [...] Sign Reading Time Taken Comments Blood Pressure 114/56 05/03/2024 8:15 AM CDT Pulse 70 05/03/2024 8:15 AM CDT Temperature - - Respiratory Rate - - Oxygen Saturation 97% 05/03/2024 8:15 AM CDT Inhaled Oxygen Concentration - - Weight - - Height - - Body Mass Index - - documented in this encounter Discharge Instructions * Attachments The following attachments cannot be sent through Care Everywhere. * Care Following Thoracentesis (Icelandic) documented in this encounter Medications at Time of Discharge Medication Sig Dispensed Refills Start Date End Date acetaminophen (TylenoL) 500 mg tablet Take 2 tablets (1,000 mg total) by mouth 3 (three) times a day. 05/02/2024 albuterol 90 mcg/actuation inhalerIndications:Emphys sally ([facility]) INHALE 2 PUFFS EVERY 4 HRS NEEDED FOR WHEEZING OR SHORTNESS OF BREATH. USE WITH DRY END TESTER TUBE. 18 g 11 07/27/2023 07/26/2024 DME OxygenIndications:Fibrosi s Pulmonary ([facility]) DME Order - for details see Order Report 1 each 04/16/2024 Eliquis 5 mg tablet Take 5 mg by mouth 2 (two) times a day. 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 MAY TAKE DOSE EARLY IF NEEDED. 90 tablet 1 03/05/2024 omeprazole (PriLOSEC) [address] capsule Take 20 mg by mouth every morning before breakfast. 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 difficile 05/02/2024 05/02/2024 05/30/2024 5:54 AM CDT documented as of this encounter Care Teams Early Childhood Special Educator Relationship Specialty Start Date End Date Elsewhere, Pcp PCP - General Internal Medicine 03/23/24 documented as of this encounter
--- OUTSIDE RECORDS SUMMARY | 2024-06-25 11:53 | XMS_ITS | Encounter Summary ---
Author Organization [facility] Address [address] [place] [address] Care Team Providers Care Pecan Sheller Name Role Phone Elsewhere, Pcp Primary Care Provider Unavailabl e Encounter Details Date Type Department Care Team (Late st Contact Info) Description 04/30/2024 2:20 PM CDT Lab Department of Infusion Therapy in [place], [place] [address] [place] [address] Luzma Howell M.D. [address] [place] [address] Malignant Neoplasm Of Gastroesophageal Junction (HCC) (Primary Dx) Social History Tobacco Use Types Packs/Day Years Used Date Smoking Tobacco: Former Cigarettes 2.5 30.1 0 09/18/1965 - 11/01/1995 Passive Smoke Exposure: Never Smokeless Tobacco: Never Alcohol Use Standard Drinks/Week Comments Not Currently 1 (1 standard drink = 0.6 oz pur e alcohol) drink on special occasions [facility] Utilities Answer Date Recorded In the past 12 months has [employer], gas, oil, or water company threatened to [...] How often do you attend chur or presybeterian services? More than 4 times per year [...] care, and heating? Not very hard 01/27/2023 [facility] [place] of Occupat ional Health - Occupational Stress [...] your living situation today? I have a [facility] place to live 03/31/2024 Education Answer [...] Procedure Name Priority Date/Time Associated Diagnosis Comments TYPE AND SCREEN Routine 04/30/2024 2:45 PM CDT Malignant Neoplasm Of Gastroesophageal Junction (HCC) documented in this encounter Results * Type and Screen (with Reflex Antibody ID) (04/30/2024 2:45 PM CDT) ABORh O Pos Not applicable 04/30/2024 3:42 PM CDT ETRM Antibody Screen Negative Negative 04/30/2024 3:49 PM CDT ETRM Type & Screen Expiration 05/03/2024 23:59 04/30/2024 3:42 PM CDT ETRM Testing Location [place] DEFAULT 04/30/2024 3:04 PM CDT ETRM Blood (Blood, Venous) 04/30/2024 2:45 PM CDT 04/30/2024 3:04 PM CDT Luzma Howell M.D. LAB BLOOD BANK TEST ORDERABLES [facility] [address] [place] [address], [place] ETRM [facility] [address] [place] [address] documented in this encounter Visit Diagnoses Diagnosis Malignant Neoplasm Of Gastroesophageal Junction (HCC)- Primary documented in this encounter Administered Medications Inactive Administered Medications - up to 3 most recent administrations Medication Order MAR Action Action Date Dose Rate Site heparin flush 500 Units 500 Units, intra-catheter, As needed, line care, Starting on Mon04/30/24 at 1436, When IVAD accessed and not infusing: When no infusion to maintain patency flush every 7 days following NaCL flush. 5 mL (500 units) of Heparin 100 units/mL to each port/lumen. When IVAD not accessed or infusing: When no infusion to maintain patency flush every 28 days following NaCL flush. 5 mL (500 units) of Heparin 100 units/mL to each port/lumen. Given 04/30/2024 2:47 PM CDT 500 Units sodium chloride 0.9 % injection 20-40 mL 20-40 mL, intra-catheter, As needed, line care, Starting on Mon04/30/24 at 1436, When IVAD accessed and infusing: Flush prior to blood sampling, post blood transfusion or post blood sampling. 20 mL to each port/lumen. Given 04/30/2024 2:47 PM CDT 40 mL documented in this encounter Additional Health Concerns Infection Onset Date Last Indicated Resolved Time Protective Environment 04/17/2024 04/17/202405/19 5:39 AM CDT documented as of this encounter Care Teams Pecan Sheller Relationship Specialty Start Date End Date Elsewhere, Pcp PCP - General Internal Medicine 03/23/24 documented as of this encounter
--- OUTSIDE RECORDS SUMMARY | 2024-06-25 11:53 | XMS_ITS | Encounter Summary ---
Author Organization [facility] Address [address] [place] [address] Care Team Providers Care Packing Attendant Name Role Phone Elsewhere, Pcp Primary Care Provider Unavailabl e Encounter Details Date Type Department Care Team (Latest Contact Info) Description 05/03/2024 1:38 PM CDT - 05/03/2024 11:59 PM CDT Hospital Encounter Department of Radiation Oncology in [place], [place] [address] [place] [phone] Dread Doyle M.D. [address] [place] [phone] Discharge Disposition: Home or Self Care Social History Tobacco Use Types Packs/Day Years Used Date Smoking Tobacco: Former Cigarettes 2.5 30.1 0 09/18/1965 - 11/01/1995 Passive Smoke Exposure: Never Smokeless Tobacco: Never Alcohol Use Standard Drinks/Week Comments Not Currently 1 (1 standard drink = 0.6 oz pur e alcohol) drink on special occasions [facility] Utilities Answer Date Recorded In the past 12 months has e [employer], gas, oil, or water [employer] threatened to shut off services in your [...] How often do you attend chur or alevism services? More than 4 times per year [...] care, and heating? Not very hard 01/27/2023 [facility] [place] of Occupat ional Health - Occupational Stress [...] your living situation today? I have a [facility] place to live 03/31/2024 Education Answer [...] WHEEZING OR SHORTNESS OF BREATH. USE WITH ENTRY TECH TUBE. 18 g 11 07/27/2023 07/26/2024 DME OxygenIndications:Fibrosi s Pulmonary (HCC) DME Order - for details see Order Report 1 each 04/16/2024 Eliquis 5 mg tablet Take 5 mg by mouth 2 (two) times a day. 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 MAY TAKE DOSE EARLY IF NEEDED. 90 tablet 1 03/05/2024 omeprazole (PriLOSEC) [address] capsule Take 20 mg by mouth every morning before breakfast. ondansetron (ZOFRAN) 8 mg tabletIndications:Maligna nt Neoplasm Of Gastroesophageal Junction (HCC),Balling Machine Operator Current Drug Therapy, Chemotherapy Take 1 tablet [...] mg tabletIndications:Maligna nt Neoplasm Of Gastroesophageal Junction (HCC),Balling Machine Operator Current Drug Therapy, Chemotherapy Take 1 tablet [...] documented as of this encounter Care Teams Packing Attendant Relationship Specialty Start Date End Date Elsewhere, Pcp PCP - General Internal Medicine 03/23/24 documented as of this encounter
--- OUTSIDE RECORDS SUMMARY | 2024-06-25 11:53 | XMS_ITS | Encounter Summary ---
Author Organization [facility] Address [address] [place] [address] Care Team Providers Care Mri Special Procedures Technologist Name Role Phone Elsewhere, Pcp Primary Care Provider Unavailabl e Encounter Details Date Type Department Care Team (Late st Contact Info) Description 04/30/2024 Orders Only Department of Oncology in [place], [place] [address] [place] [address] Luzma Howell M.D. [address] [place] [address] Malignant Neoplasm Of Gastroesophageal Junction (HCC) (Primary Dx) Social History Tobacco Use Types Packs/Day Years Used Date Smoking Tobacco: Former Cigarettes 2.5 30.1 0 09/18/1965 - 11/01/1995 Passive Smoke Exposure: Never Smokeless Tobacco: Never Alcohol Use Standard Drinks/Week Comments Not Currently 1 (1 standard drink = 0.6 oz pur e alcohol) drink on special occasions [facility] Utilities Answer Date Recorded [...] week 01/27/2023 How often do you attend [facility] or quaker services? More than 4 times per year 01/27/2023 Do you belong to any clubs o r organizations such as jehovah's witness groups, unions, fraternal or athletic groups, or [...] care, and heating? Not very hard 01/27/2023 [facility] [place] of Occupat ional Health - Occupational Stress [...] your living situation today? I have a [facility] place to live 03/31/2024 Education Answer [...] Howell M.D. LAB BLOOD BANK TEST ORDERABLES [facility] [address] [place] [address], [facility] ETRM [facility] [address] [place] [address] documented in this encounter Visit Diagnoses Diagnosis Malignant Neoplasm Of Gastroesophageal Junction (HCC)- Primary documented in this encounter Additional Health Concerns Infection Onset Date Last Indicated Resolved Time Protective Environment 04/17/2024 04/17/202405/19 5:39 AM CDT C. difficile 05/02/2024 05/02/2024 05/30/2024 5:54 AM CDT documented as of this encounter Care Teams Mri Special Procedures Technologist Relationship Specialty Start Date End Date Elsewhere, Pcp PCP - General Internal Medicine 03/23/24 documented as of this encounter
--- OUTSIDE RECORDS SUMMARY | 2024-06-25 11:53 | XMS_ITS | Encounter Summary ---
Author Organization [facility] Address [address] [place] [address] Care Team Providers Care Manager Operations Name Role Phone Elsewhere, Pcp Primary Care Provider Unavailabl e Reason for Visit * Reason Comments Blood Product Administration RBC x2 Encounter Details Date Type Department Care Team (Late st Contact Info) Description 04/30/2024 4:15 PM CDT Infusion Department of Infusion Therapy in [place], [place] [address] [place] [address] Luzma Howell M.D. [address] [place] [address] Malignant Neoplasm Of Gastroesophageal Junction (HCC) (Primary Dx); Secondary Malignant Neoplasm Bone (HCC) Social History Tobacco Use Types Packs/Day Years Used Date Smoking Tobacco: Former Cigarettes 2.5 30.1 0 09/18/1965 - 11/01/1995 Passive Smoke Exposure: Never Smokeless Tobacco: Never Alcohol Use Standard Drinks/Week Comments Not Currently 1 (1 standard drink = 0.6 oz pur e alcohol) drink on special occasions [facility] Utilities Answer Date Recorded In the past 12 months has e [employer], gas, oil, or water [employer] threatened to shut off services in your [...] often do you attend chur ch or mormonism services? More than 4 times per year 01/27/2023 Do you belong to any clubs o r organizations such as baptist groups, unions, fraternal or athletic groups, or [...] care, and heating? Not very hard 01/27/2023 [facility] [place] of Occupat ional Health - Occupational Stress [...] your living situation today? I have a [facility] place to live 03/31/2024 Education [...] Sign Reading Time Taken Comments Blood Pressure 116/67 04/30/2024 8:32 PM CDT Pulse 69 04/30/2024 8:32 PM CDT Temperature 37.1 ??C (98.8 ??F) 04/30/2024 8:32 PM CD T Respiratory Rate 18 04/30/2024 8:32 PM CDT Oxygen Saturation 89% 04/30/2024 8:32 PM CDT Inhaled Oxygen Concentration - - Weight - - Height - - Body Mass Index - - documented in this encounter Miscellaneous Notes * Addendum Note - Aileen Bernard R.N. 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 BLOOD TRANSFUSION OR DERABLES * Transfuse Red Blood Cells : , 2 Units (04/30/2024 8:36 PM CDT) Luzma Howell M.D. BLOOD TRANSFUSION OR DERABLES * Transfuse Red Blood Cells : (04/30/2024 6:28 PM CDT) Luzma Howell M.D. BLOOD TRANSFUSION OR DERABLES documented in this encounter Visit Diagnoses Diagnosis Malignant Neoplasm Of Gastroesophageal Junction (HCC)- Primary Secondary Malignant Neoplasm Bone (HCC) documented in this encounter Administered Medications Inactive Administered Medications - up to 3 most recent administrations Medication Order MAR Action Action Date Dose Rate Site acetaminophen tablet 650 mg (TylenoL) 650 mg, oral, Once as needed, other, blood products administration, Starting on Mon04/30/24 at 1507, For 1 dose Given 04/30/2024 3:22 PM CDT 650 mg diphenhydrAMINE capsule 25 mg (BenadryL) 25 mg, oral, Once as needed, other, blood product administrations, Starting on Mon04/30/24 at 1507, For 1 dose Given 04/30/2024 3:22 PM CDT 25 mg heparin flush 500 Units 500 Units, intra-catheter, As needed, line care, Starting on Mon04/30/24 at 1508, When IVAD accessed and not infusing: When no infusion to maintain patency flush every 7 days following NaCL flush. 5 mL (500 units) of Heparin 100 units/mL to each port/lumen. When IVAD not accessed or infusing: When no infusion to maintain patency flush every 28 days following NaCL flush. 5 mL (500 units) of Heparin 100 units/mL to each port/lumen. Given 04/30/2024 8:36 PM CDT 500 Units NaCl 0.9% infusion 20-500 mL/hr, intravenous, As needed, Between Unit of Blood Products, Starting on Mon04/30/24 at 2016, Infuse at the same rate as the blood infusion until tubing cleared. Nurse may reduce rate to 20 mL/hour or as otherwise directed until next blood infusion arrives then discontinue when infusion complete. New Bag 04/30/2024 8:16 PM CDT 180 mL/hr 180 mL/hr sodium chloride 0.9 % injection 20-40 mL 20-40 mL, intra-catheter, As needed, line care, Starting on Mon04/30/24 at 1508, When IVAD accessed and infusing: Flush prior to blood sampling, post blood transfusion or post blood sampling. 20 mL to each port/lumen. Given 04/30/2024 8:36 PM CDT 20 mL Given 04/30/2024 3:25 PM CDT 20 mL documented in this encounter Additional Health Concerns Infection Onset Date Last Indicated Resolved Time Protective Environment 04/17/2024 04/17/202405/19 5:39 AM CDT documented as of this encounter Care Teams Manager Operations Relationship Specialty Start Date End Date Elsewhere, Pcp PCP - General Internal Medicine 03/23/24 documented as of this encounter
--- OUTSIDE RECORDS SUMMARY | 2024-06-25 11:53 | XMS_ITS | Encounter Summary ---
Author Organization [facility] Address [address] [place] [address] Care Team Providers Care Orange Picking Supervisor Name Role Phone Elsewhere, Pcp Primary Care Provider Unavailabl e Reason for Referral * Outpatient (Routine) - Closed Specialty Diagnoses / Procedures Referred By Contac t Referred To Contact Radiation Oncology Diagnoses Secondary Malignant Neoplasm Bone (HCC) Kuldeep Ritchie M.D. [address] [place] [address] [facility] Region Referral ID Status Reason Start Date Expiration Date Visits Re quested Visits Authorized [id number] Closed 04/22/2024 10/22/2025 1 1 Scheduling Instructions Please schedule in [place] Reason for Visit * Outpatient (Routine) - Closed Specialty Diagnoses / Procedures Referred By Fabian t Referred To Contact Radiation Oncology Diagnoses Secondary Malignant Neoplasm Bone (HCC) Kuldeep Ritchie M.D. [address] [place] [address] [facility] Region Referral ID Status Reason Start Date Expiration Date Visits Re quested Visits Authorized [id number] Closed 04/22/2024 10/22/2025 1 1 Encounter Details Date Type Department Care Team (Latest Contact Info) Description 05/02/2024 9:43 AM CDT - 05/06/2024 2:20 PM CDT Hospital Encounter Department of Radiation Oncology in [place], [place] [address] [place] [phone] Dread Doyle M.D. [address] [place] [address] Secondary Malignant Neoplasm Bone (HCC) Social History Tobacco Use Types Packs/Day Years Used Date Smoking Tobacco: Former Cigarettes 2.5 30.1 0 09/18/1965 - 11/01/1995 Passive Smoke Exposure: Never Smokeless Tobacco: Never Alcohol Use Standard Drinks/Week Comments Not Currently 1 (1 standard drink = 0.6 oz pur e alcohol) drink on special occasions [facility] [employer] Answer Date Recorded In the past 12 months has e [employer], gas, oil, or water [employer] threatened to shut off services in your [...] How often do you attend chur or christianity services? More than 4 times per year 01/27/2023 Do you belong to any clubs o r organizations such as sabianism groups, unions, fraternal or athletic groups, or [...] care, and heating? Not very hard 01/27/2023 [facility] of Occupat ional Health - Occupational [...] Sign Reading Time Taken Comments Blood Pressure 110/55 05/02/2024 10:03 AM CDT Pulse 70 05/02/2024 10:03 AM CDT Temperature - - Respiratory Rate [...] day. 05/02/2024 albuterol 90 mcg/actuation inhalerIndications:Emphys sally ([facility]) INHALE 2 PUFFS EVERY 4 HRS NEEDED FOR WHEEZING OR SHORTNESS OF BREATH. USE WITH GEM EXPERT TUBE. 18 g 11 07/27/2023 07/26/2024 DME OxygenIndications:Fibrosi s Pulmonary ([facility]) DME Order - for details see Order Report 1 each 04/16/2024 Eliquis 5 mg tablet Take 5 mg by mouth 2 (two) times a day. 07/02/2023 heparin 100 unit/mL syringeIndications:Malign ant Neoplasm Of Gastroesophageal Junction ([facility]),Breastfeeding Educator Current Drug Therapy, Chemotherapy 5 mL (500 Units total) by intra-catheter route once as needed for line care for up to 1 dose. Flush IV line AFTER 0.9% Sodium Chloride flush 60 mL 3 12/18/2023 inhalational spacing device (AEROCHAMBER) spacerIndications:Emphyse ma ([facility]) 1 each as needed (for use with [...] mg tabletIndications:Maligna nt Neoplasm Of Gastroesophageal Junction (HCC),Breastfeeding Educator Current Drug Therapy, Chemotherapy Take 1 tablet [...] as of this encounter Consult Notes * Eun Seth P.A.-C., M.S. - 05/02/2024 10:00 AM CDT SUBJECTIVE REQUESTING PROVIDER Kuldeep Ritchie M.D. CHIEF COMPLAINT/REASON FOR CONSULT 1. Secondary Malignant Neoplasm Bone (HCC) SUPERVISED BY: Dread Doyle M.D. HISTORY OF PRESENT ILLNESS Mr. 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 His oncologic history is as follows: Oncology History Malignant Neoplasm Of Gastroesophageal Junction (HCC) 02/2023 Initial Diagnosis Malignant Neoplasm Of Gastroesophageal Junction (HCC) Presented with six-month history of dysphagia and weight loss of 15 lb. 02/[address] Chest: New ill-defined soft tissue thickening bridging the gastroesophageal junction with new and increased surrounding adenopathy in the upper abdomen is highly concerning for malignancy. 03/29/2023 Surgery and Procedures EGD showed a malignant-appearing esophageal mass in the distal esophagus and GE junction with a biopsy confirming adenocarcinoma. Subsequently he underwent EGD and EUS on April 10, 2023. This demonstrated a large ulcerating mass in the lower 3rd of the esophagus extending to the GE junction and cardia, biopsied, [place] 1, multiple > 4 hypoechoic malignant-appearing enlarged lymph nodes in the m iddle paraesophageal mediastinum, lower paraesophageal mediastinum, diaphragmatic region and gastrohepatic ligament, cT3 N2 by endosonographic criteria. Stomach, tumor, gastroesophageal junction, endoscopic biopsy: Invasive [...] disease after 4 cycles of FOLFOX plus nivolumab. 02/14/2024 - 04/17/2024 Chemotherapy Ramucirumab / PACLitaxel Start Date: 02/14/2024 04/22/[address] chest: IMPRESSION: 1. Increase in size of now small to moderate right pleural effusion. Otherwise, no significant change including stable small to trace left pleural effusion. 2. Increased partially visualized metastatic peritoneal nodularity. 3. 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 Xray tibia/fibula negative for metastatic disease. 04/22/2024 Other Radiation Oncology consultation with Dr. Kuldeep Ritchie who recommended radiation therapy to the left humerus. He felt that there was no indication of radiation therapy to the left tibia/fibula. 05/02/2024 - Radiation Therapy Radiation therapy to the left humerus. INTERVAL HISTORY: The patient was seen and examined today with Dr. Doyle. The patient reports left anterior shoulder pain. He reports constant pain rated 2/10 in severity and increased pain up to 7/10 in severity with certain movements. He is taking oxycodone 5 mg one tablet every 6 hours with good benefit. He also takes Tylenol 500 mg only as needed. He denies any other associated symptoms such as swelling, numbness, tingling, or weakness of the left arm. REVIEW OF SYSTEMS Review of systems was negative except as documented above. OBJECTIVE BP 110/55 (BP Location: Left arm, Patient Position: Sitting, Cuff Size: Regular) Pulse 70 PHYSICAL EXAMINATION General: Patient is alert and oriented in no apparent distress. The patient is here today with his and daughter. 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 The patient has already met with Dr. Ritchie in Radiation Oncology in [place] who recommended radiation therapy to the left humerus in 5 fractions. The patient was simulated and planned for radiation therapy in [place] and is here today to initiate treatment in [place]. Dr. Doyle is in agreement with the plan for radiation treatment. I discussed the logistics as well as the acute and chronic side effects of treatment in detail. Theacute side effects are common and include, but are not limited to, possible pain flare, radiation dermatitis, and fatigue. Long-term side effects could include, but are not limited to, bone arthritis, bone fracture, and nerve damage. His questions were answered to his verbalized satisfaction. The patient is scheduled to initiate radiation therapy today. Dr. Doyle also met with the patient today, please see his attestation for details. The patient will be seen for weekly management visits during treatment. The patient was provided with our contact information. He will contact us with questions or concerns. He verbally expressed his understanding of the plan. EDUCATION: Ready to learn, no apparent learning barriers were identified; learning preferences include listening. Explained diagnosis and treatment plan; patient expressed understanding of the content. I personally spent 25 minutes in care of the patient today. Time includes both non face to face andface to face patient care. Signed by: Eun Seth P.A.-C., M.S. 05/02/2024 11:33 AM CDT [facility] [address] [place] [address] Associated attestation - Dread Doyle M.D. - 05/06/2024 2:20 PM CDT I was the supervising physician in the delivery of the service. I personally saw the patient and reviewed the indications and goals of treatment as well as the potential risks and adverse effects with the patient. I agree with the documentation provided by Eun Seth. The patient is very familiar with radiation therapy. I reviewed the plan for treatment of his left humerus for palliation. I agree with the plan. We discussed potential risks and adverse effects which I anticipate will be minimal from this treatment. He was started on treatment the same day. documented in this encounter Plan of Treatment Scheduled Referrals Name Type Priority Associated Diagnoses Order Schedule Radiation Oncology - Palliative / metastatic consult (clinic) Outpatient Referral Routine Secondary Malignant Neoplasm Bone (HCC) Once for 1 Occurrences starting 05/02/2024 until 05/02/2024 documented as of this encounter Visit Diagnoses Diagnosis Secondary Malignant Neoplasm Bone (HCC) documented in this encounter Additional Health Concerns Infection Onset Date Last Indicated Resolved Time Protective Environment 04/17/2024 04/17/202405/19 5:39 AM CDT C. difficile 05/02/2024 05/02/2024 05/30/2024 5:54 AM CDT documented as of this encounter Care Teams Orange Picking Supervisor Relationship Specialty Start Date End Date Elsewhere, Pcp PCP - General Internal Medicine 03/23/24 documented as of this encounter
--- OUTSIDE RECORDS SUMMARY | 2024-06-25 11:53 | XMS_ITS | Encounter Summary ---
Author Organization [facility] Address [address] [place] [address] Care Team Providers Care Principal Java Software Engineer Name Role Phone Elsewhere, Pcp Primary Care Provider Unavailabl e Encounter Details Date Type Department Care Team (Latest Contact Info) Description 05/06/2024 8:57 AM CDT - 05/06/2024 11:59 PM CDT Hospital Encounter Department of Radiation Oncology in [place], [place] [address] [place] [phone] Dread Doyle M.D. [address] [place] [phone] Discharge Disposition: Home or Self Care Social History Tobacco Use Types Packs/Day Years Used Date Smoking Tobacco: Former Cigarettes 2.5 30.1 0 09/18/1965 - 11/01/1995 Passive Smoke Exposure: Never Smokeless Tobacco: Never Alcohol Use Standard Drinks/Week Comments Not Currently 1 (1 standard drink = 0.6 oz pur e alcohol) drink on special occasions [facility] Utilities Answer Date Recorded In the past 12 months has e [employer], gas, oil, or water [employer] threatened to shut off services in your [...] How often do you attend chur or caodaism services? More than 4 times per year 01/27/2023 Do you belong to any clubs o r organizations such as yarsanism groups, unions, fraternal or athletic groups, or [...] care, and heating? Not very hard 01/27/2023 [facility] [place] of Occupat ional Health - Occupational Stress [...] your living situation today? [facility] 03/31/2024 Education Answer [...] WHEEZING OR SHORTNESS OF BREATH. USE WITH QUANTITY SURVEYOR TUBE. 18 g 11 07/27/2023 07/26/2024 DME OxygenIndications:Fibrosi s Pulmonary (HCC) DME Order - for details see Order Report 1 each 04/16/2024 Eliquis 5 mg tablet Take 5 mg by mouth 2 (two) times a day. 07/02/2023 heparin 100 unit/mL syringeIndications:Malign ant Neoplasm Of Gastroesophageal Junction (HCC),Strategic Account Director Current Drug Therapy, Chemotherapy 5 mL (500 [...] mg tabletIndications:Maligna nt Neoplasm Of Gastroesophageal Junction (HCC),Group Home Current Drug Therapy, Chemotherapy TAKE 1 TABLET BY MOUTH AT BEDTIME NEEDED (NAUSEA, VOMITING). MAY TAKE DOSE EARLY IF NEEDED. 90 tablet 1 03/05/2024 omeprazole (PriLOSEC) [address] capsule Take 20 mg by mouth every morning before breakfast. ondansetron (ZOFRAN) 8 mg tabletIndications:Maligna nt Neoplasm Of Gastroesophageal Junction (HCC),Strategic Account Director Current Drug Therapy, Chemotherapy Take 1 tablet [...] mg tabletIndications:Maligna nt Neoplasm Of Gastroesophageal Junction (HCC),Strategic Account Director Current Drug Therapy, Chemotherapy Take 1 tablet [...] documented as of this encounter Care Teams Principal Java Software Engineer Relationship Specialty Start Date End Date Elsewhere, Pcp PCP - General Internal Medicine 03/23/24 documented as of this encounter
--- OUTSIDE RECORDS SUMMARY | 2024-06-25 11:53 | XMS_ITS | Encounter Summary ---
Author Organization [facility] Address [address] [place] [phone] Care Team Providers Care Windows Admin Name Role Phone Elsewhere, Pcp Primary Care Provider Unavailabl e Reason for Visit * Episode Based Medications (Routine) - Closed Specialty Diagnoses / Procedures Referred By Fabian hernández Referred To Contact Diagnoses Malignant Neoplasm Of Gastroesophageal Junction (HCC) Paddy Jha P.A.-C., M.S. [address] [place] [phone] Rst Onc Rogo [address] [place] [phone] Referral ID Status Reason Start Date Expiration Date Visits Re quested Visits Authorized [id number] Closed 02/13/2024 02/12/2026 99 99 Encounter Details Date Type Department Care Team (Latest Contact Info) Description 04/30/2024 1:00 PM CDT Office Visit Department of Oncology in [place], [place] [address] [place] [phone] Luzma Howell M.D. 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 More than 4 times per year 01/27/2023 Do you belong to any clubs o r organizations such as holiness groups, unions, fraternal or athletic groups, or [...] [facility] - Occupational Stress Questionnaire Answer Date Recorded [...] Sign Reading Time Taken Comments Blood Pressure 113/68 04/30/2024 1:03 PM CDT Pulse 55 04/30/2024 1:03 PM CDT Temperature 36.5 ??C (97.7 ??F) 04/30/2024 1:03 PM CD T Respiratory Rate - - Oxygen Saturation 89% 04/30/2024 1:03 PM CDT O2 TANK Inhaled Oxygen Concentration - - Weight 105 kg (230 lb 9.6 oz) 04/30/2024 1:03 PM CDT Height 183.5 cm (6' 0.24) 04/30/2024 1:03 PM CD T Body Mass Index 31.06 04/30/2024 1:03 PM CDT documented in this encounter Progress Notes * Luzma Howell M.D. - 04/30/2024 1:00 PM CDT Medical Oncology Return Visit PRIMARY OCCIDENTAL ONCOLOGIST Paddy Jha P.A.-C., M.S. Luzma Howell M.D. CHIEF COMPLAINT / REASON FOR VISIT Rin Cho is a 78 y.o. 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 INTERVAL HISTORY Rin Cho returns for follow up today. He received paclitaxel on 04/17. He has noticed progressive fatigue, shortness of breath, and diarrhea since then. He also had significant pain in his neck and left shoulder yesterday. He took Tylenol without much relief. Review of system is negative for fever, chest pain, nausea, vomiting, abdominal pain, hematochezia, melena, hematuria, or focal weakness. HISTORY OF PRESENT ILLNESS Oncology History Oncology History Malignant Neoplasm Of Gastroesophageal Junction [...] cycles of FOLFOX plus nivolumab 02/14/2024 - 04/17/2024 Chemotherapy Ramucirumab / PACLitaxel [...] 12/26/2018. Xray tibia/fibula negative for metastatic disease Past medical/surgical history, allergies and current medications were reviewed. REVIEW OF SYSTEMS Constitutional: Positive for fatigue. - Negative for fever. Respiratory: Positive for shortness of breath. Cardiovascular: - Negative for chest pain, pressure or tightness, swelling in the legs or feet and rapid or fluttering heart beat. Gastrointestinal: Positive for diarrhea. - Negative for blood in stool, constipation, nausea, vomiting and difficulty swallowing. Neurological: Positive for numbness or shooting pain in hands, arms, legs, or feet. Rate your distress: 4 PHYSICAL EXAM Vitals: 04/30/24 1303 BP: 113/68 BP Location: Left arm Patient Position: Sitting Cuff Size: Regular Pulse: (!) 55 Temp: 36.5 ??C TempSrc: Tympanic SpO2: (!) 89% Weight: 105 kg Height: 183.5 cm Constitutional Appearance: Normal appearance. HENT Head: Normocephalic and atraumatic. Cardiovascular Rate and Rhythm: Normal rate and regular rhythm. Pulmonary Effort: Pulmonary effort is normal. Breath sounds: Normal breath sounds. Abdominal Palpations: Abdomen is soft. Tenderness: There is no abdominal tenderness. There is no guarding. Neurological Mental Status: He is alert. LABORATORY DATA Reviewed. RADIOLOGICAL DATA Reviewed. 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 He initially received definitive chemoradiation with carboplatin and paclitaxel in 06/2023. He was found to have metastatic recurrence in 11/2023 and received first-line therapy withFOLFOX and nivolumab between -01/2024. He was admitted to the hospital in 03/2024 for dyspnea and diarrhea in the setting of C diff colitis. He received 1 dose of paclitaxel on 04/17/24 and this was reduced by about 40%. We reviewed patient's history, symptoms, and test results in detail today. Hgb has decreased to 6. Renal and liver function are stable. He reports having progressive fatigue, shortness of breath, anddiarrhea since receiving chemotherapy on 04/17. He took Imodium with improvement in diarrhea. We hadan honest discussion about prognosis and treatment options. Patient and family agree that his body is not able to tolerate further chemotherapy and would like to focus on best supportive care. We briefly discussed the concept of hospice care and palliative care. He will see palliative care in 2 days and would like to take some time to think about the level of care he desires. For anemia and shortness of breath, we will administer 2u of RBC transfusion today and schedule thoracentesis. For diarrhea, we will obtain GI pathogen panel. For pain, he is scheduled to have radiation to left shoulder on . Additionally, I prescribed oxycodone 5 mg to be used as needed forpain. Patient and family understood and agreed with plan. All questions were answered to satisfaction. PATIENT EDUCATION Ready to learn, no apparent learning barriers were identified; learning preferences include listening. Explained diagnosis and treatment plan; patient expressed understanding of the content. ADMINISTRATIVE BILLING I spent 50 minutes face to face and non-face to face caring for the patient today. Luzma Howell MD Medical Oncology documented in this encounter Plan of Treatment Not on file documented as of this encounter Results * (ABNORMAL) GI Pathogen Panel, PCR, Feces [...] performed using the FDA-cleared FilmArray GI Panel ([employer] Semi-Urgent This is a semi-urgen t result(BENÍTEZ) [facility] Stool (Stool) 05/02/2024 1:0 2 PM CDT 05/02/2024 1:36 PM CDT Luzma Howell M.D. 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
--- OUTSIDE RECORDS SUMMARY | 2024-06-25 11:53 | XMS_ITS | Encounter Summary ---
Author Organization [facility] Address [address] [place] [address] Care Team Providers Care End Finder Forming Department Name Role Phone Elsewhere, Pcp Primary Care Provider Unavailabl e Encounter Details Date Type Department Care Team (Latest Contact Info) Description 05/07/2024 10:08 AM CDT - 05/07/2024 11:59 PM CDT Hospital Encounter Department of Radiation Oncology in [place], [place] [address] [place] [phone] Dread Doyle M.D. [address] [place] [phone] Discharge Disposition: Home or Self Care Social History Tobacco Use Types Packs/Day Years Used Date Smoking Tobacco: Former Cigarettes 2.5 30.1 0 09/18/1965 - 11/01/1995 Passive Smoke Exposure: Never Smokeless Tobacco: Never Alcohol Use Standard Drinks/Week Comments Not Currently 1 (1 standard drink = 0.6 oz pur e alcohol) drink on special occasions [facility] Utilities Answer Date Recorded In the past 12 months has e [employer], gas, oil, or water [employer] threatened to shut off services in your [...] How often do you attend chur or jainism services? More than 4 times per year 01/27/2023 Do you belong to any clubs o r organizations such as orthodoxy groups, unions, fraternal or athletic groups, or [...] care, and heating? Not very hard 01/27/2023 [facility] of Occupat ional Health - Occupational Stress [...] your living situation today? I have a [facility] place to live 03/31/2024 Education Answer [...] WHEEZING OR SHORTNESS OF BREATH. USE WITH MULTISKILL OPERATOR TUBE. 18 g 11 07/27/2023 07/26/2024 DME OxygenIndications:Fibrosi s Pulmonary (HCC) DME Order - for details see Order Report 1 each 04/16/2024 Eliquis 5 mg tablet Take 5 mg by mouth 2 (two) times a day. 07/02/2023 heparin 100 unit/mL syringeIndications:Malign ant Neoplasm Of Gastroesophageal Junction (HCC),Alf Current Drug Therapy, Chemotherapy 5 mL (500 [...] mg tabletIndications:Maligna nt Neoplasm Of Gastroesophageal Junction (HCC),Fluid Designer Current Drug Therapy, Chemotherapy TAKE 1 TABLET BY MOUTH AT BEDTIME NEEDED (NAUSEA, VOMITING). MAY TAKE DOSE EARLY IF NEEDED. 90 tablet 1 03/05/2024 omeprazole (PriLOSEC) [address] capsule Take 20 mg by mouth every morning before breakfast. ondansetron (ZOFRAN) 8 mg tabletIndications:Maligna nt Neoplasm Of Gastroesophageal Junction (HCC),Alf Current Drug Therapy, Chemotherapy Take 1 tablet [...] mg tabletIndications:Maligna nt Neoplasm Of Gastroesophageal Junction (HCC),Alf Current Drug Therapy, Chemotherapy Take 1 tablet [...] documented as of this encounter Care Teams End Finder Forming Department Relationship Specialty Start Date End Date Elsewhere, Pcp PCP - General Internal Medicine 03/23/24 documented as of this encounter
--- OUTSIDE RECORDS SUMMARY | 2024-06-25 11:53 | XMS_ITS | Encounter Summary ---
Author Organization [facility] Address [address] [place] [address] Care Team Providers Care Cross Country And Track And Field Coach Name Role Phone Elsewhere, Pcp Primary Care Provider Unavailabl e Reason for Visit * Outpatient (Routine) - Closed Specialty Diagnoses / Procedures Referred By Fabian hernández Referred To Contact Pulmonary Medicine Diagnoses Dyspnea On Exertion Fibrosis Pulmonary (HCC) Emphysema (HCC) Edgardo Joy D.OJam [address] [place] [phone] Edgardo Joy D.O. [address] [place] [phone] Referral ID Status Reason Start Date Expiration Date Visits Re quested Visits Authorized [id number] Closed 04/16/2024 10/16/2025 1 1 Encounter Details Date Type Department Care Team (Late st Contact Info) Description 05/03/2024 3:00 PM CDT Telemedicine Division of Pulmonary Medicine in [place], [place] [address] [place] [phone] Edgardo Joy D.O. [address] [place] [phone] Dyspnea On Exertion; Fibrosis Pulmonary (HCC); Emphysema (HCC) Social History Tobacco Use Types Packs/Day Years Used Date Smoking Tobacco: Former Cigarettes 2.5 30.1 0 09/18/1965 - 11/01/1995 Passive Smoke Exposure: Never Smokeless Tobacco: Never Alcohol Use Standard Drinks/Week Comments Not Currently 1 (1 standard drink = 0.6 oz pur e alcohol) drink on special occasions [facility] Utilities Answer Date Recorded In the [...] week 01/27/2023 How often do you attend [facility] or jehovah's witness services? More than 4 times per year [...] care, and heating? Not very hard 01/27/2023 [facility] - Occupational Stress Questionnaire Answer Date Recorded [...] as of this encounter Progress Notes * Edgardo Joy D.O. 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 He has not enrolled with therapy. He was last seen in Pulmonary Clinic on 04/05. His oxygen prescription was updated to 2L at rest and 6L with exertion. He was seen by Medical Oncology on 04/30 and decided that due to his progressive symptoms of paclitaxel/ramucirumab with noticeable dyspnea, anemia (Hgb was 6.1 on 04/30) and diarrhea that he would stop active chemotherapy. He was seen by Palliative Medicine on 05/02/24 who is [facility] with [facility].. He underwent right sided thoracentesis and radiation to his shoulder today. He feels that his shortness of breath has improved after receiving his blood transfusion. Of note, his hemoglobin has slowly been drifting down from greater the 11 to around 8 since December of this year. His dry cough resolved and he did not need to use the Tetracaine lollipops. OBJECTIVE No vitals or physical exam due to virtual visit. Imaging CT Chest 04/19/24: Similar centrilobular emphysema and fibrotic changes when compared to previous CT Chest on with increase in right sided pleural effusion on 03/23/24. 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 Plan Continue supplemental oxygen of 2L at rest with 6L with exertion. Continue Anoro We will continue to follow with Merle as needed. Patient requested to message me through the portalfor any questions or to set up follow up. I spent 20 minutes with the patient and his family and greater than 50% of the time was spent discussing the above concerns. Case to be discussed with Dr. Perry. Edgardo Joy DO Pulmonary & Critical Care Medicine Fellow Pager: [phone] documented in this encounter Plan of Treatment Not on file documented as of this encounter Visit Diagnoses Diagnosis Dyspnea On Exertion Fibrosis Pulmonary (HCC) Emphysema (HCC) documented in this encounter Additional Health Concerns Infection Onset Date Last Indicated Resolved Time Protective Environment 04/17/2024 04/17/202405/19 5:39 AM CDT C. difficile 05/02/2024 05/02/2024 05/30/2024 5:54 AM CDT documented as of this encounter Care Teams Cross Country And Track And Field Coach Relationship Specialty Start Date End Date Elsewhere, Pcp PCP - General Internal Medicine 03/23/24 documented as of this encounter
--- OUTSIDE RECORDS SUMMARY | 2024-06-25 11:54 | XMS_ITS | Encounter Summary ---
Author Organization [facility] Address [address] [place] [address] Care Team Providers Care Credit Officer Name Role Phone Elsewhere, Pcp Primary Care Provider Unavailabl e Reason for Visit * Episode Based Medications (Routine) - Closed Specialty Diagnoses / Procedures Referred By Fabian hernández Referred To Contact Diagnoses Malignant Neoplasm Of Gastroesophageal Junction (HCC) Paddy Jha P.A.-C., M.S. [address] [place] [phone] Rst Onc Rogo [address] [place] [phone] Referral ID Status Reason Start Date Expiration Date Visits Re quested Visits Authorized [id number] Closed 02/13/2024 02/12/2026 99 99 Encounter Details Date Type Department Care Team (Late st Contact Info) Description 04/11/2024 2:00 PM CDT Lab Department of Infusion Therapy in [place], [place] [address] [place] [phone] Paddy Jha P.A.-C., M.S. [address] [place] [phone] Malignant Neoplasm Of Gastroesophageal Junction (HCC) (Primary Dx) Social History Tobacco Use Types Packs/Day Years Used Date Smoking Tobacco: Former Cigarettes 2.5 30.1 0 09/18/1965 - 11/01/1995 Passive Smoke Exposure: Never Smokeless Tobacco: Never Alcohol Use Standard Drinks/Week Comments Not Currently 1 (1 standard drink = 0.6 oz pur e alcohol) drink on special occasions [facility] Utilities Answer Date Recorded In [...] care, and heating? Not very hard 01/27/2023 [facility] [place] of Occupat ional Health - Occupational Stress [...] Name Priority Date/Time Associated Diagnosis Comments CBC CHEMO - NO ALERTS Routine 04/11/2024 1:59 PM CDT Malignant Neoplasm Of Gastroesophageal Junction (HCC) documented in this encounter Results * (ABNORMAL) CBC, Chemotherapy, No Alerts (04/11/2024 1:59 PM CDT) Hemoglobin 8.7(L) 13.2 - 16.6 g/dL 04/11/2024 2:23 PM CDT DTL Platelet Count 274 135 - 317 x10(9)/L 04/11/2024 2:23 PM CDT DTL Leukocytes 6.3 3.4 - 9.6 x10(9)/L 04/11/2024 2:23 PM CDT DTL Neutrophils 4.01 1.56 - 6.45 x10(9)/L 04/11/2024 2:23 PM CDT [facility] Blood (Blood, Venous) 04/11/2024 1:59 PM CDT 04/11/2024 2:18 PM CDT Paddy Jha P.A.-C., M.S. LAB BLOOD A DD-ON [facility] [address] [place] [address], [facility] DTL [facility] [address] [facility] [address] [place], [place] [address] [place] [address] [place] [address] documented in this encounter Visit Diagnoses Diagnosis Malignant Neoplasm Of Gastroesophageal Junction (HCC)- Primary documented in this encounter Administered Medications Inactive Administered Medications - up to 3 most recent administrations Medication Order MAR Action Action Date Dose Rate Site heparin flush 500 Units 500 Units, intra-catheter, As needed, line care, Starting on Francia 04/11/24 at 1346, When IVAD accessed and not infusing: When no infusion to maintain patency flush every 7 days following NaCL flush. 5 mL (500 units) of Heparin 100 units/mL to each port/lumen. When IVAD not accessed or infusing: When no infusion to maintain patency flush every 28 days following NaCL flush. 5 mL (500 units) of Heparin 100 units/mL to each port/lumen. Given 04/11/2024 2:06 PM CDT 500 Units sodium chloride 0.9 % injection 20-40 mL 20-40 mL, intra-catheter, As needed, line care, Starting on Francia 04/11/24 at 1346, When IVAD accessed and infusing: Flush prior to blood sampling, post blood transfusion or post blood sampling. 20 mL to each port/lumen. Given 04/11/2024 2:05 PM CDT 40 mL documented in this encounter Additional Health Concerns Infection Onset Date Last Indicated Resolved Time C. difficile 03/24/2024 03/24/2024 04/21/2024 5:37 AM CDT documented as of this encounter Care Teams Credit Officer Relationship Specialty Start Date End Date Elsewhere, Pcp PCP - General Internal Medicine 03/23/24 documented as of this encounter
--- OUTSIDE RECORDS SUMMARY | 2024-06-25 11:54 | XMS_ITS | Encounter Summary ---
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 [address] [place] [phone] [facility] Referral ID Status Reason Start Date Expiration Date Visits Re quested Visits Authorized [id number] Closed 04/22/2024 04/22/2025 1 1 Encounter Details Date Type Department Care Team (Late st Contact Info) Description 04/22/2024 Orders Only Department of Oncology in [place], [place] [address] [place] [phone] Merly Beavers APRN, C.N.P., M.S. [address] [place] [phone] Secondary Malignant Neoplasm Bone (HCC) (Primary Dx); Malignant Neoplasm Of Gastroesophageal Junction (HCC); Effusion Pleural Social History Tobacco Use Types Packs/Day Years Used Date Smoking Tobacco: Former Cigarettes 2.5 30.1 0 09/18/1965 - 11/01/1995 Passive Smoke Exposure: Never Smokeless Tobacco: Never Alcohol Use Standard Drinks/Week Comments Not Currently 1 (1 standard drink = 0.6 oz pur e alcohol) drink on special occasions [facility] Code Feverities Answer Date Recorded In the past 12 months has e [employer], gas, oil, or water [employer] threatened to shut off services in your [...] any clubs o r organizations such as yarsani groups, unions, fraternal or athletic groups, or [...] care, and heating? Not very hard 01/27/2023 [facility] - Occupational Stress Questionnaire Answer Date [...] your living situation today? I have a [facility] place to live 03/31/2024 Education Answer [...] documented as of this encounter Results * US Thoracentesis Right [...] Beavers APRN, C.N.P., M.S. 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 difficile 05/02/2024 05/02/2024 05/30/2024 5:54 AM CDT documented as of this encounter Care Teams Vp Organizational Development Relationship Specialty Start Date End Date Elsewhere, Pcp PCP - General Internal Medicine 03/23/24 documented as of this encounter
--- OUTSIDE RECORDS SUMMARY | 2024-06-25 11:54 | XMS_ITS | Encounter Summary ---
Author Organization [facility] Address [address] [place] [address] Care Team Providers Care Ekg Monitor Name Role Phone Elsewhere, Pcp Primary Care Provider Unavailabl e Reason for Referral * Outpatient (Routine) - Closed Specialty Diagnoses / Procedures Referred By Fabian hernández Referred To Contact Pulmonary Medicine Diagnoses Dyspnea On Exertion Fibrosis Pulmonary (HCC) Emphysema (HCC) Edgardo Joy D.O. [address] [place] [phone] Edgardo Joy D.O. [address] [place] [phone] Referral ID Status Reason Start Date Expiration Date Visits Re quested Visits Authorized [id number] Closed 04/16/2024 10/16/2025 1 1 Encounter Details Date Type Department Care Team (Late st Contact Info) Description 04/16/2024 Orders Only Division of Pulmonary Medicine in [place], [place] [address] [place] [phone] Edgardo Joy D.O. [address] [place] [phone] Dyspnea On Exertion (Primary Dx); Fibrosis Pulmonary (HCC); Emphysema (HCC) Social History Tobacco Use Types Packs/Day Years Used Date Smoking Tobacco: Former Cigarettes 2.5 30.1 0 09/18/1965 - 11/01/1995 Passive Smoke Exposure: Never Smokeless Tobacco: Never Alcohol Use Standard Drinks/Week Comments Not Currently 1 (1 standard drink = 0.6 oz pur e alcohol) drink on special occasions [facility] Adisnities Answer Date Recorded In the past 12 months has e [employer], gas, oil, or water [employer] threatened to shut off services in your [...] How often do you attend chur or mandaeism services? More than 4 times per year [...] care, and heating? Not very hard 01/27/2023 [facility] - Occupational Stress Questionnaire Answer Date [...] your living situation today? I have a [facility] place to live 03/31/2024 Education Answer Date [...] Type Priority Associated Diagnoses Orde r Schedule Pulmonary Medicine office visit (clinic) Outpatient Referral Routine Dyspnea On Exertion Fibrosis Pulmonary (HCC) Emphysema (HCC) Expected: 05/03/2024, Expires: 07/17/2025 documented as of this encounter Visit Diagnoses Diagnosis Dyspnea On Exertion- Primary Fibrosis Pulmonary (HCC) Emphysema (HCC) documented in this encounter Additional Health Concerns Infection Onset Date Last Indicated Resolved Time C. difficile 03/24/2024 03/24/2024 04/21/2024 5:37 AM CDT documented as of this encounter Care Teams Ekg Monitor Relationship Specialty Start Date End Date Elsewhere, Pcp PCP - General Internal Medicine 03/23/24 documented as of this encounter
--- OUTSIDE RECORDS SUMMARY | 2024-06-25 11:54 | XMS_ITS | Encounter Summary ---
Author Organization [facility] Address [address] [place] [address] Care Team Providers Care Men'S Designer Name Role Phone Elsewhere, Pcp Primary Care Provider Unavailabl e Reason for Referral * Radiation Therapy (Routine) - Closed Specialty Diagnoses / Procedures Referred By Contac t Referred To Contact Diagnoses Secondary Malignant Neoplasm Bone (HCC) Procedures Initial Rad Onc Treatment Planning CT Simulation Kuldeep Ritchie M.D. 200 [place] [phone] [facility] Referral ID Status Reason Start Date Expiration Date Visits Re quested Visits Authorized [id number] Closed 04/19/2024 04/19/2025 1 1 Reason for Visit * Radiation Therapy (Routine) - Closed Specialty Diagnoses / Procedures Referred By Contac t Referred To Contact Diagnoses Secondary Malignant Neoplasm Bone (HCC) Procedures Initial Rad Onc Treatment Planning CT Simulation Kuldeep Ritchie M.D. 200 [place] [phone] [facility] Referral ID Status Reason Start Date Expiration Date Visits Re quested Visits Authorized [id number] Closed 04/19/2024 04/19/2025 1 1 Encounter Details Date Type Department Care Team (Latest Contact Info) Description 04/22/2024 1:32 PM CDT - 04/22/2024 11:59 PM CDT Hospital Encounter Department of Radiation Oncology in [place], [place] [address] [place] [phone] Kuldeep Ritchie M.D. 200 [place] [phone] Secondary Malignant Neoplasm Bone (HCC) Discharge Disposition: Home or Self Care Social History Tobacco Use Types Packs/Day Years Used Date Smoking Tobacco: Former Cigarettes 2.5 30.1 0 09/18/1965 - 11/01/1995 Passive Smoke Exposure: Never Smokeless Tobacco: Never Alcohol Use Standard Drinks/Week Comments Not Currently 1 (1 standard drink = 0.6 oz pur e alcohol) drink on special occasions [facility] etouchesities Answer Date Recorded In the past 12 months has th e [employer], gas, oil, or water [employer] threatened to shut off services in your [...] How often do you attend chur or nondenominational services? More than 4 times per year 01/27/2023 Do you belong to any clubs o r organizations such as restoration groups, unions, fraternal or athletic groups, or [...] care, and heating? Not very hard 01/27/2023 [facility] of Occupat ional Health - Occupational [...] Sig Dispensed Refills Start Date End Date albuterol 90 mcg/actuation inhalerIndications:Emphys sally ([facility]) INHALE 2 PUFFS EVERY 4 HRS NEEDED FOR WHEEZING OR SHORTNESS OF BREATH. USE WITH BILL SORTER TUBE. 18 g 11 07/27/2023 07/26/2024 DME OxygenIndications:Fibrosi s Pulmonary ([facility]) DME Order - for details see Order Report 1 each 04/16/2024 Eliquis 5 mg tablet Take 5 mg by mouth 2 (two) times a day. 07/02/2023 heparin 100 unit/mL syringeIndications:Malign ant Neoplasm Of Gastroesophageal Junction (HCC),Magazine Editor Current Drug Therapy, Chemotherapy 5 mL (500 Units total) by intra-catheter route once as needed for line care for up to 1 dose. Flush IV line AFTER 0.9% Sodium Chloride flush 60 mL 3 12/18/2023 inhalational spacing device (AEROCHAMBER) spacerIndications:Emphyse ma ([facility]) 1 each as needed (for use with [...] mg tabletIndications:Maligna nt Neoplasm Of Gastroesophageal Junction (HCC),Magazine Editor Current Drug Therapy, Chemotherapy Take 1 tablet (8 mg total) by mouth every 8 (eight) hours as needed for nausea or vomiting (unrelieved by prochlorperazine). 30 tablet 3 12/08/2023 12/07/2024 prochlorperazine (COMPAZINE) 10 mg tabletIndications:Maligna nt Neoplasm [...] lollipop in one day. 3 each 04/05/2024 Anoro Ellipta 62.5-25 mcg/actuation inhalerIndications:Emphys sally (HCC) inhale 1 puff by mouth every day 180 each 3 12/28/2023 05/02/2024 DME OxygenIndications:Dyspnea DME Order - for details see Order Report 1 each 03/26/2024 05/16/2024 DME OxygenIndications:Fibrosi s Pulmonary (HCC) DME Order - for details see Order Report 1 each 04/05/2024 05/16/2024 umeclidinium-vilanteroL (Anoro Ellipta) 62.5-25 mcg/actuation inhaler Inhale 1 puff daily. 04/03/2019 05/21/2024 documented as of this encounter Procedure Notes * Rut Cordon, RTT - 04/22/2024 2:15 PM CDTAssociated Order(s): Initial Rad Onc Treatment Planning CT Simulation Pre-Procedure Diagnose(s): Secondary Malignant Neoplasm Bone (HCC) Post-Procedure Diagnose(s): Secondary Malignant Neoplasm Bone (HCC) Initial Rad Onc Treatment Planning CT Simulation Performed by: Kuldeep Ritchie M.D. Authorized by: Kuldeep Ritchie M.D. Simulation was performed under physician supervision based on physician order in preparation for radiation therapy. Physician was immediately available to provide assistance and direction throughout the procedure. Written consent for treatment was completed or confirmed. The patient was appropriately identified and placed in the treatment position using the necessary immobilization to ensure a reproducible treatment position. Reference de la o were placed to facilitate marking of isocenter. Area scanned:Neck and Chest Contrast used for the simulation procedure: None Patient position:head first supine and arms up Custom immobilization: Vac-lacey Motion management: None Bolus: No CT guidance: Following positioning of the patient, a series of slices was obtained to be utilized in treatment planning. CT images were transferred to the [employer] treatment planning system, after a reference isocenter was determined and marked. Segmentation and treatment planning will take place prior to treatment delivery. Patient set up and imaging was appropriate and completed without incident. Produce Manager use:No Associated attestation - Kuldeep Ritchie M.D. - 04/29/2024 12:48 PM CDT Simulation was completed as below. Kuldeep Ritchie M.D. documented in this encounter Plan of Treatment Not on file documented as of this encounter Procedures Procedure Name Priority Date/Time Associated Diagnosis Comments INITIAL RAD ONC TREATMENT PLANNING CT SIMULATION Routine 04/22/2024 2:15 PM CDT Secondary Malignant Neoplasm Bone (HCC) documented in this encounter Results * Initial Rad Onc Treatment Planning CT Simulation (04/22/2024 2:15 PM CDT) Narrative [facility] - 04/22/2024 2:15 PM CDT Rut Cordon, LAZARO ? 04/22/2024 ??2:15 PM Initial Rad Onc Treatment Planning CT Simulation Performed by: Kuldeep Ritchie M.D. Authorized by: Kuldeep Ritchie M.D. ?? Kuldeep Ritchie M.D. RADIATION ONCOLOGY ORDERABLES [facility] COREY na documented in this encounter Visit Diagnoses Diagnosis Secondary Malignant Neoplasm Bone (HCC) documented in this encounter Additional Health Concerns Infection Onset Date Last Indicated Resolved Time Protective Environment 04/17/2024 04/17/202405/19 5:39 AM CDT documented as of this encounter Care Teams Men'S Designer Relationship Specialty Start Date End Date Elsewhere, Pcp PCP - General Internal Medicine 03/23/24 documented as of this encounter
--- OUTSIDE RECORDS SUMMARY | 2024-06-25 11:54 | XMS_ITS | Encounter Summary ---
Author Organization [facility] Address [address] [place] [address] Care Team Providers Care Ordnance Technician Name Role Phone Elsewhere, Pcp Primary Care Provider Unavailabl e Reason for Visit * Episode Based Medications (Routine) - Closed Specialty Diagnoses / Procedures Referred By Fabian hernández Referred To Contact Diagnoses Malignant Neoplasm Of Gastroesophageal Junction (HCC) Paddy Jha P.A.-C., M.S. [address] [place] [phone] Rst Onc [facility] [address] [place] [phone] Referral ID Status Reason Start Date Expiration Date Visits Re quested Visits Authorized [id number] Closed 02/13/2024 02/12/2026 99 99 Encounter Details Date Type Department Care Team (Late st Contact Info) Description 04/16/2024 11:00 AM CDT Lab Department of Oncology in [place], [place] [address] [place] [phone] Luzma Howell M.D. [address] [place] [address] [phone] Malignant Neoplasm Of Gastroesophageal Junction (HCC) (Primary Dx) Social History Tobacco Use Types Packs/Day Years Used Date Smoking Tobacco: Former Cigarettes 2.5 30.1 0 09/18/1965 - 11/01/1995 Passive Smoke Exposure: Never Smokeless Tobacco: Never Alcohol Use Standard Drinks/Week Comments Not Currently 1 (1 standard drink = 0.6 oz pur e alcohol) drink on special occasions [facility] Utilities Answer Date Recorded In the past [...] How often do you attend chur or muslim services? More than 4 times per year 01/27/2023 Do you belong to any clubs o r organizations such as gnosticism groups, unions, fraternal or athletic groups, or [...] care, and heating? Not very hard 01/27/2023 [facility] of Occupat ional Health - Occupational Stress [...] your living situation today? [facility] place to live 03/31/2024 Education Answer [...] Name Priority Date/Time Associated Diagnosis Comments CBC WITH DIFFERENTIAL, B Routine 04/16/2024 11:39 AM CDT Malignant Neoplasm Of Gastroesophageal Junction (HCC) BILIRUBIN DIRECT, S/P Routine 04/16/2024 11:39 AM CDT Malignant Neoplasm Of Gastroesophageal Junction (HCC) COMPREHENSIVE METABOLIC PANEL, S/P Routine 04/16/2024 11:39 AM CDT Malignant Neoplasm Of Gastroesophageal Junction (HCC) documented in this encounter Results * Bilirubin, Direct (04/16/2024 11:39 AM CDT) Bilirubin, Direct, S <0.2 0.0 - 0.3 mg/dL 04/16/2024 12:36 PM CDT DTL Blood (Blood, Venous) 04/16/2024 11:39 AM CDT 04/16/2024 12:18 PM CDT Luzma Howell M.D. LAB BLOOD ADD-ON [place] [address] [place] [address], [facility] [place] [place] [address] [place] [address] * (ABNORMAL) Comprehensive Metabolic Panel (04/16/2024 11:39 AM CDT) Potassium, S 4.2 3.6 - 5.2 mmol/L 04/16/2024 12:36 PM CDT DTL Sodium, S 139 135 - 145 mmol/L 04/16/2024 12:36 PM CDT DTL Chloride, S 109(H) 98 - 107 mmol/L 04/16/2024 12:36 PM CDT DTL Bicarbonate, S 24 22 - 29 mmol/L 04/16/2024 12:36 PM CDT DTL Anion Gap 6(L) 7 - 15 04/16/2024 12:36 PM CDT DTL BUN (Blood Urea Nitrogen), S 18 8 - 24 mg/dL 04/16/2024 12:36 PM CDT DTL Creatinine 0.85 0.74 - 1.35 mg/dL 04/16/2024 12:36 PM CDT DTL Estimated GFR (eGFR) 89 >=60 mL/min/BS A 04/16/2024 12:36 PM CDT DTL Comment: Estimated GFR calculated using the 2020 CKD_EPI creatinine equation. Calcium, Total, S 8.6(L) 8.8 - 10.2 mg/dL 04/16/2024 12:36 PM CDT DTL Glucose, S 98 70 - 140 mg/dL 04/16/2024 12:36 PM CDT DTL Protein, Total, S 6.1(L) 6.3 - 7.9 g/dL 04/16/2024 12:36 PM CDT DTL Albumin, S 3.2(L) 3.5 - 5.0 g/dL 04/16/2024 12:36 PM CDT DTL Aspartate Aminotransferase (AST), S 26 8 - 48 U/L 04/16/2024 12:36 PM CDT DTL Alkaline Phosphatase, S 218(H) 40 - 129 U/L 04/16/2024 12:36 PM CDT DTL Alanine Aminotransferase (ALT), S 19 7 - 55 U/L 04/16/2024 12:36 PM CDT DTL Bilirubin, Total, S 0.4 0.0 - 1.2 mg/dL 04/16/2024 12:36 PM CDT DTL Blood (Blood, Venous) 04/16/2024 11:39 AM CDT 04/16/2024 12:18 PM CDT Luzma Howell M.D. LAB BLOOD ADD-ON [facility] [address] [place] [address], [place] DTL [facility] [address] [place] [address] * (ABNORMAL) CBC with Differential, Blood (04/16/2024 11:39 AM CDT) [facility] Hemoglobin 8.4(L) 13.2 - 16.6 g/dL 04/16/2024 12:16 PM CDT DTL Hematocrit 27.5(L) 38.3 - 48.6 % 04/16/2024 12:16 PM CDT DTL Erythrocytes 3.14(L) 4.35 - 5.65 x10(12)/L 04/16/2024 12:16 PM CDT DTL MCV 87.6 78.2 - 97.9 fL 04/16/2024 12:16 PM CDT DTL RBC Distrib Width 19.4(H) 11.8 - 14.5 % 04/16/2024 12:16 PM CDT DTL Platelet Count 279 135 - 317 x10(9)/L 04/16/2024 12:16 PM CDT DTL Leukocytes 6.9 3.4 - 9.6 x10(9)/L 04/16/2024 12:16 PM CDT DTL Neutrophils 5.26 1.56 - 6.45 x10(9)/L 04/16/2024 12:16 PM CDT [facility] Lymphocytes 0.57(L) 0.95 - 3.07 x10(9)/L 04/16/2024 12:16 PM CDT DTL Monocytes 0.72 0.26 - 0.81 x10(9)/L 04/16/2024 12:16 PM CDT DTL Eosinophils 0.27 0.03 - 0.48 x10(9)/L 04/16/2024 12:16 PM CDT DTL Basophils 0.04 0.01 - 0.08 x10(9)/L 04/16/2024 12:16 PM CDT DTL Blood (Blood, Venous) 04/16/2024 11:39 AM CDT 04/16/2024 12:01 PM CDT Luzma Howell M.D. LAB BLOOD ADD-ON [facility] [address] [place] [address], [facility] [place] [facility] [place] [address] [place] [address] [facility] [address] [place] [address] documented in this encounter Visit Diagnoses Diagnosis Malignant Neoplasm Of Gastroesophageal Junction (HCC)- Primary documented in this encounter Administered Medications Inactive Administered Medications - up to 3 most recent administrations Medication Order MAR Action Action Date Dose Rate Site heparin flush 500 Units 500 Units, intra-catheter, As needed, line care, Starting on Mon04/16/24 at 1125, When IVAD accessed and not infusing: When no infusion to maintain patency flush every 7 days following NaCL flush. 5 mL (500 units) of Heparin 100 units/mL to each port/lumen. When IVAD not accessed or infusing: When no infusion to maintain patency flush every 28 days following NaCL flush. 5 mL (500 units) of Heparin 100 units/mL to each port/lumen. Given 04/16/2024 11:43 AM CDT 500 Units sodium chloride 0.9 % injection 10-20 mL 10-20 mL, intra-catheter, As needed, line care, Starting on Mon04/16/24 at 1125, When IVAD accessed and infusing: Flush prior to and following infusion, between multiple consecutive infusions. 10 mL to each port/lumen. Given 04/16/2024 11:43 AM CDT 10 mL sodium chloride 0.9 % injection 20-40 mL 20-40 mL, intra-catheter, As needed, line care, Starting on Mon04/16/24 at 1125, When IVAD accessed and infusing: Flush prior to blood sampling, post blood transfusion or post blood sampling. 20 mL to each port/lumen. Given 04/16/2024 11:43 AM CDT 20 mL documented in this encounter Additional Health Concerns Infection Onset Date Last Indicated Resolved Time C. difficile 03/24/2024 03/24/2024 04/21/2024 5:37 AM CDT documented as of this encounter Care Teams Ordnance Technician Relationship Specialty Start Date End Date Elsewhere, Pcp PCP - General Internal Medicine 03/23/24 documented as of this encounter
--- OUTSIDE RECORDS SUMMARY | 2024-06-25 11:54 | XMS_ITS | Encounter Summary ---
Author Organization [facility] Address [address] [place] [address] Care Team Providers Care Drafter Name Role Phone Elsewhere, Pcp Primary Care Provider Unavailabl e Encounter Details Date Type Department Care Team (Late st Contact Info) Description 04/16/2024 Clinical Communication Division of Pulmonary Medicine in [place], [place] [address] [place] [address] Edgardo Joy D.O. [address] [place] [phone] Social History Tobacco Use Types Packs/Day Years Used Date Smoking Tobacco: Former Cigarettes 2.5 30.1 0 09/18/1965 - 11/01/1995 Passive Smoke Exposure: Never Smokeless Tobacco: Never Alcohol Use Standard Drinks/Week Comments Not Currently 1 (1 standard drink = 0.6 oz pur e alcohol) drink on special occasions [facility] Utilities Answer Date Recorded In the [...] How often do you attend chur or scientologist services? More than 4 times per year [...] care, and heating? Not very hard 01/27/2023 [facility] [place] of Occupat ional Health - Occupational Stress [...] encounter Miscellaneous Notes * Telephone Encounter - Alanna Dixon, R.R.T., L.R.T. - 04/16/2024 6:37 AM CDT Please review, complete, and sign oxygen prescription and justification. To review the oxygen prescription, click on the Encounter/Orders button at the top of the screen. Please give the signed Rx and justification to the patient at the time of your follow-up consult orhave them mailed to the patient. Thank you. documented in this encounter Plan of Treatment Not on file documented as of this encounter Visit Diagnoses Diagnosis Fibrosis Pulmonary (HCC)- Primary documented in this encounter Additional Health Concerns Infection Onset Date Last Indicated Resolved Time C. difficile 03/24/2024 03/24/2024 04/21/2024 5:37 AM CDT documented as of this encounter Care Teams Drafter Relationship Specialty Start Date End Date Elsewhere, Pcp PCP - General Internal Medicine 03/23/24 documented as of this encounter
--- OUTSIDE RECORDS SUMMARY | 2024-06-25 11:54 | XMS_ITS | Encounter Summary ---
Author Organization [facility] Address [address] [place] [address] Care Team Providers Care Electric Motor Control Assembler Name Role Phone Elsewhere, Pcp Primary Care Provider Unavailabl e Reason for Referral * Radiation Therapy (Routine) - Closed Specialty Diagnoses / Procedures Referred By Fabian t Referred To Contact Diagnoses Secondary Malignant Neoplasm Bone (HCC) Procedures Initial Rad Onc Treatment Planning CT Simulation Kuldeep Ritchie M.D. [address] [place] [phone] [facility] Referral ID Status Reason Start Date Expiration Date Visits Re quested Visits Authorized [id number] Closed 04/19/2024 04/19/2025 1 1 Encounter Details Date Type Department Care Team (Late st Contact Info) Description 04/19/2024 Orders Only Department of Radiation Oncology in [place], [place] [address] [place] [phone] Kuldeep Ritchie M.D. [address] [place] [address] [phone] Secondary Malignant Neoplasm Bone (HCC) (Primary Dx) Social History Tobacco Use Types Packs/Day Years Used Date Smoking Tobacco: Former Cigarettes 2.5 30.1 0 09/18/1965 - 11/01/1995 Passive Smoke Exposure: Never Smokeless Tobacco: Never Alcohol Use Standard Drinks/Week Comments Not Currently 1 (1 standard drink = 0.6 oz pur e alcohol) drink on special occasions [facility] Utilities Answer Date Recorded In the past 12 months has madalyn e electric, gas, oil, or water company [...] How often do you attend chur or anglican services? More than 4 times [...] and heating? Not very hard 01/27/2023 [facility] [place] of Occupat ional Health - Occupational Stress [...] your [facility] situation today? [facility] 03/31/2024 Education Answer Date [...] documented as of this encounter Results * Initial Rad Onc [...] Diagnosis Secondary Malignant Neoplasm Bone (HCC)- Primary Secondary Malignant Neoplasm Bone (HCC) documented in this encounter Additional Health Concerns Infection Onset Date Last Indicated Resolved Time C. difficile 03/24/2024 03/24/2024 04/21/2024 5:37 AM CDT Protective Environment 04/17/2024 04/17/202405/19 5:39 AM CDT documented as of this encounter Care Teams Electric Motor Control Assembler Relationship Specialty Start Date End Date Elsewhere, Pcp PCP - General Internal Medicine 03/23/24 documented as of this encounter
--- OUTSIDE RECORDS SUMMARY | 2024-06-25 11:54 | XMS_ITS | Encounter Summary ---
Author Organization [facility] Address [address] [place] [address] Care Team Providers Care Mechanical Cad Drafter Name Role Phone Elsewhere, Pcp Primary Care Provider Unavailabl e Encounter Details Date Type Department Care Team (Late st Contact Info) Description 04/11/2024 1:00 PM CDT Diagnostic Division of Pulmonary Medicine in [place], [place] [address] [place] [phone] Edgardo Joy D.O. [address] [place] [phone] Fibrosis Pulmonary (HCC); Chronic Cough Social History Tobacco Use Types Packs/Day Years [...] How often do you attend chur or voodoo services? More than 4 times per year 01/27/2023 Do you belong to any clubs o r organizations such as baptism groups, unions, fraternal or athletic groups, or [...] care, and heating? Not very hard 01/27/2023 [facility] [place] of Occupat ional Health - Occupational Stress [...] your living situation today? I have a [facility] place to live 03/31/2024 Education [...] Procedure Name Priority Date/Time Associated Diagnosis Comments PUL HOME OVERNIGHT OXIMETRY Routine 04/11/2024 Fibrosis Pulmonary (HCC) Chronic Cough documented in this encounter Results * PUL Home Overnight Oximetry (04/11/2024) 04/11/2024 Impressions [facility] - 04/12/2024 3:50 PM CDT Despite supplemental oxygen, there is persistence of baseline and positional gas exchange abnormality. Physician: Stan Romero M.D. [id number] Narrative Procedure Note Stan Romero M.D. - 04/12/2024 IMPRESSION: Despite supplemental oxygen, there is persistence of baseline andpositional gas exchange abnormality. Physician: Stan Romero M.D. [id number] Edgardo Joy D.O. PFT ORDERABLES [facility] documented in this encounter Visit Diagnoses Diagnosis Fibrosis Pulmonary (HCC) Chronic Cough documented in this encounter Additional Health Concerns Infection Onset Date Last Indicated Resolved Time C. difficile 03/24/2024 03/24/2024 04/21/2024 5:37 AM CDT documented as of this encounter Care Teams Mechanical Cad Drafter Relationship Specialty Start Date End Date Elsewhere, Pcp PCP - General Internal Medicine 03/23/24 documented as of this encounter
--- OUTSIDE RECORDS SUMMARY | 2024-06-25 11:54 | XMS_ITS | Encounter Summary ---
Author Organization [facility] Address [address] [place] [id number] Care Team Providers Care Flap Lining Binder Name Role Phone Elsewhere, Pcp Primary Care Provider Unavailabl e Reason for Visit * Episode Based Medications (Routine) - Closed Specialty Diagnoses / Procedures Referred By Fabian hernández Referred To Contact Diagnoses Malignant Neoplasm Of Gastroesophageal Junction (HCC) Paddy Jha P.A.-C., M.S. [address] [place] [phone] [facility] [address] [place] [phone] Referral ID Status Reason Start Date Expiration Date Visits Re quested Visits Authorized [id number] Closed 02/13/2024 02/12/2026 99 99 Encounter Details Date Type Department Care Team (Late st Contact Info) Description 04/17/2024 7:00 AM CDT Infusion Department of Oncology in [place], [place] [address] [place] [phone] Luzma Howell M.D. [address] [place] [phone] Malignant Neoplasm Of Gastroesophageal Junction (HCC) (Primary Dx); Secondary Malignant Neoplasm Bone (HCC) Social History Tobacco Use Types Packs/Day Years Used Date Smoking Tobacco: Former Cigarettes 2.5 30.1 0 09/18/1965 - 11/01/1995 Passive Smoke Exposure: Never Smokeless Tobacco: Never Alcohol Use Standard Drinks/Week Comments Not Currently 1 (1 standard drink = 0.6 oz pur e alcohol) drink on special occasions [facility] Utilities Answer Date Recorded In the [...] How often do you attend chur or adventism services? More than 4 times [...] care, and heating? Not very hard 01/27/2023 [facility] - Occupational [...] your living situation today? I have a [facility] place to live 03/31/2024 Education Answer [...] Sign Reading Time Taken Comments Blood Pressure 124/64 04/17/2024 7:33 AM CDT Pulse 72 04/17/2024 7:33 AM CDT Temperature 36.2 ??C (97.2 ??F) 04/17/2024 7:33 AM CD T Respiratory Rate - - Oxygen Saturation - - Inhaled Oxygen Concentration - - Weight 104 kg (230 lb 6.1 oz) 04/17/2024 7:33 AM CDT Height - - Body Mass Index 31.03 04/11/2024 2:47 PM CDT documented in this encounter Plan of Treatment Not on file documented as of this encounter Visit Diagnoses Diagnosis Malignant Neoplasm Of Gastroesophageal Junction (HCC)- Primary Secondary Malignant Neoplasm Bone (HCC) documented in this encounter Administered Medications Inactive Administered Medications - up to 3 most recent administrations Medication Order MAR Action Action Date Dose Rate Site dexAMETHasone injection 10 mg (Decadron) 10 mg, intravenous, Once, On Mon04/17/24 at 0745, For 1 dose Given 04/17/2024 7:48 AM CDT 10 mg diphenhydrAMINE capsule 25 mg (BenadryL) 25 mg, oral, Once, On Mon04/17/24 at 0800, For 1 dose, Administer 30 minutes prior to monoclonal antibody Given 04/17/2024 7:44 AM CDT 25 mg famotidine injection 20 mg (Pepcid) 20 mg, intravenous, Once, On Mon04/17/24 at 0745, For 1 dose Given 04/17/2024 7:51 AM CDT 20 mg heparin flush 500 Units 500 Units, intra-catheter, As needed, line care, Starting on Mon04/17/24 at 0722, When IVAD accessed and not infusing: When no infusion to maintain patency flush every 7 days following NaCL flush. 5 mL (500 units) of Heparin 100 units/mL to each port/lumen. When IVAD not accessed or infusing: When no infusion to maintain patency flush every 28 days following NaCL flush. 5 mL (500 units) of Heparin 100 units/mL to each port/lumen. Given 04/17/2024 9:24 AM CDT 500 Units ondansetron (PF) injection 8 mg (Zofran) 8 mg, intravenous, Once, On Mon04/17/24 at 0745, For 1 dose Given 04/17/2024 7:54 AM CDT 8 mg PACLitaxeL 120 mg in NaCl 0.9% (non-PVC/non-DEHP) 295 mL IVPB (TaxoL) 120 mg (rounded from 122.6666 mg = 53.3333 mg/m2 ? 2.3 m2 Treatment Plan BSA from Measured weight), intravenous, at 295 mL/hr, Administer over 1 Hours, Once, On Mon04/17/24 at 0800, For 1 dose, Administer via 0.22 micron in-line filter. New Bag 04/17/2024 8:17 AM CDT 120 mg 295 mL/hr sodium chloride 0.9 % injection 10-20 mL 10-20 mL, intra-catheter, As needed, line care, Starting on Mon04/17/24 at 0722, When IVAD accessed and infusing: Flush prior to and following infusion, between multiple consecutive infusions. 10 mL to each port/lumen. Given 04/17/2024 9:24 AM CDT 10 mL Given 04/17/2024 7:45 AM CDT 10 mL documented in this encounter Additional Health Concerns Infection Onset Date Last Indicated Resolved Time C. difficile 03/24/2024 03/24/2024 04/21/2024 5:37 AM CDT Protective Environment 04/17/2024 04/17/202405/19 5:39 AM CDT documented as of this encounter Care Teams Flap Lining Binder Relationship Specialty Start Date End Date Elsewhere, Pcp PCP - General Internal Medicine 03/23/24 documented as of this encounter
--- OUTSIDE RECORDS SUMMARY | 2024-06-25 11:54 | XMS_ITS | Encounter Summary ---
Author Organization [facility] Address [address] [place] [id number] Care Team Providers Care Reverberatory Skimmer Name Role Phone Elsewhere, Pcp Primary Care Provider Unavailabl e Reason for Referral * MRI/CAT/PET Scan (Routine) - Closed Specialty Diagnoses / Procedures Referred By Fabian hernández Referred To Contact Radiology Diagnoses 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) Procedures CT Chest without IV Contrast Merly Beavers APRN C.N.P., M.S. [address] [place] [phone] [facility] Referral ID Status Reason Start Date Expiration Date Visits Re quested Visits Authorized [id number] Closed 04/16/2024 04/16/2025 1 1 Reason for Visit * MRI/CAT/PET Scan (Routine) - Closed Specialty Diagnoses / Procedures Referred By Fabian hernández Referred To Contact Radiology Diagnoses 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) Procedures CT Chest without IV Contrast Merly Beavers APRN, C.N.P., M.S. [address] [place] [phone] [facility] Referral ID Status Reason Start Date Expiration Date Visits Re quested Visits Authorized [id number] Closed 04/16/2024 04/16/2025 1 1 Encounter Details Date Type Department Care Team (Latest Contact Info) Description 04/19/2024 9:42 AM CDT - 04/19/2024 11:59 PM CDT Hospital Encounter Department of Radiology, [facility], in [place], [place] [address] [place] [phone] Merly Beavers, MINESH, C.N.P., M.S. [address] [place] [phone] Malignant Neoplasm Of Gastroesophageal Junction (HCC); Secondary [...] pur e alcohol) drink on special occasions [facility] Admifyities Answer Date Recorded In the past 12 months has [employer], gas, oil, or water [employer] threatened to shut off services in your [...] often do you attend chur ch or oriental orthodox services? More than 4 times per year 01/27/2023 Do you belong to any clubs o r organizations such as anglican groups, unions, fraternal or athletic groups, or [...] care, and heating? Not very hard 01/27/2023 [facility] - Occupational [...] your living situation today? I have a [facility] place to live 03/31/2024 Education [...] End Date albuterol 90 mcg/actuation inhalerIndications:Emphys sally ([facility]) INHALE 2 PUFFS EVERY 4 HRS NEEDED FOR WHEEZING OR SHORTNESS OF BREATH. USE WITH HOUSE PARENT TUBE. 18 g 11 07/27/2023 07/26/2024 DME OxygenIndications:Fibrosi s Pulmonary ([facility]) DME Order - for details see Order Report 1 each 04/16/2024 Eliquis 5 mg tablet Take 5 mg by mouth 2 (two) times a day. 07/02/2023 heparin 100 unit/mL syringeIndications:Malign ant Neoplasm Of Gastroesophageal Junction (HCC),Retail Service Representative Current Drug Therapy, Chemotherapy 5 mL (500 Units total) by intra-catheter route once as needed for line care for up to 1 dose. Flush IV line AFTER 0.9% Sodium Chloride flush 60 mL 3 12/18/2023 inhalational spacing device (AEROCHAMBER) spacerIndications:Emphyse ma ([facility]) 1 each as needed (for use with Albuterol inhaler). 1 each 1 12/28/2018 multivitamin tablet Take 1 tablet by mouth daily. GUMMIES OLANZapine (ZyPREXA) 5 mg tabletIndications:Maligna nt Neoplasm Of Gastroesophageal Junction (HCC),Senior Living Current Drug Therapy, Chemotherapy TAKE 1 TABLET BY MOUTH AT BEDTIME NEEDED (NAUSEA, VOMITING). MAY TAKE DOSE EARLY IF NEEDED. 90 tablet 1 03/05/2024 omeprazole (PriLOSEC) [address] capsule Take 20 mg by mouth every morning before breakfast. ondansetron (ZOFRAN) 8 mg tabletIndications:Maligna nt Neoplasm Of Gastroesophageal Junction (HCC),Senior Living Current Drug Therapy, Chemotherapy Take 1 tablet (8 mg total) by mouth every 8 (eight) hours as needed for nausea or vomiting (unrelieved by prochlorperazine). 30 tablet 3 12/08/2023 12/07/2024 prochlorperazine (COMPAZINE) 10 mg tabletIndications:Maligna nt Neoplasm Of Gastroesophageal Junction (HCC),Retail Service Representative Current Drug Therapy, Chemotherapy Take 1 tablet [...] Procedure Name Priority Date/Time Associated Diagnosis Comments CT CHEST WITHOUT IV CONTRAST RAD - Routine (most inpatients and all outpatients) 04/19/2024 10:35 AM CDT 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) documented in this encounter Results * CT Chest without IV Contrast (04/19/2024 [...] in fibroticinterstitial process since 12/26/2018. Merly Beavers APRN, C.N.P., M.S. IM G CT PROCEDURES documented in this encounter Visit Diagnoses Diagnosis 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) documented in this encounter Additional Health Concerns Infection Onset Date Last Indicated Resolved Time C. difficile 03/24/2024 03/24/2024 04/21/2024 5:37 AM CDT Protective Environment 04/17/2024 04/17/202405/19 5:39 AM CDT documented as of this encounter Care Teams Reverberatory Skimmer Relationship Specialty Start Date End Date Elsewhere, Pcp PCP - General Internal Medicine 03/23/24 documented as of this encounter
--- OUTSIDE RECORDS SUMMARY | 2024-06-25 11:54 | XMS_ITS | Encounter Summary ---
Author Organization [facility] Address [address] [place] [phone] Care Team Providers Care [employer] Hat Linux Engineer Name Role Phone Elsewhere, Pcp Primary Care Provider Unavailabl e Reason for Referral * Radiation Therapy (Routine) - Authorized Specialty Diagnoses / Procedures Referred By Contac t Referred To Contact Diagnoses Secondary Malignant Neoplasm Bone (HCC) Procedures Prior Auth Rad Tx Kuldeep Ritchie M.D. [address] [place] [phone] [facility] Referral ID Status Reason Start Date Expiration Date V isits Requested Visits Authorized [id number] Authorized 04/22/2024 04/22/2025 1 1 Encounter Details Date Type Department Care Team (Late st Contact Info) Description 04/22/2024 Orders Only Department of Radiation Oncology in [place], [place] [address] [place] [phone] Kuldeep Ritchie M.D. [address] [place] [phone] Secondary Malignant Neoplasm Bone (HCC) (Primary Dx) Social History Tobacco Use Types Packs/Day Years Used Date Smoking Tobacco: Former Cigarettes 2.5 30.1 0 09/18/1965 - 11/01/1995 Passive Smoke Exposure: Never Smokeless Tobacco: Never Alcohol Use Standard Drinks/Week Comments Not Currently 1 (1 standard drink = 0.6 oz pur e alcohol) drink on special occasions [facility] Utilities Answer Date Recorded In [...] any clubs o r organizations such as orthodox groups, unions, fraternal or athletic groups, or [...] care, and heating? Not very hard 01/27/2023 [facility] Occupat ional Health - Occupational Stress [...] your living situation today? [facility] 03/31/2024 Education Answer [...] of this encounter Plan of Treatment Scheduled Orders Name Type Priority Associated Diagnoses Orde r Schedule Prior Auth Rad Tx Radiation Oncology Routine Secondary Malignant Neoplasm Bone (HCC) Ordered: 04/22/2024 documented as of this encounter Visit Diagnoses Diagnosis Secondary Malignant Neoplasm Bone (HCC)- Primary documented in this encounter Additional Health Concerns Infection Onset Date Last Indicated Resolved Time Protective Environment 04/17/2024 04/17/202405/19 5:39 AM CDT documented as of this encounter Care Teams [employer] Linux Engineer Relationship Specialty Start Date End Date Elsewhere, Pcp PCP - General Internal Medicine 03/23/24 documented as of this encounter
--- OUTSIDE RECORDS SUMMARY | 2024-06-25 11:54 | XMS_ITS | Encounter Summary ---
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 [address] [place] [phone] [facility] Referral ID Status Reason Start Date Expiration Date Visits Re quested Visits Authorized [id number] Closed 04/16/2024 04/16/2025 1 1 Reason for Visit * Episode Based Medications (Routine) - Closed Specialty Diagnoses / Procedures Referred By Fabian hernández Referred To Contact Diagnoses Malignant Neoplasm Of Gastroesophageal Junction (HCC) Paddy hJa P.A.-C., M.S. [address] [place] [phone] Rst Onc Rogo [address] [place] [phone] Referral ID Status Reason Start Date Expiration Date Visits Re quested Visits Authorized [id number] Closed 02/13/2024 02/12/2026 99 99 Encounter Details Date Type Department Care Team (Latest Contact Info) Description 04/16/2024 2:00 PM CDT Office Visit Department of Oncology in [place], [place] [address] [place] [address] Yessenia Beavers, MINESH C.N.P., M.S. [address] [place] [address] Malignant Neoplasm Of Gastroesophageal Junction (HCC); Secondary Malignant Neoplasm Bone (HCC) Social History Tobacco Use Types Packs/Day Years Used Date Smoking Tobacco: Former Cigarettes 2.5 30.1 0 09/18/1965 - 11/01/1995 Passive Smoke Exposure: Never Smokeless Tobacco: Never Alcohol Use Standard Drinks/Week Comments Not Currently 1 (1 standard drink = 0.6 oz pur e alcohol) drink on special occasions [facility] [employer] Answer Date Recorded In the past 12 months has [employer] gas, oil, or water [employer] threatened to shut off services in your [...] often do you attend [facility] or synagogue services? More than 4 times per year [...] care, and heating? Not very hard 01/27/2023 [facility] - [...] your living situation today? I have a [facility] place to live 03/31/2024 Education Answer [...] Sign Reading Time Taken Comments Blood Pressure 118/68 04/16/2024 2:04 PM CDT Pulse 70 04/16/2024 2:04 PM CDT Temperature 36.1 ??C (97 ??F) 04/16/2024 2:0 4 PM CDT Respiratory Rate 15 04/16/2024 2:04 PM CDT Oxygen Saturation 83% 04/16/2024 2:0 4 PM CDT has o2 tank Inhaled Oxygen Concentration - - Weight 105 kg (232 lb 5.8 oz) 2:04 PM CDT Height - - Body Mass Index 31.3 04/11/2024 2:47 PM CDT documented in this encounter Progress Notes * Yessenia Beavers APRN, C.N.P., M.S. - 04/16/2024 2:00 PM CDT SUBJECTIVE PRIMARY CARE PHYSICIAN ELSEWHERE, PCP REQUESTING PROVIDER Paddy Jha P.A.-C., M.S. [address] [place] [address] LOCAL ONCOLOGIST No care rn team leader to display [facility] [place] ONCOL[facility]IST Paddy Jha P.A.-C., M.S. Luzma Howell M.D. CHIEF COMPLAINT/REASON FOR CONSULT Merle G. Marquis is a 78 y.o. male who presents for evaluation of GEJ adenocarcinoma HISTORY OF PRESENT ILLNESS Mr. Cho is a 78 y.o. male with the following oncologic history: Oncology History Malignant Neoplasm Of Gastroesophageal Junction [...] Chemotherapy Ramucirumab / PACLitaxel Start Date: 02/14/2024 INTERVAL HISTORY: Mr. Cho presents for reevaluation. Since last seen, Mr. Cho has made some improvement. Unfortunately he was hospitalized last month with a myriad of symptoms which included colitis, dyspnea causing hypoxia, and ongoing failure to thrive. In the last week he has developed significant left shoulder pain that radiates down his left arm worse with coughing. He characterizes the pain 7/10 and only uses Tylenol for the pain which helped somewhat. He is disinclined to move to a stronger pain medication at this juncture. He also has left tibia/fibula pain which is new in the last week or so that is also significant 5 to 6/10. He does not describe other areas of pain other than persistent lower abdominal and epigastric discomfort which he had when he was hospitalized with colitis which has improved slightly but still present. He is trying to eat but it takes him a long time and he is slowly trying to incorporate higher protein diet and protein shakes. He does have quite a bit of coughing and phlegm. He was seen by Pulmonary Medicine and had repeat PFTs and noted that his oxygenrequirements at bedtime has increased from 2 L to 5 L. He uses 6 L with any movement and continuous2 L at rest. He is not having any problems with melena or diarrhea he has formed bowel movements inthe last week. He is very fatigued he sleeps about 4 hours during the day as well as all night. When he is awake he is activity level is quite low. REVIEW OF SYSTEMS Pertinent items are noted in HPI; all other review of systems was negative. OBJECTIVE VITAL SIGNS Vitals: 04/16/24 1404 BP: 118/68 BP Location: Left arm Patient Position: Sitting Cuff Size: Large Pulse: 70 Resp: 15 Temp: 36.1 ??C TempSrc: Tympanic SpO2: (!) 83% Weight: 105 kg PHYSICAL EXAMINATION General: Well appearing 78 y.o. who is in no apparent distress. Appears to be at ECOG performance status 1-2, O2 nasal cannula in place Skin: Non-jaundiced. No rashes. Eyes: No scleral icterus. ENT: Oral mucosa is pink and moist. No lesions, ulcerations or thrush. Lymph: No palpable cervical, submandibular, or supraclavicular lymph nodes. Heart: Regular rate and rhythm. No murmurs, rubs or gallops. Lungs: Clear to auscultation bilaterally. Abdomen: Soft, epigastric and lower pelvic tenderness Extremities: No edema. Neuro: Alert and oriented x 3. Calm, interactive and appropriate. No focal neuro deficit. Reports: Labs and imaging have been reviewed. DIAGNOSTICS I reviewed the pertinent laboratory and diagnostic data. ASSESSMENT / PLAN #1 Metastatic GEJ adenocarcinoma I have reviewed all above in depth with Mr. Cho and his family. Repeat blood work done todayshows stabilization of his hemoglobin and slight increase of his alkaline phosphatase. His alkalinephosphatase increased maybe related to possible progressive disease in the left shoulder and lower left leg causing significant pain. Fortunately he has stayed stable since his recent hospitalization which was very complex and multifactorial. However, I think his overall functional status is increasingly diminished. We had a open honest conversation about his situation and my hesitancy to continue on with therapy. However he definitely wants to treat his disease if at all possible. I did explain to him that it is very possible that he is not driving significant duration of life from continuing on with therapy and he might incur significant side effects which may decrease his overall quality of life which he understands. However he would like to try to continue with possible. We had another conversation about if this treatment is ineffective or not tolerated that his next best option would be transitioning to best supportive care and in home hospice which he and his family are aware of and have had conversations about in the past. I suggested a referral to our colleagues in palliative Medicine to try to help with his symptoms and when the time comes make the transition into in home hospice which he and his family are very open to. For his shortness of breath and increasing oxygen needs of course we worry about increasing or worsening pleural effusions. He did have 2 L taken off when he was hospitalized. I think it is in his best interest to have a baseline CT scan of the chest to see if there is any reaccumulation of fluid that we may be able to help with with the thoracentesis. Of course it might be related to his pre-existing pulmonary fibrosis and pulmonary disease. For his left shoulder pain we know that there is a biopsy-proven metastasis there and likely this is the source of his pain. He would benefit from a referral to our colleagues in Radiation Oncology for discussion regarding the role of palliative radiation. He also has left lower leg pain I am not sure if it is his tibia or fibula that is causing the discomfort but it is likely related to his disease and perhaps maybe amenable to radiation as well. We did discuss using pain medication stronger than Tylenol which he is disinclined to pursue at this juncture. At the end of our conversation we decided to move forward with the above- mentioned consultations. Joe willing to give him chemotherapy with a low threshold for discontinuation based on tolerance. However, I think full-dose chemotherapy with paclitaxel would not be well tolerated. I have will drop the dose about 30%. He is not eligible to receive ramucirumab given his recent GI bleed and drop in hemoglobin. I encouraged him to maintain close communication with us so that we can help with symptom control and if there is any other significant side effects that occur with his systemic therapy. He and his family are very much in agreement with this plan and will reach out to us if there is new concerns orquestions. PATIENT EDUCATION Ready to learn, no apparent learning barriers were identified; learning preferences include listening. Explained diagnosis and treatment plan; patient expressed understanding of the content. ADMINISTRATIVE BILLING Total time spent in counseling 50 mins. documented in this encounter Miscellaneous Notes * Addendum Note - Yessenia Beavers APRN, C.N.P., M.S. 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) Expected: 04/16/2024, Expires: 07/17/2025 documented as of this encounter Results * Bilirubin, Direct (04/30/2024 6:54 AM CDT) Bilirubin, Direct, S <0.2 0.0 - 0.3 mg/dL 04/30/2024 8:01 AM CDT DTL Blood (Blood, Venous) 04/30/2024 6:54 AM CDT 04/30/2024 7:42 AM CDT Yessenia Beavers APRN, C.N.P., M.SJam [place] BLOOD ADD-ON [facility] [address] [place] [address], [place] [facility] [address] [place] [address] * (ABNORMAL) Comprehensive Metabolic Panel (04/30/2024 6:54 AM CDT) [facility] Potassium, S 3.9 3.6 - 5.2 mmol/L [...] 6:54 AM CDT 04/30/2024 7:42 AM CDT Yessenia Beavers APRN, C.N.P., M.S. BLESSING [place] BLOOD ADD-ON [facility] [address] [place] [address], [facility] [address] [place] [address] * (ABNORMAL) CBC with Differential, Blood (04/30/2024 6:54 AM CDT) Hemoglobin 6.1(L) 13.2 - 16.6 g/dL 04/30/2024 [...] 6:54 AM CDT 04/30/2024 7:28 AM CDT Radha Tee APRN.N.Ruiz, M.S. LA B BLOOD ADD-ON [facility] [address] [place] [address], [facility] DTL [facility] [address] [place] [address] DHPM [facility] [address] [place] [address] * DX Tibia Fibula Bilateral 2 Views [...] for further evaluation for suspected osseousmetastatic disease. Yessenia Beavers APRN C.N.PJam, M.S. IM G DIAGNOSTIC IMAGING PROCEDURES * [...] with increase in fibroticinterstitial process since 12/26/2018. Yessenia Beavers APRN C.N.P., M.S. 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 difficile 03/24/2024 03/24/2024 04/21/2024 5:37 AM CDT documented as of this encounter Care Teams Area Coordinator Relationship Specialty Start Date End Date Elsewhere, Pcp PCP - General Internal Medicine 03/23/24 documented as of this encounter
--- OUTSIDE RECORDS SUMMARY | 2024-06-25 11:54 | XMS_ITS | Encounter Summary ---
Author Organization [facility] Address [address] [place] [phone] Care Team Providers Care Engineer [employer] Name Role Phone Elsewhere, Pcp Primary Care Provider Unavailabl e Reason for Visit * Episode Based Medications (Routine) - Closed Specialty Diagnoses / Procedures Referred By Fabian hernández Referred To Contact Diagnoses Malignant Neoplasm Of Gastroesophageal Junction (HCC) Paddy Jha P.A.-C., M.S. [address] [place] [phone] Rst Onc Rogo [address] [place] [phone] Referral ID Status Reason Start Date Expiration Date Visits Re quested Visits Authorized [id number] Closed 02/13/2024 02/12/2026 99 99 Encounter Details Date Type Department Care Team (Late st Contact Info) Description 04/30/2024 6:45 AM CDT Lab Department of Oncology in [place], [place] [address] [place] [phone] Merly Beavers APRN, C.N.P., M.S. [address] [place] [phone] Malignant Neoplasm Of Gastroesophageal Junction (HCC) (Primary Dx) Social History Tobacco Use Types Packs/Day Years Used Date Smoking Tobacco: Former Cigarettes 2.5 30.1 0 09/18/1965 - 11/01/1995 Passive Smoke Exposure: Never Smokeless Tobacco: Never Alcohol Use Standard Drinks/Week Comments Not Currently 1 (1 standard drink = 0.6 oz pur e alcohol) drink on special occasions [facility] [employer] Answer Date Recorded In the [...] How often do you attend chur or samaritan services? More than 4 times per year 01/27/2023 Do you belong to any clubs o r organizations such as sikh groups, unions, fraternal or athletic groups, or [...] care, and heating? Not very hard 01/27/2023 [facility] [...] Diagnosis Comments CBC WITH DIFFERENTIAL, B Routine 04/30/2024 6:54 AM CDT Malignant Neoplasm Of Gastroesophageal Junction (HCC) BILIRUBIN DIRECT, S/P Routine 04/30/2024 6:54 AM CDT Malignant Neoplasm Of Gastroesophageal Junction (HCC) COMPREHENSIVE METABOLIC PANEL, S/P Routine 04/30/2024 6:54 AM CDT Malignant Neoplasm Of Gastroesophageal Junction (HCC) documented in this encounter Results * Bilirubin, Direct (04/30/2024 6:54 AM CDT) Bilirubin, Direct, S <0.2 0.0 - 0.3 mg/dL 04/30/2024 8:01 AM CDT DTL Blood (Blood, Venous) 04/30/2024 6:54 AM CDT 04/30/2024 7:42 AM CDT Jarett Tee APRNN.Silvano., M.S. [place] B BLOOD ADD-ON [facility] [address] [place] [address], [facility] [address] [place] [address] * (ABNORMAL) Comprehensive Metabolic Panel (04/30/2024 6:54 AM CDT) Potassium, S 3.9 3.6 - 5.2 mmol/L [...] APRN C.N.P., M.S. LA B BLOOD ADD-ON [facility] [address] [place] [address], [facility] DTL [facility] [address] * (ABNORMAL) CBC with Differential, Blood (04/30/2024 6:54 AM CDT) [facility] Hemoglobin 6.1(L) 13.2 - 16.6 g/dL 04/30/2024 [...] 7:28 AM CDT Merly Beavers APRN, C.N.P., M.S. LA B BLOOD ADD-ON [facility] [address] [place] [address], [place] DTL [facility] [address] [place] [address] [facility] [address] [place] [address] documented in this encounter Visit Diagnoses Diagnosis Malignant Neoplasm Of Gastroesophageal Junction (HCC)- Primary documented in this encounter Administered Medications Inactive Administered Medications - up to 3 most recent administrations Medication Order MAR Action Action Date Dose Rate Site heparin flush 500 Units 500 Units, intra-catheter, As needed, line care, Starting on Mon04/30/24 at 0639, When IVAD accessed and not infusing: When no infusion to maintain patency flush every 7 days following NaCL flush. 5 mL (500 units) of Heparin 100 units/mL to each port/lumen. When IVAD not accessed or infusing: When no infusion to maintain patency flush every 28 days following NaCL flush. 5 mL (500 units) of Heparin 100 units/mL to each port/lumen. Given 04/30/2024 6:49 AM CDT 500 Units sodium chloride 0.9 % injection 10-20 mL 10-20 mL, intra-catheter, As needed, line care, Starting on Mon04/30/24 at 0639, When IVAD accessed and infusing: Flush prior to and following infusion, between multiple consecutive infusions. 10 mL to each port/lumen. Given 04/30/2024 6:49 AM CDT 10 mL documented in this encounter Additional Health Concerns Infection Onset Date Last Indicated Resolved Time Protective Environment 04/17/2024 04/17/202405/19 5:39 AM CDT documented as of this encounter Care Teams Engineer [employer] Relationship Specialty Start Date End Date Elsewhere, Pcp PCP - General Internal Medicine 03/23/24 documented as of this encounter
--- OUTSIDE RECORDS SUMMARY | 2024-06-25 11:54 | XMS_ITS | Encounter Summary ---
Author Organization [facility] Address [address] [place] [address] Care Team Providers Care Junior Account Executive Name Role Phone Elsewhere, Pcp Primary Care Provider Unavailabl e Reason for Referral * Outpatient (Routine) - Closed Specialty Diagnoses / Procedures Referred By Contac t Referred To Contact Diagnoses 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) Procedures DX Tibia Fibula Bilateral 2 Views Merly Beavers APRN C.N.P., M.S. [address] [place] [address] [facility] Referral ID Status Reason Start Date Expiration Date Visits Re quested Visits Authorized [id number] Closed 04/16/2024 04/16/2025 1 1 Reason for Visit * Outpatient (Routine) - Closed Specialty Diagnoses / Procedures Referred By Contoly t Referred To Contact Diagnoses 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) Procedures DX Tibia Fibula Bilateral 2 Views Merly Beavers APRN C.N.P., M.S. [address] [place] [address] [facility] Referral ID Status Reason Start Date Expiration Date Visits Re quested Visits Authorized [id number] Closed 04/16/2024 04/16/2025 1 1 Encounter Details Date Type Department Care Team (Latest Contact Info) Description 04/22/2024 8:52 AM CDT - 04/22/2024 9:56 AM CDT Hospital Encounter Department of Radiology, [facility], in [place], [place] [address] [place] [address] Merly Beavers, MINESH, C.N.P., M.S. [address] [place] [address] Malignant Neoplasm Of Gastroesophageal Junction (HCC); Secondary [...] alcohol) drink on special occasions [facility] [employer] Answer Date Recorded In the past 12 months has [employer], gas, oil, or water [employer] threatened to shut off services in your [...] often do you attend chur ch or zoroastrianism services? More than 4 times per year [...] care, and heating? Not very hard 01/27/2023 [facility] - Occupational Stress [...] living situation today? I have a [facility] place to live 03/31/2024 Education Answer Date [...] End Date albuterol 90 mcg/actuation inhalerIndications:Emphys sally ([facility]) INHALE 2 PUFFS EVERY 4 HRS NEEDED FOR WHEEZING OR SHORTNESS OF BREATH. USE WITH SAFETY INSPECTOR TUBE. 18 g 11 07/27/2023 07/26/2024 DME OxygenIndications:Fibrosi s Pulmonary ([facility]) DME Order - for details see Order Report 1 each 04/16/2024 Eliquis 5 mg tablet Take 5 mg by mouth 2 (two) times a day. 07/02/2023 heparin 100 unit/mL syringeIndications:Malign ant Neoplasm Of Gastroesophageal Junction (HCC),Under Cutter Current Drug Therapy, Chemotherapy 5 mL (500 [...] mg tabletIndications:Maligna nt Neoplasm Of Gastroesophageal Junction (HCC),Under Cutter Current Drug Therapy, Chemotherapy TAKE 1 TABLET BY MOUTH AT BEDTIME NEEDED (NAUSEA, VOMITING). MAY TAKE DOSE EARLY IF NEEDED. 90 tablet 1 03/05/2024 omeprazole (PriLOSEC) [address] capsule Take 20 mg by mouth every morning before breakfast. ondansetron (ZOFRAN) 8 mg tabletIndications:Maligna nt Neoplasm Of Gastroesophageal Junction (HCC),Under Cutter Current Drug Therapy, Chemotherapy Take 1 tablet (8 mg total) by mouth every 8 (eight) hours as needed for nausea or vomiting (unrelieved by prochlorperazine). 30 tablet 3 12/08/2023 12/07/2024 prochlorperazine (COMPAZINE) 10 mg tabletIndications:Maligna nt Neoplasm Of Gastroesophageal Junction (HCC),Under Cutter Current Drug Therapy, Chemotherapy Take 1 tablet [...] Name Priority Date/Time Associated Diagnosis Comments DX TIBIA FIBULA BILATERAL 2 VIEWS RAD - Routine (most inpatients and all outpatients) 04/22/2024 9:41 AM CDT 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) documented in this encounter Results * DX Tibia Fibula Bilateral 2 Views [...] evaluation for suspected osseousmetastatic disease. Merly Beavers APRN C.N.P., M.S. IM G DIAGNOSTIC IMAGING PROCEDURES documented in this encounter Visit Diagnoses Diagnosis 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) documented in this encounter Additional Health Concerns Infection Onset Date Last Indicated Resolved Time Protective Environment 04/17/2024 04/17/202405/19 5:39 AM CDT documented as of this encounter Care Teams Junior Account Executive Relationship Specialty Start Date End Date Elsewhere, Pcp PCP - General Internal Medicine 03/23/24 documented as of this encounter
--- OUTSIDE RECORDS SUMMARY | 2024-06-25 11:55 | XMS_ITS | Encounter Summary ---
Author Organization [facility] Address [address] [place] [id number] Care Team Providers Care Medical Coding Technician Name Role Phone Elsewhere, Pcp Primary Care Provider Unavailabl e Encounter Details Date Type Department Care Team (Late st Contact Info) Description 03/26/2024 Clinical Communication Department of Oncology in [place], [place] [address] [place] [address] Paddy Jha P.A.-Radha., M.S. [address] [place] [phone] Social History Tobacco Use Types Packs/Day Years Used Date Smoking Tobacco: Former Cigarettes 2.5 30.1 0 09/18/1965 - 11/01/1995 Passive Smoke Exposure: Never Smokeless Tobacco: Never Alcohol Use Standard Drinks/Week Comments Not Currently 1 (1 standard drink = 0.6 oz pur e alcohol) drink on special occasions [facility] Utilities Answer Date Recorded In the past 12 months has e [employer], gas, oil, or water company threatened to [...] How often do you attend chur or jain services? More than 4 times per year 01/27/2023 Do you belong to any clubs o r organizations such as taoism groups, unions, fraternal or athletic groups, or [...] care, and heating? Not very hard 01/27/2023 [facility] of Occupat ional Health - Occupational Stress [...] Date Last Indicated Resolved Time Protective Environment 12/18/2023 12/18/202303/30 5:34 AM CDT C. difficile 03/24/2024 03/24/2024 04/21/2024 5:37 AM CDT Protective Environment 04/17/2024 04/17/202405/19 5:39 AM CDT documented as of this encounter Care Teams Medical Coding Technician Relationship Specialty Start Date End Date Elsewhere, Pcp PCP - General Internal Medicine 03/23/24 documented as of this encounter
--- OUTSIDE RECORDS SUMMARY | 2024-06-25 11:55 | XMS_ITS | Encounter Summary ---
Author Organization [facility] Address [address] [place] [id number] Care Team Providers Care General Office Associate Name Role Phone Elsewhere, Pcp Primary Care Provider Unavailabl e Encounter Details Date Type Department Care Team (Late st Contact Info) Description 04/05/2024 10:30 AM CDT Diagnostic Division of Pulmonary Medicine in [place], [place] [address] [place] [phone] Edgardo Joy D.O. [address] [place] [phone] Fibrosis Pulmonary (HCC) Social History Tobacco Use Types Packs/Day Years Used Date Smoking Tobacco: Former Cigarettes 2.5 30.1 0 09/18/1965 - 11/01/1995 Passive Smoke Exposure: Never Smokeless Tobacco: Never Alcohol Use Standard Drinks/Week Comments Not Currently 1 (1 standard drink = 0.6 oz pur e alcohol) drink on special occasions [facility] Utilities Answer Date Recorded In [...] week 01/27/2023 How often do you attend [facility] or sikhism services? More than 4 times per year 01/27/2023 Do you belong to any clubs o r organizations such as samaritan groups, unions, fraternal or athletic groups, or [...] care, and heating? Not very hard 01/27/2023 [facility] [place] of Occupat ional Health - Occupational Stress [...] Procedure Name Priority Date/Time Associated Diagnosis Comments OXYGEN TITRATION Routine 04/05/2024 11:0 3 AM CDT Fibrosis Pulmonary (HCC) documented in this encounter Results * Oxygen Titration (04/05/2024 11:03 AM CDT) [...] Edgardo Joy D.O. PFT ORDERABLES MMODAL NA documented in this encounter Visit Diagnoses Diagnosis Fibrosis Pulmonary (HCC) documented in this encounter Additional Health Concerns Infection Onset Date Last Indicated Resolved Time C. difficile 03/24/2024 03/24/2024 04/21/2024 5:37 AM CDT documented as of this encounter Care Teams General Office Associate Relationship Specialty Start Date End Date Elsewhere, Pcp PCP - General Internal Medicine 03/23/24 documented as of this encounter
--- OUTSIDE RECORDS SUMMARY | 2024-06-25 11:55 | XMS_ITS | Encounter Summary ---
Author Organization [facility] Address [address] [place] [phone] Care Team Providers Care Forepart Laster Name Role Phone Elsewhere, Pcp Primary Care Provider Unavailabl e Encounter Details Date Type Department Care Team (Late st Contact Info) Description 04/05/2024 Clinical Communication Division of Pulmonary Medicine in [place], [place] [address] [place] [phone] Edgardo Joy D.O. [address] [place] [phone] Social History Tobacco Use Types Packs/Day Years Used Date Smoking Tobacco: Former Cigarettes 2.5 30.1 0 09/18/1965 - 11/01/1995 Passive Smoke Exposure: Never Smokeless Tobacco: Never Alcohol Use Standard Drinks/Week Comments Not Currently 1 (1 standard drink = 0.6 oz pur e alcohol) drink on special occasions [facility] Utilities Answer Date Recorded In [...] any clubs o r organizations such as mandaen groups, unions, fraternal or athletic groups, or [...] care, and heating? Not very hard 01/27/2023 [facility] [place] of Occupat ional Health - Occupational Stress [...] living situation today? I have a [facility] place to live 03/31/2024 Education Answer Date [...] Encounter - Alanna Dixon, R.R.T., L.R.T. - 04/05/2024 12:52 PM CDT Please review, complete, and sign oxygen prescription and justification. To review the oxygen prescription, click on the Encounter/Orders button at the top of the screen. This study does not include nocturnal oxygenation assessment. Please give the signed Rx and justification [...] documented as of this encounter Care Teams Forepart Laster Relationship Specialty Start Date End Date Elsewhere, Pcp PCP - General Internal Medicine 03/23/24 documented as of this encounter
--- OUTSIDE RECORDS SUMMARY | 2024-06-25 11:55 | XMS_ITS | Encounter Summary ---
Author Organization [facility] Address [address] [place] [id number] Care Team Providers Care Insurance Counsel Name Role Phone Elsewhere, Pcp Primary Care Provider Unavailabl e Reason for Visit * Reason Comments Abdominal Pain Shortness of Breath Encounter Details Date Type Department Care Team (Latest Contact Info) Description 03/23/2024 7:19 AM CDT - 03/26/2024 6:48 PM CDT Hospital Encounter [facility], [facility], 7th Floor [address] [place] [address] Lanie Phillips, P.A.-C., M.S. [address] [place] [address] [phone] Maikol Skinner M.D., Ph.D. [address] [place] [address] [phone] Luzma Howell M.D. [address] [place] [phone] Dyspnea (Primary Dx); Hypoxia; Anemia; Stool Positive Occult Blood; Malignant Neoplasm Of Gastroesophageal Junction (HCC); Anticoagulant Therapy; Dyspnea On Exertion; Decline Functional Status [R53.81] Discharge Disposition: Home or Self Care Social History Tobacco Use Types Packs/Day Years Used Date Smoking Tobacco: Former Cigarettes 2.5 30.1 0 09/18/1965 - 11/01/1995 Passive Smoke Exposure: Never Smokeless Tobacco: Never Alcohol Use Standard Drinks/Week Comments Not Currently 1 (1 standard drink = 0.6 oz pur e alcohol) drink on special occasions [facility] Utilities Answer Date Recorded In the past 12 months has th e electric, gas, oil, or water company threatened to shut off services in your home? No 03/23/2024 Humiliation, Afraid, Rape, a nd Kick questionnaire [...] week 01/27/2023 How often do you attend [facility] or synagogue services? More than 4 [...] care, and heating? Not very hard 01/27/2023 [employer] [facility] - Occupational Stress Questionnaire Answer Date Recorded [...] to strenuous exercise (like a brisk walk)? 1 day 01/27/2023 On average, how many minutes do you engage in exercise at this level? 10 min 01/27/2023 Hunger Vital Sign Answer Date Recorded Within the past 12 months, y ou worried that your food would run out before you got the money to buy more. Never true 03/23/20 24 Within the past 12 months, t he food you bought just didn't last and you didn't have money to get more. Never true 03/23/2024 PRAPARE - Transportation Answer Date Re corded In the past 12 months, has l ack of transportation kept you from medical appointments or from getting medications? No 02/2024 In the past 12 months, has l ack of transportation kept you from meetings, work, or from getting things needed for daily living? No 03/23/2024 Nutrition Answer Date Recorded On average, how many serving s of fruits and vegetables do you eat per day (serving size is equal to 1 cup or approximately the size of a tennis ball)? 0-1 01/27/2023 Dental Answer Date Recorded Dental: Regular Dentist Yes 04/14/20 Employment Answer Date Recorded Employment status Retired 01/27/2023 Housing Stability Answer Date Recorded What is your living situation today? I have a [facility] [address] to live 03/23/2024 Education Answer Date Recorded What is the [...] Sign Reading Time Taken Comments Blood Pressure 131/68 03/26/2024 6:26 PM CDT Pulse 72 03/26/2024 6:25 PM CDT Temperature 36.7 ??C (98.1 ??F) 03/26/2024 6:25 PM CD T Respiratory Rate 20 03/26/2024 6:25 PM CDT Oxygen Saturation 97% 03/26/2024 6:25 PM CDT Inhaled Oxygen Concentration - - Weight 103 kg (226 lb 3.1 oz) 03/26/2024 8:00 AM CDT Height 181 cm (5' 11.26) 03/23/2024 4:00 PM CDT Body Mass Index 31.32 03/23/2024 4:00 PM CDT documented in this encounter Discharge Summaries * Neida Granados M.D. - 03/26/2024 5:40 PM CDT DISCHARGE SUMMARY BRIEF OVERVIEW Hospital: [facility] Discharge Provider: Luzma Howell M.D. Primary Team: [facility] Primary Care Providers: Elsewhere, Pcp (General) No address on file Primary Care Provider Phone Number: None Primary Care Provider Fax Number: None Admission Date: 03/23/2024 Discharge Date: 03/26/2024 PRINCIPAL DIAGNOSIS Dyspnea SECONDARY DIAGNOSES Principal Problem: Dyspnea Resolved Problems: * No resolved hospital problems. * DISCHARGE DISPOSITION Home or Self Care [1] ACTIVE ISSUES REQUIRING FOLLOW UP Continue oral vancomycin 125 mg through 04/03/24 Follow up appointments scheduled 04/23 at 12:20 for lab work and pre-chemotherapy appointment Follow up appointment scheduled 02/22 for chemotherapy appointment OUTPATIENT FOLLOW UP Scheduled Appointments 04/23/2024 12:20 PM LAB BLOOD [facility] Laboratory Medicine 04/23/2024 2:00 PM Paddy Jha P.A.-C., M.S. Oncology 04/24/2024 7:45 AM ONC CHAIR CHEMO [address] [place] [address] Oncology For appointment details refer to your Patient Appointment Guide. 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 He typically uses 2L O2 at rest and 4L with activity but this no longer was sufficient. He had a right- sided thoracentesis on 02/21/2024 and cytology was positive for metastatic adenocarcinoma. Was recently seen by his oncologist Dr. Kowalski on 03/13 where he was prescribed a 7 day course of cefdinir for his cough, thought to be due to do pneumonia, andfor worsening shortness of breath. ED Course In ED, O2 saturation dropped to 77% when he was on his side for rectal exam but corrected afterwards. Other vitals stable. Hgb 9. Labs unremarkable. Hospital Course He was found to be C Diff positive on 03/24/24 and started on oral vancomycin. Within 24 hours of starting antibiotics, his bowel movements decreased to 2 bowel in 24 hours. His Hgb slowly downtrended (9 on admission to 8.2 on day of discharge) which was thought to contribute to his shortness of breath and fatigue. Respiratory therapy was her and determined that he has a new oxygen requirement of 6L with activity. Without signs of infection or COPD exacerbation, his shortness of breath was thought to be due to his anemia. His symptomatic anemia was treated with 1 u packed red blood cells and hereported improvement in fatigue and shortness of breath. Disposition The patient was discharged to home on 03/26/24 in stable condition. Medications Changed Started: PO Vancomycin 125mg 4 times daily through 04/03/24 Changed: Home Oxygen Requirement increased to 6L with activity Stopped: none Follow up: Oncology for chemotherapy since he missed his appointment due to this hospitalization CONSULTS ORDERED DURING THIS ADMISSION IP CONSULT TO CARE MANAGEMENT CONDITION AT DISCHARGE improved Discharge instructions were provided to the patient and caregiver(s). Total time spent in discharge services today: 30 minutes. Neida Granados MD PGY1 documented in this encounter Discharge Instructions * Discharge Instructions* Laura Rosales - 03/25/2024 7:23 AM CDT You were discharged from the [facility] Service. Please identify this service name if you call with questions after hospitalization. * Patient Instructions* Nicolas Deluna R.N. - 03/25/2024 1:03 PM CDT The Senior LinkAge Line?? is a service of the [place] [employer] in partnership with [facility] Agencies on Aging. It is a free service of the [facility] that connects older [place] and their families with the help they need. Call the frestyl LinkAge Line?? at: 591.124.1719 M-F, 8am-4:30pm to connect with specialists that are available to assist you with your specific needsor check out their website at [email or web address] documented in this encounter Medications at Time of Discharge Medication Sig Dispensed Refills Start Date End Date albuterol 90 mcg/actuation inhalerIndications:Emphys sally ([facility]) INHALE 2 PUFFS EVERY 4 HRS NEEDED FOR WHEEZING OR SHORTNESS OF BREATH. USE WITH BRASS MOLDER HELPER TUBE. 18 g 11 07/27/2023 07/26/2024 Eliquis 5 mg tablet Take 5 mg by mouth 2 (two) times a day. 07/02/2023 heparin 100 unit/mL syringeIndications:Malign ant Neoplasm Of Gastroesophageal Junction (HCC),Usp Current Drug Therapy, Chemotherapy 5 mL (500 [...] mg tabletIndications:Maligna nt Neoplasm Of Gastroesophageal Junction (HCC),Cruller Maker Machine Current Drug Therapy, Chemotherapy TAKE 1 TABLET BY MOUTH AT BEDTIME NEEDED (NAUSEA, VOMITING). MAY TAKE DOSE EARLY IF NEEDED. 90 tablet 1 03/05/2024 omeprazole (PriLOSEC) [address] capsule Take 20 mg by mouth every morning before breakfast. ondansetron (ZOFRAN) 8 mg tabletIndications:Maligna nt Neoplasm Of Gastroesophageal Junction (HCC),Usp Current Drug Therapy, Chemotherapy Take 1 tablet (8 mg total) by mouth every 8 (eight) hours as needed for nausea or vomiting (unrelieved by prochlorperazine) . 30 tablet 3 12/08/2023 12/07/2024 prochlorperazine (COMPAZINE) 10 mg tabletIndications:Maligna nt Neoplasm Of Gastroesophageal Junction (HCC),Cruller Maker Machine Current Drug Therapy, Chemotherapy Take 1 tablet (10 mg total) by mouth every 6 (six) hours as needed for nausea or vomiting. 30 tablet 3 12/08/2023 12/07/2024 tamsulosin (FLOMAX) 0.4 mg 24 hr capsule Take 0.4 mg by mouth daily. vancomycin (Vancocin) 125 mg capsule Take 1 capsule (125 mg total) by mouth 4 (four) times a day for 8 days. 32 capsule 03/26/2024 04/03/2024 Anoro Ellipta 62.5-25 mcg/actuation inhalerIndications:Emphys sally (HCC) inhale 1 puff by mouth every day 180 each 3 12/28/2023 05/02/2024 DME OxygenIndications:Dyspnea DME Order - for details see Order Report 1 each 03/26/2024 05/16/2024 umeclidinium-vilanteroL (Anoro Ellipta) 62.5-25 mcg/actuation inhaler Inhale 1 puff daily. 04/03/2019 05/21/2024 vancomycin (Vancocin) 125 mg capsule Take 1 capsule (125 mg total) by mouth 4 (four) times a day. 34 capsule 03/26/2024 04/03/2024 documented as of this encounter Progress Notes * Luzma Howell M.D. - 03/26/2024 1:19 PM CDT Medical Oncology Progress Note Patient is evaluated today with the assistance of Neida Granados M.D. . I agree with the documented assessment, evaluation and recommendations. Mr. Cho is a 78 y.o. male with metastatic GEJ adenocarcinoma on second-line therapy with RAMTAX and a history of ILD and COPD requiring NC at baseline who was admitted for shortness of breath and diarrhea. He has started treatment for C diff colitis and has met with RT to review interventions for dyspnea. Of note, he recently completed a course of oral antibiotics with cefdinir for presumed pneumonia. Given persistent fatigue and dyspnea, we will transfuse him with 1u of RBC today. He may be discharged later today. Luzma Howell MD Medical Oncology * Neida Granados M.D. - 03/26/2024 1:00 PM CDT Images from the original note were not included. MEDICAL ONCOLOGY PROGRESS NOTE SUBJECTIVE 78 year old man admitted for cough, fatigue, SOB, diarrhea x1 week. Found to have c diff colitis and started on PO vanc. His abdominal pain is resolved. RT assessed his home oxygen needs yesterday and determined that he requires 1L and rest and 6L with activity which is an increase from his baseline of 4L with activity. He had 1 BM this morning and he reports it is more solid. He is tolerating diet without N/V OBJECTIVE VITAL SIGNS Temperature: [36.5 ??C-36.9 ??C] 36.6 ??C Resp Rate: [18-24] 20 Blood Pressure: (105-122)/(62-73) 115/70 SpO2: [9 %-97 %] 96 % Flow Rate (L/min): [2 L/min-6 L/min] 2 L/min Pulse Rate: [65-89] 67 Intake/Output Last 24 Hours: Intake/Output Summary (Last 24 hours) at 03/26/2024 1300 Last data filed at 03/26/2024 1233 Gross per 24 hour Intake 1980 ml Output 2350 ml Net -370 ml PHYSICAL EXAMINATION General: Alert, oriented Eyes: Conjunctivae is pink and sclerae is white. EOMI HENT: Moist oral mucosa, Skin: No rashes or ulcers Heart: Regular rate and rhythm. Extremities: RLE 2+ lower extremity edema, LLE 1+ edema Lungs: Clear to auscultation bilaterally Abdomen: Soft, active. nondistended Neuro: Grossly intact strength and sensation. CN grossly intact. Mood: Pleasant, appropriate communication DIAGNOSTICS Recent Results (from the past 24 hour(s)) CBC with Differential, Blood Collection Time: 03/26/24 4:31 AM Result Value Hemoglobin 8.2 (L) Hematocrit 26.3 (L) Erythrocytes 2.94 (L) MCV 89.5 RBC Distrib Width 19.2 (H) Platelet Count 224 Leukocytes 4.7 Neutrophils 2.83 Lymphocytes 0.63 (L) Monocytes 0.87 (H) Eosinophils 0.32 Basophils 0.05 Basic Metabolic Panel Collection Time: 03/26/24 4:31 AM Result Value Potassium, S 3.8 Sodium, S 142 Chloride, S 112 (H) Bicarbonate, S 24 Anion Gap 6 (L) BUN (Blood Urea Nitrogen), S 14 Creatinine 0.94 Estimated GFR (eGFR) 83 Calcium, Total, S 8.0 (L) Glucose, S 106 ASSESSMENT / PLAN Mr. 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 Found to have C Diff now on PO vanc. #C Diff colitis #Diarrhea #Fatigue - C Diff positive 03/24/24 -This is the first occurrence of C Diff - Patient is s/p 7 days cefdinir for CA-PNA which may have been causal agent of C Diff - Anemia with hgb 9.0 on admission. No obvious signs of bleeding. Anemia likely contributing to fatigue but it is most likely treatment related as all cell lines are decreased in addition to his colitis Plan -PO vancomycin 125 mg 4 times daily EOT 04/02/24 #Dyspnea #Cough #Increased oxygen requirement #History of COPD #History of pulmonary fibrosis - Uses 2L at rest and 4L with activity at home - Using 2-4L overnight and today - Unclear etiology of pulmonary fibrosis - Does not appear to be COPD exacerbation as there is no increased sputum production - Right-sided thoracentesis on 02/21/2024 and cytology was positive for metastatic adenocarcinoma. Plan -continue home COPD meds --Plan for 1 unit of packed red blood cells due to his symptomatic anemia and downtrending hemoglobin. 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 He is due for chemo on 03/26/24. - Tylenol PRN - Continue pantoprazole 40mg #History of DVT 06/2023 - On Eliquis 5mg BID F: Judicious fluids use due to SOB and lower extremity edema. Encouraging PO intake and holding fluids for now E: replete at necessary N: general VTE prophylaxis: apixaban 5mg daily Code status: DNR/DNI Disposition: likely home after symptom resolution The above plan was discussed with the vocational rehabilitation consultant, Dr. Skinner. [place] [phone]. Neida Granados M.D. 03/26/24 * Thao Dove R.R.T. - 03/25/2024 6:14 PM CDT 03/25/24 1609 Home Oxygen Assessment Rest/Awake Room Air SpO2 87 Percent Rest/Awake with Oxygen SpO2 90 (1L nasal cannula) Exercise/Activity with Oxygen SpO2 90 Percent (6L nasal cannula) Patient demonstrated the need for 1L O2 at rest and 6L O2 with activity. Electronically signed by: Thao Dove R.R.T. 03/25/24 6:14 PM CDT * Neida Granados M.D. - 03/25/2024 3:41 PM CDT Images from the original note were not included. MEDICAL ONCOLOGY PROGRESS NOTE SUBJECTIVE 78 year old man admitted for cough, fatigue, SOB, diarrhea x1 week. Found to have c diff colitis and started on PO vanc. He notes improvement in his abdominal pain today. He had 2 BMs so far today which were still loose in consistency. He uses 2 L O2 at rest and 4L O2 with activity. When speaking with nursing, they say he drops down to lows 80s with activity. He was on 2L while laying in bed and had normal work of breathing. He is tolerating diet without N/V OBJECTIVE VITAL SIGNS Temperature: [36.6 ??C-36.9 ??C] 36.8 ??C Resp Rate: [18-22] 20 Blood Pressure: (106-151)/(58-77) 106/64 SpO2: [88 %-95 %] 93 % Flow Rate (L/min): [2 L/min-2.5 L/min] 2 L/min Pulse Rate: [62-75] 73 Intake/Output Last 24 Hours: Intake/Output Summary (Last 24 hours) at 03/25/2024 1542 Last data filed at 03/25/2024 1226 Gross per 24 hour Intake 1680 ml Output 1350 ml Net 330 ml PHYSICAL EXAMINATION General: Alert, oriented Eyes: Conjunctivae is pink and sclerae is white. EOMI HENT: Moist oral mucosa, Skin: No rashes or ulcers Heart: Regular rate and rhythm. Extremities: bilateral 2+ lower extremity edema Lungs: Clear to auscultation bilaterally Abdomen: Soft, active. nondistended Neuro: Grossly intact strength and sensation. CN grossly intact. Mood: Pleasant, appropriate communication DIAGNOSTICS Recent Results (from the past 24 hour(s)) Magnesium Collection Time: 03/25/24 2:59 AM Result Value Magnesium, S 1.9 CBC with Differential, Blood Collection Time: 03/25/24 2:59 AM Result Value Hemoglobin 8.7 (L) Hematocrit 28.1 (L) Erythrocytes 3.16 (L) MCV 88.9 RBC Distrib Width 19.2 (H) Platelet Count 239 Leukocytes 5.4 Neutrophils 3.44 Lymphocytes 0.78 (L) Monocytes 0.84 (H) Eosinophils 0.28 Basophils 0.06 Basic Metabolic Panel Collection Time: 03/25/24 2:59 AM Result Value Potassium, S 4.0 Sodium, S 140 Chloride, S 110 (H) Bicarbonate, S 23 Anion Gap 7 BUN (Blood Urea Nitrogen), S 13 Creatinine 0.90 Estimated GFR (eGFR) 88 Calcium, Total, S 8.1 (L) Glucose, S 94 ASSESSMENT / PLAN Mr. 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 Found to have C Diff now on PO vanc. #Diarrhea #Fatigue - C Diff positive 03/24/24 -This is the first occurrence of C Diff - Patient is s/p 7 days cefdinir for CA-PNA which may have been causal agent of C Diff - Anemia with hgb 9.0 on admission. No obvious signs of bleeding. Anemia likely contributing to fatigue but it is most likely treatment related as all cell lines are decreased Plan -PO vancomycin 125 mg 4 times daily EOT 04/02/24 #Dyspnea #Cough #Increased oxygen requirement #History of COPD #History of pulmonary fibrosis - Uses 2L at rest and 4L with activity at home - Using 2-4L overnight and today - Unclear etiology of pulmonary fibrosis - Does not appear to be COPD exacerbation as there is no increased sputum production - Right-sided thoracentesis on 02/21/2024 and cytology was positive for metastatic adenocarcinoma. 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 He is due for chemo on 03/26/24. - Tylenol PRN - Continue pantoprazole 40mg #History of DVT 06/2023 - On Eliquis 5mg BID F: Judicious fluids use due to SOB and lower extremity edema. Encouraging PO intake and holding fluids for now E: replete at necessary N: general VTE prophylaxis: apixaban 5mg daily Code status: DNR/DNI Disposition: likely home after symptom resolution The above plan was discussed with the vocational rehabilitation consultant, Dr. Skinner. [place] [phone]. Neida Granados M.D. 03/25/24 * Luzma Howell M.D. - 03/25/2024 1:31 PM CDT Medical Oncology Progress Note Patient is evaluated today with the assistance of Neida Granados M.D. . I agree with the documented assessment, evaluation and recommendations. Mr. Cho is a 78 y.o. male with metastatic GEJ adenocarcinoma on second-line therapy with RAMTAX and a history of ILD and COPD requiring NC at baseline who was admitted for shortness of breath and diarrhea. He has started treatment for C diff colitis and has met with RT to review interventions for dyspnea. Of note, he recently completed a course of oral antibiotics with cefdinir for presumed pneumonia .We will continue to monitor his respiratory status closely and delay his chemotherapy accordingly. Luzma Howell MD Medical Oncology * Paddy Palacios PAndrew, D.P.T. - 03/25/2024 12:26 PM CDT Physical Therapy Inpatient Treatment SUBJECTIVE Patient's Name: Rin Cho Referring/Attending Provider: Luzma Howell M.D. Reason for Referral: Physical Therapy Evaluate and Treat History of Present Illness: Rin Cho is a 78 y.o. male who was admitted to [facility] in [place] on 03/23/2024 for Anemia [D64.9] Stool Positive Occult Blood [R19.5] Hypoxia [R09.02] Anticoagulant Therapy [Z79.01] Malignant Neoplasm Of Gastroesophageal Junction (HCC) [C16.0] Dyspnea [R06.00] Precautions Other Precautions: O2 dependent. 4LO2 during activity Pain Assessment: Pain not reported during session. Patient/Caregiver Goals: Return to home and Return to prior level of function Subjective Comments: Patient Family agreed to session. OBJECTIVE Vital Signs Vitals taken during session: O2 saturation: 94% at rest; 87%-89% during 1st lap around nursing station; 85%-88% during 2nd lap; 84%-84% during 3rd lap. 77%-81% during first 2 minutes of seated recovery, then quickly recovered to 90-94% and O2 flow: 4 L/min nasal cannula Outcome Measures: [facility] Inpatient Short Form: [facility] Basic Mobility (V.2) How much help from another person do you currently need???If the patient hasn't done an activity recently, how much help from another person do you think he/she would needif he/she tried? 1. Turning from your back to your side while in a flat bed without using bedrails?: None 2. Moving from lying on your back to sitting on the side of a flat bed without using bedrails?: None 3. Moving to and from a bed to a chair (including a wheelchair)?: None 4. Standing up from a chair using your arms (e.g., wheelchair, or bedside chair)?: None 5. To walk in hospital room?: None 6. Climbing 3-5 steps with a railing?: A Little [facility] Basic Mobility (V.2) Raw Score: 23 [facility] Basic Mobility (V.2) Standardized Score: 50.88 Interpretation: Based on scoring guidelines using the raw score value: Those going to home had an average score at or above 18 Those going to facility had an average score at or below 17 Clinicians answer the [facility] Inpatient Short Form based on observed patient activity and/or clinical judgement (ie. patient can be scored without physically performing each activity) Therapeutic Interventions: SUPINE TO SIT: Assistance Level: Supervision of 1 Device: head of bed elevated and bedrail Assistance/Cueing: tactile for Sequencing Delivery: instructed and assessed SIT TO STAND: Assistance Level: Supervision of 1 Surface: Bed Assistance/Cueing: verbal and tactile for Sequencing Delivery: instructed and assessed STAND TO SIT: Assistance Level: Supervision of 1 Surface: Bed Assistance/Cueing: verbal and tactile for Breathing technique Delivery: instructed and assessed GAIT: Distance: Approx. 55 meters (3 laps around the nursing station) Assistance Level:Supervision of 1 Device: none. 4LO2 via nasal cannula Quality: forward flexed posture, steady Assistance/Cueing:verbal and tactile for Breathing Techniques and Upright posture Delivery: instructed and assessed Comments: Patient demonstrates good understanding of pacing strategies and energy conservation Patient was left at edge of bed at end of session with call light in reach, all needs met and questions answered. Assessment Discharge Therapy Needs - PT: No further skilled therapy If skilled therapy is recommended, skilled therapy can include physical therapy provided by home health, outpatient clinic, or a post-acute facility. The location of these services is determined by the patient's care team in partnership with patient/family. Level of Care Needed - PT: Assistance with walking and moving around the home, Assistance with stairs No gait aid needed From a physical therapy perspective, the level of care above has been recommended for Mr. Cho after hospital discharge. This level of care is based on his functional abilities during today's session. This may change throughout the hospital course and will be updated as appropriate. Clinical Impression: Patient did well during today's therapy evaluation and demonstrated the ability to safely mobilize in the pascual without use of assistive device, and 4LO2 via nasal cannula. Oxygen saturation response to activity is detailed above, in summary he consistently declines in oxygen saturation during mobility. No reported symptoms of lightheadedness/dizziness, mild shortness of beath reported. Education points described above. Therapy will follow up in order to progress independence with mobility and assess safety navigating stairs per home setup if appropriate. Physical therapy treatment is medically necessary to restore and optimize function, maximize safety, facilitate discharge to home, and to teach and educate the patient and/or caregivers. Rehab potential: Mr. Cho has Good potential to achieve established physical therapy goals within the time frame outlined below. Progress: Progressing toward goals Plan PT Plan Comments: Work on activity tolerance, review supine home exercise program, monitor O2 sats Functional Goals: PT Inpatient Goals PT Goal #1: Patient will complete all functional transfers (including sit<>stand and sit<>supine) with supervision in order to decrease assist of caregivers. PT Goal #1 Status: Progressing PT Goal #2: Patient will ambulate 50 m with front wheeled walker and supervision in order to demonstrate a household mobility PT Goal #2 Status: Progressing PT Goal #3: Patient will complete 2 steps to enter home with 1 handrail and supervision. PT Goal #3 Status: Ongoing Treatment Plan: Plan: Continue with current plan PT Amount: 1 visit per day PT Frequency: 3 times per week PT Inpatient Duration : Until goals are met or hospital discharge Requires Inpatient Follow-Up: Yes PT - Next Inpatient Appointment: 03/27/24 Patient agrees with the plan of care and goals. Treatment interventions may include: Treatment/Interventions: Therapeutic exercise, Therapeutic functional activity, Neuromuscular re-education, Gait training Billing: Time Spent with Patient Therapeutic Interventions Therapeutic Activity (min): 22 min Time Tracking Total Timed Units (min): 22 min Total Treatment Time (min): 22 min Paddy Palacios P.T., D.P.T. 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 EGD biopsy: adenocarcinoma, pMMR, HER2 negative 05/29/23-06/26/23 carbo/taxol radiation 12/18/23-01/30/24 FOLFOX + nivolumab 02/14/24-: ramucirumab + paclitaxel ASSESSMENT / PLAN # C. Difficile 03/24 C. diff positive 03/24-: vancomycin 125 mg PO QID x 10 days # Cough / SOB S/p outpatient cefdinir 03/13/24-03/19/24 for pna 03/23 CT chest: negative for PE, increased small pleural effusions, opacities in both lungs which could represent edema # GEJ adenocarcinoma [id number] ramucirumab/paclitaxel = 02/28/24 C2 originally due 03/13 - held for melena and cough Changes to medications anticipated at discharge: New: vancomycin Changes: TBD Discontinue: TBD Rx approval pending: none Dispo: TBD Cyndi Jones Pharm.D., R.Ph., BCOP, BCOP * Neida Granados M.D. - 03/24/2024 5:24 PM CDT Images from the original note were not included. MEDICAL ONCOLOGY PROGRESS NOTE SUBJECTIVE 78 year old man admitted yesterday for cough, fatigue, SOB, diarrhea x1 week. He uses 2 L O2 at rest and 4L O2 with activity. Overnight he persistently used 4L, however he was on 2L this morning whenour team saw him. He has bilateral lower abdominal pain. He received 7 day course cefdinir from hisoncologist who initially thought his SOB may be due to CA-PNA. He denies fevers, chills, sick contacts. I have reviewed the current medication list. OBJECTIVE VITAL SIGNS Temperature: [36.6 ??C-36.8 ??C] 36.6 ??C Resp Rate: [17-22] 18 Blood Pressure: (103-125)/(54-78) 109/75 SpO2: [86 %-97 %] 93 % Flow Rate (L/min): [2 L/min-4 L/min] 2 L/min Pulse Rate: [60-78] 68 Intake/Output Last 24 Hours: Intake/Output Summary (Last 24 hours) at 03/24/2024 1725 Last data filed at 03/24/2024 1451 Gross per 24 hour Intake 1695 ml Output 2350 ml Net -655 ml PHYSICAL EXAMINATION General: Alert, oriented Eyes: Conjunctivae is pink and sclerae is white. EOMI HENT: Moist oral mucosa, Skin: No rashes or ulcers Heart: Regular rate and rhythm. Extremities: bilateral 2+ lower extremity edema Lungs: Clear to auscultation bilaterally Abdomen: Soft, active. nondistended Neuro: Grossly intact strength and sensation. CN grossly intact. Mood: Pleasant, appropriate communication DIAGNOSTICS Recent Results (from the past 24 hour(s)) CBC with Differential, Blood Collection Time: 03/24/24 5:12 AM Result Value Hemoglobin 8.4 (L) Hematocrit 27.5 (L) Erythrocytes 3.07 (L) MCV 89.6 RBC Distrib Width 19.1 (H) Platelet Count 226 Leukocytes 6.0 Neutrophils 4.14 Lymphocytes 0.67 (L) Monocytes 0.90 (H) Eosinophils 0.27 Basophils 0.05 Basic Metabolic Panel Collection Time: 03/24/24 5:12 AM Result Value Potassium, S 4.1 Sodium, S 139 Chloride, S 110 (H) Bicarbonate, S 22 Anion Gap 7 BUN (Blood Urea Nitrogen), S 15 Creatinine 0.93 Estimated GFR (eGFR) 85 Calcium, Total, S 8.0 (L) Glucose, S 91 GI Pathogen Panel, PCR, Feces Collection Time: 03/24/24 2:52 PM Specimen: Stool Result Value Specimen Source STOOL Campylobacter species Negative C. difficile toxin Positive (A) Plesiomonas shigelloides Negative Salmonella species Negative Vibrio species Negative Vibrio cholerae Negative Yersinia species Negative Enteroaggregative E. coli (EAEC) Negative Enteropathogenic E. coli (EPEC) Negative Enterotoxigenic E. coli (ETEC) Negative Shiga toxin producing E. coli Negative Shigella/Enteroinvasive E. coli Negative Cryptosporidium species Negative Cyclospora cayetanensis Negative Entamoeba histolytica Negative Giardia Negative Adenovirus F40/41 Negative Astrovirus Negative Norovirus GI/GII Negative Rotavirus Ag, F Negative Sapovirus Negative Semi-Urgent This is a semi-urgent result (BENÍTEZ) ASSESSMENT / PLAN Mr. 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 Found to have C Diff. #Diarrhea #Fatigue - C Diff positive 03/24/24 -This is the first occurrence of C Diff - Patient is s/p 7 days cefdinir for CA-PNA which may have been causal agent of C Diff - Anemia with hgb 9.0 on admission. No obvious signs of bleeding. Plan -PO vancomycin 125 mg 4 times daily EOT 04/02/24 #Dyspnea #Cough #Increased oxygen requirement #History of COPD #History of pulmonary fibrosis - Uses 2L at rest and 4L with activity at home - Using 2-4L overnight and today - Unclear etiology of pulmonary fibrosis - Does not appear to be COPD exacerbation as there is no increased sputum production - Right-sided thoracentesis on 02/21/2024 and cytology was positive for metastatic adenocarcinoma. 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 He is due for chemo on 03/26/24. - Tylenol PRN - Continue pantoprazole 40mg #History of DVT 06/2023 - On Eliquis 5mg F: s/p 500mL bolus on admission. Judicious fluids use due to SOB and lower extremity edema. Encouraging PO intake and holding fluids for now E: replete at necessary N: general VTE prophylaxis: apixaban 5mg daily Code status: DNR/DNI Disposition: likely home after symptom resolution The above plan was discussed with the vocational rehabilitation consultant, Dr. Skinner[place] [phone]. Neida Granados M.D. 03/24/24 Associated attestation - Maikol Skinner M.D., Ph.D. - 03/26/2024 8:34 AM CDT I saw and evaluated the patient, participating in the anderson portions of the service. I reviewed the resident/fellow???s note. I agree with the resident/fellow???s findings and plan. * Katarzyna Garcia R.N., MINNIE - 03/24/2024 2:50 PM CDT SUBJECTIVE Attempted to see patient to address Care management consult for Discharge Planning - Home Oxygen reconnect. OBJECTIVE Patient not seen at this time. ASSESSMENT Unable to complete assessment as patient was not available when I attempted to meet with him. . PLAN Case Management will attempt to see patient at a later time, when available. Katarzyna Garcia R.N., [facility] * Lesley Alex, Pharm.DJam, R.Ph. 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 EGD biopsy: adenocarcinoma, pMMR, HER2 negative 05/29/23-06/26/23 carbo/taxol radiation 12/18/23-01/30/24 FOLFOX + nivolumab 02/14/24-__ ramucirumab + paclitaxel ASSESSMENT / PLAN # Cough / SOB S/p outpatient cefdinir 03/13/24-03/19/24 for pna 03/23 CT chest: negative for PE, increased small pleural effusions, opacities in both lungs which could represent edema # GEJ adenocarcinoma C1D15 ramucirumab/paclitaxel = 02/28/24 C2 originally due 03/13 - held for melena and cough Changes to medications anticipated at discharge: New: TBD Changes: TBD Discontinue: TBD Rx approval pending: none Dispo: TBD Lesley Alex, Pharm.D., R.Ph., BCOP * Maikol Skinner M.D., Ph.D. - 03/24/2024 11:51 AM CDT Medical Oncology Supervisory Note I saw and evaluated the patient. I agree with the findings and the plan of care as documented in inpatient oncology progress note Subjective: Rin is lying comfortably on bed with 2L oxygen. Assessment and plan: Mr. 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 Cough is a dry cough and oxygen requirements are unchanged from what he uses at home (2L NC at rest and 4L NC with activity). Fatigue and dyspnea has increased over last week. Hehad a right-sided thoracentesis on 02/21/2024 and cytology was positive for metastatic adenocarcinoma. Was recently seen by his oncologist Dr. Kowalski on 03/13 where he was prescribed a 7 day course of cefdinir for his cough, thought to be due to do pneumonia, and for worsening shortness of breath. CT A/P and CT Chest Angiogram on admission was negative for acute PE, showed slight worsening of peritoneal carcinomatosis, stable changes regarding his metastatic cancer, and increased small pleural effusions bilaterally. was admitted for observation. Plan: Baseline oxygen use is 2L. Clinically he is improving. Diarrhea: follow up on GI test. Dispo: d/c home likely on Monday after he gets back to baseline oxygen need. He has outpt oncology appt on Monday. Maikol Skinner M.D., Ph.D. * Maikol Skinner M.D., Ph.D. - 03/24/2024 11:26 AM CDT Medical Oncology Supervisory Note I saw and evaluated the patient. I agree with the findings and the plan of care as documented in inpatient oncology progress note on @DATE@. * Lizett Healy R.R.T., L.R.T. - 03/23/2024 6:02 PM CDT 03/23/24 1801 Respiratory Assess and Treat Respiratory/Smoking History 0 Current Visit Surgery/Trauma 0 Chest Radiograph Imaging (within 72 hrs) 0 Work of Breathing 1 Level of Activity 2 Breath Sounds 2 Cough/Secretions 1 Respiratory Assessment Score 6 Reevaluate Patient Frequency Not Needed documented in this encounter H&P Notes * Adrien Yoo M.D., M.P.H. - 03/23/2024 4:59 PM CDT Images from the original note were not included. 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 CHIEF COMPLAINT/REASON FOR VISIT Mr. 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 His cough started 2 weeks ago and is a dry, intermittent cough that is different from his pre-existing productive cough that started when chemotherapy was initiated. At home he uses 2L when resting and 4L with activity as his baseline. Uses Ellipta inhaler every morning, but doesn't use albuterol often. He denies fever, chills, night sweats, diarrhea, constipation, and the need to sleep propped up on pillows. says he feels warm to touch at night recently. He also reports that while his fatigue and difficulty breathing has increased over the last few months, he has been sleeping more than usual this past week specifically. Also endorses changes to vision, ankle swelling, position- dependent back pain that radiates to his groin rated 7/8 pain level, and dry mouth; all started about 1-2 weeks ago. He eats and drinks well staying away from tough, acidic foods. He had a right-sided thoracentesis on 02/21/2024 and cytology was positive for metastatic adenocarcinoma. Was recently seen by his oncologist Dr. Kowalski on 03/13 where he was prescribed a 7 day course of cefdinir for his cough, thought to be due to do pneumonia, and for worsening shortness of breath. Stool test from this visit also returned positive for blood. Of note, he is on Eliquis for a DVT that occurred in 06/2023. HISTORY OF PRESENT ILLNESS Oncology History Oncology [...] Chemotherapy Ramucirumab / PACLitaxel Start Date: 02/14/2024 Current Outpatient Medications on File Prior to Encounter Medication Sig Last Dose DME Oxygen Administer 4 L into nostril(s) daily as needed (Shortness of breath). 2L at rest 4L with activity Eliquis 5 mg tablet Take 5 mg by mouth 2 (two) times a day. 03/22/2024 umeclidinium-vilanteroL (Anoro Ellipta) 62.5-25 mcg/actuation inhaler Inhale 1 puff daily. [DISCONTINUED] multivitamin tablet Take 1 tablet by mouth daily. albuterol 90 mcg/actuation inhaler INHALE 2 PUFFS EVERY 4 HRS NEEDED FOR WHEEZING OR SHORTNESS OF BREATH. USE WITH BRASS MOLDER HELPER TUBE. Anoro Ellipta 62.5-25 mcg/actuation inhaler inhale 1 puff by mouth every day bisacodyL (DULCOLAX) 5 mg EC tablet Take 10 mg by mouth daily as needed for constipation. heparin 100 unit/mL syringe 5 mL (500 Units total) by intra-catheter route once as needed for line care for up to 1 dose. Flush IV line AFTER 0.9% Sodium Chloride flush inhalational spacing device (AEROCHAMBER) spacer 1 each as needed (for use with Albuterol inhaler). multivitamin tablet Take 1 tablet by mouth daily. GUMMIES OLANZapine (ZyPREXA) 5 mg tablet TAKE 1 TABLET BY MOUTH AT BEDTIME NEEDED (NAUSEA, VOMITING). MAY TAKE DOSE EARLY IF NEEDED. omeprazole (PriLOSEC) [address] capsule Take 20 mg by mouth every morning before breakfast. ondansetron (ZOFRAN) 8 mg tablet Take 1 tablet (8 mg total) by mouth every 8 (eight) hours as needed for nausea or vomiting (unrelieved by prochlorperazine). prochlorperazine (COMPAZINE) 10 mg tablet Take 1 tablet (10 mg total) by mouth every 6 (six) hours as needed for nausea or vomiting. tamsulosin (FLOMAX) 0.4 mg 24 hr capsule Take 0.4 mg by mouth daily. [DISCONTINUED] DME Oxygen Inhale daily. DME Order OBJECTIVE VITAL SIGNS Temperature: [36.7 ??C-36.8 ??C] 36.7 ??C Heart Rate: [66-85] 68 Resp Rate: [12-24] 22 Blood Pressure: (122-129)/(65-82) 122/73 SpO2: [77 %-99 %] 95 % Flow Rate (L/min): [2 L/min-4 L/min] 2 L/min Height: [181 cm] 181 cm Weight: [104 kg-105 kg] 104 kg BSA (Calculated - sq m): [2.28 sq meters] 2.28 sq meters BMI (Calculated): [31.7 kg/m??] 31.7 kg/m?? Pulse Rate: [66-85] 73 PHYSICAL EXAMINATION Constitutional Appearance: Normal appearance. HENT Head: Normocephalic and atraumatic. Cardiovascular Rate and Rhythm: Normal rate and regular rhythm. Pulses: Normal pulses. Heart sounds: Normal heart sounds. Comments: 3+ pitting edema, JVD not observed Pulmonary Effort: Pulmonary effort is normal. Breath sounds: Normal breath sounds. No stridor. No wheezing, rhonchi or rales. Chest Chest wall: No tenderness. Abdominal General: Bowel sounds are normal. Palpations: Abdomen is soft. There is no mass. Tenderness: There is abdominal tenderness. There is no guarding. Comments: Mildly tender to palpation in RLQ Musculoskeletal Cervical back: Normal range of motion. Right lower leg: Edema present. Left lower leg: Edema present. Skin General: Skin is dry. Neurological Mental Status: He is alert. Mental status is at baseline. Psychiatric Mood and Affect: Mood normal. Behavior: Behavior normal. DIAGNOSTICS I have reviewed the labs, ECG, and diagnostics from admission. ASSESSMENT / PLAN Mr. 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 Cough is a dry cough and oxygen requirements are unchanged from what he uses at home (2L NC at rest and 4L NC with activity). Fatigue and dyspnea has increased over last week. Hehad a right-sided thoracentesis on 02/21/2024 and cytology was positive for metastatic adenocarcinoma. Was recently seen by his oncologist Dr. Kowalski on 03/13 where he was prescribed a 7 day course of cefdinir for his cough, thought to be due to do pneumonia, and for worsening shortness of breath. In ED, O2 saturation dropped to 77% when he was on his side for rectal exam but corrected afterwards. Other vitals stable. Hgb 9. Labs unremarkable. CT A/P and CT Chest Angiogram on admission was negative for acute PE, showed slight worsening of peritoneal carcinomatosis, stable changes regarding his metastatic cancer, and increased small pleural effusions bilaterally. EKG was sinus rhythm with premature atrial complexes and otherwise unremarkable. Will admit him for observation. #Acute on Chronic Hypoxic Respiratory Failure #Chronic progression of known respiratory failure #Dyspnea #Cough #Fatigue - Not likely to be PE given results of imaging and clinical assessment. Denies chest pain. Patient recently finished 7 day course of cefdinir and is afebrile, not complaining of fever, chills, nausea, or vomiting so not likely to be pneumonia. Physical exam,labs, and EKG also make pulmonary edema less likely. Recent thoracentesis. Current pleural effusions are small in admission imaging. Adverse effects of the chemotherapy regimen he is on are not consistent with ICI pneumonitis. 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 intake E: Will monitor and replete as necessary N: General Diet VTE prophylaxis: Eliquis 5 mg ECOG performance status: 2 Code status: DNR/DNI as per discussion on admission. Discharge plan: likely home The above plan was discussed with the vocational rehabilitation consultant, Dr. Skinner. [place] [phone]. I personally spent 40 minutes in care of the patient today. Time includes both non face to face andface to face patient care. Adrien Yoo M.D., M.P.H. 03/23/24 Associated attestation - Maikol Skinner M.D., Ph.D. - 03/26/2024 8:33 AM CDT I saw and evaluated the patient, participating in the anderson portions of the service. I reviewed the resident/fellow???s note. I agree with the resident/fellow???s findings and plan. documented in this encounter Consult Notes * Nicolas Deluna R.N. 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 Social History Marital Status: Family / Household: Two-Story Home; Lives with Spouse Support System: spouse, family members, and friends/neighbors Primary Caregiver: self and spouse Caregiver Information: Caregiver Name: Luz Caregiver Relationship: Spouse Finance/Insurance Primary insurance: MEDICARE A AND B Secondary insurance: [facility] benefits: Yes Advance Directives Legal Decision Maker: Self Advance Directives: Advanced Care Plan, On file Advance Directives Status: Not Activated OBJECTIVE Baseline Functional Status Baseline Activities of Daily Living Mobility: Independent Dressing: Independent Feeding: Independent Bathing: Independent Grooming: Independent Toileting: Independent Behavior: Appropriate, Pleasant, Calm, Cooperative, Oriented Communication: Understands Palestinian, Understands speaking, Talks Shopping: Independent Medication Management: Independent Housekeeping: Independent Meal Prep: Independent Assistive Devices: Grab bars - wall, Grab bars - toilet, Cellphone, Tub/shower chair/bench, Oxygen Home Oxygen Company: [employer] Baseline Services/Resources Primary care clinic and provider: ELSEWHERE, PCP Additional Resources: [facility] Anticipated Needs Functional Status: Transportation use (drive car, use taxi/bus), Mobility Assistive Devices: Oxygen Anticipated Modifications to the Patient's Home: None Transportation Needs: Support from family Does the patient need discharge transport arranged?: No Phone Number for Ride/Caregiver: Luz, Anticipated Discharge Destination: Home or Self Care ASSESSMENT / PLAN Assessment: The loan servicing specialist met with Rin Cho to discuss his current hospitalization and home going needs. The patient was unaccompanied. The patient was a reliable historian. The role of loan servicing specialist was reviewed. The patient reviewed his prior level of care and support system. The patient receives support from his and daughter. The patient described his living environment as a multiple level home with stairs to enter without rails. Housekeeping, grocery shopping, meal prep, and other household responsibilities have previously been completed by patient and patient's . loan servicing specialist discussed the patient's potential needs at dismissal based on their home setting, previous needs and responsibilities, homebound status, and relevant assessments with the patient. The patient will be safe and supported to return home with family when medically ready. Support will be provided by Luz. The patient demonstrated understanding when discussing his home going plans and anticipated needs. 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 Patient is alert, oriented and is agreeable to the conversation. Per report, patient has been managing his ADLs/IADLs prior to this hospitalization. Patient uses oxygen through [facility]. He denies any skilled services at home. Patient shares that both of his and daughter are involved in his care. No other concerns regarding going home to self care have been shared with [employer] Crew Member. At this time, patient is interested in getting a wheelchair, if recommended. Patient's or daughter will transportwhen he is medically ready for discharge. At this time, the care team anticipates the patient requires the following service(s) to be reconnected: oxygen. The patient identified the following as their current vendor(s): [facility]. After reviewing the patient's chart and meeting with the patient, the loan servicing specialist deemed the LACE+/readmission questions were not necessary. The patient reports understanding that he will dismiss from the hospital when medically stable. Pending hospital course and medical readiness, no barriers to dismissal have been identified at this time. Plan: The patient agrees with the following plan. Patient's anticipated discharge disposition is: Home to Self Care with DME Reconnected: [facility]. Transportation upon dismissal will be provided by family--Luz . loan servicing specialist recommended reaching out to family, friends, and neighbors for assistance. loan servicing specialist provided information regarding the dismissal process and the Senior Linkage Line ([place] Board on Aging) handout. loan servicing specialist placed or requested the following hospital-based consult orders and/or referrals: None. loan servicing specialist will continue to assess for homegoing needs with the interdisciplinary team. loan servicing specialist encouraged the patient to reach out with any questions/concerns. Please find transition plan below. Oxygen Reconnect: Durable Medical Equipment - Admitted Since 03/23/2024 [facility] Contact: Intake Respiratory Equipment: in-home concentrator, compressor and portable tanks. Oxygen provider reports patient???s current orders are for 3 liters continously. NURSING: - Arrange transportation oxygen tank if needed. - If new oxygen requirements are needed, assist primary service with new prescription and fax to provider. PRIMARY SERVICE: - Complete and sign new oxygen prescription if needed. CASE MANAGEMENT: -Reviewed patient's insurance coverage for the services noted above. The patient appear(s) to have an understanding of this. -Will continue to follow and assist if needs arise. Signed by: Maura Deluna R.N. 03/25/2024 * Justice Partida P.T., D.P.T., GCS - 03/24/2024 11:41 AM CDT Physical Therapy Inpatient Evaluation/Treatment SUBJECTIVE Patient's Name: Rin Cho Referring/Attending Provider: Maikol Skinner M.D. Reason for Referral: Physical Therapy Evaluate and Treat Pertinent Medical / Surgical History: Rin Cho has a past medical history of Apnea Sleep Obstructive, BenignProstatic Hyperplasia Localized, Body Mass Index 36.0 To 36.9 Adult, Chronic Obstructive Pulmonary Disease (HCC), Headache Unspecified, Malignant Neoplasm Of Bladder (HCC), Malignant Neoplasm Of Skin Basal Cell Carcinoma, Malignant Primary Neoplasm (Unknown Site) Unspecified (HCC), Other Injury Of Unspecified Body Region ([id number]), Pneumonia, Polyp Colon, and Sleep Apnea. Rin Cho has a past surgical history that includes Cervical fusion; CYSTOSCOPY BIOPSY FULGURATION; Tonsillectomy and adenoidectomy; Tonsillectomy (1951); Spine surgery (06/2003); and Bladder surgery (Feb 2014). History of Present Illness: Rin Cho is a 78 y.o. male who was admitted to [facility] in [place] on 03/23/2024 for Anemia [D64.9] Stool Positive Occult Blood [R19.5] Hypoxia [R09.02] Anticoagulant Therapy [Z79.01] Malignant Neoplasm Of Gastroesophageal Junction (HCC) [C16.0] Dyspnea [R06.00]. 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 He went to ED secondary to a cough and being short of breath. Precautions Other Precautions: O2 dependent Home Living and Equipment: Lives with: Spouse/Significant other Receives help from: Family and Spouse/Significant other Type of Home: House Home Layout: Two Level + basement Able to live on main level with bedroom/bathroom Home Access: Stairs to enter: Number of steps: 2, Railing: no handrails Stairs to alternate level: Number of steps: 12, Railing: unilateral handrail Prior Level of Function and Mobility: Functional Mobility: Modified Independent, No Assistive Device Basic Activities of Daily Living: Modified Independent Instrumental Activities of Daily Living: Required Assistance Pain Assessment: Pain not directly addressed, but right hip painful with movement Patient/Caregiver Goals: Return to home Subjective Comments: Patient agreed to session. OBJECTIVE Vital Signs: Pre-Activity: O2: 94% 2 L/min nasal cannula Post Activity: O2: 77% 4 L/min nasal cannula Dropped with resting when patient was sitting on a stable surface. Returned to 94% within 2 minutes Evaluation Assessments: Strength: Lower extremities within functional limits Range of Motion: Generalized weakness Activity Tolerance: Endurance: Tolerates less than 10 minutes of activity Outcome Measures: -[facility] Inpatient Short Form: AM-PAC Basic Mobility (V.2) How much help from another person do you currently need???If the patient hasn't done an activity recently, how much help from another person do you think he/she would needif he/she tried? 1. Turning from your back to your side while in a flat bed without using bedrails?: None 2. Moving from lying on your back to sitting on the side of a flat bed without using bedrails?: A Little 3. Moving to and from a bed to a chair (including a wheelchair)?: A Little 4. Standing up from a chair using your arms (e.g., wheelchair, or bedside chair)?: None 5. To walk in hospital room?: A Little 6. Climbing 3-5 steps with a railing?: A Little AM-PAC Basic Mobility (V.2) Raw Score: 20 AM-PAC Basic Mobility (V.2) Standardized Score: 43.99 Interpretation: Based on scoring guidelines using the raw score value: Those going to home had an average score at or above 18 Those going to facility had an average score at or below 17 Clinicians answer the -PAC Inpatient Short Form based on observed patient activity and/or clinical judgment (ie. patient can be scored without physically performing each activity) Therapeutic Interventions: SUPINE TO SIT: Assistance Level: Supervision of 1 Device: head of bed elevated and bedrail Assistance/Cueing: tactile for Sequencing Delivery: instructed and assessed SIT TO STAND: Assistance Level: Supervision of 1 Surface: Bed Assistance/Cueing: verbal and tactile for Sequencing Delivery: instructed and assessed STAND TO SIT: Assistance Level: Supervision of 1 Surface: Bed Assistance/Cueing: verbal and tactile for Breathing technique Delivery: instructed and assessed GAIT: Distance: 15 meters Assistance Level:Supervision of 1 Device: O2 tank Quality: forward flexed posture, steady Assistance/Cueing:verbal and tactile for Breathing Techniques and Upright posture Delivery: instructed and assessed Comments: Patient was able to maintain basic conversation with ambulation and was short of breath until post ambulation THERAPEUTIC EXERCISE: Supine Therapeutic Exercise: Side: bilateral Mode: active range of motion Exercises:Ankle pumps, Heel slides, and Hip abduction/adduction Repetitions: 20 Assist/cueing: Full range of motion Education : The patient/family educated on safe transfer techniques with functional mobility/activity. Patient was left at edge of bed at end of session with call light in reach, all needs met and questions answered. Assessment Discharge Therapy Needs - PT: No further skilled therapy If skilled therapy is recommended, skilled therapy can include physical therapy provided by home health, outpatient clinic, or a post-acute facility. The location of these services is determined by the patient's care team in partnership with patient/family. Level of Care Needed - PT: Assistance with walking and moving around the home, Assistance with stairs No gait aid needed From a physical therapy perspective, the level of care above has been recommended for Mr. Cho after hospital discharge. This level of care is based on his functional abilities during today's session. This may change throughout the hospital course and will be updated as appropriate. Clinical Impression: Currently, patient presents with decreased strength, decreased activity tolerance, and decreased safety awareness resulting in the following impaired gait and impaired ability to complete stairs. Patient has difficulty with activity pacing and wants to complete more than he should at times. He often goes to higher 2nd floor because he enjoys the larger TV and using his computer, but he will not increase his O2 flow due to not having someone to turn it down when he reaches the top floor. He was educated that at this time it is advisable to remain on the same floor. Family will bring down his computer to the main floor to allow him to be able to use throughout the day. Patient was given supine exercises with written hand out to be able to maximize activity tolerance in a supported setting. Physical therapy treatment is medically necessary to restore and maximize function, maximize safetyand facilitate discharge to home, teach and educate the patient and/or caregivers. Progress: Improving as expected Plan PT Plan Comments: Work on activity tolerance, review supine home exercise program, monitor O2 sats Functional Goals: PT Inpatient Goals PT Goal #1: Patient will complete all functional transfers (including sit<>stand and sit<>supine) with supervision in order to decrease assist of caregivers. PT Goal #2: Patient will ambulate 50 m with front wheeled walker and supervision in order to demonstrate a household mobility PT Goal #3: Patient will complete 2 steps to enter home with 1 handrail and supervision. Rin Cho has Good rehab potential to meet the expected outcomes in a reasonable period of time. Treatment Plan: Plan: Plan of care initiated PT Frequency: 3 times per week PT Inpatient Duration : Until goals are met or hospital discharge Requires Inpatient Follow-Up: Yes PT - Next Inpatient Appointment: 03/25/24 Patient agrees with the plan of care and goals. Treatment interventions may include: Treatment/Interventions: Therapeutic exercise, Therapeutic functional activity, Neuromuscular re-education, Gait training Tiered PT Evaluation Codes: Comorbid Conditions: Cardiopulmonary disease Personal Factors: Age, Safety awareness, Sedentary lifestyle Examination elements: 4+ Clinical Presentation: Stable Clinical Decision Making: Low complexity clinical decision making Billing: Time Spent with Patient Justice Partida P.T., D.P.T., GCS documented in this encounter Nursing Notes * Oswaldo Sequeira, R.N. - 03/26/2024 6:48 PM CDT Shift Goals: Clinical Goals for the Shift: Pt will take two walks during this shift Identify possible barriers to meeting goals/advancing plan of care: Increased oxygen demand End of Shift Summary: Patient took two walks during this shift on 6L NC, one before albuterol, one after. Oxygen did drop as low as 74-77% right before getting settle back in bed but stayed around 85-92% during majority of walk. Patient discharged appx. 1830. Discharge education completed; patient and education decline any questions at this time. DME oxygen needs set up by Sx. Patient left with all belongings, accompanied bywife and daughter. Patient escorted off unit with transport service in wheelchair with 2L NC oxygen. Problem: PAIN - ADULT Goal: PT VERBALIZES/DEMONSTRATES ADEQUATE COMFORT LEVEL OR BASELINE Outcome: Adequate for Discharge Problem: KNOWLEDGE DEFICIT Goal: Patient/family/caregiver demonstrates understanding of disease process, treatment plan, medications, and discharge instructions Outcome: Adequate for Discharge Problem: INFECTION - ADULT Goal: Absence of infection during hospitalization Outcome: Adequate for Discharge Problem: SKIN/TISSUE INTEGRITY Goal: Skin/Tissue integrity maintained or improved Outcome: Adequate for Discharge Goal: Oral and Nasal mucous membranes remain intact Outcome: Adequate for Discharge Problem: SAFETY ADULT Goal: Maintain a safe environment Outcome: Adequate for Discharge Problem: DISCHARGE PLANNING Goal: Patient discharge needs identified Outcome: Adequate for Discharge Problem: SAFETY ADULT - RISK FOR FALL AND OR FALL INJURY Goal: Patient remains free from fall/fall injury Outcome: Adequate for Discharge * Shanta Gordillo R.N. - 03/26/2024 7:05 AM CDT Shift Goals: Clinical Goals for the Shift: Pt will report adequate rest End of Shift Summary: Pt reported being able to fall asleep but unable to stay asleep for long periods. Nursing cares were grouped to promote sleep. Titrated O2 back down to 2 L. documented in this encounter ED Notes * Delfino Del Castillo - 03/23/2024 8:23 AM CDT CHIEF COMPLAINT/REASON FOR VISIT Abdominal Pain and Shortness of Breath HISTORY OF PRESENT ILLNESS Patient presented with longstanding shortness of breath (1 year) and new abdominal pain LLQ starting about a week ago. Patient has a history of esophageal cancer currently being treated with chemo and radiation. He's completed two rounds of chemo with the third being scheduled for the last week in February. This was rescheduled to March 26 due to abdominal pain. Abdominal pain is LLQ with radiation to RLQ and R groin. Shortness of breath has been managed at home for the past year with 2L O2 while resting, 4L O2 while active. Same dosages of O2 were given today. Patient stated it takes him a while to recover after his saturation drops. History of R lung emphysema and L lung pleural effusion that was drained last week. History of DVT. Currently on Eliquis. Held Eliquis this AM due to possibility of procedure today. Patient also reports new onset vision changes and darker stools. He had several black stools over the past week. Today, he had a loose, nonbloody stool more consistent with diarrhea. Last oral intake 2000 last night (March 22). Denies headache, dizziness, chest pain, andchanges to bladder function. Reviewed nursing documentation including vital signs: Yes VITAL SIGNS Initial Vitals Temperature 03/23/24 0727 36.8 ??C Pulse Rate 03/23/24 0727 75 Heart Rate 03/23/24 0727 75 Resp Rate 03/23/24 0727 14 Blood Pressure 03/23/24 0730 124/65 SpO2 03/23/24 0727 (!) 77 % Pain Score 03/23/24 1011 4 PHYSICAL EXAMINATION Constitutional: Does not appear toxic or lethargic. Not in acute distress. HEENT: Normocephalic. Cardiovascular: Normal rate. S1, S2. No MGR. Pulmonary/Chest: No respiratory distress. Lungs CTA bilaterally. Abdominal: Pain on LLQ palpation with rebound tenderness and radiation to RLQ and R groin. No hernia found in R groin. RLQ tenderness with palpation. Musculoskeletal: Lower extremity swelling bilaterally. No calf pain. Neurological: Alert. Not disoriented. Psychiatric: Normal mood and affect. ASSESSMENT/PLAN Recent Results (from the past 24 hour(s)) CBC with Differential, Blood Collection Time: 03/23/24 8:18 AM Result Value Hemoglobin 9.0 (L) Hematocrit 28.2 (L) Erythrocytes 3.14 (L) MCV 89.8 RBC Distrib Width 19.0 (H) Platelet Count 229 Leukocytes 8.0 Neutrophils 6.22 Lymphocytes 0.58 (L) Monocytes 0.92 (H) Eosinophils 0.19 Basophils 0.06 Basic Metabolic Panel Collection Time: 03/23/24 8:18 AM Result Value Potassium, P 3.8 Sodium, P 143 Chloride, P 111 (H) Bicarbonate, P 23 Anion Gap, P 9 BUN (Blood Urea Nitrogen), P 18 Creatinine 0.83 Estimated GFR (eGFR) >90 Calcium, Total, P 8.2 (L) Glucose, P 99 Hepatic Function Panel Collection Time: 03/23/24 8:18 AM Result Value Bilirubin, Total, S 0.4 Bilirubin, Direct, S <0.2 Aspartate Aminotransferase (AST), S 19 Alanine Aminotransferase (ALT), S 12 Alkaline Phosphatase, S 165 (H) Albumin, S 3.2 (L) Protein, Total, S 5.8 (L) Lipase Collection Time: 03/23/24 8:18 AM Result Value Lipase, S 22 Troponin T, Baseline with 2 Hour/6 Hour Reflex Biomarker Panel Collection Time: 03/23/24 8:18 AM Result Value Troponin T, Baseline, 5th gen 24 (H) NT-Pro B-Type Natriuretic Peptide (BNP) Collection Time: 03/23/24 8:18 AM Result Value NT-Pro BNP 147 Prothrombin Time (PT) Collection Time: 03/23/24 8:18 AM Result Value Prothrombin Time, P 16.3 (H) INR 1.5 Blood Gas without Coox, Venous Collection Time: 03/23/24 8:19 AM Result Value pO2, Venous, B 41 pCO2, Venous, B 39 (L) pH, Venous, B 7.38 Base Excess, Venous, B -2 HCO3, Venous, B 22 Sample Site, Venous, B Jes Line Influenza A/B, SARS CoV-2, PCR, Rapid Symptomatic Collection Time: 03/23/24 8:19 AM Specimen: Nasopharynx; Swab Result Value Influenza A, PCR, Rapid, V Negative Influenza B, PCR, Rapid, V Negative SARS CoV-2, PCR, Rapid, V Undetected Infl A/B, SARS CoV-2, PCR, Source Swab, Nasopharynx Patient Status Collection Time: 03/23/24 8:19 AM Result Value O2 Flow 2.0 Device NC Spont. breaths/min 18 Lactate for Sepsis with Reflex, POCT Collection Time: 03/23/24 8:20 AM Result Value Lactate, POCT 0.77 Troponin T, 2 Hour with 6 Hour Reflex, 5th Gen Collection Time: 03/23/24 10:20 AM Result Value Troponin T, 2 hr, 5th gen 21 (H) 2H Delta -3 2H Delta Interp Not Changing Dipstick, POCT, Urine Collection Time: 03/23/24 11:47 AM Result Value Glucose, POCT, U Negative Ketone, POCT, U Negative Specific [place], POCT, U 1.010 Blood, POCT, U Negative pH, POCT, Urine 6.5 Protein, POCT, U Negative Nitrites, POCT, U Negative Leukocytes, POCT, U Negative ECG 12 Lead Result Date: 03/23/2024 Sinus rhythm Premature atrial complexes Otherwise normal ECG No previous ECGs available Reviewed by POLI Thompson Final Diagnoses: as of 03/23/24 1247 Dyspnea Hypoxia Anemia Stool Positive Occult Blood Malignant Neoplasm Of Gastroesophageal Junction (HCC) Anticoagulant Therapy Presented with longstanding shortness of breath (1 year) and new abdominal pain LLQ starting about a week ago. During rectal hemoccult, the patient rolled over and his O2 saturation dropped to 77%. Baseline O2 via NC at 2 lpm, increased to 4 lpm after saturation decreased .Positive occult rectal bleeding. Admission to oncology. Delfino Del Castillo 03/25/24 1028 * Lanie Phillips P.A.-C., M.S. 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 Patient states that regarding the cough and shortness of breath, he was started on cefdinir approximately 1 week ago and has not had improvement in his symptoms. Thecough has been going on for 1 week and the shortness of breath has been going on for 1 year. He states that he does get very winded and hypoxic with minimal activity and this has been progressively wo rsening over the past several months. He also notes left lower abdominal pain that radiates to the right side for the past week and is relatively constant. He has had intermittent black stools for the past week as well and reports that he provided a stool sample which tested positive for blood in his stool recently. Patient also recently underwent a left thoracentesis to remove fluid from his lungs but he did not notice a significant difference in his shortness of breath since that time. He hasbeen taking his anticoagulant as prescribed. Patient denies recent fevers, chest pain, hemoptysis, dysuria, flank pain, hematuria, or other concerns. REVIEW OF SYSTEMS See HPI OBJECTIVE Initial Vitals Temperature 03/23/24 0727 36.8 ??C Pulse Rate 03/23/2427 75 Heart Rate 03/23/24 0727 75 Resp Rate 03/23/2427 14 Blood Pressure 03/23/24 0730 124/65 SpO2 03/23/24726 (!) 77 % Pain Score -- PHYSICAL EXAMINATION Constitutional: Nursing note and vitals reviewed. He is active and cooperative. Non-toxic appearance. No distress. HENT: Head: Normocephalic and atraumatic. Eyes: Conjunctivae and EOM are normal. Neck: Neck supple. No JVD present. Cardiovascular: Normal rate, regular rhythm, normal heart sounds, normal pulses and normal peripheral perfusion. Pulses are palpable. Pulses: Dorsalis pedis pulses are 2+ on the right side, and 2+ on the left side. Radial pulses are 2+ on the right side, and 2+ on the left side. Capillary refill: takes less than 3 seconds Plus two pitting edema to bilateral lower extremities Pulmonary/Chest: Effort normal and breath sounds normal. No tachypnea. No respiratory distress. Abdominal: Soft. exhibits no distension. There is generalized abdominal tenderness. There is no rigidity, no rebound and no guarding. Rectal exam shows guaiac positive stool (RN present as breast worker during rectal exam), brown stool and yellow stool. Rectal exam shows no blood-streaked stool and no black stool. Musculoskeletal: General: No deformity. Normal range of motion. Cervical back: Normal range of motion and neck supple. Normal range of motion. Neurological: Alert and oriented to person, place, and time. He is not disoriented. GCS eye subscore is 4. GCS verbal subscore is 5. GCS motor subscore is 6. Normal speech. Speech is not slurred. Patient is responsive and following commands appropriately. Skin: Skin is warm and dry. No rash noted. He is not diaphoretic. No mottling or pallor. Psychiatric: He has a normal mood and affect. Behavior is normal. ASSESSMENT/PLAN Rin Cho is a 78 y.o. male who presents for abdominal pain and, shortness of breath, intermittent black stools. Workup included EKG, CT chest PE study, CT abdomen/pelvis with contrast and labs. I personally reviewed the EKG which showed sinus rhythm with PACs but no obvious arrhythmia. I personally reviewed the CT chest which was negative for obvious large central PE or intraabdominal abscess but radiology report noted small bilateral pleural effusions and colitis. No obvious consolidation suggestive of pneumonia and UA was negative for signs of UTI so I do not feel that antibiotics are necessarily warranted at this time based on reassuring imaging. Hemoglobin is stable at 9.0 so I do not feel that transfusion is warranted at this time. No obvious melanotic stools on rectal exam but hemoccult is obviously positive and patient is on Eliquis so patient will likely benefit from hospitalization for further monitoring of hemoglobin. Additionally, patient becomes hypoxic with minimal movement even turning in the bed on 2 liters/minute via nasal cannula which is his normal supplemental O2 at rest, SpO2 decreased to 77% onto lpm during rectal exam only. I suspect that hypoxia is multifactorial, patient has a known history of pulmonary fibrosis, he is bilateral small pleural effusions and is alreadyoxygen dependent but due to the level of hypoxia & need for serial Hgb, will proceed with admission for further monitoring. Discussed results of workup, questions answered and patient agreeable with plan. ED Course as of 03/23/24 1442 Sat Mar 23, 2024 0805 Patient also notes intermittent black stools recently, will perform a hemoccult as well 0822 Lactate for Sepsis with Reflex, POCT 0.[address] Chest Angiogram and Pulmonary Arteries with IV Contrast IMPRESSION: 1. Negative for acute pulmonary embolism. 2. Possible mild colitis. 3. Slight worsening of the peritoneal carcinomatosis when compared to 11/23/2023. 4. 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 Increased small left and decreased small right pleural effusions compared to the prior PET-CT. 6. See findings for further details. 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 03/23/24 1511 * Annie Dove R.N. - 03/23/2024 7:37 AM CDT Patient presents to the Emergency Department with lower abdominal pain and shortness of breath withexertion. On arrival to ED, patient was on 2L NC, which is baseline for him. Oxygen saturations were 77%. Increased oxygen to 4L. Saturations increased to 98%. Annie Dove R.N. 03/23/24 0739 documented in this encounter Miscellaneous Notes * Hospital Course - Neida Granados M.D. 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 He typically uses 2L O2 at rest and 4L with activity but this no longer was sufficient. He had a right- sided thoracentesis on 02/21/2024 and cytology was positive for metastatic adenocarcinoma. Was recently seen by his oncologist Dr. Kowalski on 03/13 where he was prescribed a 7 day course of cefdinir for his cough, thought to be due to do pneumonia, andfor worsening shortness of breath. ED Course In ED, O2 saturation dropped to 77% when he was on his side for rectal exam but corrected afterwards. Other vitals stable. Hgb 9. Labs unremarkable. Hospital Course He was found to be C Diff positive on 03/24/24 and started on oral vancomycin. Within 24 hours of starting antibiotics, his bowel movements decreased to 2 bowel in 24 hours. His Hgb slowly downtrended (9 on admission to 8.2 on day of discharge) which was thought to contribute to his shortness of breath and fatigue. Respiratory therapy was her and determined that he has a new oxygen requirement of 6L with activity. Without signs of infection or COPD exacerbation, his shortness of breath was thought to be due to his anemia. His symptomatic anemia was treated with 1 u packed red blood cells and hereported improvement in fatigue and shortness of breath. Disposition The patient was discharged to home on 03/26/24 in stable condition. Medications Changed Started: PO Vancomycin 125mg 4 times daily through 04/03/24 Changed: Home Oxygen Requirement increased to 6L with activity Stopped: none Follow up: Oncology for chemotherapy since he missed his appointment due to this hospitalization documented in this encounter Plan of Treatment Pending Results Name Type Priority Associated Diagnoses Date /Time Prepare Red Blood Cells, 1 Units Blood Bank Routine 03/26/2024 1:11 PM CDT documented as of this encounter Procedures Procedure Name Priority Date/Time Associated Diagnosis Comments TRANSFUSE RED BLOOD CELLS Routine 03/26/2024 2:35 PM CDT RT TO ARRANGE FOR HOME DME Routine 03/26/2024 2:07 PM CDT PREPARE RED BLOOD CELLS Routine 03/26/2024 1:11 PM CDT TYPE AND SCREEN Routine 03/26/2024 1:11 PM CDT CBC WITH DIFFERENTIAL, B Routine 03/26/2024 4:31 AM CDT BASIC METABOLIC PANEL, S/P Routine 03/26/2024 4:31 AM CDT HOME O2 EVAL (DESATURATION SCREEN) Routine 03/25/2024 4:10 PM CDT ADULT OXYGEN THERAPY Routine 03/25/2024 8:00 AM CDT CBC WITH DIFFERENTIAL, B Routine 03/25/2024 2:59 AM CDT MAGNESIUM, S Routine 03/25/2024 2:59 AM CDT BASIC METABOLIC PANEL, S/P Routine 03/25/2024 2:59 AM CDT ADULT OXYGEN THERAPY Routine 03/24/2024 8:01 PM CDT GI PATHOGEN PANEL, PCR, F Routine 03/24/2024 2:52 PM CDT ADULT OXYGEN THERAPY Routine 03/24/2024 8:00 AM CDT CBC WITH DIFFERENTIAL, B Routine 03/24/2024 5:12 AM CDT BASIC METABOLIC PANEL, S/P Routine 03/24/2024 5:12 AM CDT ADULT OXYGEN THERAPY Routine 03/23/2024 8:01 PM CDT ADULT OXYGEN THERAPY Routine 03/23/2024 4:54 PM CDT ADULT OXYGEN THERAPY Routine 03/23/2024 4:54 PM CDT VRE PCR Routine 03/23/2024 4:11 PM CDT HC URINALYSIS AUTO WO MICRO Routine 03/23/2024 11:47 AM CDT DIPSTICK, U STAT 03/23/2024 11:39 AM CDT MICROSCOPIC AUTOMATED STAT 03/23/2024 11:39 AM CDT BACTERIAL CULTURE, AEROBIC + SUSC, URINE STAT 03/23/2024 11:39 AM CDT PH, U STAT 03/23/2024 11:39 AM CDT OSMOLALITY, U STAT 03/23/2024 11:39 AM CDT URINALYSIS WITH MICROSCOPIC STAT 03/23/2024 11:39 AM CDT TROPONIN T, 2H/6H REFLEX, 5TH GEN, P Timed 03/23/2024 10:[address] CHEST ANGIOGRAM AND PULMONARY ARTERIES WITH IV CONTRAST RAD - Semiurgent (Fast; most ED patients; some inpatients) 03/23/2024 8:[address] ABDOMEN PELVIS WITH IV CONTRAST RAD - Semiurgent (Fast; most ED patients; some inpatients) 03/23/2024 8:55 AM CDT BACTERIA / KIM CULTURE, BLOOD STAT 03/23/2024 8:32 AM CDT LACTATE FOR SEPSIS WITH REFLEX, POCT STAT 03/23/2024 8:20 AM CDT IFLU A, B, SARS COV-2, PCR, RAPID,V STAT 03/23/2024 8:19 AM CDT PATIENT STATUS STAT 03/23/2024 8:19 AM CDT VENOUS BLOOD GAS W/O COOX STAT 03/23/2024 8:19 AM CDT TROPONIN T, BASELINE, 5TH GEN, P STAT 03/23/2024 8:18 AM CDT HEPATIC FUNCTION PANEL, S STAT 03/23/2024 8:18 AM CDT NT-PRO B-TYPE NATRIURETIC PEPTIDE (BNP), S STAT 03/23/2024 8:18 AM CDT BACTERIA / KIM CULTURE, BLOOD STAT 03/23/2024 8:18 AM CDT PROTHROMBIN TIME (PT), P STAT 03/23/2024 8:18 AM CDT CBC WITH DIFFERENTIAL, B STAT 03/23/2024 8:18 AM CDT LIPASE, S/P STAT 03/23/2024 8:18 AM CDT BASIC METABOLIC PANEL, S/P STAT 03/23/2024 8:18 AM CDT ECG STAT 03/23/2024 7:34 AM CDT documented in this encounter Results * Transfuse Red Blood Cells : (03/26/2024 4:20 PM CDT) Neida Granados M.D. BLOOD TRANSFUSION ORDERABLES * Transfuse Red Blood Cells : , 1 Units (03/26/2024 4:20 PM CDT) Neida Granados M.D. BLOOD TRANSFUSION ORDERABLES * Type and Screen (with Reflex Antibody ID) (03/26/2024 1:11 PM CDT) Pathologist [facility] ABORh O Pos Not applicable 03/26/2024 1:52 PM CDT ETRM Antibody Screen Negative Negative 03/26/2024 2:06 PM CDT ETRM Type & Screen Expiration 03/29/2024 23:59 03/26/2024 1:52 PM CDT ETRM Testing Location [place] [facility] 03/26/2024 1:25 PM CDT ETRM Blood (Blood, Venous) 03/26/2024 1:11 PM CDT 03/26/2024 1:25 PM CDT Neida Granados M.D. LAB BLOOD BANK ROGER T ORDERABLES [facility] [address] [place] [address], [facility] ETRM [facility] [address] [place] [address] * (ABNORMAL) Basic Metabolic Panel (03/26/2024 4:31 AM CDT) Pathologist [facility] Potassium, S 3.8 3.6 - 5.2 mmol/L [...] Neida Granados M.D. LAB BLOOD ADD-ON [facility] [address] [place] [address], [facility] [address] [place] [address] * (ABNORMAL) CBC with Differential, Blood (03/26/2024 4:31 AM CDT) Hemoglobin 8.2(L) 13.2 - 16.6 g/dL 03/26/2024 5:19 AM CDT DTL Hematocrit 26.3(L) 38.3 - 48.6 % 03/26/2024 5:19 AM CDT DTL Erythrocytes 2.94(L) 4.35 - 5.65 x10(12)/L 03/26/2024 5:19 AM CDT DTL MCV 89.5 78.2 - 97.9 fL 03/26/2024 5:19 AM CDT DTL RBC Distrib Width 19.2(H) 11.8 - 14.5 % 03/26/2024 5:19 AM CDT DTL Platelet Count 224 135 - 317 x10(9)/L 03/26/2024 5:19 AM CDT DTL Leukocytes 4.7 3.4 - 9.6 x10(9)/L 03/26/2024 5:19 AM CDT DTL Neutrophils 2.83 1.56 - 6.45 x10(9)/L 03/26/2024 5:19 AM CDT [facility] Lymphocytes 0.63(L) 0.95 - 3.07 x10(9)/L 03/26/2024 5:19 AM CDT DTL Monocytes 0.87(H) 0.26 - 0.81 x10(9)/L 03/26/2024 5:19 AM CDT DTL Eosinophils 0.32 0.03 - 0.48 x10(9)/L 03/26/2024 5:19 AM CDT DTL Basophils 0.05 0.01 - 0.08 x10(9)/L 03/26/2024 5:19 AM CDT DTL Blood (Blood, Venous) 03/26/2024 4:31 AM CDT 03/26/2024 4:54 AM CDT Neida Granados M.D. LAB BLOOD ADD-ON [facility] [address] [place] [address], [place] DTL [facility] [address] [place] [address] [facility] [address] [place] [address] * (ABNORMAL) Basic Metabolic Panel (03/25/2024 2:59 AM CDT) [facility] Potassium, S 4.0 3.6 - 5.2 mmol/L 03/25/2024 4:16 AM CDT DTL Sodium, S 140 135 - 145 mmol/L 03/25/2024 4:16 AM CDT DTL Chloride, S 110(H) 98 - 107 mmol/L 03/25/2024 4:16 AM CDT DTL Bicarbonate, S 23 22 - 29 mmol/L 03/25/2024 4:16 AM CDT DTL Anion Gap 7 7 - 15 03/25/2024 4:16 AM CDT DTL BUN (Blood Urea Nitrogen), S 13 8 - 24 mg/dL 03/25/2024 4:16 AM CDT DTL Creatinine 0.90 0.74 - 1.35 mg/dL 03/25/2024 4:16 AM CDT DTL Estimated GFR (eGFR) 88 >=60 mL/min/BSA 03/25/2024 4:16 AM CDT DTL Comment: Estimated GFR calculated using the 2020 CKD_EPI creatinine equation. Calcium, Total, S 8.1(L) 8.8 - 10.2 mg/dL 03/25/2024 4:16 AM CDT DTL Glucose, S 94 70 - 140 mg/dL 03/25/2024 4:16 AM CDT DTL Blood (Blood, Venous) 03/25/2024 2:59 AM CDT 03/25/2024 4:01 AM CDT Neida Granados M.D. LAB BLOOD ADD-ON [address] [address], [facility] [address] [place] [address] * (ABNORMAL) CBC with Differential, Blood (03/25/2024 2:59 AM CDT) Hemoglobin 8.7(L) 13.2 - 16.6 g/dL 03/25/2024 3:55 AM CDT DTL Hematocrit 28.1(L) 38.3 - 48.6 % 03/25/2024 3:55 AM CDT DTL Erythrocytes 3.16(L) 4.35 - 5.65 x10(12)/L 03/25/2024 3:55 AM CDT DTL MCV 88.9 78.2 - 97.9 fL 03/25/2024 3:55 AM CDT DTL RBC Distrib Width 19.2(H) 11.8 - 14.5 % 03/25/2024 3:55 AM CDT DTL Platelet Count 239 135 - 317 x10(9)/L 03/25/2024 3:55 AM CDT DTL Leukocytes 5.4 3.4 - 9.6 x10(9)/L 03/25/2024 3:55 AM CDT DTL Neutrophils 3.44 1.56 - 6.45 x10(9)/L 03/25/2024 3:55 AM CDT [facility] Lymphocytes 0.78(L) 0.95 - 3.07 x10(9)/L 03/25/2024 3:55 AM CDT DTL Monocytes 0.84(H) 0.26 - 0.81 x10(9)/L 03/25/2024 3:55 AM CDT DTL Eosinophils 0.28 0.03 - 0.48 x10(9)/L 03/25/2024 3:55 AM CDT DTL Basophils 0.06 0.01 - 0.08 x10(9)/L 03/25/2024 3:55 AM CDT DTL Blood (Blood, Venous) 03/25/2024 2:59 AM CDT 03/25/2024 3:46 AM CDT Neida Granados M.D. LAB BLOOD ADD-ON [facility] [address] [place] [address], [facility] DTL [facility] [address] [place] [address] [facility] [address] [place] [address] * Magnesium (03/25/2024 2:59 AM CDT) Magnesium, S 1.9 1.7 - 2.3 mg/dL 03/25/2024 4:16 AM CDT DTL Blood (Blood, Venous) 03/25/2024 2:59 AM CDT 03/25/2024 4:01 AM CDT Neida Granados M.D. LAB BLOOD ADD-ON [facility] [address] [place] [address], [facility] DTL [facility] [address] [place] [address] * (ABNORMAL) GI Pathogen Panel, PCR, Feces (03/24/2024 2:52 PM CDT) Specimen Source STOOL 5:04 PM CDT DTL Campylobacter species Negative Negative 03/24/2024 5:04 PM CDT DTL C. difficile toxin Positive(A ) Negative 03/24/2024 5:04 PM CDT DTL Comment: A positive C. difficile result may reflect asymptomatic carriage or C. difficile-associated diarrhea. Plesiomonas shigelloides Negative Negative 03/24/2024 5:04 PM CDT DTL Salmonella species Negative Negative 2023 5:04 PM CDT DTL Vibrio species Negative Negative 03/24/2024 5:04 PM CDT DTL Vibrio cholerae Negative Negative 5:04 PM CDT DTL Yersinia species Negative Negative 03/24/20 5:04 PM CDT DTL Enteroaggregative E. coli (EAEC) Negative Negative 03/24/2024 5:04 PM CDT DTL Enteropathogenic E. coli (EPEC) Negative Negative 03/24/2024 5:04 PM CDT DTL Enterotoxigenic E. coli (ETEC) Negative Negative 03/24/2024 5:04 PM CDT DTL Shiga toxin producing E. coli Negative Negative 03/24/2024 5:04 PM CDT DTL Shigella/Enteroinvas danielito E. coli Negative Negative 03/24/2024 5:04 PM CDT DTL Cryptosporidium species Negative Negative 03/24/2024 5:04 PM CDT DTL Cyclospora cayetanensis Negative Negative 03/24/2024 5:04 PM CDT DTL Entamoeba histolytica Negative Negative 03/24/2024 5:04 PM CDT DTL Giardia Negative Negative 03/24/2024 5:04 PM CDT DTL Adenovirus F40/41 Negative Negative 024 5:04 PM CDT DTL Astrovirus Negative Negative 03/24/2024 5:04 PM CDT DTL Norovirus GI/GII Negative Negative 03/24/20 24 5:04 PM CDT DTL Rotavirus Ag, F Negative Negative 5:04 PM CDT DTL Sapovirus Negative Negative 03/24/2024 5:04 PM CDT DTL Comment: ----ADDITIONAL INFORMATION---- This assay is performed using the FDA-cleared SyandusArray GI Panel ([employer] Semi-Urgent This is a semi-urgen t result(BENÍTEZ) [facility] Stool (Stool) 03/24/2024 2:5 2 PM CDT 03/24/2024 3:29 PM CDT Neida Granados M.D. LAB MICROBIOLOGY - GENERAL ORDERABLES [facility] [address] [place] [address], [facility] DTL 200 [facility] [address] [place] [address] * (ABNORMAL) Basic Metabolic Panel (03/24/2024 5:12 AM CDT) Potassium, S 4.1 3.6 - 5.2 mmol/L 03/24/2024 6:10 AM CDT DTL Sodium, S 139 135 - 145 mmol/L 03/24/2024 6:10 AM CDT DTL Chloride, S 110(H) 98 - 107 mmol/L 03/24/2024 6:10 AM CDT DTL Bicarbonate, S 22 22 - 29 mmol/L 03/24/2024 6:10 AM CDT DTL Anion Gap 7 7 - 15 03/24/2024 6:10 AM CDT DTL BUN (Blood Urea Nitrogen), S 15 8 - 24 mg/dL 03/24/2024 6:10 AM CDT DTL Creatinine 0.93 0.74 - 1.35 mg/dL 03/24/2024 6:10 AM CDT DTL Estimated GFR (eGFR) 85 >=60 mL/min/BSA 03/24/2024 6:10 AM CDT DTL Comment: Estimated GFR calculated using the 2020 CKD_EPI creatinine equation. Calcium, Total, S 8.0(L) 8.8 - 10.2 mg/dL 03/24/2024 6:10 AM CDT DTL Glucose, S 91 70 - 140 mg/dL 03/24/2024 6:10 AM CDT DTL Blood (Blood, Venous) 03/24/2024 5:12 AM CDT 03/24/2024 5:53 AM CDT Adrien Yoo M.D., M.P.H. LAB BLOOD AD D-ON [address] [address], [facility] [place] [address] * (ABNORMAL) CBC with Differential, Blood (03/24/2024 5:12 AM CDT) Hemoglobin 8.4(L) 13.2 - 16.6 g/dL 03/24/2024 5:48 AM CDT DTL Hematocrit 27.5(L) 38.3 - 48.6 % 03/24/2024 5:48 AM CDT DTL Erythrocytes 3.07(L) 4.35 - 5.65 x10(12)/L 03/24/2024 5:48 AM CDT DTL MCV 89.6 78.2 - 97.9 fL 03/24/2024 5:48 AM CDT DTL RBC Distrib Width 19.1(H) 11.8 - 14.5 % 03/24/2024 5:48 AM CDT DTL Platelet Count 226 135 - 317 x10(9)/L 03/24/2024 5:48 AM CDT DTL Leukocytes 6.0 3.4 - 9.6 x10(9)/L 03/24/2024 5:48 AM CDT DTL Neutrophils 4.14 1.56 - 6.45 x10(9)/L 03/24/2024 5:48 AM CDT [facility] Lymphocytes 0.67(L) 0.95 - 3.07 x10(9)/L 03/24/2024 5:48 AM CDT DTL Monocytes 0.90(H) 0.26 - 0.81 x10(9)/L 03/24/2024 5:48 AM CDT DTL Eosinophils 0.27 0.03 - 0.48 x10(9)/L 03/24/2024 5:48 AM CDT DTL Basophils 0.05 0.01 - 0.08 x10(9)/L 03/24/2024 5:48 AM CDT DTL Blood (Blood, Venous) 03/24/2024 5:12 AM CDT 03/24/2024 5:37 AM CDT Adrien Yoo M.D., M.P.H. LAB BLOOD AD D-ON [facility] [address] [place] [address], [facility] DTL [facility] [address] [place] [address] [place] [address] * VRE PCR (03/23/2024 4:11 PM CDT) Specimen Source Swab, Perirectal 03/25/2024 11:35 AM CDT DTL VRE PCR Negative Negative 03/25/2024 11:35 AM CDT DTL Comment: ----ADDITIONAL INFORMATION---- This test was developed using an analyte specific reagent. Its performance characteristics were determined by [facility] in a manner consistent with CLIA requirements. This test has not been cleared or approved by the U.S. Food and Drug Administration. Swab (Perirectal) 03/23/2024 4:11 PM CDT 03/23/2024 4:39 PM CDT Maikol Skinner M.D., Ph.D. LAB MICROBIOL OGY - GENERAL ORDERABLES [facility] [address] [place] [address], [facility] DTL 200 [facility] 200 [place] [address] * Dipstick, POCT, Urine (03/23/2024 11:47 AM CDT) Glucose, POCT, U Negative Negative mg/dL 03/23/2024 11:49 AM CDT [facility] Ketone, POCT, U Negative Negative mg/dL 03/23/2024 11:49 AM CDT [facility] Specific [place], POCT, U 1.010 1.005 - 1.030 03/23/2024 11:49 AM CDT [facility] Blood, POCT, U Negative Negative 03/23/2024 11:49 AM CDT [facility] pH, POCT, Urine 6.5 5.0 - 8.0 03/23/2024 11:49 AM CDT [facility] Protein, POCT, U Negative Negative mg/dL 03/23/2024 11:49 AM CDT [facility] Nitrites, POCT, U Negative Negative 03/23/2024 11:49 AM CDT [facility] Leukocytes, POCT, U Negative Negative 03/23/2024 11:49 AM CDT PCED Urine 03/23/2024 11:4 7 AM CDT 03/23/2024 11:49 AM CDT Unknown Provider LAB POCT ORDERABLES - DEVICE POC RST [facility] [address] [place] [address], [facility] PCED [facility] POC [address] [place] [address] * pH, Urine (03/23/2024 11:39 AM CDT) pH, U 6.1 4.5 - 8.0 03/23/2024 1:1 1 PM CDT DTL Urine 03/23/2024 11:3 9 AM CDT 03/23/2024 12:09 PM CDT Lanie Phillips P.A.-C., M.S. LAB URINE ORD ERABLES Performing Organization Address City/[facility]/[place] [address] * Dipstick, Urine (03/23/2024 11:39 AM CDT) Hemoglobin, QL, U Negative Negative 03/23/2024 12:42 PM CDT DTL Leukocyte Esterase, U Negative Negative 03/23/2024 12:42 PM CDT DTL Nitrite, U Negative Negative 03/23/2024 12:42 PM CDT DTL Ketone, U Negative Negative mg/dL 03/23/2024 12:42 PM CDT DTL Glucose, U Negative Negative mg/dL 03/23/2024 12:42 PM CDT DTL Urine 03/23/2024 11:3 9 AM CDT 03/23/2024 12:09 PM CDT Lanie Phillips P.A.-C., M.S. LAB URINE ORD ERABLES Performing Organization Address City/[facility] Co de Phone Number [id number] [place] [address] * Microscopic Automated (03/23/2024 11:39 AM CDT) Microscopy Normal 03/23/2024 12:42 PM CDT DTL RBC None Seen <3 /hpf 03/23/2024 12:42 PM CDT DTL WBC None Seen /hpf 03/23/2024 12:42 PM CDT DTL Comment: ----REFERENCE VALUE---- <4 ??(Males) <11 (Females) Urine 03/23/2024 11:3 9 AM CDT 03/23/2024 12:09 PM CDT Lanie Phillips P.A.-C., M.S. LAB URINE ORD ERABLES Performing Organization Address [facility] Co de Phone Number [facility] [address] [place] [address] * Osmolality, Urine (03/23/2024 11:39 AM CDT) Osmolality, U 714 150 - 1150 mOsm/kg 03/23/2024 1:11 PM CDT DTL Urine 03/23/2024 11:3 9 AM CDT 03/23/2024 12:09 PM CDT Lanie Phillips P.A.-C. M.SJam LAB URINE ORD ERABLES Performing Organization Address [facility] Co de Phone Number [facility] [address] [place] [address] * Bacterial Culture, Aerobic + Susceptibility, Urine (03/23/2024 11:39 AM CDT) Pathologist [facility] Urine Culture No growth after 1 day of incubation. 03/24/2024 7:48 AM CDT DT Urine (Urine, Midstream) 03/23/2024 11:39 AM CDT 03/23/2024 2:29 PM CDT Comment:Specimen Source Site : Urine Lanie Phillips P.A.-C. M.S. LAB MICROBIOL OGY - GENERAL ORDERABLES Performing Organization Address [facility]/[place] Co de Phone Number [facility] [address] [place] [address] * Urinalysis, with Microscopic: Urine, Midstream (03/23/2024 11:39 AM CDT) Source Urine, Urine, Midstream 03/23/2024 12:09 PM CDT DTL Color, U Yellow 03/23/2024 12:09 PM CDT DTL Clarity, U Clear 03/23/2024 12:09 PM CDT DTL Protein, U 7 <26 mg/dL 03/23/2024 1:09 PM CDT DTL Protein/Osmol ality 0.10 <0.42 ratio 03/23/2024 1:11 PM CDT DTL Predicted 24 HR Protein, U 103 <229 mg/24 h 03/23/2024 1:11 PM CDT DTL Predicted Range 33-324 mg/24 h 03/23/2024 1:11 PM CDT DTL Urine (Urine, Midstream) 03/23/2024 11:39 AM CDT 03/23/2024 12:09 PM CDT Lanie Phillips P.A.-C., M.S. LAB URINE ORD ERABLES Performing Organization Address [facility]/[place] Co de Phone Number [facility] [address] DTL [facility] [address] [place] [address] * (ABNORMAL) Troponin T, 2 Hour with 6 Hour Reflex, 5th Gen (03/23/2024 10:20 AM CDT) Troponin T, 2 hr, 5th gen 21(H) <=15 ng/L 03/23/2024 11:23 AM CDT [facility] 2H Delta -3 ng/L 03/23/2024 11:23 AM CDT [facility] Comment:6 hour collection no t indicated. 2H Delta Interp Not Changing 03/23/2024 11:23 AM CDT ST[facility] Blood 03/23/2024 10:2 0 AM CDT 03/23/2024 10:25 AM CDT Lanie Phillips P.A.-C., M.S. LAB BLOOD TRO PONIN Performing Organization Address City/[facility]/ZIP Co de Phone Number [facility] [address] [place] [address], [facility] STMA [facility] [address] [place] [address] * CT Chest Angiogram and Pulmonary Arteries with IV Contrast (03/23/2024 8:55 AM CDT) Anatomical Region Laterality Modality Chest, Cardiovascular RST LO S, Thoracic ARZ LOS, Thoracic FLA LOS N/A Computed Tomography, Compute d Tomography 03/23/2024 8:49 AM CDT Impressions 03/23/2024 [...] Phillips P.A.-C., M.S. IMG CT PROCED URES * CT Abdomen Pelvis with IV Contrast [...] Phillips P.A.-C., M.S. IMG CT PROCED URES * Bacteria / Kim Culture, Blood # 2 (03/23/2024 8:32 AM CDT) Bacteria/Concepción da Culture, Blood No growth after 5 days of incubation. 03/28/2024 9:02 AM CDT DTL Blood (Blood, Peripheral Draw) 03/23/2024 8:32 AM CDT 03/23/2024 8:54 AM CDT Comment:Specimen Source Site : Blood Narrative [facility] - 03/28/2024 9:02 AM CDT Received Bactec aerobic and Bactec anaerobic bottles Lanie Phillips P.A.-C., M.S. LAB MICROBIOL OGY - GENERAL ORDERABLES Performing Organization Address City/[facility] Co de Phone Number [facility] [address] [place] [address], [facility] DTL [facility] [address] [place] [address] * Lactate for Sepsis with Reflex, POCT (03/23/2024 8:20 AM CDT) Pathologist [facility] Lactate, POCT 0.77 0.50 - 2.20 mmol/L 03/23/2024 9:02 AM CDT PCL[facility] Blood (Blood, Venous) 03/23/2024 8:20 AM CDT 03/23/2024 8:20 AM CDT Lanie Phillips P.A.-C., M.S. LAB POCT ORDE RABLES - DEVICE Performing Organization Address [facility] de Phone Number [facility] [address] [place] [address], [facility] [address] [place] [address] * Patient Status (03/23/2024 8:19 AM CDT) O2 Flow 2.0 L/min 03/23/2024 8:25 AM CDT [facility] Device NC 03/23/2024 8:25 AM CDT [facility] Spont. breaths/min 18 03/23/2024 8:25 AM CDT [facility] Blood 03/23/2024 8:19 AM CDT 03/23/2024 8:25 AM CDT Lanie Phillips P.A.-C., M.S. LAB BLOOD NON ADD-ON [facility] [address] [place] [address], [facility] [address] [place] [address] * Influenza A/B, SARS CoV-2, PCR, Rapid Symptomatic (03/23/2024 8:19 AM CDT) Influenza A, PCR, Rapid, V Negative Negative 03/23/2024 8:45 AM CDT [facility] Influenza B, PCR, Rapid, V Negative Negative 03/23/2024 8:45 AM CDT [facility] SARS CoV-2, PCR, Rapid, V Undetected Undetected 03/23/2024 8:45 AM CDT [facility] Comment: ----ADDITIONAL INFORMATION---- This RT-PCR test was performed using the [employer] SARS-CoV-2 and Influenza A/B Reagent assay from [employer], which has received Emergency Use Authorization(EUA) by the U.S. Food and Drug Administration. Fact sheets for this Emergency Use Authorization (EUA) assay can be found at the following links: For Healthcare Providers: https://www.fda.gov/media/970691/download For Patients: https://www.fda.gov/media/489744/download Infl A/B, SARS CoV-2, PCR, Source Swab, Nasopharynx 03/23/2024 8:22 AM CDT [facility] Swab (Nasopharynx) 03/23/2024 8:19 AM CDT 03/23/2024 8:22 AM CDT Lanie Phillips P.A.-C., M.S. LAB MICROBIOL OGY - GENERAL ORDERABLES [facility] [address] [place] [address], [facility] [address] [place] [address] * (ABNORMAL) Blood Gas without Coox, Venous (03/23/2024 8:19 AM CDT) pO2, Venous, B 41 Not applicable mm Hg 03/23/2024 8:26 AM CDT [facility] pCO2, Venous, B 39(L) 41 - 51 mm Hg 03/23/2024 8:26 AM CDT [facility] pH, Venous, B 7.38 7.32 - 7.43 pH 024 8:26 AM CDT [facility] Base Excess, Venous, B -2 Not applicable mmol/L 03/23/2024 8:26 AM CDT [facility] HCO3, Venous, B 22 Not applicable mmol/L 03/23/2024 8:26 AM CDT [facility] Sample Site, Venous, B Jes Line 03/23/2024 8:25 AM CDT [facility] Blood (Blood, Venous) 03/23/2024 8:19 AM CDT 03/23/2024 8:25 AM CDT Lanie Phillips P.A.-C., M.S. LAB BLOOD NON ADD-ON Performing Organization Address City/[facility]/ZIP Co de Phone Number [facility] [address] STMA [facility] 200 [place] [address] * Bacteria / Kim Culture, Blood #1 (03/23/2024 8:18 AM CDT) Pathologist [facility] Bacteria/Concepción da Culture, Blood No growth after 5 days of incubation. 03/28/2024 9:02 AM CDT DTL Blood (Blood, Portacath) 03/23/2024 8:18 AM CDT 03/23/2024 8:54 AM CDT Comment:Specimen Source Site : Blood Narrative [facility] - 03/28/2024 9:02 AM CDT Received Bactec aerobic and Bactec anaerobic bottles Lanie Phillips P.A.-C., M.S. LAB MICROBIOL OGY - GENERAL ORDERABLES [facility] [address] DTL [facility] 200 [place] [address] * (ABNORMAL) Prothrombin Time (PT) (03/23/2024 8:18 AM CDT) Prothrombin Time, P 16.3(H) 9.4 - 12.5 sec 03/23/2024 8:43 AM CDT [facility] INR 1.5 0.9 - 1.1 03/23/2024 8:43 AM CDT [facility] Comment: ----ADDITIONAL INFORMATION---- Standard intensity warfarin therapeutic range: 2.0 to 3.0 ?? High intensity warfarin therapeutic range: 2.5 to 3.5 Blood (Blood, Venous) 03/23/2024 8:18 AM CDT 03/23/2024 8:36 AM CDT Lanie Phillips P.A.-C., M.S. LAB BLOOD ADD -ON Performing Organization Address [facility]/RUST Co de Phone Number [facility] 200 [place] [address] * NT-Pro B-Type Natriuretic Peptide (BNP) (03/23/2024 8:18 AM CDT) NT-Pro BNP 147 <=540 pg/mL 03/23/2024 9:02 AM CDT [facility] Comment: NT-proBNP values less than 300 pg/mL have a 99% negative predictive value for excluding acute congestive heart failure. A cutoff of 1200 pg/mL for patients with an eGFR<60 yields a diagnostic sensitivity and specificity of 89% and 72% for acute congestive heart failure. A diagnostic NT-proBNP cutoff of 1800 pg/mL has been suggested in adults over 75 years of age in the absence of renal failure. Blood (Blood, Venous) 03/23/2024 8:18 AM CDT 03/23/2024 8:36 AM CDT Lanie Phillips P.A.-C., M.S. LAB BLOOD ADD -ON Performing Organization Address [facility]/ZIP Co de Phone Number [facility] [address] [place] [address] * (ABNORMAL) Troponin T, Baseline with 2 Hour/6 Hour Reflex Biomarker Panel (03/23/2024 8:18 AM CDT) Pathologist [facility] Troponin T, Baseline, 5th gen 24(H) <=15 ng/L 03/23/2024 9:02 AM CDT [facility] Blood (Blood, Venous) 03/23/2024 8:18 AM CDT 03/23/2024 8:36 AM CDT Lanie Phillips P.A.-C., M.S. LAB BLOOD TRO PONIN [facility] [address] 200 [place] [address] * Lipase (03/23/2024 8:18 AM CDT) Pathologist [facility] Lipase, S 22 13 - 60 U/L 03/23/2024 9: 12 AM CDT DTL Blood (Blood, Venous) 03/23/2024 8:18 AM CDT 03/23/2024 8:53 AM CDT Lanie Phillips P.A.-C., M.S. LAB BLOOD ADD -ON [facility] [address] [place] [address] * (ABNORMAL) Hepatic Function Panel (03/23/2024 8:18 AM CDT) Bilirubin, Total, S 0.4 0.0 - 1.2 mg/dL 03/23/2024 9:12 AM CDT DTL Bilirubin, Direct, S <0.2 0.0 - 0.3 mg/dL 03/23/2024 9:12 AM CDT DTL Aspartate Aminotransferase (AST), S 19 8 - 48 U/L 03/23/2024 9:12 AM CDT DTL Alanine Aminotransferase (ALT), S 12 7 - 55 U/L 03/23/2024 9:12 AM CDT DTL Alkaline Phosphatase, S 165(H) 40 - 129 U/L 03/23/2024 9:12 AM CDT DTL Albumin, S 3.2(L) 3.5 - 5.0 g/dL 03/23/2024 9:12 AM CDT DTL Protein, Total, S 5.8(L) 6.3 - 7.9 g/dL 03/23/2024 9:12 AM CDT DTL Blood (Blood, Venous) 03/23/2024 8:18 AM CDT 03/23/2024 8:53 AM CDT Lanie Phillips P.A.-C., M.S. LAB BLOOD ADD -ON [facility] 200 [place] [address], [place] [address] * (ABNORMAL) Basic Metabolic Panel (03/23/2024 8:18 AM CDT) Potassium, P 3.8 3.6 - 5.2 mmol/L 03/23/2024 8:53 AM CDT [facility] Sodium, P 143 135 - 145 mmol/L 03/23/2024 8:53 AM CDT [facility] Chloride, P 111(H) 98 - 107 mmol/L 03/23/2024 8:53 AM CDT [facility] Bicarbonate, P 23 22 - 29 mmol/L 03/23/2024 8:53 AM CDT [facility] Anion Gap, P 9 7 - 15 03/23/2024 8:53 AM CDT [facility] BUN (Blood Urea Nitrogen), P 18 8 - 24 mg/dL 03/23/2024 8:53 AM CDT [facility] Creatinine 0.83 0.74 - 1.35 mg/dL 03/23/2024 8:53 AM CDT [facility] Estimated GFR (eGFR) >90 >=60 mL/min/BSA 03/23/2024 8:53 AM CDT [facility] Comment: Estimated GFR calculated using the 2020 CKD_EPI creatinine equation. Calcium, Total, P 8.2(L) 8.8 - 10.2 mg/dL 03/23/2024 8:53 AM CDT [facility] Glucose, P 99 70 - 140 mg/dL 03/23/2024 8:53 AM CDT [facility] Blood (Blood, Venous) 03/23/2024 8:18 AM CDT 03/23/2024 8:36 AM CDT Lanie Phillips P.A.-C., M.S. LAB BLOOD ADD -ON [facility] 200 [place] [address], [address] [address] * (ABNORMAL) CBC with Differential, Blood (03/23/2024 8:18 AM CDT) Pathologist [facility] Hemoglobin 9.0(L) 13.2 - 16.6 g/dL 03/23/2024 8:40 AM CDT [facility] Hematocrit 28.2(L) 38.3 - 48.6 % 03/23/2024 8:40 AM CDT [facility] Erythrocytes 3.14(L) 4.35 - 5.65 x10(12)/L 03/23/2024 8:40 AM CDT [facility] MCV 89.8 78.2 - 97.9 fL 03/23/2024 8:40 AM CDT [facility] RBC Distrib Width 19.0(H) 11.8 - 14.5 % 03/23/2024 8:40 AM CDT [facility] Platelet Count 229 135 - 317 x10(9)/L 03/23/2024 8:40 AM CDT [facility] Leukocytes 8.0 3.4 - 9.6 x10(9)/L 03/23/2024 8:40 AM CDT [facility] Neutrophils 6.22 1.56 - 6.45 x10(9)/L 03/23/2024 8:40 AM CDT [facility] Lymphocytes 0.58(L) 0.95 - 3.07 x10(9)/L 03/23/2024 8:40 AM CDT [facility] Monocytes 0.92(H) 0.26 - 0.81 x10(9)/L 03/23/2024 8:40 AM CDT [facility] Eosinophils 0.19 0.03 - 0.48 x10(9)/L 03/23/2024 8:40 AM CDT [facility] Basophils 0.06 0.01 - 0.08 x10(9)/L 03/23/2024 8:40 AM CDT [facility] Blood (Blood, Venous) 03/23/2024 8:18 AM CDT 03/23/2024 8:36 AM CDT Lanie Phillips P.A.-C., M.S. LAB BLOOD ADD -ON [facility] 200 [place] [address], [facility] STMA [facility] [address] [place] [id number] DHPM [facility] [address] [place] [id number] * ECG 12 Lead (03/23/2024 7:34 AM CDT) Ventricular Rate ECG/Min 67 BPM MUSE NE Interval 160 ms MUSE QRSD Interval 98 ms MUSE QT Interval 414 ms MUSE QTC Interval 437 ms MUSE P [place] -11 degrees MUSE R [place] -1 degrees MUSE T Wave [place] 6 degrees MUSE 03/23/2024 7:34 AM CDT 03/25/2024 10:28 AM CDT Impressions MUSE - 03/23/2024 7:38 AM CDT Sinus rhythm Premature atrial complexes Nonspecific ST abnormality No previous ECGs available Reviewed by POLI Thompson Narrative Procedure Note Jesus Hoffman M.D. - 03/25/2024 IMPRESSION: Sinus rhythm Premature atrial complexes Nonspecific ST abnormality No previous ECGs available Reviewed by POLI Thompson Lanie Centeno Jacqueline Abraham, M.S. ECG ORDERABLE S MUSE NA documented in this encounter Visit Diagnoses Diagnosis Dyspnea- Primary Dyspnea Hypoxia Anemia Stool Positive Occult Blood Malignant Neoplasm Of Gastroesophageal Junction (HCC) Anticoagulant Therapy Dyspnea On Exertion Decline Functional Status [R53.81] documented in this encounter Admitting Diagnoses Diagnosis Dyspnea documented in this encounter Administered Medications Inactive Administered Medications - up to 3 most recent administrations Medication Order MAR Action Action Date Dose Rate Site acetaminophen tablet 650 mg (TylenoL) 650 mg, oral, Every 4 hours PRN, mild pain or score 1-3 of 10, Fever > 38.3, Starting on 03/23/24 at 1653 Given 03/23/2024 5:35 PM CDT 650 mg albuterol 90 mcg/actuation inhaler 2 puff 2 puff, inhalation, Every 6 hours PRN, wheezing, shortness of breath, Starting on 03/24/24 at 2148 Given 03/26/2024 11:52 AM CDT 2 puffs Given 03/25/2024 9:57 AM CDT 2 puffs albuterol nebulizer solution 2.5 mg 2.5 mg, nebulization, Every 4 hours PRN, wheezing, shortness of breath, Starting on 03/23/24 at 1655, Albuterol nebs were interchanged for albuterol/levalbuterol MDI (same frequency) Given 03/23/2024 5:45 PM CDT 2.5 mg apixaban tablet 5 mg (Eliquis) 5 mg, oral, 2 times daily, First dose on 03/23/24 at 2100 Given 03/26/2024 8:06 AM CDT 5 mg Given 03/25/2024 8:29 PM CDT 5 mg Given 03/25/2024 8:51 AM CDT 5 mg D5W infusion 1-999 mL/hr, intravenous, As needed, Medications Incompatible with 0.9% NaCL, Starting on 03/24/24 at 2142, Infuse at the same rate as the piggyback until tubing clears or up to a volume of 20 mL pre and post infusion for medications incompatible with 0.9% NaCL. Use 50 mL bag then discard. heparin flush 500 Units 500 Units, intra-catheter, As needed, line care, Starting on Mon03/26/24 at 0948, When IVAD accessed and not infusing: When no infusion to maintain patency flush every 7 days following NaCL flush. 5 mL (500 units) of Heparin 100 units/mL to each port/lumen. When IVAD not accessed or infusing: When no infusion to maintain patency flush every 28 days following NaCL flush. 5 mL (500 units) of Heparin 100 units/mL to each port/lumen. Given 03/26/2024 6:15 PM CDT 500 Units iohexoL 350 mg iodine/mL solution 150 mL (Omnipaque) 150 mL, intravenous, Once in imaging, contrast, Starting on Mon03/23/24 at 0836, For 1 dose Given 03/23/2024 8:45 AM CDT 140 mL sywbocdospum-ustw-HT-Ca-minerals 400 mcg (folic acid) tablet 1 tablet 1 tablet, oral, Daily, First dose on Mon03/24/24 at 0900 Given 03/26/2024 8:06 AM CDT 1 tablet Given 03/25/2024 8:50 AM CDT 1 tablet Given 03/24/2024 8:51 AM CDT 1 tablet NaCl 0.9 % bolus 500 mL 500 mL, intravenous, at 500 mL/hr, Administer over 1 Hours, Once, On Mon03/23/24 at 1005, For 1 dose New Bag 03/23/2024 10:09 AM CDT 500 mL 500 mL/hr NaCl 0.9% infusion 1-999 mL/hr, intravenous, As needed, Between Consecutive Piggyback Medications, Starting on Mon03/24/24 at 2142, Infuse at the same rate as the piggyback until tubing clears or up to a volume of 20 mL. Select for IV medication administration when no maintenance IV available or when IV medications are not compatible with maintenance fluid. NaCl 0.9% infusion 1-999 mL/hr, intravenous, As needed, Post Medications (Hazardous/Low Fluid Volume), Starting on Mon03/24/24 at 2142, Infuse at the same rate as the medication until tubing cleared of medication, then discard. NaCl 0.9% infusion 20-500 mL/hr, intravenous, Once as needed, Between Units of Blood Products, Starting on Mon03/26/24 at 1216, For 1 dose, Infuse at the same rate as the blood infusion until tubing cleared. Nurse may reduce rate to 20 mL/hour or as otherwise directed until next blood infusion arrives then discontinue when infusion complete. OLANZapine tablet 5 mg (ZyPREXA) 5 mg, oral, Daily at bedtime, First dose on 03/23/24 at 2100 Given 03/25/2024 8:29 PM CDT 5 mg Given 03/24/2024 9:41 PM CDT 5 mg Given 03/23/2024 9:18 PM CDT [address] tablet 40 mg (Protonix) 40 mg, oral, Daily before morning meal, First dose on 03/24/24 at 0700, pantoprazole 40 mg oral daily was interchanged for omeprazole 20 or 40 mg oral daily Swallow whole. Do NOT crush, chew, or split tablet. Given 03/26/2024 6:27 AM CDT 40 mg Given 03/25/2024 6:56 AM CDT 40 mg Given 03/24/2024 5:13 AM CDT 40 mg sodium chloride (PF) 0.9 % injection 1-100 mL 1-100 mL, intravenous, Once, On Mon03/23/24 at 0838, For 1 dose, Imaging Protocol Orders, Dose per Radiant Medication Guidelines Given 03/23/2024 8:45 AM CDT 30 mL sodium chloride 0.9 % injection 10 mL 10 mL, intravenous, As needed, line care, Starting on Mon03/23/24 at 1651, Peripheral Intravenous Catheter and Rapid Infusion Catheter, prior to blood sampling, post blood transfusion or post blood sampling sodium chloride 0.9 % injection 10-20 mL 10-20 mL, intra-catheter, As needed, line care, Starting on Mon03/26/24 at 0948, When IVAD accessed and infusing: Flush prior to and following infusion, between multiple consecutive infusions. 10 mL to each port/lumen. sodium chloride 0.9 % injection 20-40 mL 20-40 mL, intra-catheter, As needed, line care, Starting on Mon03/26/24 at 0948, When IVAD accessed and infusing: Flush prior to blood sampling, post blood transfusion or post blood sampling. 20 mL to each port/lumen. sodium chloride 0.9 % injection 3 mL 3 mL, intravenous, As needed, line care, Starting on 03/23/24 at 1651, Prior to and following infusion and between multiple consecutive infusions: sodium chloride 0.9 % injection sodium chloride 0.9 % injection 3 mL 3 mL, intravenous, Every 24 hours scheduled, First dose on Mon03/25/24 at 0900, Peripheral Intravenous Catheter and Rapid Infusion Catheter: When no infusion to maintain patency. Given 03/25/2024 9:00 AM CDT 3 mL tamsulosin 24 hr capsule 0.4 mg (Flomax) 0.4 mg, oral, Daily, First dose on Mon03/24/24 at 0900, Swallow whole. Do NOT crush, chew or open capsule. Given 03/26/2024 8:06 AM CDT 0.4 mg Given 03/25/2024 8:50 AM CDT 0.4 mg Given 03/24/2024 8:51 AM CDT 0.4 mg umeclidinium-vilanteroL 62.5-25 mcg/actuation inhaler 1 puff (Anoro Ellipta) 1 puff, inhalation, Daily (RT), First dose on Mon03/24/24 at 0800, 1. Hold device upright in right hand with rough edge. 2. Using left hand open lid (toward left) until click is heard. 3. Tilt inhaler flat so air entrainment vents & counter face up. 4. Inhale to full breath somewhat fast. 5. Hold breath up to 10 seconds. 6. Remove inhaler from mouth. 7. Close lid. Given 03/26/2024 9:46 AM CDT 1 puff Given 03/25/2024 8:51 AM CDT 1 puff Given 03/24/2024 8:52 AM CDT 1 puff vancomycin capsule 125 mg (Vancocin) 125 mg, oral, 4 times daily, First dose on Mon03/24/24 at 1800, For 38 doses, Drug Monitoring Program: Pharmacist to adjust medication dosing based on indication and drug clearance factors., Indications: C. difficile infection Given 03/26/2024 6:14 PM CDT 125 mg Given 03/26/2024 1:42 PM CDT 125 mg Given 03/26/2024 8:06 AM CDT 125 mg documented in this encounter Active and Recently Administered Medications Times are shown in CDT. Scheduled Medication Order 03/24/2024 03/25/2024 03/26/2024 apixaban tablet 5 mg (Eliquis) 5 mg, oral, 2 times daily, First dose on 03/23/24 at 2100 0851 (Given - Provider: Carlos Pham R.N.)2141 (Given - Provider: Barb Bush R.N.) 0851 (Given - Provider: Ileana Ambriz R.N.)2028 (Given - Provider: Chuy Barry R.N.) 08 (Given - Provider: Oswaldo Sequeira R.N.) tzbsrdeqktuv-cwbt-QV-Ca -minerals 400 mcg (folic acid) tablet 1 tablet 1 tablet, oral, Daily, First dose on 03/24/24 at 0900 0851 (Given - Provider: Carlos Pham R.N.) 0850 (Given - Provider: Ileana Ambriz R.N.) 08 (Given - Provider: Oswaldo Sequeira R.N.) OLANZapine tablet 5 mg (ZyPREXA) 5 mg, oral, Daily at bedtime, First dose on 03/23/24 at 2100 2140 (Given - Provider: Barb Bush R.N.) 2028 (Given - Provider: Chuy Barry R.N.) pantoprazole DR tablet 40 mg (Protonix) 40 mg, oral, Daily before morning meal, First dose on 03/24/24 at 0700, pantoprazole 40 mg oral daily was interchanged for omeprazole 20 or 40 mg oral daily Swallow whole. Do NOT crush, chew, or split tablet. 0513 (Given - Provider: Barb Bush R.N.) 0656 (Given - Provider: Barb Bush R.N.) 0627 (Given - Provider: Shanta Gordillo RJamNJam) sodium chloride 0.9 % injection 3 mL (CANCELED) 3 mL, intravenous, Every 24 hours scheduled, First dose on 03/25/24 at 0900, Peripheral Intravenous Catheter and Rapid Infusion Catheter: When no infusion to maintain patency. 0900 (Given - Provider: Ileana G Katina, R.N.) 0946 (Not Given - Provider: Oswaldo Sequiera R.N. - Reason: Order parameters not met) tamsulosin 24 hr capsule 0.4 mg (Flomax) 0.4 mg, oral, Daily, First dose on Mon03/24/24 at 0900, Swallow whole. Do NOT crush, chew or open capsule. 0851 (Given - Provider: Carlos Pham R.N.) 0850 (Given - Provider: Ileana Ambriz R.N.) 0806 (Given - Provider: Oswaldo Sequeira R.N.) umeclidinium-vilanteroL 62.5-25 mcg/actuation inhaler 1 puff (Anoro Ellipta) 1 puff, inhalation, Daily (RT), First dose on Mon03/24/24 at 0800, 1. Hold device upright in right hand with rough edge. 2. Using left hand open lid (toward left) until click is heard. 3. Tilt inhaler flat so air entrainment vents & counter face up. 4. Inhale to full breath somewhat fast. 5. Hold breath up to 10 seconds. 6. Remove inhaler from mouth. 7. Close lid. 0852 (Given - Provider: Carlos Pham R.N.) 0851 (Given - Provider: Ileana Ambriz R.N.) 0946 (Given - Provider: Oswaldo Sequeira R.N.) vancomycin capsule 125 mg (Vancocin) 125 mg, oral, 4 times daily, First dose on Mon03/24/24 at 1800, For 38 doses, Drug Monitoring Program: Pharmacist to adjust medication dosing based on indication and drug clearance factors., Indications: C. difficile infection 1758 (Given - Provider: Serge Baker RJamN.)2140 (Given - Provider: Barb Bush RJamN.) 0851 (Given - Provider: Ileana Ambriz R.N.)1214 (Given - Provider: Ileana Ambriz R.N.)1646 (Given - Provider: Ileana Ambriz R.N.)2029 (Given - Provider: Cait DawnN.) 0806 (Given - Provider: Oswaldo Sequeira R.N.)1342 (Given - Provider: Oswaldo Sequeira R.N.)1814 (Given - Provider: Oswaldo Sequeira R.N.) PRN Medication Order 03/24/2024 03/25/2024 03/26/2024 acetaminophen tablet 650 mg (TylenoL) 650 mg, oral, Every 4 hours PRN, mild pain or score 1-3 of 10, Fever > 38.3, Starting on 03/23/24 at 1653 albuterol 90 mcg/actuation inhaler 2 puff 2 puff, inhalation, Every 6 hours PRN, wheezing, shortness of breath, Starting on 03/24/24 at 2148 0957 (Given - Provider: Ileana Ambriz R.N.) 1152 (Given - Provider: Oswaldo Sequeira R.N.) D5W infusion 1-999 mL/hr, intravenous, As needed, Medications Incompatible with 0.9% NaCL, Starting on 03/24/24 at 2142, Infuse at the same rate as the piggyback until tubing clears or up to a volume of 20 mL pre and post infusion for medications incompatible with 0.9% NaCL. Use 50 mL bag then discard. heparin flush 500 Units 500 Units, intra-catheter, As needed, line care, Starting on Mon03/26/24 at 0948, When IVAD accessed and not infusing: When no infusion to maintain patency flush every 7 days following NaCL flush. 5 mL (500 units) of Heparin 100 units/mL to each port/lumen. When IVAD not accessed or infusing: When no infusion to maintain patency flush every 28 days following NaCL flush. 5 mL (500 units) of Heparin 100 units/mL to each port/lumen. 181 (Given - Provid er: Oswaldo Sequeira R.N.) NaCl 0.9% infusion 1-999 mL/hr, intravenous, As needed, Between Consecutive Piggyback Medications, Starting on 03/24/24 at 2142, Infuse at the same rate as the piggyback until tubing clears or up to a volume of 20 mL. Select for IV medication administration when no maintenance IV available or when IV medications are not compatible with maintenance fluid. NaCl 0.9% infusion 1-999 mL/hr, intravenous, As needed, Post Medications (Hazardous/Low Fluid Volume), Starting on [place] 03/24/24 at 2142, Infuse at the same rate as the medication until tubing cleared of medication, then discard. NaCl 0.9% infusion 20-500 mL/hr, intravenous, Once as needed, Between Units of Blood Products, Starting on Mon03/26/24 at 1216, For 1 dose, Infuse at the same rate as the blood infusion until tubing cleared. Nurse may reduce rate to 20 mL/hour or as otherwise directed until next blood infusion arrives then discontinue when infusion complete. ondansetron tablet 8 mg (Zofran) 8 mg, oral, Every 8 hours PRN, nausea, vomiting, unrelieved by prochlorperazine, Starting on Mon03/23/24 at 1657, For 260 days prochlorperazine tablet 10 mg (Compazine) 10 mg, oral, Every 6 hours PRN, nausea, vomiting, Starting on Mon03/23/24 at 1657, For 260 days sodium chloride 0.9 % injection 10 mL 10 mL, intravenous, As needed, line care, Starting on Mon03/23/24 at 1651, Peripheral Intravenous Catheter and Rapid Infusion Catheter, prior to blood sampling, post blood transfusion or post blood sampling sodium chloride 0.9 % injection 10-20 mL 10-20 mL, intra-catheter, As needed, line care, Starting on Mon03/26/24 at 0948, When IVAD accessed and infusing: Flush prior to and following infusion, between multiple consecutive infusions. 10 mL to each port/lumen. sodium chloride 0.9 % injection 20-40 mL 20-40 mL, intra-catheter, As needed, line care, Starting on Mon03/26/24 at 0948, When IVAD accessed and infusing: Flush prior to blood sampling, post blood transfusion or post blood sampling. 20 mL to each port/lumen. sodium chloride 0.9 % injection 3 mL 3 mL, intravenous, As needed, line care, Starting on [facility] 03/23/24 at 1651, Prior to and following infusion and between multiple consecutive infusions: sodium chloride 0.9 % injection documented in this encounter Additional Health Concerns Infection Onset Date Last Indicated Resolved Time Protective Environment 12/18/2023 12/18/202303/30 5:34 AM CDT COVID19 Pending 03/23/2024 03/23/2024 03/23/2024 8 :45 AM CDT C. difficile 03/24/2024 03/24/2024 04/21/2024 5:37 AM CDT documented as of this encounter Care Teams Insurance Counsel Relationship Specialty Start Date End Date Elsewhere, Pcp PCP - General Internal Medicine 03/23/24 documented as of this encounter
--- OUTSIDE RECORDS SUMMARY | 2024-06-25 11:55 | XMS_ITS | Encounter Summary ---
Author Organization [facility] Address [address] [place] [address] Care Team Providers Care Tech Writer Name Role Phone Elsewhere, Pcp Primary Care Provider Unavailabl e Encounter Details Date Type Department Care Team (Latest Contact Info) Description 04/11/2024 3:00 PM CDT Office Visit Department of Oncology in [place], [place] [address] [place] [phone] Luzma [place] M.D. 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 Not very hard 01/27/2023 [facility] [place] of Occupat ional Health - Occupational Stress [...] your living situation today? I have a [facility] place to live 03/31/2024 Education Answer [...] Sign Reading Time Taken Comments Blood Pressure 143/81 04/11/2024 2:47 PM CDT Pulse 66 04/11/2024 2:47 PM CDT Temperature 35.6 ??C (96.1 ??F) 04/11/2024 2:47 PM CD T Respiratory Rate 15 04/11/2024 2:47 PM CDT Oxygen Saturation 89% 04/11/2024 2:47 PM CDT & 92% Inhaled Oxygen Concentration - - Weight 107 kg (235 lb 10.8 oz) 04/11/2024 2:47 P M CDT Height 183.5 cm (6' 0.24) 04/11/2024 2:47 PM CD T Body Mass Index 31.75 04/11/2024 2:47 PM CDT documented in this encounter Progress Notes * Luzma [place] M.D. - 04/11/2024 3:00 PM CDT Medical Oncology Return Visit [facility] [place] [facility] Paddy Jha P.A.-C., M.S. Luzma [place] M.D. CHIEF COMPLAINT / REASON FOR VISIT Rin Cho is a 78 y.o. 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 INTERVAL HISTORY Rin Cho returns for follow up today. He has felt stable since hospital discharge. He continues to require NC 2L at rest and 6L on exertion. He reports having intermittent prodcutive coughin the morning and loose bowel movements about twice a day. He has noticed tarry black stool over the past few days. He continues to have a mild pain in the lower abdomen which appears somewhat position dependent. Review of system is negative for fever, chills, chest pain, hematochezia, or worsening numbness/tingling in the fingers and toes. HISTORY OF PRESENT ILLNESS Oncology History Oncology [...] Chemotherapy Ramucirumab / PACLitaxel Start Date: 02/14/2024 Past medical/surgical history, allergies and current medications were reviewed. REVIEW OF SYSTEMS Constitutional: Positive for fatigue. - Negative for fever. Respiratory: - Negative for shortness of breath. Cardiovascular: - Negative for chest pain, pressure or tightness, swelling in the legs or feet and rapid or fluttering heart beat. Gastrointestinal: Positive for abdominal (belly) pain or cramping. - Negative for blood in stool, constipation, diarrhea and difficulty swallowing. Neurological: Positive for numbness or shooting pain in hands, arms, legs, or feet. Rate your distress: 4 (waiting for results) PHYSICAL EXAM Vitals: 04/11/24 1447 BP: 143/81 BP Location: Left arm Patient Position: Sitting Cuff Size: Regular Pulse: 66 Resp: 15 Temp: (!) 35.6 ??C TempSrc: Tympanic SpO2: (!) 89% Weight: 107 kg Height: 183.5 cm Constitutional Appearance: Normal [...] in the setting of C diff colitis. We reviewed patient's history, symptoms, and test results in detail today. His blood counts are relatively stable. He received 1u RBC on the day of hospital discharge (03/26, hgb 8.2 prior to discharge). Clinically, he appears stable. He reports having tarry/black stools over the past few days. So far, he has only received 1 cycle of RAMTAX with the dose of treatment given on 02/27. Subsequent treatment was delayed due to neutropenia, melena, and cough, which did not improve with empirical antibiotics. He was eventually admitted to the hospital on 03/23/24. Since hospital discharge, he has completed oral vancomycin for C diff colitis and has a stable oxygen requirement. We discussed that the dark stools are concerning for melena. Although hgb is relatively stable, I am uncertain whether he is losing blood from the primary gastric cancer vs colitis. He still has mild pain in the lower abdomen. This is intermittent and position dependent. He does not feel that he is retaining urine. We will continue to observe for now. He will take Tylenol for pain as needed. We had an honest discussion about the prognosis and treatment options. He expressed a strong desireto continue systemic therapy. CT scans on 03/23 revealed overall stable tumor burden with mildly worsening peritoneal disease. I think it is reasonable to continue current regimen. I am planning to bring him back next week. If his CBC and CMP are stable, we will resume paclitaxel alone as ramucirumabmay further increase his risk of bleeding. However, if his anemia worsens, we will not resume chemotherapy. Instead, we will discuss potential work up that will include EGD and colonoscopy for bleeding. Patient and family understood and agreed with [...] of this encounter Results * Bilirubin, Direct (04/16/2024 11:39 AM CDT) Bilirubin, Direct, S <0.2 0.0 - 0.3 mg/dL 04/16/2024 12:36 PM CDT DTL Blood (Blood, Venous) 04/16/2024 11:39 AM CDT 04/16/2024 12:18 PM CDT Luzma [place] M.D. LAB BLOOD ADD-ON [facility] [address] [place] [address], [facility] DTL [facility] [address] [place] [address] * (ABNORMAL) Comprehensive Metabolic Panel (04/16/2024 11:39 [...] CDT Luzma [place] M.D. LAB BLOOD ADD-ON [facility] [address] [place] [address], [facility] [address] [place] [address] * (ABNORMAL) CBC with Differential, Blood (04/16/2024 11:39 AM CDT) Hemoglobin 8.4(L) 13.2 - 16.6 g/dL 04/16/2024 [...] - 6.45 x10(9)/L 04/16/2024 12:16 PM CDT DHPM Lymphocytes 0.57(L) 0.95 - 3.07 x10(9)/L 04/16/2024 12:16 PM CDT DTL Monocytes 0.72 0.26 - 0.81 x10(9)/L 04/16/2024 12:16 PM CDT DTL Eosinophils 0.27 0.03 - 0.48 x10(9)/L 04/16/2024 12:16 PM CDT DTL Basophils 0.04 0.01 - 0.08 x10(9)/L 04/16/2024 12:16 PM CDT DTL Blood (Blood, Venous) 04/16/2024 11:39 AM CDT 04/16/2024 12:01 PM CDT Luzma [place]ell M.D. LAB BLOOD ADD-ON [facility] [address] [place] [address], [facility] DTL [facility] [address] [place] [address] DHPM [facility] [address] [place] [address] documented in this encounter Visit Diagnoses Diagnosis Malignant Neoplasm Of Gastroesophageal Junction (HCC)- Primary Chronic Respiratory Failure With Hypoxia (HCC) documented in this encounter Additional Health Concerns Infection Onset Date Last Indicated Resolved Time C. difficile 03/24/2024 03/24/2024 04/21/2024 5:37 AM CDT documented as of this encounter Care Teams Tech Writer Relationship Specialty Start Date End Date Elsewhere, Pcp PCP - General Internal Medicine 03/23/24 documented as of this encounter
--- OUTSIDE RECORDS SUMMARY | 2024-06-25 11:55 | XMS_ITS | Encounter Summary ---
Author Organization [facility] Address [address] [place] [id number] Care Team Providers Care Access Clinician Name Role Phone Elsewhere, Pcp Primary Care Provider Unavailabl e Reason for Visit * Outpatient (Routine) - Closed Specialty Diagnoses / Procedures Referred By Fabian hernández Referred To Contact Pulmonary Medicine Diagnoses Fibrosis Pulmonary (HCC) Edgardo Joy D.O. [address] [place] [phone] Edgardo Joy D.O. [address] [place] [phone] Referral ID Status Reason Start Date Expiration Date Visits Re quested Visits Authorized [id number] Closed 03/28/2024 09/27/2025 1 1 Encounter Details Date Type Department Care Team (Late st Contact Info) Description 04/05/2024 12:00 PM CDT Office Visit Division of Pulmonary Medicine in [place], [place] [address] [place] [phone] Edgardo Joy D.O. [address] [place] [phone] Chronic Cough (Primary Dx); Fibrosis Pulmonary (HCC) Social History Tobacco Use Types Packs/Day Years Used Date Smoking Tobacco: Former Cigarettes 2.5 30.1 0 09/18/1965 - 11/01/1995 Passive Smoke Exposure: Never Smokeless Tobacco: Never Alcohol Use Standard Drinks/Week Comments Not Currently 1 (1 standard drink = 0.6 oz pur e alcohol) drink on special occasions [facility] Utilities Answer Date Recorded In the [...] care, and heating? Not very hard 01/27/2023 [facility] of Occupat ional Health - [...] - Respiratory Rate - - Oxygen Saturation 83% 04/05/2024 11:50 AM CDT Inhaled Oxygen Concentration - - Weight - - Height - - Body Mass Index - - documented in this encounter Progress Notes * Edgardo Joy, D.Alexi. 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 He was admitted to the inpatient Medical Oncology Service from 03/23 to 03/26 for dyspnea on exertion, cough, increasing fatigue and diarrhea. He was diagnosed with C diff colitis and started on oral vancomycin. It was thought that his worsening dyspnea on exertion was due to acute blood loss anemia. Of note he was previously seen by his Oncologist Dr. Kowalski who started him on Cefdinir 300 mg BID for 7 days for presumed pneumonia. His CXR on 03/13 did not show any consolidations but did show a small right sided pleural effusion. He underwent right sided thoracentesis and had 625 mL removed on 02/20 and his cytology was positive for metastatic adenocarcinoma. He was previously using 2 L of oxygen at rest and overnight and 4 L of oxygen with activity. It wasdetermined by respiratory therapy inpatient, that he would require 6 L of oxygen. His oxygen titration study showed that he requires 2 L of oxygen at rest and 6 L with exertion. He has noticed a cough since the middle of February, that he describes as a dry cough that comes on without noticed. He does state that sometimes it occurs when he is talking. He has not been coughing anything up and cough was not 1 of the predominant some problems of his CPFE. Although he has been treated for pneumonia, he has never had any overt consolidations on imaging. He does state that cough drops do help with his cough at times but his cough can be embarrassing for him if it comes on in public. He does his best to stay hydrated to help with it as well. OBJECTIVE Vitals: 04/05/24 1150 SpO2: (!) 83% General: male in no acute distress and pleasant with conversation. HEENT: Normocephalic, atraumatic with nasal cannula in place. CV: Regular rate and rhythm. S1 and S2 normal. Resp: Nonlabored respirations on 2L. GI: Soft, nondistended. : Deferred. Skin: Warm, dry. No visible rashes. Nails: Visible clubbing noted. Extremities: Warm, well perfused. No deformities or joint swelling. Neuro: No focal deficits. Mental status intact. Psych: Alert, oriented. 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 Plan Supplemental oxygen of 2L at rest with 6L with exertion. Prescription faxed to [facility] and mailed to patient. Overnight oximetry ordered for possible adjustment of Nightime oxygen prescription Tetracaine lollipop prescription sent to mail order pharmacy for cough relief. Continue Anoro Follow up in one month. We will coordinate appointment with his Oncology visits. We will review all chest imaging ordered by Oncology. Patient requested to let me know if he has chest imaging via portal. I spent 50 minutes with the patient and his family and greater than 50% of the time was spent discussing the above concerns. Case to be discussed with Dr. Perry. Edgardo Joy DO Pulmonary & Critical Care Medicine Fellow Pager: [phone] documented in this encounter Plan of Treatment Not on file documented as of this encounter Results * PUL Home Overnight Oximetry (04/11/2024) 04/11/2024 Impressions SALMA LOVING - 04/12/2024 3:50 PM CDT Despite supplemental oxygen, there is persistence of baseline and positional gas exchange abnormality. Physician: Stan Romero M.D. [id number] Narrative Procedure Note Stan Romero M.D. - 04/12/2024 IMPRESSION: Despite supplemental oxygen, there is persistence of baseline andpositional gas exchange abnormality. Physician: Stan Romero M.D. [id number] Edgardo Joy D.O. PFT ORDERABLES [facility] documented in this encounter Visit Diagnoses Diagnosis Chronic Cough- Primary Fibrosis Pulmonary (HCC) Fibrosis Pulmonary (HCC) Chronic Cough documented in this encounter Additional Health Concerns Infection Onset Date Last Indicated Resolved Time C. difficile 03/24/2024 03/24/2024 04/21/2024 5:37 AM CDT documented as of this encounter Care Teams Access Clinician Relationship Specialty Start Date End Date Elsewhere, Pcp PCP - General Internal Medicine 03/23/24 documented as of this encounter
--- OUTSIDE RECORDS SUMMARY | 2024-06-25 11:55 | XMS_ITS | Encounter Summary ---
Author Organization [facility] Address [address] [place] [address] Care Team Providers Care Respiratory Supervisor Name Role Phone Elsewhere, Pcp Primary Care Provider Unavailabl e Reason for Visit * Reason Onset Date Comments [facility] 04/05/2024 Encounter Details Date Type Department Care Team (Late st Contact Info) Description 04/05/2024 Clinical Communication Division of Pulmonary Medicine in [place], [place] [address] [place] [phone] Edgardo Joy, DJamO. [address] [place] [phone] [facility] Social History Tobacco Use Types Packs/Day Years Used Date Smoking Tobacco: Former Cigarettes 2.5 30.1 0 09/18/1965 - 11/01/1995 Passive Smoke Exposure: Never Smokeless Tobacco: Never Alcohol Use Standard Drinks/Week Comments Not Currently 1 (1 standard drink = 0.6 oz pur e alcohol) drink on special occasions [facility] Utilities Answer Date Recorded In the past 12 months has th e [employer], gas, oil, or water company threatened to [...] How often do you attend chur or congregation services? More than 4 times per year 01/27/2023 Do you belong to any clubs o r organizations such as anabaptist groups, unions, fraternal or athletic groups, or [...] care, and heating? Not very hard 01/27/2023 [facility] [place] of Occupat ional Health - Occupational Stress [...] encounter Miscellaneous Notes * Telephone Encounter - Valerie Anderson - 04/05/2024 2:55 PM CDT Pulmonary Note: Release of Information Items: Oxygen Rx and DME Justification; oxygen titration results 04/05/24 To: [facility] Method: Sent under Letters tab in [employer] documented in this encounter Plan of Treatment Not on file documented as of this encounter Visit Diagnoses Not on filedocumented in this encounter Additional Health Concerns Infection Onset Date Last Indicated Resolved Time C. difficile 03/24/2024 03/24/2024 04/21/2024 5:37 AM CDT documented as of this encounter Care Teams Respiratory Supervisor Relationship Specialty Start Date End Date Elsewhere, Pcp PCP - General Internal Medicine 03/23/24 documented as of this encounter
--- OUTSIDE RECORDS SUMMARY | 2024-06-25 11:55 | XMS_ITS | Encounter Summary ---
Author Organization [facility] Address [address] [place] [address] Care Team Providers Care Child Care Team Lead Name Role Phone Elsewhere, Pcp Primary Care Provider Unavailabl e Encounter Details Date Type Department Care Team (Late st Contact Info) Description 04/05/2024 Clinical Communication Division of Pulmonary Medicine in [place], [place] [address] [place] [phone] Edgardo Joy D.O. [address] [place] [phone] Social History Tobacco Use Types Packs/Day Years Used Date Smoking Tobacco: Former Cigarettes 2.5 30.1 0 09/18/1965 - 11/01/1995 Passive Smoke Exposure: Never Smokeless Tobacco: Never Alcohol Use Standard Drinks/Week Comments Not Currently 1 (1 standard drink = 0.6 oz pur e alcohol) drink on special occasions [facility] Utilities Answer Date Recorded In the [...] heating? Not very hard 01/27/2023 [facility] [place] of Occupat ional Health - Occupational Stress [...] your living situation today? I have a [facility] place to live 03/31/2024 Education [...] - Alanna Dixon, R.R.T., L.R.T. - 04/05/2024 11:26 AM CDT DME Medical Justification: Oxygen A [id number] encounter was conducted on 04/05/[address] Joy to evaluate Rin Chofor oxygen and accessories. Rin Cho is being treated for Pulmonary Fibrosis and is expected to improve with oxygen therapy. Alternate treatments have been considered and deemed clinically ineffective. Rin was not in the hospital at the time of the test. he was in a stable condition at the time of the testing. The patient was at rest and exercising at the time of the test. The highest oxygen flow rate for this patient is 6 liters per minute. Rin's oxygen saturation was90 % at the time of testing. The most recent oxygen saturation was 90 %. Rin is mobile in his home. he was not tested on a conserver or portable oxygen concentrator to maintain oxygen saturation greater than or equal to 90%. Rin does have continued medical need for patient owned medical equipment this order is an accessory to. documented in this encounter Plan of Treatment Not on file documented as of this encounter Visit Diagnoses Diagnosis Fibrosis Pulmonary (HCC)- Primary documented in this encounter Additional Health Concerns Infection Onset Date Last Indicated Resolved Time C. difficile 03/24/2024 03/24/2024 04/21/2024 5:37 AM CDT documented as of this encounter Care Teams Child Care Team Lead Relationship Specialty Start Date End Date Elsewhere, Pcp PCP - General Internal Medicine 03/23/24 documented as of this encounter
--- OUTSIDE RECORDS SUMMARY | 2024-06-25 11:55 | XMS_ITS | Encounter Summary ---
Author Organization [facility] Address [address] [place] [address] Care Team Providers Care Apparel Designer Name Role Phone Elsewhere, Pcp Primary Care Provider Unavailabl e Reason for Visit * Reason Onset Date Comments Pre-visit Intake 04/03/2024 Encounter Details Date Type Department Care Team (Latest Contact Info) Description 04/03/2024 10:30 AM CDT Clinical Communication Virtual Review in [place], [place] [address] [place] [phone] Pre-visit Intake Social History Tobacco Use Types Packs/Day Years Used Date Smoking Tobacco: Former Cigarettes 2.5 30.1 0 09/18/1965 - 11/01/1995 Passive Smoke Exposure: Never Smokeless Tobacco: Never Alcohol Use Standard Drinks/Week Comments Not Currently 1 (1 standard drink = 0.6 oz pur e alcohol) drink on special occasions [facility] Utilities Answer Date Recorded In the past 12 months has e [employer], gas, oil, or water [employer] threatened to shut off services in your [...] How often do you attend chur or mandaen services? More than 4 times per year [...] and heating? Not very hard 01/27/2023 [facility] of Occupat ional Health - [...] your living situation today? I have a [facility] place to live 03/31/2024 Education [...] documented as of this encounter Care Teams Apparel Designer Relationship Specialty Start Date End Date Elsewhere, Pcp PCP - General Internal Medicine 03/23/24 documented as of this encounter
--- OUTSIDE RECORDS SUMMARY | 2024-06-25 11:56 | XMS_ITS | Encounter Summary ---
Author Organization [facility] Address [address] [place] [address] Care Team Providers Care Human Resources Safety Manager Name Role Phone Unavailable Primary Care Provider Unavailabl e Encounter Details Date Type Department Care Team (Late st Contact Info) Description 03/22/2024 E-Visit Department of Oncology in [place], [place] [address] [place] [address] Marco Antonio Kowalski M.D. [address] [place] [address] Symptom Management and test results Social History Tobacco Use Types Packs/Day Years Used Date Smoking Tobacco: Former Cigarettes 2.5 30.1 0 09/18/1965 - 11/01/1995 Passive Smoke Exposure: Never Smokeless Tobacco: Never Alcohol Use Standard Drinks/Week Comments Yes 1 (1 standard drink = 0.6 oz pur e alcohol) drink on special occasions [facility] Utilities Answer Date Recorded In the past 12 months has e electric, gas, oil, or water company threatened to shut off services in your home? No 03/23/2024 Humiliation, Afraid, Rape, and Kick questionnair e Answer Date Recorded Within the last year, have y ou been afraid of your partner or ex-partner? No 01/27/2023 Within the last year, have y ou been humiliated or emotionally abused in other ways by your partner or ex-partner? No Within the last year, have y ou been kicked, hit, slapped, or otherwise physically hurt by your partner or ex-partner? No 01/27/2023 Within the last year, have y ou been raped or forced to have any kind of sexual activity by your partner or ex-partner? No 01/27/2023 Social Connection and Isolat ion Panel [NHANES] Answer Date Recorded In a typical week, how many times do you talk on the phone with family, friends, or neighbors? Three times a week 01/27/2023 How often do you get togethe r with friends or relatives? Once a week 01/27/2023 How often do you attend chur or pentecostal services? More than 4 times per year 01/27/2023 Do you belong to any clubs o r organizations such as synagogue groups, unions, fraternal or athletic groups, or [...] and heating? Not very hard 01/27/2023 [facility] Cylinder of Occupat ional Health - Occupational Stress [...] your living situation today? I have a [facility] place to live 03/23/2024 Education Answer Date [...] as of this encounter Progress Notes * Marco Antonio Kowalski M.D. - 03/22/2024 5:31 PM CDT PHONE VISIT This was conducted to discuss the patient's questions which were sent to us via portal. He has been having a number of new and or persistent symptoms since our last visit. As background, I saw him most recently on 03/13/2024, and I prescribed a 7 day course of cefdinir for presumed pneumonia based on a new cough and slight worsening shortness of breath. He indicates today that the antibiotic only slightly improved his dry cough and shortness of breath. His O2 requirement at home remains stable at 2 L. He continues to be afebrile. COVID testing was recently negative. Of note he had a right-sided thoracentesis on 02/21/2024 yielding 625 cc, with cytology showing metastatic adenocarcinoma. The 2nd issue is his prior melena, but now his stool has become supervisor winter and is now light brown. It is looser but not watery. No hematochezia. Of note his stool testing from last week returned positive for blood. He was on Eliquis for a right-sided DVT diagnosed June 2023. A 3rd issue is that he has been having a lower abdominal pain for the last 3 or 4 days, and it has been 5/10 pain for most of the time, sometimes decreasing to 2/10. It is worse with eating. As he was speaking with me on the phone, he does not appear to be in distress. He was taken some Tylenol andantiemetics which have not helped greatly. He has not taken any opioids. A 4th issue is that he has noticed some fuzziness in his vision when driving. I am concerned that it will be very challenging to address the above constellation of symptoms in atimely manner as an outpatient. I am away next week. Today is Monday evening at 5:50 p.m. Therefore I recommended that he come to the [facility] Emergency Department tomorrow morning if his symptoms persist. I recommend that the ED perform the following initial workup at a minimum, with potentially furtherworkup depending on the initial results: Vitals and exam especially respiratory, cardiac, and abdominal CXR CBC Consider new ABX for respiratory symptoms Consider CT abdomen pelvis if there is concern for neutropenic enterocolitis Consider to hold eliquis if his melena recurs or if his hemoglobin is very low I asked him if he had any other questions and he expressed understanding appreciation and agreement. 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
--- OUTSIDE RECORDS SUMMARY | 2024-06-25 11:56 | XMS_ITS | Clinical Summary ---
Author Organization [facility] Address [place], [place] [address] Care Team Providers Care Wood Heel Flap Trimmer Name Role Phone Annie Layton MD Primary Care Provider [phone] Allergies No known active allergies Medications Medication Sig Dispensed Refills Start Date End Date Status albuterol HFA (PRO-AIR,VENTOLIN,PRO VENTIL) 90 mcg/actuation inhaler Inhale 2 Puffs by mouth 4 times daily if needed. Active multivitamins-mineral s-lutein (Multivitamin 50 Plus) tab tablet Take 1 Tablet by mouth once daily. Active omeprazole (PRILOSEC) 20 mg Delayed-Release capsule Take 20 mg by mouth once daily before a meal. Active tamsulosin (FLOMAX) 0.4 mg capsule Take 0.4 mg by mouth once daily after a meal. Active umeclidinium-vilanter oL (Anoro Ellipta) 62.5-25 mcg/actuation inhaler Inhale 1 Puff by mouth once daily. Discard inhaler 6 weeks after opening or when the counter reads '0' (after all blisters have been used), whichever comes first. Active Social History Tobacco Use Types Packs/Day Years Used Date Smoking Tobacco: Never Assessed Sex and Gender Information Value Date Recorded Sex Assigned at Not on file Gender Identity Not on file Sexual Orientation Not on file Last Filed Vital Signs Vital Sign Reading Time Taken Comments Blood Pressure 140/80 02/21/2023 5:00 PM CDT Pulse - - Temperature - - Respiratory Rate 20 02/21/2023 5:00 PM CDT Oxygen Saturation 92% 02/21/2023 5:00 PM CDT Inhaled Oxygen Concentration - - Weight 120.8 kg (266 lb 4.8 oz) 02/21/2023 5:00 PM CDT Height 182.9 cm (6') 02/21/2023 5:00 PM CDT Body Mass Index 36.12 02/21/2023 5:00 PM CDT Plan of Treatment Health Maintenance Due Date Last Done Comments Tdap 1957 BMI (ht and wt on same day) for age 18+ 1964 Hepatitis C screening for ag e 18-79 1964 Tetanus booster 1966 Zoster (shingles) series for age 50+ (1 of 2) 1996 Pneumococcal series for age 65+ (1 of 1 - PCV) 2011 RSV vaccine for adults or (1 - 1-dose 75+ series) 2021 COVID-19 vaccine series ( season) 2024 05/19/2023, 06/09/2022, 01/26/2022, Additional history exists Influenza for age 65+ 05/19/2024 Depression screening for age 12+ 09/20/2024 09/20/2023, 02/24/2023, 02/22/2023, Additional history exists Care Teams Wood Heel Flap Trimmer Relationship Specialty Start Date End Date Annie Layton MD [address] [place] [address] PCP - General Internal Medicine 11/01/18
--- OUTSIDE RECORDS SUMMARY | 2024-06-25 11:56 | XMS_ITS | Encounter Summary ---
Author Organization [facility] Address [address] [place] [address] Care Team Providers Care Percolator Operator Name Role Phone Elsewhere, Pcp Primary Care Provider Unavailabl e Encounter Details Date Type Department Care Team (Late st Contact Info) Description 11/01/2018 [facility] [address] [place] [address] Annie Layton M.D. [address] [place] [id number] Obstructive Sleep Apnea Adult (Primary Dx) Social History Tobacco Use Types Packs/Day Years Used Date Smoking Tobacco: Former Cigarettes Q uit: 02/19/1997 Smokeless Tobacco: Never Sex and Gender Information Value Date Recorded Sex Assigned at Male 12/17/2018 8:13 PM CDT Gender Identity Male 12/17/2018 8:13 PM CDT Sexual Orientation Straight 12/17/2018 8: 13 PM CDT documented as of this encounter Plan of Treatment Not on file documented as of this encounter Visit Diagnoses Diagnosis Obstructive Sleep Apnea Adult- Primary documented in this encounter Additional Health Concerns Infection Onset Date Last Indicated Resolved Time COVID19 Pending 03/09/2020 03/09/2020 03/10/2020 1 1:03 AM CDT COVID19 Pending 04/05/2021 04/05/2021 04/05/2021 1 0:55 AM CDT COVID19 Pending 04/15/2022 04/15/2022 04/16/2022 1 2:17 AM CDT Protective Environment 05/29/2023 05/29/202307/28 6:04 AM PROTECTION MANAGER Protective Environment 12/18/2023 12/18/202303/30 5:34 AM CDT COVID19 Pending 03/13/2024 03/13/2024 03/13/2024 6 :09 PM CDT COVID19 Pending 03/23/2024 03/23/2024 03/23/2024 8 :45 AM CDT C. difficile 03/24/2024 03/24/2024 04/21/2024 5:37 AM CDT Protective Environment 04/17/2024 04/17/202405/19 5:39 AM CDT C. difficile 05/02/2024 05/02/2024 05/30/2024 5:54 AM CDT documented as of this encounter Care Teams Percolator Operator Relationship Specialty Start Date End Date Elsewhere, Pcp PCP - General Internal Medicine 03/23/24 documented as of this encounter
[2024-06-25 13:04] LABS: Basophils Absolute Auto 0.04 K/uL (0.00-0.30); Basophils Percent Auto 0.4 % (0.0-3.0); Hematocrit 17.7 % (37.0-53.0); Immature Granulocytes Abs Auto 0.03 K/uL (0.00-0.30); Immature Granulocytes Pct Auto 0.3 %; Lymphocytes Percent Auto 6.1 % (20-44); Mean Corpuscular HGB Conc 29 gm/dL (32-36); Mean Corpuscular Hemoglobin 23 pg (26-34); Mean Corpuscular Volume 81 fL (80-100); Monocytes Percent Auto 10.3 % (0.0-11.0); Neutrophils Percent Auto 81.9 % (42.0-72.0); Platelet Count* 387 K/uL (140-440); RDW Coefficient of Variation % 18.7 % (11.5-15.5); Red Blood Count 2.18 m/uL (4.30-5.90); White Blood Count* 9.62 K/uL (4.50-11.00)
[2024-06-25 13:17] LABS: Chloride* 106 mmol/L (96-114); Sodium* 137 mmol/L (135-149)
[2024-06-25 13:20] LABS: Anion Gap 5 mEq/L (7-15); Blood Urea Nitrogen* 23 mg/dL (7-30); Carbon Dioxide* 26 mmol/L (20-32); Creatinine* 0.7 mg/dL (0.5-1.5); Est. Creatinine Clearance* 64.84; Estimated Glomerular Filt Rate 94 ml/min; Glucose* 104 mg/dL (60-115)
[2024-06-25 13:21] LABS: Calcium* 8.6 mg/dL (8.4-10.6)
[2024-06-25 13:26] LABS: Hemoglobin* 5.1 gm/dL (13.5-17.5)
[2024-06-25 13:27] LABS: Slide Review Reflex No
[2024-06-25] MEDS: 0.9 % SODIUM CHLORIDE 250 ml IV (15:45)
[2024-06-25] MEDS: OXYCODONE 5 MG TABLET PO (17:34)
[2024-06-25] MEDS: HEPARIN 500 UNIT/5 ML SYRINGE IVF (19:16)
== END 2024-06-25 20:09 | disposition home or self-care (01) ==
PROVIDERS: Emergency Provider Emergency Medicine; PCP Internal Medicine
DX: S09.90XA Unspecified injury of head, initial encounter (principal); M25.512 Pain in left shoulder; M25.552 Pain in left hip; D64.9 Anemia, unspecified; R53.1 Weakness; W01.0XXA Fall on same level from slipping, tripping and stumbling without subsequent striking against object, initial encounter; Y93.9 Activity, unspecified; Y92.531 Health care provider office as the place of occurrence of the external cause
CPT/HCPCS: 36415; 36430; 73030; 73502; 80048; 85025; 86850; 86900; 86901; 86922; 96374; 99284; 99285; A9270; J1642; J7050; P9016